=== PATIENT | male | born 1950 | race Caucasian/White ===

== ENCOUNTER 2021-05-10 09:40 | Inpatient (IN) | payer MEDICARE, OTHER ==
--- NOTE | 2021-05-10 09:54 | EDM.PDOC ---
ED HPI GENERAL MEDICAL PROBLEM - General Chief Complaint: Respiratory Problem Stated Complaint: BLUE AROUND LIPS Time Seen by Provider: 05/10/21 09:42 Source of Information: Reports: Patient History Limitations: Reports: No Limitations - History of Present Illness INITIAL COMMENTS - FREE TEXT/NARRATIVE: Hussain is a 71-year-old male presenting to the ED with his son by private vehicle for evaluation of increasing hypoxia, shortness of breath, and perioral cyanosis. The patient presented to the [facility] on 05/08/2021 and was seen by Linwood Kulkarni who diagnosed him with acute sinusitis and started him on Augmentin. At the time of that visit the patient had a COVID-19 test which resulted on 05/09/2021 as positive. Patient was notified of this and advised on what signs to watch for. This morning the patient started having perioral cyanosis, increasing shortness of breath and more air hunger. The patient has not had any appetite and has been sleeping most of the day so he has not been taking in much in the way of nutrition for the last several days. He called the [facility] nurse triage line who recommended that he be seen right away in the emergency room. Upon arrival, the patient's SPO2 is only 86% on room air and the patient is mildly tachypneic with a respiratory rate of 24. He is afebrile at this time. Patient did get vaccinated for Covid with the Pfizer vaccine in August and September of this year. It does not appear that he has received a booster at time. Or discussions with the patient about monoclonal therapy, however, no order has been placed for this at this time. Generalized Pain Score (Numeric/FACES): 8 - Related Data Allergies Allergy/AdvReac Type Severity Reaction Status Date / Time amitriptyline AdvReac Lethargy Verified 05/10/21 10:36 duloxetine AdvReac Other Verified 05/10/21 10:36 Home Meds: Home Meds Amoxicillin/Potassium Clav [Amox Tr-K Clv 875-125 mg Tab] 1 each PO BID 05/10/21 [History] Aspirin [Halfprin] 81 mg PO DAILY 05/10/21 [History] Gabapentin [Neurontin] 100 mg PO BID 05/10/21 [History] ED ROS GENERAL - Review of Systems Review Of Systems: See Below Constitutional: Reports: Fever, Chills, Malaise, Weakness, Fatigue, Decreased Appetite HEENT: Reports: Rhinitis, Sinus Problem Respiratory: Reports: Shortness of Breath, Cough. Denies: Sputum Cardiovascular: Reports: Chest Pain Endocrine: Reports: Fatigue GI/Abdominal: Reports: Decreased Appetite. Denies: Diarrhea, Nausea, Vomiting : Reports: No Symptoms Musculoskeletal: Reports: Muscle Pain Skin: Reports: Cyanosis Neurological: Reports: Headache Psychiatric: Reports: No Symptoms Hematologic/Lymphatic: Reports: No Symptoms Immunologic: Reports: No Symptoms ED EXAM, GENERAL - Physical Exam Exam: See Below Exam Limited By: No Limitations General Appearance: Alert, Anxious, Mild Distress Eye Exam: Bilateral Eye: EOMI, PERRL Nose: Nasal Swelling, Nasal Drainage, Clear Rhinorrhea Throat/Mouth: Normal Oropharynx, Normal Voice, No Airway Compromise, Perioral Cyanosis Head: Atraumatic, Normocephalic Neck: Normal Inspection, Supple, Non-Tender Respiratory/Chest: No Accessory Muscle Use, Decreased Breath Sounds (Diminished breath sounds in the bases), Rhonchi (Scattered rhonchi in the bottom half of the lungs), Other (Tachypnea) Cardiovascular: Normal Peripheral Pulses, Regular Rate, Rhythm, No Murmur Peripheral Pulses: 2+: Radial (L), Radial (R) GI/Abdominal: Soft, Non-Tender, Abnormal Bowel Sounds (Hyperactive bowel sounds) Extremities: Normal Inspection, No Pedal Edema Neurological: Alert, Oriented, Normal Cognition, No Motor/Sensory Deficits Psychiatric: Normal Affect, Anxious Skin Exam: Warm, Dry, Cyanosis (Perioral cyanosis) Course - Vital Signs Last Recorded V/S: Last Vital Signs Temp 36.9 C 05/10/21 09:48 Pulse 88 05/10/21 10:38 Resp 18 05/10/21 10:38 BP 134/76 05/10/21 10:38 Pulse Ox 97 05/10/21 10:38 - Orders/Labs/Meds Orders: Active Orders 24 hr Category Date Time Status Chest 1V Frontal [CR] Stat Exams 05/10/21 09:48 Taken Labs: Laboratory Tests 05/10/21 05/10/21 05/10/21 Range/Units 10:08 10:08 10:08 WBC 7.2 (4.5-11.0) K/uL RBC 4.42 (4.30-5.90) M/uL Hgb 13.6 (12.0-15.0) g/dL Hct 39.8 L (40.0-54.0) % MCV 90 (80-98) fL MCH 31 (27-31) pg MCHC 34 (32-36) % Plt Count 237 (150-400) K/uL Neut % (Auto) 81.9 H (36-66) % Lymph % (Auto) 11.9 L (24-44) % [place] % (Auto) 5.8 (2-6) % Eos % (Auto) 0.0 L (2-4) % Baso % (Auto) 0.4 (0-1) % D-Dimer, Quantitative 892.52 H (0.0-500.0) ng/mL Sodium 139 L (140-148) mmol/L Potassium 3.5 L (3.6-5.2) mmol/L Chloride 101 (100-108) mmol/L Carbon Dioxide 26 (21-32) mmol/L Anion Gap 15.5 H (5.0-14.0) mmol/L BUN 13 (7-18) mg/dL Creatinine 1.0 (0.8-1.3) mg/dL Est Cr Clr Drug Dosing 57.56 mL/min Estimated GFR (MDRD) > 60 (>60) Glucose 172 H (74-106) mg/dL Lactic Acid (0.4-2.0) mmol/L Calcium 8.5 (8.5-10.1) mg/dL Ferritin 5365 H (8-388) ng/ml Total Bilirubin 0.7 (0.2-1.0) mg/dL AST 54 H (15-37) U/L ALT 49 (12-78) U/L Alkaline Phosphatase 51 (46-116) U/L Lactate Dehydrogenase 427 H (85-227) U/L C-Reactive Protein 13.78 H (0.0-0.3) mg/dL Total Protein 7.2 (6.4-8.2) g/dL Albumin 3.2 L (3.4-5.0) g/dL Globulin 4.0 H (2.3-3.5) g/dL Albumin/Globulin Ratio 0.8 L (1.2-2.2) Procalcitonin ng/mL 05/10/21 05/10/21 Range/Units 10:08 10:08 WBC (4.5-11.0) K/uL RBC (4.30-5.90) M/uL Hgb (12.0-15.0) g/dL Hct (40.0-54.0) % MCV (80-98) fL MCH (27-31) pg MCHC (32-36) % Plt Count (150-400) K/uL Neut % (Auto) (36-66) % Lymph % (Auto) (24-44) % [place] % (Auto) (2-6) % Eos % (Auto) (2-4) % Baso % (Auto) (0-1) % D-Dimer, Quantitative (0.0-500.0) ng/mL Sodium (140-148) mmol/L Potassium (3.6-5.2) mmol/L Chloride (100-108) mmol/L Carbon Dioxide (21-32) mmol/L Anion Gap (5.0-14.0) mmol/L BUN (7-18) mg/dL Creatinine (0.8-1.3) mg/dL Est Cr Clr Drug Dosing mL/min Estimated GFR (MDRD) (>60) Glucose (74-106) mg/dL Lactic Acid 1.5 (0.4-2.0) mmol/L Calcium (8.5-10.1) mg/dL Ferritin (8-388) ng/ml Total Bilirubin (0.2-1.0) mg/dL AST (15-37) U/L ALT (12-78) U/L Alkaline Phosphatase (46-116) U/L Lactate Dehydrogenase (85-227) U/L C-Reactive Protein (0.0-0.3) mg/dL Total Protein (6.4-8.2) g/dL Albumin (3.4-5.0) g/dL Globulin (2.3-3.5) g/dL Albumin/Globulin Ratio (1.2-2.2) Procalcitonin 0.12 ng/mL - Radiology Interpretation Free Text/Narrative:: I reviewed the 1 view chest x-ray showing scattered groundglass opacities bilaterally consistent with acute Covid pneumonitis. - Re-Assessments/Exams Free Text/Narrative Re-Assessment/Exam: 05/10/21 11:29 patient's labs showing a normal CBC with a leukocyte count of 7.2, hemoglobin of 13.6, and platelet count of 237,000. The patient's comprehensive metabolic panel shows a sodium 139, potassium 3.5, chloride of 101, bicarbonate of 26, BUN of 13 with a creatinine of 1.0 and a glucose of 172. GFR is calculated at greater than 60. Calcium is 8.5, AST is 54, ALT is 49. C-reactive protein is markedly elevated at 13.78. D-dimer is 892. Lactic acid is 1.5, LDH is 427, ferritin is 5365 and procalcitonin 0.12. As the patient is Covid positive and shows inflammation via his markers as well as on his chest x- ray, and he is requiring oxygen to maintain saturations above 90%, we will arrange for admission of the patient for further care. I discussed the case with Dr. Valero to admit the patient. We will initiate therapy with dexamethaso ne 6 mg IV and remdesivir 200 mg IV for treatment of COVID-19. Departure - Departure Time of Disposition: 11:33 Disposition: Admitted As Inpatient 67 Clinical Impression: COVID-19, Pneumonia due to COVID-19 virus Respiratory failure with hypoxia Qualifiers: Chronicity: acute Qualified Code(s): J96.01 - Acute respiratory failure with hypoxia - Discharge Information Referrals: PCP,None [Primary Care Provider] - Forms: ED Department Discharge Sepsis Event Note (ED) - Focused Exam Vital Signs: Vital Signs Temp Pulse Resp BP Pulse Ox 05/10/21 10:38 88 18 134/76 97 05/10/21 09:48 36.9 C 90 24 H 145/87 H 84 L - Problem List & Annotations (1) COVID-19 SNOMED Code(s): 792061381 Code(s): U07.1 - COVID-19 Status: Acute Priority: High Current Visit: Yes (2) Respiratory failure with hypoxia SNOMED Code(s): 35264757129898157 Code(s): J96.91 - RESPIRATORY FAILURE, UNSPECIFIED WITH HYPOXIA Status: Acute Priority: High Current Visit: Yes Qualifiers: Chronicity: acute Qualified Code(s): J96.01 - Acute respiratory failure with hypoxia (3) Pneumonia due to COVID-19 virus SNOMED Code(s): 492197286395203365 Code(s): U07.1 - COVID-19; J12.82 - PNEUMONIA DUE TO CORONAVIRUS DISEASE 2019 Status: Acute Priority: High Current Visit: Yes - Problem List Review Problem List Initiated/Reviewed/Updated: Yes - My Orders Last 24 Hours: My Active Orders 05/10/21 09:48 Chest 1V Frontal [CR] Stat - Assessment/Plan Last 24 Hours: My Active Orders 05/10/21 09:48 Chest 1V Frontal [CR] Stat
[2021-05-10] MEDS ORDERED: REMDESIVIR 200 MG in Sodium Chloride 0.9% 250 ML IV ONE ×2 (11:33→12:00)
[2021-05-10] MEDS ORDERED: Acetaminophen 325 MG Tab PO PRN (11:33)
[2021-05-10] MEDS: Dexamethasone 4 MG/ML SDV IVPUSH SCH (12:24)
--- NOTE | 2021-05-10 13:03 | PCM.HP.2 ---
H&P History of Present Illness - General Date of Service: 05/10/21 Admit Problem/Dx: Admission Diagnosis/Problem Admission Diagnosis/Problem Pneumonia Source of Information: Patient, Provider History Limitations: Reports: No Limitations - History of Present Illness Initial Comments - Free Text/Narative: CC: covid HPI: Hussain presents to the emergency room today with progressive nasal congestion, cough, shortness of breath, weakness and anorexia. Symptoms started on Tuesday of last week, May 05. Initially he thought he had a sinus infection. He did see a provider in care transitions manager and was diagnosed with a sinus infection and started on Augmentin. The next day his Covid test came back positive. Since that time he has had progressive increase in weakness and shortness of breath as well as cough. He came in today because he was extremely weak and having a hard time breathing. He reports he has been sleeping about 20 hours a day because he is so tired. He has had very little to eat or drink. He is not aware of any fevers. No report of headache, sore throat or nausea. He has had some diarrhea. No obvious sick contacts. He was vaccinated last spr . Work-up in the emergency room revealed evidence for hypoxic respiratory failure in the setting of Covid pneumonia. Moderate elevation of D-dimer and more impressive elevation of CRP. He is currently requiring 4 L of oxygen. He received dexamethasone and remdesivir in the emergency room. He will be admitted for further management. Generalized Pain Score (Numeric/FACES): 8 - Related Data Allergies/Adverse Reactions: Allergies Allergy/AdvReac Type Severity Reaction Status Date / Time amitriptyline AdvReac Lethargy Verified 05/10/21 10:36 duloxetine AdvReac Other Verified 05/10/21 10:36 Home Medications: Home Meds Amoxicillin/Potassium Clav [Amox Tr-K Clv 875-125 mg Tab] 1 each PO BID 05/10/21 [History] Aspirin [Halfprin] 81 mg PO DAILY 05/10/21 [History] Gabapentin [Neurontin] 100 mg PO BID 05/10/21 [History] Past Medical History Cardiovascular History: Reports: None Respiratory History: Reports: None Gastrointestinal History: Reports: None Musculoskeletal History: Reports: None Neurological History: Reports: Neuropathy, Diabetic Psychiatric History: Reports: None Endocrine/Metabolic History: Reports: Diabetes, Type II Other Endocrine/Metabolic History: diet control Hematologic History: Reports: None Immunologic History: Reports: None Oncologic (Cancer) History: Reports: Pancreatic Dermatologic History: Reports: None - Infectious Disease History Infectious Disease History: Reports: Chicken Pox, Influenza, Measles, Mumps, Novel Coronavirus - Past Surgical History HEENT Surgical History: Reports: Adenoidectomy, Tonsillectomy GI Surgical History: Reports: None Male Surgical History: Reports: Prostatectomy Social & Family History - Family History Endocrine/Metabolic: Reports: Diabetes, type II (father) - Tobacco Use Tobacco Use Status *Q: Former Tobacco User Used Tobacco, but Quit: Yes Month/Year Tobacco Last Used: 45 years - Caffeine Use Caffeine Use: Reports: Coffee - Alcohol Use Alcohol Use History: Yes Days Per Week of Alcohol Use: 3 Alcohol Use in Last Twelve Months: Yes Alcohol Use Frequency: Socially - Recreational Drug Use Recreational Drug Use: No H&P Review of Systems - Review of Systems: Review Of Systems: See Below Free Text/Narrative: A complete 12 point review of systems was obtained. Pertinent positives and negatives are noted in the history of present illness. All other systems were reviewed and were negative except as noted. Exam - Exam Exam: See Below - Vital Signs Vital Signs: Last Vital Signs Temp 36.9 C 05/10/21 09:48 Pulse 88 05/10/21 10:38 Resp 18 05/10/21 10:38 BP 134/76 05/10/21 10:38 Pulse Ox 97 05/10/21 10:38 Weight: 93.44 kg - Exam Quality Assessment: Supplemental Oxygen General: Alert, Oriented, Cooperative. No: Mild Distress HEENT: Conjunctiva Clear. No: Mucosa Moist [place] (dry), Scleral Icterus Neck: Supple, Trachea Midline. No: Lymphadenopathy Lungs: Normal Respiratory Effort, Crackles (few both bases L>R). No: Wheezing Cardiovascular: Regular Rate, Regular Rhythm. No: Systolic Murmur GI/Abdominal Exam: Normal Bowel Sounds, Soft, Non-Tender, No Distention Extremities: No Pedal Edema. No: Increased Warmth Peripheral Pulses: 1+: Dorsalis Pedis (L), Dorsalis Pedis (R) Skin: Warm, Dry Neuro Extensive - Mental Status: Alert, Oriented x3, Nl Response to Commands Neuro Extensive - Motor, Sensory, Reflexes: No: Dysarthria, Abnormal Motor, Tremor Psychiatric: Alert, Normal Affect - Patient Data Lab Results Last 24 hrs: Laboratory Results - last 24 hr 05/10/21 05/10/21 05/10/21 Range/Units 10:08 10:08 10:08 WBC 7.2 (4.5-11.0) K/uL RBC 4.42 (4.30-5.90) M/uL Hgb 13.6 (12.0-15.0) g/dL Hct 39.8 L (40.0-54.0) % MCV 90 (80-98) fL MCH 31 (27-31) pg MCHC 34 (32-36) % Plt Count 237 (150-400) K/uL Neut % (Auto) 81.9 H (36-66) % Lymph % (Auto) 11.9 L (24-44) % [place] % (Auto) 5.8 (2-6) % Eos % (Auto) 0.0 L (2-4) % Baso % (Auto) 0.4 (0-1) % D-Dimer, Quantitative 892.52 H (0.0-500.0) ng/mL Puncture Site ABG pH (7.350-7.450) ABG pCO2 (35.0-42.0) mmHg ABG pO2 (75.0-100.0) mmHg ABG HCO3 (22.0-26.0) mmol/L ABG Total CO2 (23.0-27.0) mmol/L ABG O2 Saturation (95.0-98.0) % ABG O2 Content (15.0-23.0) %vol ABG Base Excess mm/L ABG Hemoglobin (13.5-18.0) g/dL ABG Oxyhemoglobin % ABG Carboxyhemoglobin (0.0-1.6) % ABG Methemoglobin % Rodrigo Test O2 Delivery Device Oxygen Flow Rate L Sodium 139 L (140-148) mmol/L Potassium 3.5 L (3.6-5.2) mmol/L Chloride 101 (100-108) mmol/L Carbon Dioxide 26 (21-32) mmol/L Anion Gap 15.5 H (5.0-14.0) mmol/L BUN 13 (7-18) mg/dL Creatinine 1.0 (0.8-1.3) mg/dL Est Cr Clr Drug Dosing 57.56 mL/min Estimated GFR (MDRD) > 60 (>60) Glucose 172 H (74-106) mg/dL Lactic Acid (0.4-2.0) mmol/L Calcium 8.5 (8.5-10.1) mg/dL Ferritin 5365 H (8-388) ng/ml Total Bilirubin 0.7 (0.2-1.0) mg/dL AST 54 H (15-37) U/L ALT 49 (12-78) U/L Alkaline Phosphatase 51 (46-116) U/L Lactate Dehydrogenase 427 H (85-227) U/L C-Reactive Protein 13.78 H (0.0-0.3) mg/dL Total Protein 7.2 (6.4-8.2) g/dL Albumin 3.2 L (3.4-5.0) g/dL Globulin 4.0 H (2.3-3.5) g/dL Albumin/Globulin Ratio 0.8 L (1.2-2.2) Procalcitonin ng/mL 05/10/21 05/10/21 05/10/21 Range/Units 10:08 10:08 11:34 WBC (4.5-11.0) K/uL RBC (4.30-5.90) M/uL Hgb (12.0-15.0) g/dL Hct (40.0-54.0) % MCV (80-98) fL MCH (27-31) pg MCHC (32-36) % Plt Count (150-400) K/uL Neut % (Auto) (36-66) % Lymph % (Auto) (24-44) % [place] % (Auto) (2-6) % Eos % (Auto) (2-4) % Baso % (Auto) (0-1) % D-Dimer, Quantitative (0.0-500.0) ng/mL Puncture Site Lt radial ABG pH 7.506 H (7.350-7.450) ABG pCO2 28.8 L (35.0-42.0) mmHg ABG pO2 74.0 L (75.0-100.0) mmHg ABG HCO3 22.6 (22.0-26.0) mmol/L ABG Total CO2 19.7 L (23.0-27.0) mmol/L ABG O2 Saturation 95.8 (95.0-98.0) % ABG O2 Content 17.4 (15.0-23.0) %vol ABG Base Excess 0.8 mm/L ABG Hemoglobin 13.2 L (13.5-18.0) g/dL ABG Oxyhemoglobin 93.3 % ABG Carboxyhemoglobin 1.8 H (0.0-1.6) % ABG Methemoglobin 0.8 % Rodrigo Test Passed O2 Delivery Device Nasal cannula Oxygen Flow Rate L Sodium (140-148) mmol/L Potassium (3.6-5.2) mmol/L Chloride (100-108) mmol/L Carbon Dioxide (21-32) mmol/L Anion Gap (5.0-14.0) mmol/L BUN (7-18) mg/dL Creatinine (0.8-1.3) mg/dL Est Cr Clr Drug Dosing mL/min Estimated GFR (MDRD) (>60) Glucose (74-106) mg/dL Lactic Acid 1.5 (0.4-2.0) mmol/L Calcium (8.5-10.1) mg/dL Ferritin (8-388) ng/ml Total Bilirubin (0.2-1.0) mg/dL AST (15-37) U/L ALT (12-78) U/L Alkaline Phosphatase (46-116) U/L Lactate Dehydrogenase (85-227) U/L C-Reactive Protein (0.0-0.3) mg/dL Total Protein (6.4-8.2) g/dL Albumin (3.4-5.0) g/dL Globulin (2.3-3.5) g/dL Albumin/Globulin Ratio (1.2-2.2) Procalcitonin 0.12 ng/mL Result Diagrams: 05/10/21 10:08 05/10/21 10:08 Imaging Impressions Last 24 hrs: CXR-images personally reviewed-there are mild patchy diffuse infiltrates c/w covid. No effusion or mass. Heart size is normal. Sepsis Event Note - Focused Exam Vital Signs: Vital Signs Temp Pulse Resp BP Pulse Ox 05/10/21 10:38 88 18 134/76 97 05/10/21 09:48 36.9 C 90 24 H 145/87 H 84 L *Q Meaningful Use (ADM) - VTE Risk Assess *Q Each Risk Factor Represents 1 Point: Obesity ( BMI > 25 kg/m2), Serious lung disease including pneumonia Total Score 1 Point Risk Factors: 2 Each Risk Factor Represents 2 Points: Age 60 - 74 Years, Malignancy (present or previous) Total Score 2 Point Risk Factors: 4 Each Risk Factor Represents 3 Points: None Total Score 3 Point Risk Factors: 0 Each Risk Factor Represents 5 Points: None Total Score 5 Point Risk Factors: 0 Venous Thromboembolism Risk Factor Score *Q: 6 - Problem List (1) Pneumonia due to COVID-19 virus SNOMED Code(s): 178506788964045625 ICD Code: U07.1 - COVID-19; J12.82 - PNEUMONIA DUE TO CORONAVIRUS DISEASE 2018 Status: Acute Priority: High Current Visit: Yes (2) Respiratory failure with hypoxia SNOMED Code(s): 05286522353179967 ICD Code: J96.91 - RESPIRATORY FAILURE, UNSPECIFIED WITH HYPOXIA Status: Acute Priority: High Current Visit: Yes Qualifiers: Chronicity: acute Qualified Code(s): J96.01 - Acute respiratory failure with hypoxia (3) DM II (diabetes mellitus, type II), controlled SNOMED Code(s): 47251911, 193515939 ICD Code: E11.9 - TYPE 2 DIABETES MELLITUS WITHOUT COMPLICATIONS Status: Chronic Current Visit: Yes Qualifiers: Diabetes mellitus intermediate insulin use: without intermediate use Diabetes mellitus complication status: without complication Qualified Code(s): E11.9 - Type 2 diabetes mellitus without complications (4) History of prostate cancer SNOMED Code(s): 022869161 ICD Code: Z85.46 - PERSONAL HISTORY OF MALIGNANT NEOPLASM OF PROSTATE Status: Chronic Current Visit: Yes Problem List Initiated/Reviewed/Updated: Yes Orders Last 24hrs: Active Orders 24 hr Category Date Time Status Patient Status Manage Transfer [TRANSFER] Routine ADT 05/10/21 12:55 Ordered Chest 1V Frontal [CR] Stat Exams 05/10/21 09:48 Taken HEPATIC FUNCTION PANEL,HFP [CHEM] DAILY Lab 05/11/21 11:45 Ordered HEPATIC FUNCTION PANEL,HFP [CHEM] DAILY Lab 05/12/21 11:45 Ordered HEPATIC FUNCTION PANEL,HFP [CHEM] DAILY Lab 05/13/21 11:45 Ordered HEPATIC FUNCTION PANEL,HFP [CHEM] DAILY Lab 05/14/21 11:45 Ordered HEPATIC FUNCTION PANEL,HFP [CHEM] Stat Lab 05/10/21 11:34 Ordered Acetaminophen [TylenoL] Med 05/10/21 11:33 Active 650 mg PO Q4H PRN dexAMETHasone [Decadron] Med 05/10/21 11:45 Active 6 mg IVPUSH DAILY Isolation [COMM] Stat Oth 05/10/21 11:34 Ordered Resuscitation Status Routine Resus Stat 05/10/21 12:56 Ordered Medication Orders Acetaminophen (Acetaminophen 325 Mg Tab) 650 mg PO Q4H PRN PRN Reason: Fever Greater Than 101 Dexamethasone (Dexamethasone 4 Mg/Ml Sdv) 6 mg IVPUSH DAILY LIS Stop: 05/19/21 09:01 Last Admin: 05/10/21 12:24 Dose: 6 mg Documented by: PREILOR Assessment/Plan Comment:: ASSESSMENT AND PLAN - COVID-19 pneumonia-complicated by acute respiratory failure with hypoxia. Symptom onset 05/05. Currently requiring 4 L of oxygen. Mild/moderate elevation of D-dimer and more significant elevation of CRP. No history of lung disease. He was previously vaccinated. -Remdesivir x5 days -Dexamethasone 6 mg daily (day 1) -Enoxaparin every 24 hours -Repeat labs every 2 days -Symptomatic management of cough -Isolation precautions Type 2 diabetes mellitus-diet controlled. I would not be surprised if he develops hyperglycemia with the steroids. -Sliding scale insulin History of prostate cancer-doing well since treatment a couple of years ago. Follow-up scans and PSA have been reassuring. Maintenance issues - -DVT prophylaxis-enoxaparin -GI prophylaxis-PPI -Nutrition-consistent carbohydrates -Lara catheter-not indicated CODE STATUS -full code Admission justification -this patient will be admitted for inpatient services and is medically appropriate meeting medical necessity for inpatient admission as outlined in my documentation. I reasonably expect the patient will require inpatient services that span a period time over 2 midnights. I reasonably expect this patient to be discharged or transferred within 96 hours [facility]. Disposition -I anticipate discharge home after the hospital stay Primary care physician -Dr Kiran Valero M.D. - Mortality Measure Prognosis:: Good
[2021-05-10] MEDS ORDERED: Ondansetron 4 MG Tab.DIS PO PRN (13:27)
[2021-05-10] MEDS ORDERED: Ondansetron 4 MG/2 ML SDV IV PRN (13:27)
[2021-05-10] MEDS ORDERED: Magnesium Hydroxide 400 MG/5 ML Susp 30 ML Cup PO PRN (13:27)
[2021-05-10] MEDS ORDERED: LORazepam 2 MG/ML SDV IVPUSH PRN (13:27)
[2021-05-10] MEDS: Benzonatate 100 MG Cap PO PRN (13:49)
[2021-05-10] MEDS: Enoxaparin 40 MG/0.4 ML Syringe SUBCUT SCH (14:30)
[2021-05-10] MEDS: Insulin Lispro 100 Unit/ML 3 ML KwikPen SUBCUT SCH ×2 (18:15→20:49)
[2021-05-10] MEDS: Gabapentin 100 MG Cap PO SCH (20:34)
[2021-05-10] MEDS: Melatonin 3 MG Tab PO PRN (20:47)
[2021-05-10] MEDS: guaiFENesin/Dextromethorphan 100-10 MG/5 ML Soln 10 ML Cup PO PRN (20:47)
[2021-05-11] MEDS: Insulin Lispro 100 Unit/ML 3 ML KwikPen SUBCUT SCH ×5 (07:55→21:39)
[2021-05-11] MEDS: Pantoprazole 40 MG Tab.CR PO SCH (07:56)
[2021-05-11] MEDS: Aspirin 81 MG Tab.EC PO SCH (07:59)
[2021-05-11] MEDS: Gabapentin 100 MG Cap PO SCH ×2 (07:59→21:38)
[2021-05-11] MEDS: Dexamethasone 4 MG/ML SDV IVPUSH SCH (08:02)
--- NOTE | 2021-05-11 09:28 | CR ---
CHEST: Portable 05/10/2021 at 10:07 AM CLINICAL HISTORY:Hypoxia, covid COMPARISON:None FINDINGS: There are patchy densities in both lung clark diffusely predominating in the lower lobes. Heart and pulmonary vascularity are normal. Impression: Patchy bilateral infiltrates may represent pneumonia or pneumonitis
[2021-05-11] MEDS: REMDESIVIR 100 MG in Sodium Chloride 0.9% 100 ML IV SCH (11:24)
[2021-05-11] MEDS: Enoxaparin 40 MG/0.4 ML Syringe SUBCUT SCH (13:15)
--- NOTE | 2021-05-11 17:00 | PCM.PN ---
- General Info Date of Service: 05/11/21 Subjective Update: Mr. Villalobos heard a progressive increase in supplemental oxygen since admission yesterday. This morning was switched over to high flow humidified oxygen and feels comfortable at current settings with good oxygenation. Appetite remains fairly good but he does feel weak and short of breath with fairly minimal exertion. Functional Status: Reports: Tolerating Diet, Urinating. Denies: Ambulating - Review of Systems General: Reports: Weakness, Fatigue. Denies: Fever, Chills Pulmonary: Reports: Shortness of Breath, Cough. Denies: Pleuritic Chest Pain, Sputum, Hemoptysis, Wheezing Cardiovascular: Reports: Dyspnea on Exertion. Denies: Chest Pain, Palpitations, Orthopnea, PND, Edema, Lightheadedness Gastrointestinal: Reports: No Symptoms Genitourinary: Reports: No Symptoms - Patient Data Vitals - Most Recent: Last Vital Signs Temp 97.9 F 05/11/21 15:00 Pulse 93 05/11/21 15:00 Resp 18 05/11/21 15:00 BP 119/58 L 05/11/21 15:00 Pulse Ox 93 L 05/11/21 15:00 Weight - Most Recent: 206 lb Lab Results Last 24 Hours: Laboratory Results - last 24 hr 05/10/21 05/11/21 05/11/21 Range/Units 20:15 04:40 04:40 WBC 8.3 (4.5-11.0) K/uL RBC 4.30 (4.30-5.90) M/uL Hgb 13.2 (12.0-15.0) g/dL Hct 38.7 L (40.0-54.0) % MCV 90 (80-98) fL MCH 31 (27-31) pg MCHC 34 (32-36) % Plt Count 272 (150-400) K/uL Sodium 144 (140-148) mmol/L Potassium 3.5 L (3.6-5.2) mmol/L Chloride 104 (100-108) mmol/L Carbon Dioxide 28 (21-32) mmol/L Anion Gap 15.5 H (5.0-14.0) mmol/L BUN 18 (7-18) mg/dL Creatinine 0.9 (0.8-1.3) mg/dL Est Cr Clr Drug Dosing 63.95 mL/min Estimated GFR (MDRD) > 60 (>60) Glucose 180 H (74-106) mg/dL POC Glucose 199 H (74-106) mg/dL Calcium 9.2 (8.5-10.1) mg/dL Total Bilirubin 0.6 (0.2-1.0) mg/dL AST 41 H (15-37) U/L ALT 46 (12-78) U/L Alkaline Phosphatase 44 L (46-116) U/L Total Protein 6.9 (6.4-8.2) g/dL Albumin 2.9 L (3.4-5.0) g/dL Globulin 4.0 H (2.3-3.5) g/dL Albumin/Globulin Ratio 0.7 L (1.2-2.2) 05/11/21 05/11/21 05/11/21 Range/Units 07:34 11:28 16:33 WBC (4.5-11.0) K/uL RBC (4.30-5.90) M/uL Hgb (12.0-15.0) g/dL Hct (40.0-54.0) % MCV (80-98) fL MCH (27-31) pg MCHC (32-36) % Plt Count (150-400) K/uL Sodium (140-148) mmol/L Potassium (3.6-5.2) mmol/L Chloride (100-108) mmol/L Carbon Dioxide (21-32) mmol/L Anion Gap (5.0-14.0) mmol/L BUN (7-18) mg/dL Creatinine (0.8-1.3) mg/dL Est Cr Clr Drug Dosing mL/min Estimated GFR (MDRD) (>60) Glucose (74-106) mg/dL POC Glucose 167 H 196 H 403 H* (74-106) mg/dL Calcium (8.5-10.1) mg/dL Total Bilirubin (0.2-1.0) mg/dL AST (15-37) U/L ALT (12-78) U/L Alkaline Phosphatase (46-116) U/L Total Protein (6.4-8.2) g/dL Albumin (3.4-5.0) g/dL Globulin (2.3-3.5) g/dL Albumin/Globulin Ratio (1.2-2.2) Med Orders - Current: Current Medications Acetaminophen (Acetaminophen 325 Mg Tab) 650 mg PO Q4H PRN PRN Reason: Pain (Mild 1-3)/fever Aspirin (Aspirin 81 Mg Tab.Ec) 81 mg PO DAILY [facility] [place] Last Admin: 05/11/21 07:59 Dose: 81 mg Documented by: Baricitinib (Baricitinib 2 Mg Tab) 4 mg PO Q24H [facility] [place] Stop: 05/24/21 16:01 Last Admin: 05/11/21 15:40 Dose: 4 mg Documented by: Benzonatate (Benzonatate 100 Mg Cap) 100 mg PO TID PRN PRN Reason: Cough Last Admin: 05/10/21 13:49 Dose: 100 mg Documented by: Dexamethasone (Dexamethasone 4 Mg/Ml Sdv) 6 mg IVPUSH DAILY [facility] [place] Stop: 05/19/21 09:01 Last Admin: 05/11/21 08:02 Dose: 6 mg Documented by: Enoxaparin Sodium (Enoxaparin 40 Mg/0.4 Ml Syringe) 40 mg SUBCUT Q24H [facility] [place] Last Admin: 05/11/21 13:15 Dose: 40 mg Documented by: Gabapentin (Gabapentin 100 Mg Cap) 100 mg PO BID [facility] [place] Last Admin: 05/11/21 07:59 Dose: 100 mg Documented by: Guaifenesin/Dextromethorphan (Guaifenesin/Dextromethorphan 100-10 Mg/5 Ml Soln 1 0 Ml Cup) 10 ml PO Q4H PRN PRN Reason: Cough Last Admin: 05/10/21 20:47 Dose: 10 ml Documented by: Remdesivir 100 mg/ Sodium (Chloride) 100 mls @ 100 mls/hr IV Q24H [facility] [place] Stop: 05/14/21 12:59 Last Admin: 05/11/21 11:24 Dose: 100 mls/hr Documented by: Insulin Human Lispro (Insulin Lispro 100 Unit/Ml 3 Ml Kwikpen) 0 unit SUBCUT QIDACANDBED [facility] [place]; Protocol Lorazepam (Lorazepam 2 Mg/Ml Sdv) 0.5 mg IVPUSH Q4H PRN PRN Reason: Nausea/Vomiting Magnesium Hydroxide (Magnesium Hydroxide 400 Mg/5 Ml Susp 30 Ml Cup) 30 ml PO Q12H PRN PRN Reason: Constipation Melatonin (Melatonin 3 Mg Tab) 9 mg PO BEDTIME PRN PRN Reason: Sleep Last Admin: 05/10/21 20:47 Dose: 9 mg Documented by: Ondansetron HCl (Ondansetron 4 Mg/2 Ml Sdv) 4 mg IV Q6H PRN PRN Reason: Nausea/Vomiting Ondansetron HCl (Ondansetron 4 Mg Tab.Dis) 4 mg PO Q6H PRN PRN Reason: Nausea able to take PO Pantoprazole Sodium (Pantoprazole 40 Mg Tab.Cr) 40 mg PO ACBREAKFAST [facility] [place] Last Admin: 05/11/21 07:56 Dose: 40 mg Documented by: Senna/Docusate Sodium (Docusate Sodium/Sennosides 50-8.6 Mg Tab) 1 tab PO BID PRN PRN Reason: Constipation Discontinued Medications Acetaminophen (Acetaminophen 325 Mg Tab) 650 mg PO Q4H PRN PRN Reason: Fever Greater Than 101 Remdesivir 200 mg/ Sodium (Chloride) 250 mls @ 250 mls/hr IV ONETIME ONE Stop: 05/10/21 12:59 Last Admin: 05/10/21 12:26 Dose: 250 mls/hr Documented by: Insulin Human Lispro (Insulin Lispro 100 Unit/Ml 3 Ml Kwikpen) 0 unit SUBCUT QIDACANDBED [facility] [place]; Protocol Last Admin: 05/11/21 11:42 Dose: 1 units Documented by: - Exam Quality Assessment: Supplemental Oxygen, DVT Prophylaxis General: Alert, Oriented, Cooperative, Moderate Distress Lungs: Crackles. No: Rales, Rhonchi, Wheezing Cardiovascular: Regular Rate, Regular Rhythm, No Murmurs GI/Abdominal Exam: Soft, Non-Tender, No Organomegaly, No Distention Extremities: Non-Tender, No Pedal Edema - Patient Data Lab Results Last 24 hrs: Laboratory Results - last 24 hr 05/10/21 05/11/21 05/11/21 Range/Units 20:15 04:40 04:40 WBC 8.3 (4.5-11.0) K/uL RBC 4.30 (4.30-5.90) M/uL Hgb 13.2 (12.0-15.0) g/dL Hct 38.7 L (40.0-54.0) % MCV 90 (80-98) fL MCH 31 (27-31) pg MCHC 34 (32-36) % Plt Count 272 (150-400) K/uL Sodium 144 (140-148) mmol/L Potassium 3.5 L (3.6-5.2) mmol/L Chloride 104 (100-108) mmol/L Carbon Dioxide 28 (21-32) mmol/L Anion Gap 15.5 H (5.0-14.0) mmol/L BUN 18 (7-18) mg/dL Creatinine 0.9 (0.8-1.3) mg/dL Est Cr Clr Drug Dosing 63.95 mL/min Estimated GFR (MDRD) > 60 (>60) Glucose 180 H (74-106) mg/dL POC Glucose 199 H (74-106) mg/dL Calcium 9.2 (8.5-10.1) mg/dL Total Bilirubin 0.6 (0.2-1.0) mg/dL AST 41 H (15-37) U/L ALT 46 (12-78) U/L Alkaline Phosphatase 44 L (46-116) U/L Total Protein 6.9 (6.4-8.2) g/dL Albumin 2.9 L (3.4-5.0) g/dL Globulin 4.0 H (2.3-3.5) g/dL Albumin/Globulin Ratio 0.7 L (1.2-2.2) 05/11/21 05/11/21 05/11/21 Range/Units 07:34 11:28 16:33 WBC (4.5-11.0) K/uL RBC (4.30-5.90) M/uL Hgb (12.0-15.0) g/dL Hct (40.0-54.0) % MCV (80-98) fL MCH (27-31) pg MCHC (32-36) % Plt Count (150-400) K/uL Sodium (140-148) mmol/L Potassium (3.6-5.2) mmol/L Chloride (100-108) mmol/L Carbon Dioxide (21-32) mmol/L Anion Gap (5.0-14.0) mmol/L BUN (7-18) mg/dL Creatinine (0.8-1.3) mg/dL Est Cr Clr Drug Dosing mL/min Estimated GFR (MDRD) (>60) Glucose (74-106) mg/dL POC Glucose 167 H 196 H 403 H* (74-106) mg/dL Calcium (8.5-10.1) mg/dL Total Bilirubin (0.2-1.0) mg/dL AST (15-37) U/L ALT (12-78) U/L Alkaline Phosphatase (46-116) U/L Total Protein (6.4-8.2) g/dL Albumin (3.4-5.0) g/dL Globulin (2.3-3.5) g/dL Albumin/Globulin Ratio (1.2-2.2) Result Diagrams: 05/11/21 04:40 05/11/21 04:40 Sepsis Event Note - Evaluation Sepsis Screening Result: No Definite Risk - Focused Exam Vital Signs: Vital Signs Temp Pulse Resp BP Pulse Ox 05/11/21 15:00 97.9 F 93 18 119/58 L 93 L 05/11/21 14:00 93 L 05/11/21 11:15 95.4 F L 72 18 153/93 H 98 05/11/21 07:39 95.6 F L 66 18 125/73 93 L 05/11/21 07:30 93 L - Problem List Review Problem List Initiated/Reviewed/Updated: Yes - My Orders Last 24 Hours: My Active Orders 05/11/21 16:00 Baricitinib [Olumiant] 4 mg PO Q24H 05/11/21 17:00 Insulin Lispro [HumaLOG] See Protocol SUBCUT QIDACANDBED 05/12/21 05:00 CBC WITH AUTO DIFF [HEME] Timed COMPREHENSIVE METABOLIC PN,CMP [CHEM] Timed 05/12/21 05:11 CRP [C-REACTIVE PROTEIN] [CHEM] AM D Dimer [D-DIMER QUANTITATIVE] [COAG] AM GLYCOSYLATED HEMOGLOBIN,HGBA1C [CHEM] AM - Plan Plan:: ASSESSMENT AND PLAN COVID-19 pneumonia-complicated by acute respiratory failure with hypoxia. Symptom onset 05/05. Now requiring high flow humidified oxygen, with good oxygenation -Remdesivir x5 days, day 2 of 5 -Dexamethasone 6 mg daily (day 2) -Start baricitinib 4 mg p.o. daily, today is day 1 of 14 -Enoxaparin every 24 hours -Repeat labs every 2 days -Symptomatic management of cough -Isolation precautions Type 2 diabetes mellitus-diet controlled. I would not be surprised if he develops hyperglycemia with the steroids. -Sliding scale insulin -Monitor 4 times daily glucometers History of prostate cancer-doing well since treatment a couple of years ago. Follow-up scans and PSA have been reassuring. Maintenance issues - -DVT prophylaxis-enoxaparin -GI prophylaxis-PPI -Nutrition-consistent carbohydrates -Lara catheter-not indicated CODE STATUS -full code Admission justification -this patient will be admitted for inpatient services and is medically appropriate meeting medical necessity for inpatient admission as outlined in my documentation. I reasonably expect the patient will require inpatient services that span a period time over 2 midnights. I reasonably expect this patient to be discharged or transferred within 96 hours after admission to the [facility]. Disposition -I anticipate discharge home after the hospital stay Primary care physician -Dr Kiran Barakat
[2021-05-11] MEDS: Melatonin 3 MG Tab PO PRN (22:53)
[2021-05-12] MEDS ORDERED: Furosemide 20 MG/2 ML VIAL IVPUSH ONE (04:20)
[2021-05-12] MEDS: Albuterol 8 GM Inhaler INH PRN (04:39)
[2021-05-12 06:04] LABS: HEMOGLOBIN A1C 7.2 % (4.5-6.2)
[2021-05-12] MEDS: Insulin Lispro 100 Unit/ML 3 ML KwikPen SUBCUT SCH ×4 (08:12→22:27)
[2021-05-12] MEDS: Pantoprazole 40 MG Tab.CR PO SCH (09:22)
[2021-05-12] MEDS: Aspirin 81 MG Tab.EC PO SCH (09:22)
[2021-05-12] MEDS: Gabapentin 100 MG Cap PO SCH ×2 (09:22→22:23)
[2021-05-12] MEDS: Dexamethasone 4 MG/ML SDV IVPUSH SCH (09:32)
[2021-05-12] MEDS: REMDESIVIR 100 MG in Sodium Chloride 0.9% 100 ML IV SCH (12:42)
[2021-05-12] MEDS: Enoxaparin 40 MG/0.4 ML Syringe SUBCUT SCH (13:48)
--- NOTE | 2021-05-12 14:07 | PCM.PN ---
- General Info Date of Service: 05/12/21 Subjective Update: Mr. Villalobos has required increase in supplemental oxygen over the last 24 hours. He was transitioned to high flow humidified oxygen yesterday and during the nigh t had significant episodes of hypoxia requiring use of maximal oxygen support. He has been transferred to the intensive care unit. Since transfer he has been more stable but still requiring very high levels of supplemental oxygen. He reports that he feels comfortable with current level of support, ongoing cough is very troublesome for him. Functional Status: Reports: Urinating - Review of Systems General: Reports: Weakness, Fatigue. Denies: Fever, Chills Pulmonary: Reports: Shortness of Breath, Cough. Denies: Pleuritic Chest Pain, Sputum, Hemoptysis, Wheezing Cardiovascular: Reports: Dyspnea on Exertion. Denies: Chest Pain, Palpitations, Orthopnea, PND, Edema, Lightheadedness Gastrointestinal: Reports: No Symptoms Genitourinary: Reports: No Symptoms - Patient Data Vitals - Most Recent: Last Vital Signs Temp 97.5 F 05/12/21 12:12 Pulse 69 05/12/21 14:00 Resp 25 H 05/12/21 14:00 BP 112/71 05/12/21 14:00 Pulse Ox 89 L 05/12/21 14:00 Weight - Most Recent: 206 lb I&O - Last 24 Hours: Intake & Output 05/11/21 05/12/21 05/12/21 22:59 06:59 14:59 Intake Total 120 100 Balance 120 100 Lab Results Last 24 Hours: Laboratory Results - last 24 hr 05/11/21 05/11/21 05/12/21 Range/Units 16:33 21:07 04:55 WBC 8.1 (4.5-11.0) K/uL RBC 4.21 L (4.30-5.90) M/uL Hgb 13.2 (12.0-15.0) g/dL Hct 38.0 L (40.0-54.0) % MCV 90 (80-98) fL MCH 31 (27-31) pg MCHC 35 (32-36) % Plt Count 332 (150-400) K/uL Neut % (Auto) 78.8 H (36-66) % Lymph % (Auto) 13.7 L (24-44) % [place] % (Auto) 7.1 H (2-6) % Eos % (Auto) 0.0 L (2-4) % Baso % (Auto) 0.4 (0-1) % D-Dimer, Quantitative (0.0-500.0) ng/mL Sodium (140-148) mmol/L Potassium (3.6-5.2) mmol/L Chloride (100-108) mmol/L Carbon Dioxide (21-32) mmol/L Anion Gap (5.0-14.0) mmol/L BUN (7-18) mg/dL Creatinine (0.8-1.3) mg/dL Est Cr Clr Drug Dosing mL/min Estimated GFR (MDRD) (>60) Glucose (74-106) mg/dL POC Glucose 403 H* 276 H (74-106) mg/dL Hemoglobin A1c (4.5-6.2) % Calcium (8.5-10.1) mg/dL Total Bilirubin (0.2-1.0) mg/dL AST (15-37) U/L ALT (12-78) U/L Alkaline Phosphatase (46-116) U/L C-Reactive Protein (0.0-0.3) mg/dL Total Protein (6.4-8.2) g/dL Albumin (3.4-5.0) g/dL Globulin (2.3-3.5) g/dL Albumin/Globulin Ratio (1.2-2.2) 05/12/21 05/12/21 05/12/21 Range/Units 04:55 04:55 04:55 WBC (4.5-11.0) K/uL RBC (4.30-5.90) M/uL Hgb (12.0-15.0) g/dL Hct (40.0-54.0) % MCV (80-98) fL MCH (27-31) pg MCHC (32-36) % Plt Count (150-400) K/uL Neut % (Auto) (36-66) % Lymph % (Auto) (24-44) % [place] % (Auto) (2-6) % Eos % (Auto) (2-4) % Baso % (Auto) (0-1) % D-Dimer, Quantitative 645.19 H (0.0-500.0) ng/mL Sodium 146 (140-148) mmol/L Potassium 3.6 (3.6-5.2) mmol/L Chloride 107 (100-108) mmol/L Carbon Dioxide 27 (21-32) mmol/L Anion Gap 12.5 (5.0-14.0) mmol/L BUN 25 H (7-18) mg/dL Creatinine 0.9 (0.8-1.3) mg/dL Est Cr Clr Drug Dosing 63.95 mL/min Estimated GFR (MDRD) > 60 (>60) Glucose 193 H (74-106) mg/dL POC Glucose (74-106) mg/dL Hemoglobin A1c (4.5-6.2) % Calcium 8.8 (8.5-10.1) mg/dL Total Bilirubin 0.5 (0.2-1.0) mg/dL AST 31 (15-37) U/L ALT 47 (12-78) U/L Alkaline Phosphatase 45 L (46-116) U/L C-Reactive Protein 9.66 H (0.0-0.3) mg/dL Total Protein 6.5 (6.4-8.2) g/dL Albumin 2.7 L (3.4-5.0) g/dL Globulin 3.8 H (2.3-3.5) g/dL Albumin/Globulin Ratio 0.7 L (1.2-2.2) 05/12/21 05/12/21 05/12/21 Range/Units 04:55 07:43 11:44 WBC (4.5-11.0) K/uL RBC (4.30-5.90) M/uL Hgb (12.0-15.0) g/dL Hct (40.0-54.0) % MCV (80-98) fL MCH (27-31) pg MCHC (32-36) % Plt Count (150-400) K/uL Neut % (Auto) (36-66) % Lymph % (Auto) (24-44) % [place] % (Auto) (2-6) % Eos % (Auto) (2-4) % Baso % (Auto) (0-1) % D-Dimer, Quantitative (0.0-500.0) ng/mL Sodium (140-148) mmol/L Potassium (3.6-5.2) mmol/L Chloride (100-108) mmol/L Carbon Dioxide (21-32) mmol/L Anion Gap (5.0-14.0) mmol/L BUN (7-18) mg/dL Creatinine (0.8-1.3) mg/dL Est Cr Clr Drug Dosing mL/min Estimated GFR (MDRD) (>60) Glucose (74-106) mg/dL POC Glucose 190 H 184 H (74-106) mg/dL Hemoglobin A1c 7.2 H (4.5-6.2) % Calcium (8.5-10.1) mg/dL Total Bilirubin (0.2-1.0) mg/dL AST (15-37) U/L ALT (12-78) U/L Alkaline Phosphatase (46-116) U/L C-Reactive Protein (0.0-0.3) mg/dL Total Protein (6.4-8.2) g/dL Albumin (3.4-5.0) g/dL Globulin (2.3-3.5) g/dL Albumin/Globulin Ratio (1.2-2.2) 05/12/21 Range/Units 12:10 WBC (4.5-11.0) K/uL RBC (4.30-5.90) M/uL Hgb (12.0-15.0) g/dL Hct (40.0-54.0) % MCV (80-98) fL MCH (27-31) pg MCHC (32-36) % Plt Count (150-400) K/uL Neut % (Auto) (36-66) % Lymph % (Auto) (24-44) % [place] % (Auto) (2-6) % Eos % (Auto) (2-4) % Baso % (Auto) (0-1) % D-Dimer, Quantitative (0.0-500.0) ng/mL Sodium (140-148) mmol/L Potassium (3.6-5.2) mmol/L Chloride (100-108) mmol/L Carbon Dioxide (21-32) mmol/L Anion Gap (5.0-14.0) mmol/L BUN (7-18) mg/dL Creatinine (0.8-1.3) mg/dL Est Cr Clr Drug Dosing mL/min Estimated GFR (MDRD) (>60) Glucose (74-106) mg/dL POC Glucose 191 H (74-106) mg/dL Hemoglobin A1c (4.5-6.2) % Calcium (8.5-10.1) mg/dL Total Bilirubin (0.2-1.0) mg/dL AST (15-37) U/L ALT (12-78) U/L Alkaline Phosphatase (46-116) U/L C-Reactive Protein (0.0-0.3) mg/dL Total Protein (6.4-8.2) g/dL Albumin (3.4-5.0) g/dL Globulin (2.3-3.5) g/dL Albumin/Globulin Ratio (1.2-2.2) Med Orders - Current: Current Medications Acetaminophen (Acetaminophen 325 Mg Tab) 650 mg PO Q4H PRN PRN Reason: Pain (Mild 1-3)/fever Albuterol (Albuterol 8 Gm Inhaler) 0 gm INH Q2H PRN PRN Reason: Shortness of Breath Last Admin: 05/12/21 04:39 Dose: 2 puff Documented by: Aspirin (Aspirin 81 Mg Tab.Ec) 81 mg PO DAILY [facility] Last Admin: 05/12/21 09:22 Dose: 81 mg Documented by: Baricitinib (Baricitinib 2 Mg Tab) 4 mg PO Q24H [facility] Stop: 05/24/21 16:01 Last Admin: 05/11/21 15:40 Dose: 4 mg Documented by: Benzonatate (Benzonatate 100 Mg Cap) 100 mg PO TID PRN PRN Reason: Cough Last Admin: 05/10/21 13:49 Dose: 100 mg Documented by: Dexamethasone (Dexamethasone 4 Mg/Ml Sdv) 6 mg IVPUSH DAILY [facility] Stop: 05/19/21 09:01 Last Admin: 05/12/21 09:32 Dose: 6 mg Documented by: Enoxaparin Sodium (Enoxaparin 40 Mg/0.4 Ml Syringe) 40 mg SUBCUT Q24H [facility] Last Admin: 05/12/21 13:48 Dose: 40 mg Documented by: Gabapentin (Gabapentin 100 Mg Cap) 100 mg PO BID [facility] Last Admin: 05/12/21 09:22 Dose: 100 mg Documented by: Guaifenesin/Dextromethorphan (Guaifenesin/Dextromethorphan 100-10 Mg/5 Ml Soln 10 Ml Cup) 10 ml PO Q4H PRN PRN Reason: Cough Last Admin: 05/10/21 20:47 Dose: 10 ml Documented by: Remdesivir 100 mg/ Sodium (Chloride) 100 mls @ 100 mls/hr IV Q24H [facility] Stop: 05/14/21 12:59 Last Admin: 05/12/21 12:42 Dose: 100 mls/hr Documented by: Insulin Human Lispro (Insulin Lispro 100 Unit/Ml 3 Ml Kwikpen) 0 unit SUBCUT Q IDACANDBED [facility]; Protocol Last Admin: 05/12/21 12:15 Dose: 2 units Documented by: Lorazepam (Lorazepam 2 Mg/Ml Sdv) 0.5 mg IVPUSH Q4H PRN PRN Reason: Nausea/Vomiting Magnesium Hydroxide (Magnesium Hydroxide 400 Mg/5 Ml Susp 30 Ml Cup) 30 ml PO Q12H PRN PRN Reason: Constipation Melatonin (Melatonin 3 Mg Tab) 9 mg PO BEDTIME PRN PRN Reason: Sleep Last Admin: 05/11/21 22:53 Dose: 9 mg Documented by: Ondansetron HCl (Ondansetron 4 Mg/2 Ml Sdv) 4 mg IV Q6H PRN PRN Reason: Nausea/Vomiting Ondansetron HCl (Ondansetron 4 Mg Tab.Dis) 4 mg PO Q6H PRN PRN Reason: Nausea able to take PO Pantoprazole Sodium (Pantoprazole 40 Mg Tab.Cr) 40 mg PO ACBREAKFAST [facility] Last Admin: 05/12/21 09:22 Dose: 40 mg Documented by: Senna/Docusate Sodium (Docusate Sodium/Sennosides 50-8.6 Mg Tab) 1 tab PO BID PRN PRN Reason: Constipation Discontinued Medications Acetaminophen (Acetaminophen 325 Mg Tab) 650 mg PO Q4H PRN PRN Reason: Fever Greater Than 101 Furosemide (Furosemide 20 Mg/2 Ml Vial) 20 mg IVPUSH ONETIME ONE Stop: 05/12/21 04:21 Last Admin: 05/12/21 04:39 Dose: 20 mg Documented by: Remdesivir 200 mg/ Sodium (Chloride) 250 mls @ 250 mls/hr IV ONETIME ONE Stop: 05/10/21 12:59 Last Admin: 05/10/21 12:26 Dose: 250 mls/hr Documented by: Insulin Human Lispro (Insulin Lispro 100 Unit/Ml 3 Ml Kwikpen) 0 unit SUBCUT QIDACANDBED [facility]; Protocol Last Admin: 05/11/21 16:56 Dose: 8 units Documented by: - Exam Quality Assessment: Supplemental Oxygen, DVT Prophylaxis General: Alert, Oriented, Cooperative, Moderate Distress Lungs: Decreased Breath Sounds, Crackles. No: Rales, Rhonchi, Wheezing Cardiovascular: Regular Rate, Regular Rhythm, No Murmurs GI/Abdominal Exam: Soft, Non-Tender, No Organomegaly, No Distention Extremities: Non-Tender, No Pedal Edema - Patient Data Lab Results Last 24 hrs: Laboratory Results - last 24 hr 05/11/21 05/11/21 05/12/21 Range/Units 16:33 21:07 04:55 WBC 8.1 (4.5-11.0) K/uL RBC 4.21 L (4.30-5.90) M/uL Hgb 13.2 (12.0-15.0) g/dL Hct 38.0 L (40.0-54.0) % MCV 90 (80-98) fL MCH 31 (27-31) pg MCHC 35 (32-36) % Plt Count 332 (150-400) K/uL Neut % (Auto) 78.8 H (36-66) % Lymph % (Auto) 13.7 L (24-44) % [place] % (Auto) 7.1 H (2-6) % Eos % (Auto) 0.0 L (2-4) % Baso % (Auto) 0.4 (0-1) % D-Dimer, Quantitative (0.0-500.0) ng/mL Sodium (140-148) mmol/L Potassium (3.6-5.2) mmol/L Chloride (100-108) mmol/L Carbon Dioxide (21-32) mmol/L Anion Gap (5.0-14.0) mmol/L BUN (7-18) mg/dL Creatinine (0.8-1.3) mg/dL Est Cr Clr Drug Dosing mL/min Estimated GFR (MDRD) (>60) Glucose (74-106) mg/dL POC Glucose 403 H* 276 H (74-106) mg/dL Hemoglobin A1c (4.5-6.2) % Calcium (8.5-10.1) mg/dL Total Bilirubin (0.2-1.0) mg/dL AST (15-37) U/L ALT (12-78) U/L Alkaline Phosphatase (46-116) U/L C-Reactive Protein (0.0-0.3) mg/dL Total Protein (6.4-8.2) g/dL Albumin (3.4-5.0) g/dL Globulin (2.3-3.5) g/dL Albumin/Globulin Ratio (1.2-2.2) 05/12/21 05/12/21 05/12/21 Range/Units 04:55 04:55 04:55 WBC (4.5-11.0) K/uL RBC (4.30-5.90) M/uL Hgb (12.0-15.0) g/dL Hct (40.0-54.0) % MCV (80-98) fL MCH (27-31) pg MCHC (32-36) % Plt Count (150-400) K/uL Neut % (Auto) (36-66) % Lymph % (Auto) (24-44) % [place] % (Auto) (2-6) % Eos % (Auto) (2-4) % Baso % (Auto) (0-1) % D-Dimer, Quantitative 645.19 H (0.0-500.0) ng/mL Sodium 146 (140-148) mmol/L Potassium 3.6 (3.6-5.2) mmol/L Chloride 107 (100-108) mmol/L Carbon Dioxide 27 (21-32) mmol/L Anion Gap 12.5 (5.0-14.0) mmol/L BUN 25 H (7-18) mg/dL Creatinine 0.9 (0.8-1.3) mg/dL Est Cr Clr Drug Dosing 63.95 mL/min Estimated GFR (MDRD) > 60 (>60) Glucose 193 H (74-106) mg/dL POC Glucose (74-106) mg/dL Hemoglobin A1c (4.5-6.2) % Calcium 8.8 (8.5-10.1) mg/dL Total Bilirubin 0.5 (0.2-1.0) mg/dL AST 31 (15-37) U/L ALT 47 (12-78) U/L Alkaline Phosphatase 45 L (46-116) U/L C-Reactive Protein 9.66 H (0.0-0.3) mg/dL Total Protein 6.5 (6.4-8.2) g/dL Albumin 2.7 L (3.4-5.0) g/dL Globulin 3.8 H (2.3-3.5) g/dL Albumin/Globulin Ratio 0.7 L (1.2-2.2) 05/12/21 05/12/21 05/12/21 Range/Units 04:55 07:43 11:44 WBC (4.5-11.0) K/uL RBC (4.30-5.90) M/uL Hgb (12.0-15.0) g/dL Hct (40.0-54.0) % MCV (80-98) fL MCH (27-31) pg MCHC (32-36) % Plt Count (150-400) K/uL Neut % (Auto) (36-66) % Lymph % (Auto) (24-44) % [place] % (Auto) (2-6) % Eos % (Auto) (2-4) % Baso % (Auto) (0-1) % D-Dimer, Quantitative (0.0-500.0) ng/mL Sodium (140-148) mmol/L Potassium (3.6-5.2) mmol/L Chloride (100-108) mmol/L Carbon Dioxide (21-32) mmol/L Anion Gap (5.0-14.0) mmol/L BUN (7-18) mg/dL Creatinine (0.8-1.3) mg/dL Est Cr Clr Drug Dosing mL/min Estimated GFR (MDRD) (>60) Glucose (74-106) mg/dL POC Glucose 190 H 184 H (74-106) mg/dL Hemoglobin A1c 7.2 H (4.5-6.2) % Calcium (8.5-10.1) mg/dL Total Bilirubin (0.2-1.0) mg/dL AST (15-37) U/L ALT (12-78) U/L Alkaline Phosphatase (46-116) U/L C-Reactive Protein (0.0-0.3) mg/dL Total Protein (6.4-8.2) g/dL Albumin (3.4-5.0) g/dL Globulin (2.3-3.5) g/dL Albumin/Globulin Ratio (1.2-2.2) 05/12/21 Range/Units 12:10 WBC (4.5-11.0) K/uL RBC (4.30-5.90) M/uL Hgb (12.0-15.0) g/dL Hct (40.0-54.0) % MCV (80-98) fL MCH (27-31) pg MCHC (32-36) % Plt Count (150-400) K/uL Neut % (Auto) (36-66) % Lymph % (Auto) (24-44) % [place] % (Auto) (2-6) % Eos % (Auto) (2-4) % Baso % (Auto) (0-1) % D-Dimer, Quantitative (0.0-500.0) ng/mL Sodium (140-148) mmol/L Potassium (3.6-5.2) mmol/L Chloride (100-108) mmol/L Carbon Dioxide (21-32) mmol/L Anion Gap (5.0-14.0) mmol/L BUN (7-18) mg/dL Creatinine (0.8-1.3) mg/dL Est Cr Clr Drug Dosing mL/min Estimated GFR (MDRD) (>60) Glucose (74-106) mg/dL POC Glucose 191 H (74-106) mg/dL Hemoglobin A1c (4.5-6.2) % Calcium (8.5-10.1) mg/dL Total Bilirubin (0.2-1.0) mg/dL AST (15-37) U/L ALT (12-78) U/L Alkaline Phosphatase (46-116) U/L C-Reactive Protein (0.0-0.3) mg/dL Total Protein (6.4-8.2) g/dL Albumin (3.4-5.0) g/dL Globulin (2.3-3.5) g/dL Albumin/Globulin Ratio (1.2-2.2) Result Diagrams: 05/12/21 04:55 05/12/21 04:55 Sepsis Event Note - Evaluation Sepsis Screening Result: No Definite Risk - Focused Exam Vital Signs: Vital Signs Temp Temp Pulse Resp BP Pulse Ox 05/12/21 14:00 69 25 H 112/71 89 L 05/12/21 12:12 97.5 F 76 21 H 107/64 90 L 05/12/21 10:00 74 23 H 109/68 92 L 05/12/21 09:05 97.5 F 73 26 H 126/78 88 L 05/12/21 07:43 97.5 F 75 18 116/67 89 L 05/12/21 04:55 87 L 05/12/21 03:35 91 L 05/12/21 03:30 85 L 05/12/21 03:05 91 L 05/12/21 03:00 70 L 05/12/21 02:47 63 20 105/35 L 91 L 05/12/21 02:06 88 L - Problem List Review Problem List Initiated/Reviewed/Updated: Yes - My Orders Last 24 Hours: My Active Orders 05/11/21 16:00 Baricitinib [Olumiant] 4 mg PO Q24H 05/11/21 17:00 Insulin Lispro [HumaLOG] See Protocol SUBCUT QIDACANDBED 05/12/21 04:20 Communication Order [RC] ASDIRECTED Albuterol [Ventolin HFA] See Dose Instructions INH Q2H PRN 05/12/21 04:21 RT Aerosol Therapy [RC] ASDIRECTED RT Post Treatment Assessment [RC] Click to Edit 05/12/21 12:09 Patient Status [ADT] Routine - Plan Plan:: ASSESSMENT AND PLAN COVID-19 pneumonia-complicated by acute respiratory failure with hypoxia. Symptom onset 05/05. Now requiring high flow humidified oxygen -Remdesivir x5 days, day 3 of 5 -Dexamethasone 6 mg daily (day 3) -Start baricitinib 4 mg p.o. daily, today is day 2 of 14 -Enoxaparin every 24 hours -Repeat labs every 2 days -Symptomatic management of cough -Isolation precautions Type 2 diabetes mellitus-diet controlled. I would not be surprised if he develops hyperglycemia with the steroids. -Sliding scale insulin -Monitor 4 times daily glucometers History of prostate cancer-doing well since treatment a couple of years ago. Follow-up scans and PSA have been reassuring. Maintenance issues - -DVT prophylaxis-enoxaparin -GI prophylaxis-PPI -Nutrition-consistent carbohydrates -Lara catheter-not indicated CODE STATUS -full code Admission justification -this patient will be admitted for inpatient services and is medically appropriate meeting medical necessity for inpatient admission as outlined in my documentation. I reasonably expect the patient will require inpatient services that span a period time over 2 midnights. I reasonably expect this patient to be discharged or transferred within 96 hours after admission to the [facility]. Disposition -I anticipate discharge home after the hospital stay Primary care physician -Dr Kiran Barakat
[2021-05-12] MEDS: Benzonatate 100 MG Cap PO PRN (22:24)
[2021-05-12] MEDS: Melatonin 3 MG Tab PO PRN (22:24)
[2021-05-13] MEDS: Albuterol 8 GM Inhaler INH PRN ×3 (01:40→23:44)
[2021-05-13] MEDS: Gabapentin 100 MG Cap PO SCH ×2 (08:32→20:48)
[2021-05-13] MEDS: Aspirin 81 MG Tab.EC PO SCH (08:32)
[2021-05-13] MEDS: Dexamethasone 4 MG/ML SDV IVPUSH SCH (08:32)
[2021-05-13] MEDS: Pantoprazole 40 MG Tab.CR PO SCH (08:32)
[2021-05-13] MEDS: Insulin Lispro 100 Unit/ML 3 ML KwikPen SUBCUT SCH ×4 (08:36→20:52)
[2021-05-13] MEDS: guaiFENesin/Dextromethorphan 100-10 MG/5 ML Soln 10 ML Cup PO PRN ×2 (08:56→20:48)
[2021-05-13] MEDS: Benzonatate 100 MG Cap PO PRN (08:56)
[2021-05-13] MEDS: REMDESIVIR 100 MG in Sodium Chloride 0.9% 100 ML IV SCH (12:21)
--- NOTE | 2021-05-13 13:17 | PCM.PN ---
- General Info Date of Service: 05/13/21 Subjective Update: Mr. Villalobos unchanged since yesterday. Continues to require very high level of supplemental oxygen and does desaturate with fairly minimal exertion. Oxygen requirements have not increased significantly over the last 24 hours. Appetite and overall energy level remains very poor. Functional Status: Reports: Urinating. Denies: Tolerating Diet, Ambulating - Review of Systems General: Reports: Weakness, Fatigue. Denies: Fever, Chills Pulmonary: Reports: Shortness of Breath, Cough. Denies: Pleuritic Chest Pain, Sputum, Hemoptysis, Wheezing Cardiovascular: Reports: Dyspnea on Exertion. Denies: Chest Pain, Palpitations, Orthopnea, PND, Edema, Lightheadedness Gastrointestinal: Reports: No Symptoms Genitourinary: Reports: No Symptoms - Patient Data Vitals - Most Recent: Last Vital Signs Temp 97.1 F 05/13/21 12:00 Pulse 69 05/13/21 12:00 Resp 31 H 05/13/21 12:00 BP 121/73 05/13/21 12:00 Pulse Ox 89 L 05/13/21 12:00 Weight - Most Recent: 206 lb I&O - Last 24 Hours: Intake & Output 05/12/21 05/13/21 05/13/21 22:59 06:59 14:59 Intake Total 120 Output Total 1000 225 Balance -880 -225 Lab Results Last 24 Hours: Laboratory Results - last 24 hr 05/12/21 05/12/21 05/13/21 Range/Units 16:20 22:27 08:26 POC Glucose 243 H 285 H 164 H (74-106) mg/dL 05/13/21 Range/Units 12:26 POC Glucose 207 H (74-106) mg/dL Med Orders - Current: Current Medications Acetaminophen (Acetaminophen 325 Mg Tab) 650 mg PO Q4H PRN PRN Reason: Pain (Mild 1-3)/fever Albuterol (Albuterol 8 Gm Inhaler) 0 gm INH Q2H PRN PRN Reason: Shortness of Breath Last Admin: 05/13/21 08:58 Dose: 2 puff Documented by: Aspirin (Aspirin 81 Mg Tab.Ec) 81 mg PO DAILY [facility] Last Admin: 05/13/21 08:32 Dose: 81 mg Documented by: Baricitinib (Baricitinib 2 Mg Tab) 4 mg PO Q24H [facility] Stop: 05/24/21 16:01 Last Admin: 05/12/21 16:47 Dose: 4 mg Documented by: Benzonatate (Benzonatate 100 Mg Cap) 100 mg PO TID PRN PRN Reason: Cough Last Admin: 05/13/21 08:56 Dose: 100 mg Documented by: Dexamethasone (Dexamethasone 4 Mg/Ml Sdv) 6 mg IVPUSH DAILY [facility] Stop: 05/19/21 09:01 Last Admin: 05/13/21 08:32 Dose: 6 mg Documented by: Enoxaparin Sodium (Enoxaparin 40 Mg/0.4 Ml Syringe) 40 mg SUBCUT Q24H [facility] Last Admin: 05/12/21 13:48 Dose: 40 mg Documented by: Gabapentin (Gabapentin 100 Mg Cap) 100 mg PO BID [facility] Last Admin: 05/13/21 08:32 Dose: 100 mg Documented by: Guaifenesin/Dextromethorphan (Guaifenesin/Dextromethorphan 100-10 Mg/5 Ml Soln 10 Ml Cup) 10 ml PO Q4H PRN PRN Reason: Cough Last Admin: 05/13/21 08:56 Dose: 10 ml Documented by: Remdesivir 100 mg/ Sodium (Chloride) 100 mls @ 100 mls/hr IV Q24H [facility] Stop: 05/14/21 12:59 Last Admin: 05/13/21 12:21 Dose: 100 mls/hr Documented by: Insulin Human Lispro (Insulin Lispro 100 Unit/Ml 3 Ml Kwikpen) 0 unit SUBCUT QIDACANDBED [facility]; Protocol Last Admin: 05/13/21 12:27 Dose: 4 units Documented by: Lorazepam (Lorazepam 2 Mg/Ml Sdv) 0.5 mg IVPUSH Q4H PRN PRN Reason: Nausea/Vomiting Magnesium Hydroxide (Magnesium Hydroxide 400 Mg/5 Ml Susp 30 Ml Cup) 30 ml PO Q12H PRN PRN Reason: Constipation Melatonin (Melatonin 3 Mg Tab) 9 mg PO BEDTIME PRN PRN Reason: Sleep Last Admin: 05/12/21 22:24 Dose: 9 mg Documented by: Ondansetron HCl (Ondansetron 4 Mg/2 Ml Sdv) 4 mg IV Q6H PRN PRN Reason: Nausea/Vomiting Ondansetron HCl (Ondansetron 4 Mg Tab.Dis) 4 mg PO Q6H PRN PRN Reason: Nausea able to take PO Pantoprazole Sodium (Pantoprazole 40 Mg Tab.Cr) 40 mg PO ACBREAKFAST [facility] Last Admin: 05/13/21 08:32 Dose: 40 mg Documented by: Senna/Docusate Sodium (Docusate Sodium/Sennosides 50-8.6 Mg Tab) 1 tab PO BID PRN PRN Reason: Constipation Discontinued Medications Acetaminophen (Acetaminophen 325 Mg Tab) 650 mg PO Q4H PRN PRN Reason: Fever Greater Than 101 Furosemide (Furosemide 20 Mg/2 Ml Vial) 20 mg IVPUSH ONETIME ONE Stop: 05/12/21 04:21 Last Admin: 05/12/21 04:39 Dose: 20 mg Documented by: Remdesivir 200 mg/ Sodium (Chloride) 250 mls @ 250 mls/hr IV ONETIME ONE Stop: 05/10/21 12:59 Last Admin: 05/10/21 12:26 Dose: 250 mls/hr Documented by: Insulin Human Lispro (Insulin Lispro 100 Unit/Ml 3 Ml Kwikpen) 0 unit SUBCUT QIDACANDBED [facility]; Protocol Last Admin: 05/11/21 16:56 Dose: 8 units Documented by: - Exam Quality Assessment: Supplemental Oxygen, DVT Prophylaxis General: Alert, Oriented, Cooperative, Moderate Distress Lungs: Decreased Breath Sounds, Crackles. No: Rales, Rhonchi, Wheezing Cardiovascular: Regular Rate, Regular Rhythm, No Murmurs GI/Abdominal Exam: Soft, Non-Tender, No Organomegaly, No Distention Extremities: Non-Tender, No Pedal Edema - Patient Data Lab Results Last 24 hrs: Laboratory Results - last 24 hr 05/12/21 05/12/21 05/13/21 Range/Units 16:20 22:27 08:26 POC Glucose 243 H 285 H 164 H (74-106) mg/dL 05/13/21 Range/Units 12:26 POC Glucose 207 H (74-106) mg/dL Result Diagrams: 05/12/21 04:55 05/12/21 04:55 Sepsis Event Note - Evaluation Sepsis Screening Result: No Definite Risk - Focused Exam Vital Signs: Vital Signs Temp Pulse Resp BP Pulse Ox 05/13/21 12:00 97.1 F 69 31 H 121/73 89 L 05/13/21 08:00 74 31 H 124/79 86 L 05/13/21 06:00 31 H 114/72 88 L 05/13/21 04:00 67 26 H 114/69 93 L 05/13/21 01:52 87 L 05/13/21 01:49 97.1 F 26 H 116/68 86 L - Problem List Review Problem List Initiated/Reviewed/Updated: Yes - My Orders Last 24 Hours: My Active Orders 05/14/21 05:00 CBC WITH AUTO DIFF [HEME] Timed COMPREHENSIVE METABOLIC PN,CMP [CHEM] Timed 05/14/21 05:11 CRP [C-REACTIVE PROTEIN] [CHEM] AM D Dimer [D-DIMER QUANTITATIVE] [COAG] AM - Plan Plan:: ASSESSMENT AND PLAN COVID-19 pneumonia-complicated by acute respiratory failure with hypoxia. Symptom onset 05/05. Continues to require high flow humidified oxygen and desaturates with even minimal exertion -Remdesivir x5 days, day 4 of 5 -Dexamethasone 6 mg daily (day 4) -Start baricitinib 4 mg p.o. daily, today is day 3 of 14 -Enoxaparin every 24 hours -Repeat labs every 2 days -Symptomatic management of cough -Isolation precautions Type 2 diabetes mellitus-diet controlled. I would not be surprised if he develops hyperglycemia with the steroids. -Sliding scale insulin -Monitor 4 times daily glucometers History of prostate cancer-doing well since treatment a couple of years ago. Follow-up scans and PSA have been reassuring. Maintenance issues - -DVT prophylaxis-enoxaparin -GI prophylaxis-PPI -Nutrition-consistent carbohydrates -Lara catheter-not indicated CODE STATUS -full code Admission justification -this patient will be admitted for inpatient services and is medically appropriate meeting medical necessity for inpatient admission as outlined in my documentation. I reasonably expect the patient will require inpatient services that span a period time over 2 midnights. I reasonably expect this patient to be discharged or transferred within 96 hours [facility]. Disposition -I anticipate discharge home after the hospital stay Primary care physician -Dr Kiran Barakat
[2021-05-13] MEDS: Enoxaparin 40 MG/0.4 ML Syringe SUBCUT SCH (13:40)
[2021-05-14] MEDS: Albuterol 8 GM Inhaler INH PRN ×2 (02:59→22:00)
[2021-05-14] MEDS: Acetaminophen 325 MG Tab PO PRN (05:21)
[2021-05-14] MEDS: Insulin Lispro 100 Unit/ML 3 ML KwikPen SUBCUT SCH ×4 (07:18→21:52)
[2021-05-14] MEDS: Pantoprazole 40 MG Tab.CR PO SCH (07:18)
[2021-05-14] MEDS: Dexamethasone 4 MG/ML SDV IVPUSH SCH (08:38)
[2021-05-14] MEDS: Aspirin 81 MG Tab.EC PO SCH (08:39)
[2021-05-14] MEDS: Gabapentin 100 MG Cap PO SCH ×2 (08:39→21:52)
[2021-05-14] MEDS: guaiFENesin/Dextromethorphan 100-10 MG/5 ML Soln 10 ML Cup PO PRN ×2 (08:39→21:53)
[2021-05-14] MEDS ORDERED: Furosemide 20 MG/2 ML VIAL IVPUSH ONE (09:00)
[2021-05-14] MEDS ORDERED: Potassium Chloride 20 MEQ Tab.ER PO ONE (09:00)
[2021-05-14] MEDS: REMDESIVIR 100 MG in Sodium Chloride 0.9% 100 ML IV SCH (11:10)
[2021-05-14] MEDS: cefTRIAXone 1 GM in Sodium Chloride 0.9% 50 ML IV SCH (12:05)
--- NOTE | 2021-05-14 12:15 | PCM.PN ---
- General Info Date of Service: 05/14/21 Subjective Update: Mr. Villalobos continued to require very high level of supplemental oxygen with borderline saturation and increasing respiratory rate. At rest he reports that he is comfortable, but does become short of breath with very minimal exertion. He has been stable hemodynamically and has remained afebrile. Functional Status: Reports: Urinating. Denies: Tolerating Diet, Ambulating - Review of Systems General: Reports: Weakness, Fatigue. Denies: Fever, Chills Pulmonary: Reports: Shortness of Breath, Cough. Denies: Pleuritic Chest Pain, Sputum, Hemoptysis, Wheezing Cardiovascular: Reports: Dyspnea on Exertion. Denies: Chest Pain, Palpitations, Orthopnea, PND, Edema, Lightheadedness Gastrointestinal: Reports: No Symptoms Genitourinary: Reports: No Symptoms - Patient Data Vitals - Most Recent: Last Vital Signs Temp 97.3 F 05/14/21 12:00 Pulse 99 05/14/21 12:00 Resp 36 H 05/14/21 12:00 BP 157/83 H 05/14/21 12:00 Pulse Ox 89 L 05/14/21 12:00 Weight - Most Recent: 206 lb I&O - Last 24 Hours: Intake & Output 05/13/21 05/14/21 05/14/21 22:59 06:59 14:59 Intake Total 150 Output Total 1350 1075 Balance -1350 -925 Lab Results Last 24 Hours: Laboratory Results - last 24 hr 05/13/21 05/13/21 05/13/21 Range/Units 12:26 17:02 20:51 WBC (4.5-11.0) K/uL RBC (4.30-5.90) M/uL Hgb (12.0-15.0) g/dL Hct (40.0-54.0) % MCV (80-98) fL MCH (27-31) pg MCHC (32-36) % Plt Count (150-400) K/uL Neut % (Auto) (36-66) % Lymph % (Auto) (24-44) % Bailey % (Auto) (2-6) % Eos % (Auto) (2-4) % Baso % (Auto) (0-1) % D-Dimer, Quantitative (0.0-500.0) ng/mL Sodium (140-148) mmol/L Potassium (3.6-5.2) mmol/L Chloride (100-108) mmol/L Carbon Dioxide (21-32) mmol/L Anion Gap (5.0-14.0) mmol/L BUN (7-18) mg/dL Creatinine (0.8-1.3) mg/dL Est Cr Clr Drug Dosing mL/min Estimated GFR (MDRD) (>60) Glucose (74-106) mg/dL POC Glucose 207 H 329 H 243 H (74-106) mg/dL Calcium (8.5-10.1) mg/dL Total Bilirubin (0.2-1.0) mg/dL AST (15-37) U/L ALT (12-78) U/L Alkaline Phosphatase (46-116) U/L C-Reactive Protein (0.0-0.3) mg/dL Total Protein (6.4-8.2) g/dL Albumin (3.4-5.0) g/dL Globulin (2.3-3.5) g/dL Albumin/Globulin Ratio (1.2-2.2) 05/14/21 05/14/21 05/14/21 Range/Units 06:01 06:01 06:01 WBC 9.1 (4.5-11.0) K/uL RBC 4.67 (4.30-5.90) M/uL Hgb 14.6 (12.0-15.0) g/dL Hct 42.4 (40.0-54.0) % MCV 91 (80-98) fL MCH 31 (27-31) pg MCHC 34 (32-36) % Plt Count 381 (150-400) K/uL Neut % (Auto) 84.8 H (36-66) % Lymph % (Auto) 10.8 L (24-44) % Bailey % (Auto) 4.3 (2-6) % Eos % (Auto) 0.0 L (2-4) % Baso % (Auto) 0.1 (0-1) % D-Dimer, Quantitative 552.50 H (0.0-500.0) ng/mL Sodium 143 (140-148) mmol/L Potassium 3.5 L (3.6-5.2) mmol/L Chloride 106 (100-108) mmol/L Carbon Dioxide 25 (21-32) mmol/L Anion Gap 15.5 H (5.0-14.0) mmol/L BUN 26 H (7-18) mg/dL Creatinine 0.9 (0.8-1.3) mg/dL Est Cr Clr Drug Dosing 63.95 mL/min Estimated GFR (MDRD) > 60 (>60) Glucose 154 H (74-106) mg/dL POC Glucose (74-106) mg/dL Calcium 8.7 (8.5-10.1) mg/dL Total Bilirubin 0.8 D (0.2-1.0) mg/dL AST 29 (15-37) U/L ALT 42 (12-78) U/L Alkaline Phosphatase 53 (46-116) U/L C-Reactive Protein (0.0-0.3) mg/dL Total Protein 7.0 (6.4-8.2) g/dL Albumin 2.9 L (3.4-5.0) g/dL Globulin 4.1 H (2.3-3.5) g/dL Albumin/Globulin Ratio 0.7 L (1.2-2.2) 05/14/21 05/14/21 05/14/21 Range/Units 06:01 07:13 11:04 WBC (4.5-11.0) K/uL RBC (4.30-5.90) M/uL Hgb (12.0-15.0) g/dL Hct (40.0-54.0) % MCV (80-98) fL MCH (27-31) pg MCHC (32-36) % Plt Count (150-400) K/uL Neut % (Auto) (36-66) % Lymph % (Auto) (24-44) % Bailey % (Auto) (2-6) % Eos % (Auto) (2-4) % Baso % (Auto) (0-1) % D-Dimer, Quantitative (0.0-500.0) ng/mL Sodium (140-148) mmol/L Potassium (3.6-5.2) mmol/L Chloride (100-108) mmol/L Carbon Dioxide (21-32) mmol/L Anion Gap (5.0-14.0) mmol/L BUN (7-18) mg/dL Creatinine (0.8-1.3) mg/dL Est Cr Clr Drug Dosing mL/min Estimated GFR (MDRD) (>60) Glucose (74-106) mg/dL POC Glucose 167 H 239 H (74-106) mg/dL Calcium (8.5-10.1) mg/dL Total Bilirubin (0.2-1.0) mg/dL AST (15-37) U/L ALT (12-78) U/L Alkaline Phosphatase (46-116) U/L C-Reactive Protein 5.48 H (0.0-0.3) mg/dL Total Protein (6.4-8.2) g/dL Albumin (3.4-5.0) g/dL Globulin (2.3-3.5) g/dL Albumin/Globulin Ratio (1.2-2.2) Med Orders - Current: Current Medications Acetaminophen (Acetaminophen 325 Mg Tab) 650 mg PO Q4H PRN PRN Reason: Pain (Mild 1-3)/fever Last Admin: 05/14/21 05:21 Dose: 650 mg Documented by: Albuterol (Albuterol 8 Gm Inhaler) 0 gm INH Q2H PRN PRN Reason: Shortness of Breath Last Admin: 05/14/21 02:59 Dose: 2 puff Documented by: Aspirin (Aspirin 81 Mg Tab.Ec) 81 mg PO DAILY [facility] Last Admin: 05/14/21 08:39 Dose: 81 mg Documented by: Baricitinib (Baricitinib 2 Mg Tab) 4 mg PO Q24H [facility] Stop: 05/24/21 16:01 Last Admin: 05/13/21 17:09 Dose: 4 mg Documented by: Benzonatate (Benzonatate 100 Mg Cap) 100 mg PO TID PRN PRN Reason: Cough Last Admin: 05/13/21 08:56 Dose: 100 mg Documented by: Dexamethasone (Dexamethasone 4 Mg/Ml Sdv) 6 mg IVPUSH DAILY [facility] Stop: 05/19/21 09:01 Last Admin: 05/14/21 08:38 Dose: 6 mg Documented by: Enoxaparin Sodium (Enoxaparin 40 Mg/0.4 Ml Syringe) 40 mg SUBCUT Q24H [facility] Last Admin: 05/13/21 13:40 Dose: 40 mg Documented by: Gabapentin (Gabapentin 100 Mg Cap) 100 mg PO BID [facility] Last Admin: 05/14/21 08:39 Dose: 100 mg Documented by: Guaifenesin/Dextromethorphan (Guaifenesin/Dextromethorphan 100-10 Mg/5 Ml Soln 10 Ml Cup) 10 ml PO Q4H PRN PRN Reason: Cough Last Admin: 05/14/21 08:39 Dose: 10 ml Documented by: Remdesivir 100 mg/ Sodium (Chloride) 100 mls @ 100 mls/hr IV Q24H [facility] Stop: 05/14/21 12:59 Last Admin: 05/14/21 11:10 Dose: 100 mls/hr Documented by: Ceftriaxone Sodium 1 gm/ (Sodium Chloride) 50 mls @ 100 mls/hr IV Q24H [facility] Last Admin: 05/14/21 12:05 Dose: 100 mls/hr Documented by: Doxycycline Hyclate 100 mg/ (Sodium Chloride) 100 mls @ 100 mls/hr IV Q12H [facility] Insulin Human Lispro (Insulin Lispro 100 Unit/Ml 3 Ml Kwikpen) 0 unit SUBCUT QIDACANDBED [facility]; Protocol Last Admin: 05/14/21 11:10 Dose: 4 units Documented by: Lorazepam (Lorazepam 2 Mg/Ml Sdv) 0.5 mg IVPUSH Q4H PRN PRN Reason: Nausea/Vomiting Magnesium Hydroxide (Magnesium Hydroxide 400 Mg/5 Ml Susp 30 Ml Cup) 30 ml PO Q12H PRN PRN Reason: Constipation Melatonin (Melatonin 3 Mg Tab) 9 mg PO BEDTIME PRN PRN Reason: Sleep Last Admin: 05/12/21 22:24 Dose: 9 mg Documented by: Ondansetron HCl (Ondansetron 4 Mg/2 Ml Sdv) 4 mg IV Q6H PRN PRN Reason: Nausea/Vomiting Ondansetron HCl (Ondansetron 4 Mg Tab.Dis) 4 mg PO Q6H PRN PRN Reason: Nausea able to take PO Pantoprazole Sodium (Pantoprazole 40 Mg Tab.Cr) 40 mg PO ACBREAKFAST [facility] Last Admin: 05/14/21 07:18 Dose: 40 mg Documented by: Senna/Docusate Sodium (Docusate Sodium/Sennosides 50-8.6 Mg Tab) 1 tab PO BID PRN PRN Reason: Constipation Discontinued Medications Acetaminophen (Acetaminophen 325 Mg Tab) 650 mg PO Q4H PRN PRN Reason: Fever Greater Than 101 Furosemide (Furosemide 20 Mg/2 Ml Vial) 20 mg IVPUSH ONETIME ONE Stop: 05/12/21 04:21 Last Admin: 05/12/21 04:39 Dose: 20 mg Documented by: Furosemide (Furosemide 20 Mg/2 Ml Vial) 20 mg IVPUSH NOW ONE Stop: 05/14/21 09:01 Last Admin: 05/14/21 10:20 Dose: 20 mg Documented by: Remdesivir 200 mg/ Sodium (Chloride) 250 mls @ 250 mls/hr IV ONETIME ONE Stop: 05/10/21 12:59 Last Admin: 05/10/21 12:26 Dose: 250 mls/hr Documented by: Insulin Human Lispro (Insulin Lispro 100 Unit/Ml 3 Ml Kwikpen) 0 unit SUBCUT QIDACANDBED [facility]; Protocol Last Admin: 05/11/21 16:56 Dose: 8 units Documented by: Potassium Chloride (Potassium Chloride 20 Meq Tab.Er) 40 meq PO ONETIME ONE Stop: 05/14/21 09:01 Last Admin: 05/14/21 10:20 Dose: 40 meq Documented by: - Exam Quality Assessment: Supplemental Oxygen, DVT Prophylaxis General: Alert, Oriented, Cooperative, Moderate Distress Lungs: Crackles. No: Rales, Rhonchi, Wheezing Cardiovascular: Regular Rate, Regular Rhythm, No Murmurs GI/Abdominal Exam: Soft, Non-Tender, No Organomegaly, No Distention Extremities: Non-Tender, No Pedal Edema - Patient Data Lab Results Last 24 hrs: Laboratory Results - last 24 hr 05/13/21 05/13/21 05/13/21 Range/Units 12:26 17:02 20:51 WBC (4.5-11.0) K/uL RBC (4.30-5.90) M/uL Hgb (12.0-15.0) g/dL Hct (40.0-54.0) % MCV (80-98) fL MCH (27-31) pg MCHC (32-36) % Plt Count (150-400) K/uL Neut % (Auto) (36-66) % Lymph % (Auto) (24-44) % Bailey % (Auto) (2-6) % Eos % (Auto) (2-4) % Baso % (Auto) (0-1) % D-Dimer, Quantitative (0.0-500.0) ng/mL Sodium (140-148) mmol/L Potassium (3.6-5.2) mmol/L Chloride (100-108) mmol/L Carbon Dioxide (21-32) mmol/L Anion Gap (5.0-14.0) mmol/L BUN (7-18) mg/dL Creatinine (0.8-1.3) mg/dL Est Cr Clr Drug Dosing mL/min Estimated GFR (MDRD) (>60) Glucose (74-106) mg/dL POC Glucose 207 H 329 H 243 H (74-106) mg/dL Calcium (8.5-10.1) mg/dL Total Bilirubin (0.2-1.0) mg/dL AST (15-37) U/L ALT (12-78) U/L Alkaline Phosphatase (46-116) U/L C-Reactive Protein (0.0-0.3) mg/dL Total Protein (6.4-8.2) g/dL Albumin (3.4-5.0) g/dL Globulin (2.3-3.5) g/dL Albumin/Globulin Ratio (1.2-2.2) 05/14/21 05/14/21 05/14/21 Range/Units 06:01 06:01 06:01 WBC 9.1 (4.5-11.0) K/uL RBC 4.67 (4.30-5.90) M/uL Hgb 14.6 (12.0-15.0) g/dL Hct 42.4 (40.0-54.0) % MCV 91 (80-98) fL MCH 31 (27-31) pg MCHC 34 (32-36) % Plt Count 381 (150-400) K/uL Neut % (Auto) 84.8 H (36-66) % Lymph % (Auto) 10.8 L (24-44) % Bailey % (Auto) 4.3 (2-6) % Eos % (Auto) 0.0 L (2-4) % Baso % (Auto) 0.1 (0-1) % D-Dimer, Quantitative 552.50 H (0.0-500.0) ng/mL Sodium 143 (140-148) mmol/L Potassium 3.5 L (3.6-5.2) mmol/L Chloride 106 (100-108) mmol/L Carbon Dioxide 25 (21-32) mmol/L Anion Gap 15.5 H (5.0-14.0) mmol/L BUN 26 H (7-18) mg/dL Creatinine 0.9 (0.8-1.3) mg/dL Est Cr Clr Drug Dosing 63.95 mL/min Estimated GFR (MDRD) > 60 (>60) Glucose 154 H (74-106) mg/dL POC Glucose (74-106) mg/dL Calcium 8.7 (8.5-10.1) mg/dL Total Bilirubin 0.8 D (0.2-1.0) mg/dL AST 29 (15-37) U/L ALT 42 (12-78) U/L Alkaline Phosphatase 53 (46-116) U/L C-Reactive Protein (0.0-0.3) mg/dL Total Protein 7.0 (6.4-8.2) g/dL Albumin 2.9 L (3.4-5.0) g/dL Globulin 4.1 H (2.3-3.5) g/dL Albumin/Globulin Ratio 0.7 L (1.2-2.2) 05/14/21 05/14/21 05/14/21 Range/Units 06:01 07:13 11:04 WBC (4.5-11.0) K/uL RBC (4.30-5.90) M/uL Hgb (12.0-15.0) g/dL Hct (40.0-54.0) % MCV (80-98) fL MCH (27-31) pg MCHC (32-36) % Plt Count (150-400) K/uL Neut % (Auto) (36-66) % Lymph % (Auto) (24-44) % Bailey % (Auto) (2-6) % Eos % (Auto) (2-4) % Baso % (Auto) (0-1) % D-Dimer, Quantitative (0.0-500.0) ng/mL Sodium (140-148) mmol/L Potassium (3.6-5.2) mmol/L Chloride (100-108) mmol/L Carbon Dioxide (21-32) mmol/L Anion Gap (5.0-14.0) mmol/L BUN (7-18) mg/dL Creatinine (0.8-1.3) mg/dL Est Cr Clr Drug Dosing mL/min Estimated GFR (MDRD) (>60) Glucose (74-106) mg/dL POC Glucose 167 H 239 H (74-106) mg/dL Calcium (8.5-10.1) mg/dL Total Bilirubin (0.2-1.0) mg/dL AST (15-37) U/L ALT (12-78) U/L Alkaline Phosphatase (46-116) U/L C-Reactive Protein 5.48 H (0.0-0.3) mg/dL Total Protein (6.4-8.2) g/dL Albumin (3.4-5.0) g/dL Globulin (2.3-3.5) g/dL Albumin/Globulin Ratio (1.2-2.2) Result Diagrams: 05/14/21 06:01 05/14/21 06:01 Sepsis Event Note - Evaluation Sepsis Screening Result: No Definite Risk - Focused Exam Vital Signs: Vital Signs Temp Pulse Resp BP Pulse Ox 05/14/21 12:00 97.3 F 99 36 H 157/83 H 89 L 05/14/21 10:00 96 30 H 139/98 H 92 L 05/14/21 08:46 89 34 H 109/64 90 L 05/14/21 07:55 98.2 F 90 26 H 117/68 94 L 05/14/21 07:00 97.3 F 90 26 H 117/68 91 L 05/14/21 05:15 97.3 F 29 H 129/78 93 L 05/14/21 05:00 49 H 65 L 05/14/21 02:56 31 H 136/91 H 89 L 05/14/21 01:00 97.1 F 27 H 127/82 90 L - Problem List Review Problem List Initiated/Reviewed/Updated: Yes - My Orders Last 24 Hours: My Active Orders 05/14/21 11:30 [id number] [Rocephin] 1 gm Sodium Chloride 0.9% [Normal Saline] 50 ml IV Q24H 05/14/21 12:30 Doxycycline [Vibramycin] 100 mg Sodium Chloride 0.9% [Normal Saline] 100 ml IV Q12H 05/15/21 05:00 COMPREHENSIVE METABOLIC PN,CMP [CHEM] Timed - Plan Plan:: ASSESSMENT AND PLAN COVID-19 pneumonia-complicated by acute respiratory failure with hypoxia. Symptom onset 05/05. Continues to require high flow humidified oxygen and desaturates with even minimal exertion -Remdesivir x5 days, day 5 of 5 -Dexamethasone 6 mg daily (day 5) -Baricitinib 4 mg p.o. daily, today is day 4 of 14 -Empiric antibiotic therapy; ceftriaxone and doxycycline, day 1 of 7 -Furosemide 20 mg IV today, reassess in a.m. -Enoxaparin every 24 hours -Repeat labs every 2 days -Symptomatic management of cough -Isolation precautions Type 2 diabetes mellitus-diet controlled. -Sliding scale insulin -Monitor 4 times daily glucometers History of prostate cancer-doing well since treatment a couple of years ago. Follow-up scans and PSA have been reassuring. Maintenance issues - -DVT prophylaxis-enoxaparin -GI prophylaxis-PPI -Nutrition-consistent carbohydrates -Lara catheter-not indicated CODE STATUS -full code Admission justification -this patient will be admitted for inpatient services and is medically appropriate meeting medical necessity for inpatient admission as outlined in my documentation. I reasonably expect the patient will require inpatient services that span a period time over 2 midnights. I reasonably expect this patient to be discharged or transferred within 96 hours [facility]. Disposition -I anticipate discharge home after the hospital stay Primary care physician -Dr Kiran Barakat
[2021-05-14] MEDS: Doxycycline 100 MG in Sodium Chloride 0.9% 100 ML IV SCH ×2 (13:20→23:58)
[2021-05-14] MEDS: Enoxaparin 40 MG/0.4 ML Syringe SUBCUT SCH (14:22)
[2021-05-14] MEDS: Melatonin 3 MG Tab PO PRN (21:53)
[2021-05-15] MEDS: guaiFENesin/Dextromethorphan 100-10 MG/5 ML Soln 10 ML Cup PO PRN ×3 (02:02→21:56)
[2021-05-15] MEDS: Albuterol 8 GM Inhaler INH PRN ×6 (02:03→21:53)
[2021-05-15] MEDS: Insulin Lispro 100 Unit/ML 3 ML KwikPen SUBCUT SCH ×4 (08:11→20:18)
[2021-05-15] MEDS ORDERED: Furosemide 20 MG/2 ML VIAL IVPUSH ONE (08:30)
[2021-05-15] MEDS: Gabapentin 100 MG Cap PO SCH ×2 (08:48→20:18)
[2021-05-15] MEDS: Aspirin 81 MG Tab.EC PO SCH (08:48)
[2021-05-15] MEDS: Pantoprazole 40 MG Tab.CR PO SCH (08:48)
[2021-05-15] MEDS: Dexamethasone 4 MG/ML SDV IVPUSH SCH (08:49)
[2021-05-15] MEDS: cefTRIAXone 1 GM in Sodium Chloride 0.9% 50 ML IV SCH (11:22)
[2021-05-15] MEDS: Doxycycline 100 MG in Sodium Chloride 0.9% 100 ML IV SCH (12:09)
[2021-05-15] MEDS: Enoxaparin 40 MG/0.4 ML Syringe SUBCUT SCH (14:10)
--- NOTE | 2021-05-15 16:25 | PCM.PN ---
- General Info Date of Service: 05/15/21 Subjective Update: Mr. Villalobos has improved since yesterday, he feels somewhat stronger and less short of breath. Oxygenation has shown modest improvement with adequate saturations on high flow humidified oxygen. He does continue to desaturate with fairly minimal activity. Functional Status: Reports: Urinating. Denies: Tolerating Diet, Ambulating - Review of Systems General: Reports: Weakness, Fatigue. Denies: Fever, Chills Pulmonary: Reports: Shortness of Breath, Cough. Denies: Pleuritic Chest Pain, Sputum, Hemoptysis, Wheezing Cardiovascular: Reports: Dyspnea on Exertion. Denies: Chest Pain, Palpitations, Orthopnea, PND, Edema, Lightheadedness Gastrointestinal: Reports: No Symptoms Genitourinary: Reports: No Symptoms - Patient Data Vitals - Most Recent: Last Vital Signs Temp 97.9 F 05/15/21 14:00 Pulse 95 05/15/21 14:00 Resp 47 H 05/15/21 14:00 BP 131/77 05/15/21 14:00 Pulse Ox 90 L 05/15/21 14:00 Weight - Most Recent: 206 lb I&O - Last 24 Hours: Intake & Output 05/15/21 05/15/21 05/15/21 06:59 14:59 22:59 Intake Total 240 Output Total 225 825 Balance -225 -585 Lab Results Last 24 Hours: Laboratory Results - last 24 hr 05/14/21 05/14/21 05/15/21 Range/Units 17:08 21:50 05:35 Sodium 143 (140-148) mmol/L Potassium 4.8 (3.6-5.2) mmol/L Chloride 104 (100-108) mmol/L Carbon Dioxide 28 (21-32) mmol/L Anion Gap 11.0 (5.0-14.0) mmol/L BUN 24 H (7-18) mg/dL Creatinine 1.0 (0.8-1.3) mg/dL Est Cr Clr Drug Dosing 57.56 mL/min Estimated GFR (MDRD) > 60 (>60) Glucose 155 H (74-106) mg/dL POC Glucose 297 H 165 H (74-106) mg/dL Calcium 8.8 (8.5-10.1) mg/dL Total Bilirubin 0.8 (0.2-1.0) mg/dL AST 28 (15-37) U/L ALT 38 (12-78) U/L Alkaline Phosphatase 53 (46-116) U/L Total Protein 6.5 (6.4-8.2) g/dL Albumin 3.0 L (3.4-5.0) g/dL Globulin 3.5 (2.3-3.5) g/dL Albumin/Globulin Ratio 0.9 L (1.2-2.2) 05/15/21 05/15/21 Range/Units 07:44 11:18 Sodium (140-148) mmol/L Potassium (3.6-5.2) mmol/L Chloride (100-108) mmol/L Carbon Dioxide (21-32) mmol/L Anion Gap (5.0-14.0) mmol/L BUN (7-18) mg/dL Creatinine (0.8-1.3) mg/dL Est Cr Clr Drug Dosing mL/min Estimated GFR (MDRD) (>60) Glucose (74-106) mg/dL POC Glucose 138 H 238 H (74-106) mg/dL Calcium (8.5-10.1) mg/dL Total Bilirubin (0.2-1.0) mg/dL AST (15-37) U/L ALT (12-78) U/L Alkaline Phosphatase (46-116) U/L Total Protein (6.4-8.2) g/dL Albumin (3.4-5.0) g/dL Globulin (2.3-3.5) g/dL Albumin/Globulin Ratio (1.2-2.2) Med Orders - Current: Current Medications Acetaminophen (Acetaminophen 325 Mg Tab) 650 mg PO Q4H PRN PRN Reason: Pain (Mild 1-3)/fever Last Admin: 05/14/21 05:21 Dose: 650 mg Documented by: Albuterol (Albuterol 8 Gm Inhaler) 0 gm INH Q2H PRN PRN Reason: Shortness of Breath Last Admin: 05/15/21 14:55 Dose: 2 puff Documented by: Aspirin (Aspirin 81 Mg Tab.Ec) 81 mg PO DAILY [facility] Last Admin: 05/15/21 08:48 Dose: 81 mg Documented by: Baricitinib (Baricitinib 2 Mg Tab) 4 mg PO Q24H [facility] Stop: 05/24/21 16:01 Last Admin: 05/14/21 15:56 Dose: 4 mg Documented by: Benzonatate (Benzonatate 100 Mg Cap) 100 mg PO TID PRN PRN Reason: Cough Last Admin: 05/13/21 08:56 Dose: 100 mg Documented by: Dexamethasone (Dexamethasone 4 Mg/Ml Sdv) 6 mg IVPUSH DAILY [facility] Stop: 05/19/21 09:01 Last Admin: 05/15/21 08:49 Dose: 6 mg Documented by: Enoxaparin Sodium (Enoxaparin 40 Mg/0.4 Ml Syringe) 40 mg SUBCUT Q24H [facility] Last Admin: 05/15/21 14:10 Dose: 40 mg Documented by: Gabapentin (Gabapentin 100 Mg Cap) 100 mg PO BID [facility] Last Admin: 05/15/21 08:48 Dose: 100 mg Documented by: Guaifenesin/Dextromethorphan (Guaifenesin/Dextromethorphan 100-10 Mg/5 Ml Soln 10 Ml Cup) 10 ml PO Q4H PRN PRN Reason: Cough Last Admin: 05/15/21 09:04 Dose: 10 ml Documented by: Ceftriaxone Sodium 1 gm/ (Sodium Chloride) 50 mls @ 100 mls/hr IV Q24H [facility] Last Admin: 05/15/21 11:22 Dose: 100 mls/hr Documented by: Doxycycline Hyclate 100 mg/ (Sodium Chloride) 100 mls @ 100 mls/hr IV Q12H [facility] Last Admin: 05/15/21 12:09 Dose: 100 mls/hr Documented by: Insulin Human Lispro (Insulin Lispro 100 Unit/Ml 3 Ml Kwikpen) 0 unit SUBCUT Q IDACANDBED [facility]; Protocol Last Admin: 05/15/21 11:21 Dose: 4 units Documented by: Lorazepam (Lorazepam 2 Mg/Ml Sdv) 0.5 mg IVPUSH Q4H PRN PRN Reason: Nausea/Vomiting Magnesium Hydroxide (Magnesium Hydroxide 400 Mg/5 Ml Susp 30 Ml Cup) 30 ml PO Q12H PRN PRN Reason: Constipation Melatonin (Melatonin 3 Mg Tab) 9 mg PO BEDTIME PRN PRN Reason: Sleep Last Admin: 05/14/21 21:53 Dose: 9 mg Documented by: Ondansetron HCl (Ondansetron 4 Mg/2 Ml Sdv) 4 mg IV Q6H PRN PRN Reason: Nausea/Vomiting Ondansetron HCl (Ondansetron 4 Mg Tab.Dis) 4 mg PO Q6H PRN PRN Reason: Nausea able to take PO Pantoprazole Sodium (Pantoprazole 40 Mg Tab.Cr) 40 mg PO ACBREAKFAST [facility] Last Admin: 05/15/21 08:48 Dose: 40 mg Documented by: Senna/Docusate Sodium (Docusate Sodium/Sennosides 50-8.6 Mg Tab) 1 tab PO BID PRN PRN Reason: Constipation Discontinued Medications Acetaminophen (Acetaminophen 325 Mg Tab) 650 mg PO Q4H PRN PRN Reason: Fever Greater Than 101 Furosemide (Furosemide 20 Mg/2 Ml Vial) 20 mg IVPUSH ONETIME ONE Stop: 05/12/21 04:21 Last Admin: 05/12/21 04:39 Dose: 20 mg Documented by: Furosemide (Furosemide 20 Mg/2 Ml Vial) 20 mg IVPUSH NOW ONE Stop: 05/14/21 09:01 Last Admin: 05/14/21 10:20 Dose: 20 mg Documented by: Furosemide (Furosemide 20 Mg/2 Ml Vial) 20 mg IVPUSH NOW ONE Stop: 05/15/21 08:31 Last Admin: 05/15/21 08:49 Dose: 20 mg Documented by: Remdesivir 200 mg/ Sodium (Chloride) 250 mls @ 250 mls/hr IV ONETIME ONE Stop: 05/10/21 12:59 Last Admin: 05/10/21 12:26 Dose: 250 mls/hr Documented by: Remdesivir 100 mg/ Sodium (Chloride) 100 mls @ 100 mls/hr IV Q24H [facility] Stop: 05/14/21 12:59 Last Admin: 05/14/21 11:10 Dose: 100 mls/hr Documented by: Insulin Human Lispro (Insulin Lispro 100 Unit/Ml 3 Ml Kwikpen) 0 unit SUBCUT QIDACANDBED [facility]; Protocol Last Admin: 05/11/21 16:56 Dose: 8 units Documented by: Potassium Chloride (Potassium Chloride 20 Meq Tab.Er) 40 meq PO ONETIME ONE Stop: 05/14/21 09:01 Last Admin: 05/14/21 10:20 Dose: 40 meq Documented by: - Exam Quality Assessment: Supplemental Oxygen, DVT Prophylaxis General: Alert, Oriented, Cooperative, Moderate Distress Lungs: Decreased Breath Sounds, Crackles. No: Rales, Rhonchi, Wheezing Cardiovascular: Regular Rate, Regular Rhythm, No Murmurs GI/Abdominal Exam: Soft, Non-Tender, No Organomegaly, No Distention Extremities: Non-Tender, No Pedal Edema - Patient Data Lab Results Last 24 hrs: Laboratory Results - last 24 hr 05/14/21 05/14/21 05/15/21 Range/Units 17:08 21:50 05:35 Sodium 143 (140-148) mmol/L Potassium 4.8 (3.6-5.2) mmol/L Chloride 104 (100-108) mmol/L Carbon Dioxide 28 (21-32) mmol/L Anion Gap 11.0 (5.0-14.0) mmol/L BUN 24 H (7-18) mg/dL Creatinine 1.0 (0.8-1.3) mg/dL Est Cr Clr Drug Dosing 57.56 mL/min Estimated GFR (MDRD) > 60 (>60) Glucose 155 H (74-106) mg/dL POC Glucose 297 H 165 H (74-106) mg/dL Calcium 8.8 (8.5-10.1) mg/dL Total Bilirubin 0.8 (0.2-1.0) mg/dL AST 28 (15-37) U/L ALT 38 (12-78) U/L Alkaline Phosphatase 53 (46-116) U/L Total Protein 6.5 (6.4-8.2) g/dL Albumin 3.0 L (3.4-5.0) g/dL Globulin 3.5 (2.3-3.5) g/dL Albumin/Globulin Ratio 0.9 L (1.2-2.2) 05/15/21 05/15/21 Range/Units 07:44 11:18 Sodium (140-148) mmol/L Potassium (3.6-5.2) mmol/L Chloride (100-108) mmol/L Carbon Dioxide (21-32) mmol/L Anion Gap (5.0-14.0) mmol/L BUN (7-18) mg/dL Creatinine (0.8-1.3) mg/dL Est Cr Clr Drug Dosing mL/min Estimated GFR (MDRD) (>60) Glucose (74-106) mg/dL POC Glucose 138 H 238 H (74-106) mg/dL Calcium (8.5-10.1) mg/dL Total Bilirubin (0.2-1.0) mg/dL AST (15-37) U/L ALT (12-78) U/L Alkaline Phosphatase (46-116) U/L Total Protein (6.4-8.2) g/dL Albumin (3.4-5.0) g/dL Globulin (2.3-3.5) g/dL Albumin/Globulin Ratio (1.2-2.2) Result Diagrams: 05/14/21 06:01 05/15/21 05:35 Sepsis Event Note - Evaluation Sepsis Screening Result: No Definite Risk - Focused Exam Vital Signs: Vital Signs Temp Pulse Resp BP Pulse Ox 05/15/21 14:00 97.9 F 95 47 H 131/77 90 L 05/15/21 12:00 98 39 H 107/70 92 L 05/15/21 10:00 97.9 F 90 34 H 119/83 92 L 05/15/21 08:00 97.9 F 76 34 H 113/89 92 L 05/15/21 06:00 23 H 136/88 95 - Problem List Review Problem List Initiated/Reviewed/Updated: Yes - My Orders Last 24 Hours: My Active Orders 05/16/21 05:00 CBC WITH AUTO DIFF [HEME] Timed COMPREHENSIVE METABOLIC PN,CMP [CHEM] Timed 05/16/21 05:11 CRP [C-REACTIVE PROTEIN] [CHEM] AM D Dimer [D-DIMER QUANTITATIVE] [COAG] AM - Plan Plan:: ASSESSMENT AND PLAN COVID-19 pneumonia-complicated by acute respiratory failure with hypoxia. Symptom onset 05/05. Improved over the last 24 hours, adequate saturations at rest. Continues to require high flow humidified oxygen and desaturates with even minimal exertion -Remdesivir x5 days, completed -Dexamethasone 6 mg daily (day 6) -Baricitinib 4 mg p.o. daily, today is day 5 of 14 -Empiric antibiotic therapy; ceftriaxone and doxycycline, day 2 of 7 -Furosemide 20 mg IV today, reassess in a.m. -Enoxaparin every 24 hours -Repeat labs every 2 days -Symptomatic management of cough -Isolation precautions Type 2 diabetes mellitus-diet controlled. -Sliding scale insulin -Monitor 4 times daily glucometers History of prostate cancer-doing well since treatment a couple of years ago. Follow-up scans and PSA have been reassuring. Maintenance issues - -DVT prophylaxis-enoxaparin -GI prophylaxis-PPI -Nutrition-consistent carbohydrates -Lara catheter-not indicated CODE STATUS -full code Admission justification -this patient will be admitted for inpatient services and is medically appropriate meeting medical necessity for inpatient admission as outlined in my documentation. I reasonably expect the patient will require inpatient services that span a period time over 2 midnights. I reasonably expect this patient to be discharged or transferred within 96 hours after admission to the [facility]. Disposition -I anticipate discharge home after the hospital stay Primary care physician -Dr Kiran Barakat
[2021-05-16] MEDS: Doxycycline 100 MG in Sodium Chloride 0.9% 100 ML IV SCH ×2 (00:27→12:40)
[2021-05-16] MEDS: Albuterol 8 GM Inhaler INH PRN (04:18)
[2021-05-16] MEDS: guaiFENesin/Dextromethorphan 100-10 MG/5 ML Soln 10 ML Cup PO PRN ×4 (04:20→21:39)
[2021-05-16] MEDS: Pantoprazole 40 MG Tab.CR PO SCH (07:48)
[2021-05-16] MEDS: Insulin Lispro 100 Unit/ML 3 ML KwikPen SUBCUT SCH ×4 (07:50→20:26)
[2021-05-16] MEDS ORDERED: Furosemide 20 MG/2 ML VIAL IVPUSH ONE (08:30)
[2021-05-16] MEDS: Dexamethasone 4 MG/ML SDV IVPUSH SCH (09:20)
[2021-05-16] MEDS: Gabapentin 100 MG Cap PO SCH ×2 (09:24→20:02)
[2021-05-16] MEDS: Aspirin 81 MG Tab.EC PO SCH (09:24)
--- NOTE | 2021-05-16 10:34 | PCM.PN ---
- General Info Date of Service: 05/16/21 Subjective Update: Mr. Villalobos continues to require high level of supplemental oxygen with borderline saturations and significant desaturation with activity. Respiratory status has not declined in the last 24 hours but certainly is shown no improvement. Continues to experience cough with deep breathing. Functional Status: Reports: Urinating. Denies: Tolerating Diet, Ambulating - Review of Systems General: Reports: Weakness, Fatigue. Denies: Fever, Chills Pulmonary: Reports: Shortness of Breath, Cough. Denies: Pleuritic Chest Pain, Sputum, Hemoptysis, Wheezing Cardiovascular: Reports: Dyspnea on Exertion. Denies: Chest Pain, Palpitations, Orthopnea, PND, Edema, Lightheadedness Gastrointestinal: Reports: No Symptoms Genitourinary: Reports: No Symptoms - Patient Data Vitals - Most Recent: Last Vital Signs Temp 97.2 F 05/16/21 07:42 Pulse 85 05/16/21 09:00 Resp 41 H 05/16/21 09:00 BP 104/65 05/16/21 09:00 Pulse Ox 83 L 05/16/21 09:00 Weight - Most Recent: 206 lb I&O - Last 24 Hours: Intake & Output 05/15/21 05/16/21 05/16/21 22:59 06:59 14:59 Intake Total 450 500 Output Total 500 300 Balance -50 200 Lab Results Last 24 Hours: Laboratory Results - last 24 hr 05/15/21 05/15/21 05/15/21 Range/Units 11:18 16:44 20:18 WBC (4.5-11.0) K/uL RBC (4.30-5.90) M/uL Hgb (12.0-15.0) g/dL Hct (40.0-54.0) % MCV (80-98) fL MCH (27-31) pg MCHC (32-36) % Plt Count (150-400) K/uL Neut % (Auto) (36-66) % Lymph % (Auto) (24-44) % Starr % (Auto) (2-6) % Eos % (Auto) (2-4) % Baso % (Auto) (0-1) % D-Dimer, Quantitative (0.0-500.0) ng/mL Sodium (140-148) mmol/L Potassium (3.6-5.2) mmol/L Chloride (100-108) mmol/L Carbon Dioxide (21-32) mmol/L Anion Gap (5.0-14.0) mmol/L BUN (7-18) mg/dL Creatinine (0.8-1.3) mg/dL Est Cr Clr Drug Dosing mL/min Estimated GFR (MDRD) (>60) Glucose (74-106) mg/dL POC Glucose 238 H 309 H 267 H (74-106) mg/dL Calcium (8.5-10.1) mg/dL Total Bilirubin (0.2-1.0) mg/dL AST (15-37) U/L ALT (12-78) U/L Alkaline Phosphatase (46-116) U/L C-Reactive Protein (0.0-0.3) mg/dL Total Protein (6.4-8.2) g/dL Albumin (3.4-5.0) g/dL Globulin (2.3-3.5) g/dL Albumin/Globulin Ratio (1.2-2.2) 05/16/21 05/16/21 05/16/21 Range/Units 04:30 04:30 04:30 WBC 9.6 (4.5-11.0) K/uL RBC 4.79 (4.30-5.90) M/uL Hgb 14.5 (12.0-15.0) g/dL Hct 43.3 (40.0-54.0) % MCV 90 (80-98) fL MCH 30 (27-31) pg MCHC 34 (32-36) % Plt Count 462 H (150-400) K/uL Neut % (Auto) 87.7 H (36-66) % Lymph % (Auto) 7.9 L (24-44) % Starr % (Auto) 3.7 (2-6) % Eos % (Auto) 0.5 L (2-4) % Baso % (Auto) 0.2 (0-1) % D-Dimer, Quantitative 1332.87 H (0.0-500.0) ng/mL Sodium 140 (140-148) mmol/L Potassium 3.7 (3.6-5.2) mmol/L Chloride 103 (100-108) mmol/L Carbon Dioxide 26 (21-32) mmol/L Anion Gap 11.4 (5.0-14.0) mmol/L BUN 30 H (7-18) mg/dL Creatinine 0.9 (0.8-1.3) mg/dL Est Cr Clr Drug Dosing 63.95 mL/min Estimated GFR (MDRD) > 60 (>60) Glucose 202 H (74-106) mg/dL POC Glucose (74-106) mg/dL Calcium 8.9 (8.5-10.1) mg/dL Total Bilirubin 0.8 (0.2-1.0) mg/dL AST 21 (15-37) U/L ALT 31 (12-78) U/L Alkaline Phosphatase 53 (46-116) U/L C-Reactive Protein (0.0-0.3) mg/dL Total Protein 6.9 (6.4-8.2) g/dL Albumin 2.7 L (3.4-5.0) g/dL Globulin 4.2 H (2.3-3.5) g/dL Albumin/Globulin Ratio 0.6 L (1.2-2.2) 05/16/21 05/16/21 Range/Units 04:30 07:50 WBC (4.5-11.0) K/uL RBC (4.30-5.90) M/uL Hgb (12.0-15.0) g/dL Hct (40.0-54.0) % MCV (80-98) fL MCH (27-31) pg MCHC (32-36) % Plt Count (150-400) K/uL Neut % (Auto) (36-66) % Lymph % (Auto) (24-44) % Starr % (Auto) (2-6) % Eos % (Auto) (2-4) % Baso % (Auto) (0-1) % D-Dimer, Quantitative (0.0-500.0) ng/mL Sodium (140-148) mmol/L Potassium (3.6-5.2) mmol/L Chloride (100-108) mmol/L Carbon Dioxide (21-32) mmol/L Anion Gap (5.0-14.0) mmol/L BUN (7-18) mg/dL Creatinine (0.8-1.3) mg/dL Est Cr Clr Drug Dosing mL/min Estimated GFR (MDRD) (>60) Glucose (74-106) mg/dL POC Glucose 175 H (74-106) mg/dL Calcium (8.5-10.1) mg/dL Total Bilirubin (0.2-1.0) mg/dL AST (15-37) U/L ALT (12-78) U/L Alkaline Phosphatase (46-116) U/L C-Reactive Protein 8.55 H (0.0-0.3) mg/dL Total Protein (6.4-8.2) g/dL Albumin (3.4-5.0) g/dL Globulin (2.3-3.5) g/dL Albumin/Globulin Ratio (1.2-2.2) Med Orders - Current: Current Medications Acetaminophen (Acetaminophen 325 Mg Tab) 650 mg PO Q4H PRN PRN Reason: Pain (Mild 1-3)/fever Last Admin: 05/14/21 05:21 Dose: 650 mg Documented by: Albuterol (Albuterol 8 Gm Inhaler) 0 gm INH Q2H PRN PRN Reason: Shortness of Breath Last Admin: 05/16/21 04:18 Dose: 2 puff Documented by: Aspirin (Aspirin 81 Mg Tab.Ec) 81 mg PO DAILY [facility] Last Admin: 05/16/21 09:24 Dose: 81 mg Documented by: Baricitinib (Baricitinib 2 Mg Tab) 4 mg PO Q24H [facility] Stop: 05/24/21 16:01 Last Admin: 05/15/21 16:46 Dose: 4 mg Documented by: Benzonatate (Benzonatate 100 Mg Cap) 100 mg PO TID PRN PRN Reason: Cough Last Admin: 05/13/21 08:56 Dose: 100 mg Documented by: Dexamethasone (Dexamethasone 4 Mg/Ml Sdv) 6 mg IVPUSH DAILY [facility] Stop: 05/19/21 09:01 Last Admin: 05/16/21 09:20 Dose: 6 mg Documented by: Enoxaparin Sodium (Enoxaparin 40 Mg/0.4 Ml Syringe) 40 mg SUBCUT Q24H [facility] Last Admin: 05/15/21 14:10 Dose: 40 mg Documented by: Gabapentin (Gabapentin 100 Mg Cap) 100 mg PO BID [facility] Last Admin: 05/16/21 09:24 Dose: 100 mg Documented by: Guaifenesin/Dextromethorphan (Guaifenesin/Dextromethorphan 100-10 Mg/5 Ml Soln 10 Ml Cup) 10 ml PO Q4H PRN PRN Reason: Cough Last Admin: 05/16/21 04:20 Dose: 10 ml Documented by: Ceftriaxone Sodium 1 gm/ (Sodium Chloride) 50 mls @ 100 mls/hr IV Q24H [facility] Last Admin: 05/15/21 11:22 Dose: 100 mls/hr Documented by: Doxycycline Hyclate 100 mg/ (Sodium Chloride) 100 mls @ 100 mls/hr IV Q12H [facility] Last Admin: 05/16/21 00:27 Dose: 100 mls/hr Documented by: Insulin Human Lispro (Insulin Lispro 100 Unit/Ml 3 Ml Kwikpen) 0 unit SUBCUT QIDACANDBED [facility]; Protocol Last Admin: 05/16/21 07:50 Dose: 2 units Documented by: Lorazepam (Lorazepam 2 Mg/Ml Sdv) 0.5 mg IVPUSH Q4H PRN PRN Reason: Nausea/Vomiting Last Admin: 05/16/21 04:58 Dose: 0.5 mg Documented by: Magnesium Hydroxide (Magnesium Hydroxide 400 Mg/5 Ml Susp 30 Ml Cup) 30 ml PO Q12H PRN PRN Reason: Constipation Melatonin (Melatonin 3 Mg Tab) 9 mg PO BEDTIME PRN PRN Reason: Sleep Last Admin: 05/14/21 21:53 Dose: 9 mg Documented by: Ondansetron HCl (Ondansetron 4 Mg/2 Ml Sdv) 4 mg IV Q6H PRN PRN Reason: Nausea/Vomiting Ondansetron HCl (Ondansetron 4 Mg Tab.Dis) 4 mg PO Q6H PRN PRN Reason: Nausea able to take PO Pantoprazole Sodium (Pantoprazole 40 Mg Tab.Cr) 40 mg PO ACBREAKFAST [facility] Last Admin: 05/16/21 07:48 Dose: 40 mg Documented by: Senna/Docusate Sodium (Docusate Sodium/Sennosides 50-8.6 Mg Tab) 1 tab PO BID PRN PRN Reason: Constipation Discontinued Medications Acetaminophen (Acetaminophen 325 Mg Tab) 650 mg PO Q4H PRN PRN Reason: Fever Greater Than 101 Furosemide (Furosemide 20 Mg/2 Ml Vial) 20 mg IVPUSH ONETIME ONE Stop: 05/12/21 04:21 Last Admin: 05/12/21 04:39 Dose: 20 mg Documented by: Furosemide (Furosemide 20 Mg/2 Ml Vial) 20 mg IVPUSH NOW ONE Stop: 05/14/21 09:01 Last Admin: 05/14/21 10:20 Dose: 20 mg Documented by: Furosemide (Furosemide 20 Mg/2 Ml Vial) 20 mg IVPUSH NOW ONE Stop: 05/15/21 08:31 Last Admin: 05/15/21 08:49 Dose: 20 mg Documented by: Furosemide (Furosemide 20 Mg/2 Ml Vial) 20 mg IVPUSH NOW ONE Stop: 05/16/21 08:31 Last Admin: 05/16/21 09:15 Dose: 20 mg Documented by: Remdesivir 200 mg/ Sodium (Chloride) 250 mls @ 250 mls/hr IV ONETIME ONE Stop: 05/10/21 12:59 Last Admin: 05/10/21 12:26 Dose: 250 mls/hr Documented by: Remdesivir 100 mg/ Sodium (Chloride) 100 mls @ 100 mls/hr IV Q24H [facility] Stop: 05/14/21 12:59 Last Admin: 05/14/21 11:10 Dose: 100 mls/hr Documented by: Insulin Human Lispro (Insulin Lispro 100 Unit/Ml 3 Ml Kwikpen) 0 unit SUBCUT QIDACANDBED [facility]; Protocol Last Admin: 05/11/21 16:56 Dose: 8 units Documented by: Potassium Chloride (Potassium Chloride 20 Meq Tab.Er) 40 meq PO ONETIME ONE Stop: 05/14/21 09:01 Last Admin: 05/14/21 10:20 Dose: 40 meq Documented by: - Exam Quality Assessment: Supplemental Oxygen, DVT Prophylaxis General: Alert, Oriented, Cooperative, Moderate Distress Lungs: Crackles, Rhonchi. No: Rales, Wheezing Cardiovascular: Regular Rate, Regular Rhythm, No Murmurs GI/Abdominal Exam: Soft, Non-Tender, No Organomegaly, No Distention Extremities: Non-Tender, No Pedal Edema - Patient Data Lab Results Last 24 hrs: Laboratory Results - last 24 hr 05/15/21 05/15/21 05/15/21 Range/Units 11:18 16:44 20:18 WBC (4.5-11.0) K/uL RBC (4.30-5.90) M/uL Hgb (12.0-15.0) g/dL Hct (40.0-54.0) % MCV (80-98) fL MCH (27-31) pg MCHC (32-36) % Plt Count (150-400) K/uL Neut % (Auto) (36-66) % Lymph % (Auto) (24-44) % Starr % (Auto) (2-6) % Eos % (Auto) (2-4) % Baso % (Auto) (0-1) % D-Dimer, Quantitative (0.0-500.0) ng/mL Sodium (140-148) mmol/L Potassium (3.6-5.2) mmol/L Chloride (100-108) mmol/L Carbon Dioxide (21-32) mmol/L Anion Gap (5.0-14.0) mmol/L BUN (7-18) mg/dL Creatinine (0.8-1.3) mg/dL Est Cr Clr Drug Dosing mL/min Estimated GFR (MDRD) (>60) Glucose (74-106) mg/dL POC Glucose 238 H 309 H 267 H (74-106) mg/dL Calcium (8.5-10.1) mg/dL Total Bilirubin (0.2-1.0) mg/dL AST (15-37) U/L ALT (12-78) U/L Alkaline Phosphatase (46-116) U/L C-Reactive Protein (0.0-0.3) mg/dL Total Protein (6.4-8.2) g/dL Albumin (3.4-5.0) g/dL Globulin (2.3-3.5) g/dL Albumin/Globulin Ratio (1.2-2.2) 05/16/21 05/16/21 05/16/21 Range/Units 04:30 04:30 04:30 WBC 9.6 (4.5-11.0) K/uL RBC 4.79 (4.30-5.90) M/uL Hgb 14.5 (12.0-15.0) g/dL Hct 43.3 (40.0-54.0) % MCV 90 (80-98) fL MCH 30 (27-31) pg MCHC 34 (32-36) % Plt Count 462 H (150-400) K/uL Neut % (Auto) 87.7 H (36-66) % Lymph % (Auto) 7.9 L (24-44) % Starr % (Auto) 3.7 (2-6) % Eos % (Auto) 0.5 L (2-4) % Baso % (Auto) 0.2 (0-1) % D-Dimer, Quantitative 1332.87 H (0.0-500.0) ng/mL Sodium 140 (140-148) mmol/L Potassium 3.7 (3.6-5.2) mmol/L Chloride 103 (100-108) mmol/L Carbon Dioxide 26 (21-32) mmol/L Anion Gap 11.4 (5.0-14.0) mmol/L BUN 30 H (7-18) mg/dL Creatinine 0.9 (0.8-1.3) mg/dL Est Cr Clr Drug Dosing 63.95 mL/min Estimated GFR (MDRD) > 60 (>60) Glucose 202 H (74-106) mg/dL POC Glucose (74-106) mg/dL Calcium 8.9 (8.5-10.1) mg/dL Total Bilirubin 0.8 (0.2-1.0) mg/dL AST 21 (15-37) U/L ALT 31 (12-78) U/L Alkaline Phosphatase 53 (46-116) U/L C-Reactive Protein (0.0-0.3) mg/dL Total Protein 6.9 (6.4-8.2) g/dL Albumin 2.7 L (3.4-5.0) g/dL Globulin 4.2 H (2.3-3.5) g/dL Albumin/Globulin Ratio 0.6 L (1.2-2.2) 05/16/21 05/16/21 Range/Units 04:30 07:50 WBC (4.5-11.0) K/uL RBC (4.30-5.90) M/uL Hgb (12.0-15.0) g/dL Hct (40.0-54.0) % MCV (80-98) fL MCH (27-31) pg MCHC (32-36) % Plt Count (150-400) K/uL Neut % (Auto) (36-66) % Lymph % (Auto) (24-44) % Starr % (Auto) (2-6) % Eos % (Auto) (2-4) % Baso % (Auto) (0-1) % D-Dimer, Quantitative (0.0-500.0) ng/mL Sodium (140-148) mmol/L Potassium (3.6-5.2) mmol/L Chloride (100-108) mmol/L Carbon Dioxide (21-32) mmol/L Anion Gap (5.0-14.0) mmol/L BUN (7-18) mg/dL Creatinine (0.8-1.3) mg/dL Est Cr Clr Drug Dosing mL/min Estimated GFR (MDRD) (>60) Glucose (74-106) mg/dL POC Glucose 175 H (74-106) mg/dL Calcium (8.5-10.1) mg/dL Total Bilirubin (0.2-1.0) mg/dL AST (15-37) U/L ALT (12-78) U/L Alkaline Phosphatase (46-116) U/L C-Reactive Protein 8.55 H (0.0-0.3) mg/dL Total Protein (6.4-8.2) g/dL Albumin (3.4-5.0) g/dL Globulin (2.3-3.5) g/dL Albumin/Globulin Ratio (1.2-2.2) Result Diagrams: 05/16/21 04:30 05/16/21 04:30 Sepsis Event Note - Evaluation Sepsis Screening Result: No Definite Risk - Focused Exam Vital Signs: Vital Signs Temp Pulse Resp BP Pulse Ox 05/16/21 09:00 85 41 H 104/65 83 L 05/16/21 07:42 97.2 F 78 33 H 99/63 87 L 05/16/21 06:00 74 35 H 111/72 84 L 05/16/21 04:00 97.2 F 76 26 H 107/73 88 L 05/16/21 02:00 65 29 H 107/73 88 L 05/16/21 00:00 97.6 F 76 25 H 124/76 88 L - Problem List Review Problem List Initiated/Reviewed/Updated: Yes - Plan Plan:: ASSESSMENT AND PLAN COVID-19 pneumonia-complicated by acute respiratory failure with hypoxia. Symptom onset 05/05. Continues to require very high level of supplemental oxygen with borderline oxygenation -Remdesivir x5 days, completed -Dexamethasone 6 mg daily (day 7) -Baricitinib 4 mg p.o. daily, today is day 6 of 14 -Empiric antibiotic therapy; ceftriaxone and doxycycline, day 3 of 7 -Furosemide 20 mg IV today, reassess in a.m. -Enoxaparin every 24 hours -Repeat labs every 2 days -Symptomatic management of cough -Isolation precautions Type 2 diabetes mellitus-diet controlled. -Sliding scale insulin -Monitor 4 times daily glucometers History of prostate cancer-doing well since treatment a couple of years ago. Follow-up scans and PSA have been reassuring. Maintenance issues - -DVT prophylaxis-enoxaparin -GI prophylaxis-PPI -Nutrition-consistent carbohydrates -Lara catheter-not indicated CODE STATUS -full code Admission justification -this patient will be admitted for inpatient services and is medically appropriate meeting medical necessity for inpatient admission as outlined in my documentation. I reasonably expect the patient will require inpatient services that span a period time over 2 midnights. I reasonably expect this patient to be discharged or transferred within 96 hours [facility]. Disposition -I anticipate discharge home after the hospital stay Primary care physician -Dr Kiran Barakat
[2021-05-16] MEDS: cefTRIAXone 1 GM in Sodium Chloride 0.9% 50 ML IV SCH (11:54)
[2021-05-16] MEDS: Enoxaparin 40 MG/0.4 ML Syringe SUBCUT SCH (14:40)
[2021-05-16] MEDS: Melatonin 3 MG Tab PO PRN (21:39)
[2021-05-17] MEDS: Doxycycline 100 MG in Sodium Chloride 0.9% 100 ML IV SCH ×2 (00:08→12:02)
[2021-05-17] MEDS: guaiFENesin/Dextromethorphan 100-10 MG/5 ML Soln 10 ML Cup PO PRN ×3 (02:52→22:07)
[2021-05-17] MEDS: Albuterol 8 GM Inhaler INH PRN (02:54)
[2021-05-17] MEDS: Insulin Lispro 100 Unit/ML 3 ML KwikPen SUBCUT SCH ×4 (08:13→20:36)
[2021-05-17] MEDS: Pantoprazole 40 MG Tab.CR PO SCH (08:17)
[2021-05-17] MEDS: Aspirin 81 MG Tab.EC PO SCH (09:31)
[2021-05-17] MEDS: Dexamethasone 4 MG/ML SDV IVPUSH SCH (09:31)
[2021-05-17] MEDS: Gabapentin 100 MG Cap PO SCH ×2 (09:34→20:02)
[2021-05-17] MEDS: Benzonatate 100 MG Cap PO PRN ×2 (11:34→20:30)
--- NOTE | 2021-05-17 12:06 | PCM.PN ---
- General Info Date of Service: 05/17/21 Subjective Update: Mr Villalobos has continued to require very high level of supplemental oxygen. He is shown perhaps modest improvement over the last 24 hours. Continues to desaturate with minimal activity. Functional Status: Reports: Urinating. Denies: Tolerating Diet, Ambulating - Review of Systems General: Reports: Weakness, Fatigue. Denies: Fever, Chills Pulmonary: Reports: Shortness of Breath, Cough. Denies: Pleuritic Chest Pain, Sputum, Hemoptysis, Wheezing Cardiovascular: Reports: Dyspnea on Exertion. Denies: Chest Pain, Palpitations, Orthopnea, PND, Edema, Lightheadedness Gastrointestinal: Reports: No Symptoms Genitourinary: Reports: No Symptoms - Patient Data Vitals - Most Recent: Last Vital Signs Temp 96.5 F L 05/17/21 11:43 Pulse 96 05/17/21 11:43 Resp 24 H 05/17/21 11:43 BP 119/83 05/17/21 11:43 Pulse Ox 90 L 05/17/21 11:43 Weight - Most Recent: 206 lb I&O - Last 24 Hours: Intake & Output 05/16/21 05/17/21 05/17/21 22:59 06:59 14:59 Intake Total 680 740 Output Total 500 300 Balance 680 240 -300 Lab Results Last 24 Hours: Laboratory Results - last 24 hr 05/16/21 05/16/21 05/17/21 Range/Units 16:46 20:24 08:12 POC Glucose 310 H 279 H 186 H (74-106) mg/dL 05/17/21 Range/Units 11:37 POC Glucose 209 H (74-106) mg/dL Med Orders - Current: Current Medications Acetaminophen (Acetaminophen 325 Mg Tab) 650 mg PO Q4H PRN PRN Reason: Pain (Mild 1-3)/fever Last Admin: 05/14/21 05:21 Dose: 650 mg Documented by: Albuterol (Albuterol 8 Gm Inhaler) 0 gm INH Q2H PRN PRN Reason: Shortness of Breath Last Admin: 05/17/21 02:54 Dose: 2 puff Documented by: Aspirin (Aspirin 81 Mg Tab.Ec) 81 mg PO DAILY [facility] Last Admin: 05/17/21 09:31 Dose: 81 mg Documented by: Baricitinib (Baricitinib 2 Mg Tab) 4 mg PO Q24H [facility] Stop: 05/24/21 16:01 Last Admin: 05/16/21 16:39 Dose: 4 mg Documented by: Benzonatate (Benzonatate 100 Mg Cap) 100 mg PO TID PRN PRN Reason: Cough Last Admin: 05/17/21 11:34 Dose: 100 mg Documented by: Dexamethasone (Dexamethasone 4 Mg/Ml Sdv) 6 mg IVPUSH DAILY [facility] Stop: 05/19/21 09:01 Last Admin: 05/17/21 09:31 Dose: 6 mg Documented by: Enoxaparin Sodium (Enoxaparin 40 Mg/0.4 Ml Syringe) 40 mg SUBCUT Q24H [facility] Last Admin: 05/16/21 14:40 Dose: 40 mg Documented by: Gabapentin (Gabapentin 100 Mg Cap) 100 mg PO BID [facility] Last Admin: 05/17/21 09:34 Dose: Not Given Documented by: Guaifenesin/Dextromethorphan (Guaifenesin/Dextromethorphan 100-10 Mg/5 Ml Soln 10 Ml Cup) 10 ml PO Q4H PRN PRN Reason: Cough Last Admin: 05/17/21 11:34 Dose: 10 ml Documented by: Ceftriaxone Sodium 1 gm/ (Sodium Chloride) 50 mls @ 100 mls/hr IV Q24H [facility] Last Admin: 05/16/21 11:54 Dose: 100 mls/hr Documented by: Doxycycline Hyclate 100 mg/ (Sodium Chloride) 100 mls @ 100 mls/hr IV Q12H [facility] Last Admin: 05/17/21 00:08 Dose: 100 mls/hr Documented by: Insulin Human Lispro (Insulin Lispro 100 Unit/Ml 3 Ml Kwikpen) 0 unit SUBCUT QIDACANDBED [facility]; Protocol Last Admin: 05/17/21 11:40 Dose: 4 units Documented by: Lorazepam (Lorazepam 2 Mg/Ml Sdv) 0.5 mg IVPUSH Q4H PRN PRN Reason: Nausea/Vomiting Last Admin: 05/16/21 04:58 Dose: 0.5 mg Documented by: Magnesium Hydroxide (Magnesium Hydroxide 400 Mg/5 Ml Susp 30 Ml Cup) 30 ml PO Q12H PRN PRN Reason: Constipation Melatonin (Melatonin 3 Mg Tab) 9 mg PO BEDTIME PRN PRN Reason: Sleep Last Admin: 05/16/21 21:39 Dose: 9 mg Documented by: Ondansetron HCl (Ondansetron 4 Mg/2 Ml Sdv) 4 mg IV Q6H PRN PRN Reason: Nausea/Vomiting Ondansetron HCl (Ondansetron 4 Mg Tab.Dis) 4 mg PO Q6H PRN PRN Reason: Nausea able to take PO Pantoprazole Sodium (Pantoprazole 40 Mg Tab.Cr) 40 mg PO ACBREAKFAST [facility] Last Admin: 05/17/21 08:17 Dose: 40 mg Documented by: Senna/Docusate Sodium (Docusate Sodium/Sennosides 50-8.6 Mg Tab) 1 tab PO BID PRN PRN Reason: Constipation Discontinued Medications Acetaminophen (Acetaminophen 325 Mg Tab) 650 mg PO Q4H PRN PRN Reason: Fever Greater Than 101 Furosemide (Furosemide 20 Mg/2 Ml Vial) 20 mg IVPUSH ONETIME ONE Stop: 05/12/21 04:21 Last Admin: 05/12/21 04:39 Dose: 20 mg Documented by: Furosemide (Furosemide 20 Mg/2 Ml Vial) 20 mg IVPUSH NOW ONE Stop: 05/14/21 09:01 Last Admin: 05/14/21 10:20 Dose: 20 mg Documented by: Furosemide (Furosemide 20 Mg/2 Ml Vial) 20 mg IVPUSH NOW ONE Stop: 05/15/21 08:31 Last Admin: 05/15/21 08:49 Dose: 20 mg Documented by: Furosemide (Furosemide 20 Mg/2 Ml Vial) 20 mg IVPUSH NOW ONE Stop: 05/16/21 08:31 Last Admin: 05/16/21 09:15 Dose: 20 mg Documented by: Remdesivir 200 mg/ Sodium (Chloride) 250 mls @ 250 mls/hr IV ONETIME ONE Stop: 05/10/21 12:59 Last Admin: 05/10/21 12:26 Dose: 250 mls/hr Documented by: Remdesivir 100 mg/ Sodium (Chloride) 100 mls @ 100 mls/hr IV Q24H [facility] Stop: 05/14/21 12:59 Last Admin: 05/14/21 11:10 Dose: 100 mls/hr Documented by: Insulin Human Lispro (Insulin Lispro 100 Unit/Ml 3 Ml Kwikpen) 0 unit SUBCUT QIDACANDBED [facility]; Protocol Last Admin: 05/11/21 16:56 Dose: 8 units Documented by: Potassium Chloride (Potassium Chloride 20 Meq Tab.Er) 40 meq PO ONETIME ONE Stop: 05/14/21 09:01 Last Admin: 05/14/21 10:20 Dose: 40 meq Documented by: - Exam Quality Assessment: Supplemental Oxygen, DVT Prophylaxis General: Alert, Oriented, Cooperative, Moderate Distress Lungs: Crackles. No: Rales, Rhonchi, Wheezing Cardiovascular: Regular Rate, Regular Rhythm, No Murmurs GI/Abdominal Exam: Soft, Non-Tender, No Organomegaly, No Distention Extremities: Non-Tender, No Pedal Edema - Patient Data Lab Results Last 24 hrs: Laboratory Results - last 24 hr 05/16/21 05/16/21 05/17/21 Range/Units 16:46 20:24 08:12 POC Glucose 310 H 279 H 186 H (74-106) mg/dL 05/17/21 Range/Units 11:37 POC Glucose 209 H (74-106) mg/dL Result Diagrams: 05/16/21 04:30 05/16/21 04:30 Sepsis Event Note - Evaluation Sepsis Screening Result: Sepsis Risk - Focused Exam Vital Signs: Vital Signs Temp Pulse Resp BP Pulse Ox 05/17/21 11:43 96.5 F L 96 24 H 119/83 90 L 05/17/21 10:00 87 28 H 87 L 05/17/21 08:00 96.5 F L 95 37 H 122/72 84 L 05/17/21 06:00 97.2 F 91 28 H 115/70 89 L 05/17/21 04:00 75 33 H 115/65 86 L 05/17/21 02:00 97.1 F 89 18 125/77 88 L - Problem List Review Problem List Initiated/Reviewed/Updated: Yes - My Orders Last 24 Hours: My Active Orders 05/18/21 05:00 CBC WITH AUTO DIFF [HEME] Timed COMPREHENSIVE METABOLIC PN,CMP [CHEM] Timed 05/18/21 05:11 CRP [C-REACTIVE PROTEIN] [CHEM] AM D Dimer [D-DIMER QUANTITATIVE] [COAG] AM - Plan Plan:: ASSESSMENT AND PLAN COVID-19 pneumonia-complicated by acute respiratory failure with hypoxia. Symptom onset 05/05. Continues to require very high level of supplemental oxygen with borderline oxygenation, modest improvement noted over the last 24 hours -Remdesivir x5 days, completed -Dexamethasone 6 mg daily (day 8) -Baricitinib 4 mg p.o. daily, today is day 7 of 14 -Empiric antibiotic therapy; ceftriaxone and doxycycline, day 4 of 7 -Hold furosemide today, reassess in a.m. -Enoxaparin every 24 hours -Repeat labs every 2 days -Symptomatic management of cough -Isolation precautions Type 2 diabetes mellitus-diet controlled. -Sliding scale insulin -Monitor 4 times daily glucometers History of prostate cancer-doing well since treatment a couple of years ago. Follow-up scans and PSA have been reassuring. Maintenance issues - -DVT prophylaxis-enoxaparin -GI prophylaxis-PPI -Nutrition-consistent carbohydrates -Lara catheter-not indicated CODE STATUS -full code Admission justification -this patient will be admitted for inpatient services and is medically appropriate meeting medical necessity for inpatient admission as outlined in my documentation. I reasonably expect the patient will require inpatient services that span a period time over 2 midnights. I reasonably expect this patient to be discharged or transferred within 96 hours [facility]. Disposition -I anticipate discharge home after the hospital stay Primary care physician -Dr Kiran Barakat
[2021-05-17] MEDS: cefTRIAXone 1 GM in Sodium Chloride 0.9% 50 ML IV SCH (14:50)
[2021-05-17] MEDS: Enoxaparin 40 MG/0.4 ML Syringe SUBCUT SCH (14:53)
[2021-05-17] MEDS: Melatonin 3 MG Tab PO PRN (20:30)
[2021-05-18] MEDS: Doxycycline 100 MG in Sodium Chloride 0.9% 100 ML IV SCH ×3 (00:26→23:46)
[2021-05-18] MEDS: Aspirin 81 MG Tab.EC PO SCH (08:03)
[2021-05-18] MEDS: Pantoprazole 40 MG Tab.CR PO SCH (08:03)
[2021-05-18] MEDS: Gabapentin 100 MG Cap PO SCH ×2 (08:03→20:41)
[2021-05-18] MEDS: Dexamethasone 4 MG/ML SDV IVPUSH SCH (08:04)
[2021-05-18] MEDS: Insulin Lispro 100 Unit/ML 3 ML KwikPen SUBCUT SCH ×4 (08:10→20:43)
--- NOTE | 2021-05-18 10:08 | PCM.PN ---
- General Info Date of Service: 05/18/21 Subjective Update: No acute events overnight. Symptomatically he is feeling better today. He feels less short of breath. Strength is a little better today. No fevers overnight. Intermittent cough with some sputum. Appetite has been good. Blood sugars are fairly well controlled. D-dimer is stable and CRP has improved. We have been able to decrease his FiO2 slightly. Functional Status: Reports: Pain Controlled, Tolerating Diet - Review of Systems General: Reports: Weakness, Fatigue - Patient Data Vitals - Most Recent: Last Vital Signs Temp 36.2 C 05/18/21 08:00 Pulse 76 05/18/21 06:00 Resp 24 H 05/18/21 08:00 BP 131/77 05/18/21 08:00 Pulse Ox 90 L 05/18/21 08:00 Weight - Most Recent: 93.44 kg I&O - Last 24 Hours: Intake & Output 05/17/21 05/18/21 05/18/21 22:59 06:59 14:59 Intake Total 240 Output Total 700 100 Balance -700 140 Lab Results Last 24 Hours: Laboratory Results - last 24 hr 05/17/21 05/17/21 05/17/21 Range/Units 11:37 16:40 20:36 WBC (4.5-11.0) K/uL RBC (4.30-5.90) M/uL Hgb (12.0-15.0) g/dL Hct (40.0-54.0) % MCV (80-98) fL MCH (27-31) pg MCHC (32-36) % Plt Count (150-400) K/uL Neut % (Auto) (36-66) % Lymph % (Auto) (24-44) % [place] % (Auto) (2-6) % Eos % (Auto) (2-4) % Baso % (Auto) (0-1) % D-Dimer, Quantitative (0.0-500.0) ng/mL Sodium (140-148) mmol/L Potassium (3.6-5.2) mmol/L Chloride (100-108) mmol/L Carbon Dioxide (21-32) mmol/L Anion Gap (5.0-14.0) mmol/L BUN (7-18) mg/dL Creatinine (0.8-1.3) mg/dL Est Cr Clr Drug Dosing mL/min Estimated GFR (MDRD) (>60) Glucose (74-106) mg/dL POC Glucose 209 H 267 H 327 H (74-106) mg/dL Calcium (8.5-10.1) mg/dL Total Bilirubin (0.2-1.0) mg/dL AST (15-37) U/L ALT (12-78) U/L Alkaline Phosphatase (46-116) U/L C-Reactive Protein (0.0-0.3) mg/dL Total Protein (6.4-8.2) g/dL Albumin (3.4-5.0) g/dL Globulin (2.3-3.5) g/dL Albumin/Globulin Ratio (1.2-2.2) 05/18/21 05/18/21 05/18/21 Range/Units 04:40 04:40 04:40 WBC 11.6 H (4.5-11.0) K/uL RBC 4.64 (4.30-5.90) M/uL Hgb 14.6 (12.0-15.0) g/dL Hct 42.3 (40.0-54.0) % MCV 91 (80-98) fL MCH 32 H (27-31) pg MCHC 35 (32-36) % Plt Count 526 H (150-400) K/uL Neut % (Auto) 88.6 H (36-66) % Lymph % (Auto) 5.0 L (24-44) % [place] % (Auto) 5.2 (2-6) % Eos % (Auto) 1.1 L (2-4) % Baso % (Auto) 0.1 (0-1) % D-Dimer, Quantitative 1619.07 H (0.0-500.0) ng/mL Sodium 140 (140-148) mmol/L Potassium 4.0 (3.6-5.2) mmol/L Chloride 104 (100-108) mmol/L Carbon Dioxide 25 (21-32) mmol/L Anion Gap 11.5 (5.0-14.0) mmol/L BUN 33 H (7-18) mg/dL Creatinine 0.9 (0.8-1.3) mg/dL Est Cr Clr Drug Dosing 63.95 mL/min Estimated GFR (MDRD) > 60 (>60) Glucose 187 H (74-106) mg/dL POC Glucose (74-106) mg/dL Calcium 8.9 (8.5-10.1) mg/dL Total Bilirubin 0.6 (0.2-1.0) mg/dL AST 23 (15-37) U/L ALT 30 (12-78) U/L Alkaline Phosphatase 61 (46-116) U/L C-Reactive Protein (0.0-0.3) mg/dL Total Protein 6.9 (6.4-8.2) g/dL Albumin 2.7 L (3.4-5.0) g/dL Globulin 4.2 H (2.3-3.5) g/dL Albumin/Globulin Ratio 0.6 L (1.2-2.2) 05/18/21 05/18/21 Range/Units 04:40 08:01 WBC (4.5-11.0) K/uL RBC (4.30-5.90) M/uL Hgb (12.0-15.0) g/dL Hct (40.0-54.0) % MCV (80-98) fL MCH (27-31) pg MCHC (32-36) % Plt Count (150-400) K/uL Neut % (Auto) (36-66) % Lymph % (Auto) (24-44) % [place] % (Auto) (2-6) % Eos % (Auto) (2-4) % Baso % (Auto) (0-1) % D-Dimer, Quantitative (0.0-500.0) ng/mL Sodium (140-148) mmol/L Potassium (3.6-5.2) mmol/L Chloride (100-108) mmol/L Carbon Dioxide (21-32) mmol/L Anion Gap (5.0-14.0) mmol/L BUN (7-18) mg/dL Creatinine (0.8-1.3) mg/dL Est Cr Clr Drug Dosing mL/min Estimated GFR (MDRD) (>60) Glucose (74-106) mg/dL POC Glucose 157 H (74-106) mg/dL Calcium (8.5-10.1) mg/dL Total Bilirubin (0.2-1.0) mg/dL AST (15-37) U/L ALT (12-78) U/L Alkaline Phosphatase (46-116) U/L C-Reactive Protein 5.69 H (0.0-0.3) mg/dL Total Protein (6.4-8.2) g/dL Albumin (3.4-5.0) g/dL Globulin (2.3-3.5) g/dL Albumin/Globulin Ratio (1.2-2.2) Med Orders - Current: Current Medications Acetaminophen (Acetaminophen 325 Mg Tab) 650 mg PO Q4H PRN PRN Reason: Pain (Mild 1-3)/fever Last Admin: 05/14/21 05:21 Dose: 650 mg Documented by: Albuterol (Albuterol 8 Gm Inhaler) 0 gm INH Q2H PRN PRN Reason: Shortness of Breath Last Admin: 05/17/21 02:54 Dose: 2 puff Documented by: Aspirin (Aspirin 81 Mg Tab.Ec) 81 mg PO DAILY [facility] Last Admin: 05/18/21 08:03 Dose: 81 mg Documented by: Baricitinib (Baricitinib 2 Mg Tab) 4 mg PO Q24H [facility] Stop: 05/24/21 16:01 Last Admin: 05/17/21 16:38 Dose: 4 mg Documented by: Benzonatate (Benzonatate 100 Mg Cap) 100 mg PO TID PRN PRN Reason: Cough Last Admin: 05/17/21 20:30 Dose: 100 mg Documented by: Dexamethasone (Dexamethasone 4 Mg/Ml Sdv) 6 mg IVPUSH DAILY [facility] Stop: 05/19/21 09:01 Last Admin: 05/18/21 08:04 Dose: 6 mg Documented by: Enoxaparin Sodium (Enoxaparin 40 Mg/0.4 Ml Syringe) 40 mg SUBCUT Q24H [facility] Last Admin: 05/17/21 14:53 Dose: 40 mg Documented by: Gabapentin (Gabapentin 100 Mg Cap) 100 mg PO BID [facility] Last Admin: 05/18/21 08:03 Dose: 100 mg Documented by: Guaifenesin/Dextromethorphan (Guaifenesin/Dextromethorphan 100-10 Mg/5 Ml Soln 10 Ml Cup) 10 ml PO Q4H PRN PRN Reason: Cough Last Admin: 05/17/21 22:07 Dose: 10 ml Documented by: Ceftriaxone Sodium 1 gm/ (Sodium Chloride) 50 mls @ 100 mls/hr IV Q24H [facility] Last Admin: 05/17/21 14:50 Dose: 100 mls/hr Documented by: Doxycycline Hyclate 100 mg/ (Sodium Chloride) 100 mls @ 100 mls/hr IV Q12H [facility] Last Admin: 05/18/21 00:26 Dose: 100 mls/hr Documented by: Insulin Human Lispro (Insulin Lispro 100 Unit/Ml 3 Ml Kwikpen) 0 unit SUBCUT QIDACANDBED [facility]; Protocol Last Admin: 05/18/21 08:10 Dose: 2 units Documented by: Lorazepam (Lorazepam 2 Mg/Ml Sdv) 0.5 mg IVPUSH Q4H PRN PRN Reason: Nausea/Vomiting Last Admin: 05/16/21 04:58 Dose: 0.5 mg Documented by: Magnesium Hydroxide (Magnesium Hydroxide 400 Mg/5 Ml Susp 30 Ml Cup) 30 ml PO Q12H PRN PRN Reason: Constipation Melatonin (Melatonin 3 Mg Tab) 9 mg PO BEDTIME PRN PRN Reason: Sleep Last Admin: 05/17/21 20:30 Dose: 9 mg Documented by: Ondansetron HCl (Ondansetron 4 Mg/2 Ml Sdv) 4 mg IV Q6H PRN PRN Reason: Nausea/Vomiting Ondansetron HCl (Ondansetron 4 Mg Tab.Dis) 4 mg PO Q6H PRN PRN Reason: Nausea able to take PO Pantoprazole Sodium (Pantoprazole 40 Mg Tab.Cr) 40 mg PO ACBREAKFAST [facility] Last Admin: 05/18/21 08:03 Dose: 40 mg Documented by: Senna/Docusate Sodium (Docusate Sodium/Sennosides 50-8.6 Mg Tab) 1 tab PO BID PRN PRN Reason: Constipation Discontinued Medications Acetaminophen (Acetaminophen 325 Mg Tab) 650 mg PO Q4H PRN PRN Reason: Fever Greater Than 101 Furosemide (Furosemide 20 Mg/2 Ml Vial) 20 mg IVPUSH ONETIME ONE Stop: 05/12/21 04:21 Last Admin: 05/12/21 04:39 Dose: 20 mg Documented by: Furosemide (Furosemide 20 Mg/2 Ml Vial) 20 mg IVPUSH NOW ONE Stop: 05/14/21 09:01 Last Admin: 05/14/21 10:20 Dose: 20 mg Documented by: Furosemide (Furosemide 20 Mg/2 Ml Vial) 20 mg IVPUSH NOW ONE Stop: 05/15/21 08:31 Last Admin: 05/15/21 08:49 Dose: 20 mg Documented by: Furosemide (Furosemide 20 Mg/2 Ml Vial) 20 mg IVPUSH NOW ONE Stop: 05/16/21 08:31 Last Admin: 05/16/21 09:15 Dose: 20 mg Documented by: Remdesivir 200 mg/ Sodium (Chloride) 250 mls @ 250 mls/hr IV ONETIME ONE Stop: 05/10/21 12:59 Last Admin: 05/10/21 12:26 Dose: 250 mls/hr Documented by: Remdesivir 100 mg/ Sodium (Chloride) 100 mls @ 100 mls/hr IV Q24H [facility] Stop: 05/14/21 12:59 Last Admin: 05/14/21 11:10 Dose: 100 mls/hr Documented by: Insulin Human Lispro (Insulin Lispro 100 Unit/Ml 3 Ml Kwikpen) 0 unit SUBCUT QIDACANDBED [facility]; Protocol Last Admin: 05/11/21 16:56 Dose: 8 units Documented by: Potassium Chloride (Potassium Chloride 20 Meq Tab.Er) 40 meq PO ONETIME ONE Stop: 05/14/21 09:01 Last Admin: 05/14/21 10:20 Dose: 40 meq Documented by: - Exam Quality Assessment: Supplemental Oxygen General: Alert, Oriented, Cooperative, No Acute Distress Neck: Supple, No JVD Lungs: Normal Respiratory Effort. No: Crackles, Wheezing Cardiovascular: Regular Rate, Regular Rhythm GI/Abdominal Exam: Soft, No Distention Extremities: No Pedal Edema. No: Increased Warmth Skin: Warm, Dry Psy/Mental Status: Alert, Normal Affect - Patient Data Lab Results Last 24 hrs: Laboratory Results - last 24 hr 05/17/21 05/17/21 05/17/21 Range/Units 11:37 16:40 20:36 WBC (4.5-11.0) K/uL RBC (4.30-5.90) M/uL Hgb (12.0-15.0) g/dL Hct (40.0-54.0) % MCV (80-98) fL MCH (27-31) pg MCHC (32-36) % Plt Count (150-400) K/uL Neut % (Auto) (36-66) % Lymph % (Auto) (24-44) % [place] % (Auto) (2-6) % Eos % (Auto) (2-4) % Baso % (Auto) (0-1) % D-Dimer, Quantitative (0.0-500.0) ng/mL Sodium (140-148) mmol/L Potassium (3.6-5.2) mmol/L Chloride (100-108) mmol/L Carbon Dioxide (21-32) mmol/L Anion Gap (5.0-14.0) mmol/L BUN (7-18) mg/dL Creatinine (0.8-1.3) mg/dL Est Cr Clr Drug Dosing mL/min Estimated GFR (MDRD) (>60) Glucose (74-106) mg/dL POC Glucose 209 H 267 H 327 H (74-106) mg/dL Calcium (8.5-10.1) mg/dL Total Bilirubin (0.2-1.0) mg/dL AST (15-37) U/L ALT (12-78) U/L Alkaline Phosphatase (46-116) U/L C-Reactive Protein (0.0-0.3) mg/dL Total Protein (6.4-8.2) g/dL Albumin (3.4-5.0) g/dL Globulin (2.3-3.5) g/dL Albumin/Globulin Ratio (1.2-2.2) 05/18/21 05/18/21 05/18/21 Range/Units 04:40 04:40 04:40 WBC 11.6 H (4.5-11.0) K/uL RBC 4.64 (4.30-5.90) M/uL Hgb 14.6 (12.0-15.0) g/dL Hct 42.3 (40.0-54.0) % MCV 91 (80-98) fL MCH 32 H (27-31) pg MCHC 35 (32-36) % Plt Count 526 H (150-400) K/uL Neut % (Auto) 88.6 H (36-66) % Lymph % (Auto) 5.0 L (24-44) % [place] % (Auto) 5.2 (2-6) % Eos % (Auto) 1.1 L (2-4) % Baso % (Auto) 0.1 (0-1) % D-Dimer, Quantitative 1619.07 H (0.0-500.0) ng/mL Sodium 140 (140-148) mmol/L Potassium 4.0 (3.6-5.2) mmol/L Chloride 104 (100-108) mmol/L Carbon Dioxide 25 (21-32) mmol/L Anion Gap 11.5 (5.0-14.0) mmol/L BUN 33 H (7-18) mg/dL Creatinine 0.9 (0.8-1.3) mg/dL Est Cr Clr Drug Dosing 63.95 mL/min Estimated GFR (MDRD) > 60 (>60) Glucose 187 H (74-106) mg/dL POC Glucose (74-106) mg/dL Calcium 8.9 (8.5-10.1) mg/dL Total Bilirubin 0.6 (0.2-1.0) mg/dL AST 23 (15-37) U/L ALT 30 (12-78) U/L Alkaline Phosphatase 61 (46-116) U/L C-Reactive Protein (0.0-0.3) mg/dL Total Protein 6.9 (6.4-8.2) g/dL Albumin 2.7 L (3.4-5.0) g/dL Globulin 4.2 H (2.3-3.5) g/dL Albumin/Globulin Ratio 0.6 L (1.2-2.2) 05/18/21 05/18/21 Range/Units 04:40 08:01 WBC (4.5-11.0) K/uL RBC (4.30-5.90) M/uL Hgb (12.0-15.0) g/dL Hct (40.0-54.0) % MCV (80-98) fL MCH (27-31) pg MCHC (32-36) % Plt Count (150-400) K/uL Neut % (Auto) (36-66) % Lymph % (Auto) (24-44) % [place] % (Auto) (2-6) % Eos % (Auto) (2-4) % Baso % (Auto) (0-1) % D-Dimer, Quantitative (0.0-500.0) ng/mL Sodium (140-148) mmol/L Potassium (3.6-5.2) mmol/L Chloride (100-108) mmol/L Carbon Dioxide (21-32) mmol/L Anion Gap (5.0-14.0) mmol/L BUN (7-18) mg/dL Creatinine (0.8-1.3) mg/dL Est Cr Clr Drug Dosing mL/min Estimated GFR (MDRD) (>60) Glucose (74-106) mg/dL POC Glucose 157 H (74-106) mg/dL Calcium (8.5-10.1) mg/dL Total Bilirubin (0.2-1.0) mg/dL AST (15-37) U/L ALT (12-78) U/L Alkaline Phosphatase (46-116) U/L C-Reactive Protein 5.69 H (0.0-0.3) mg/dL Total Protein (6.4-8.2) g/dL Albumin (3.4-5.0) g/dL Globulin (2.3-3.5) g/dL Albumin/Globulin Ratio (1.2-2.2) Result Diagrams: 05/18/21 04:40 05/18/21 04:40 Sepsis Event Note - Evaluation Sepsis Screening Result: No Definite Risk - Focused Exam Vital Signs: Vital Signs Temp Pulse Resp BP Pulse Ox 05/18/21 08:00 36.2 C 24 H 131/77 90 L 05/18/21 06:00 76 20 114/74 89 L 05/18/21 04:00 80 22 H 135/85 92 L 05/18/21 02:00 80 22 H 112/73 86 L 05/18/21 00:00 80 21 H 117/76 88 L - Problem List & Annotations (1) Pneumonia due to COVID-19 virus SNOMED Code(s): 257780828932311920 Code(s): U07.1 - COVID-19; J12.82 - PNEUMONIA DUE TO CORONAVIRUS DISEASE 2019 Status: Acute Priority: High Current Visit: Yes (2) Respiratory failure with hypoxia SNOMED Code(s): 58853544221479854 Code(s): J96.91 - RESPIRATORY FAILURE, UNSPECIFIED WITH HYPOXIA Status: Acute Priority: High Current Visit: Yes Qualifiers: Chronicity: acute Qualified Code(s): J96.01 - Acute respiratory failure with hypoxia (3) DM II (diabetes mellitus, type II), controlled SNOMED Code(s): 32270835, 572238047 Code(s): E11.9 - TYPE 2 DIABETES MELLITUS WITHOUT COMPLICATIONS Status: Chr onic Current Visit: Yes Qualifiers: Diabetes mellitus lead inspector insulin use: without lead inspector use Diabetes mellitus complication status: without complication Qualified Code(s): E11.9 - Type 2 diabetes mellitus without complications (4) History of prostate cancer SNOMED Code(s): 275353299 Code(s): Z85.46 - PERSONAL HISTORY OF MALIGNANT NEOPLASM OF PROSTATE Status: Chronic Current Visit: Yes - Problem List Review Problem List Initiated/Reviewed/Updated: Yes - My Orders Last 24 Hours: My Active Orders 05/18/21 10:06 Transfer Patient (Change bed) [ADT] Routine - Plan Plan:: ASSESSMENT AND PLAN - COVID-19 pneumonia-complicated by acute respiratory failure with hypoxia. Symptom onset 05/05. Still requiring high support from the heated/high flow oxygen but seems to be slowly improving. D-dimer is stable with mild elevation in CRP is improving. -Remdesivir x5 days, completed -Dexamethasone 6 mg daily (day 8) -Baricitinib 4 mg p.o. daily, today is day 8 of 14 -Empiric antibiotic therapy; ceftriaxone and doxycycline, day 5 of 7 -Hold furosemide today, reassess in a.m. -Enoxaparin every 24 hours -Repeat labs every 2 days -Symptomatic management of cough -Isolation precautions Type 2 diabetes mellitus-diet controlled. Sugars well controlled so far. -Sliding scale insulin -Monitor 4 times daily glucometers History of prostate cancer-stable. Maintenance issues - -DVT prophylaxis-enoxaparin -GI prophylaxis-PPI -Nutrition-consistent carbohydrates -Lara catheter-not indicated Disposition -I anticipate discharge home after the hospital stay Joe Valero MD
[2021-05-18] MEDS: cefTRIAXone 1 GM in Sodium Chloride 0.9% 50 ML IV SCH (11:14)
[2021-05-18] MEDS: Enoxaparin 40 MG/0.4 ML Syringe SUBCUT SCH (15:07)
[2021-05-18] MEDS: Melatonin 3 MG Tab PO PRN (21:49)
[2021-05-18] MEDS: guaiFENesin/Dextromethorphan 100-10 MG/5 ML Soln 10 ML Cup PO PRN (21:49)
[2021-05-19] MEDS: Insulin Lispro 100 Unit/ML 3 ML KwikPen SUBCUT SCH ×4 (08:06→20:46)
[2021-05-19] MEDS: Pantoprazole 40 MG Tab.CR PO SCH (08:15)
[2021-05-19] MEDS: Dexamethasone 4 MG/ML SDV IVPUSH SCH (08:23)
[2021-05-19] MEDS: Aspirin 81 MG Tab.EC PO SCH (08:25)
[2021-05-19] MEDS: Gabapentin 100 MG Cap PO SCH ×2 (08:26→20:47)
--- NOTE | 2021-05-19 10:22 | PCM.PN ---
- General Info Date of Service: 05/19/21 Subjective Update: No acute events overnight. Feeling a little better each day. Strength improving a little bit each day. Appetite acceptable. No fevers. Intermittent cough. We have been able to reduce his supplemental oxygen requirement some over the past 24 hours but he does remain on the heated/high flow. - Review of Systems General: Reports: Weakness Pulmonary: Reports: Shortness of Breath - Patient Data Vitals - Most Recent: Last Vital Signs Temp 36.2 C 05/19/21 08:00 Pulse 93 05/19/21 08:00 Resp 22 H 05/19/21 08:00 BP 102/75 05/19/21 08:00 Pulse Ox 92 L 05/19/21 08:00 Weight - Most Recent: 93.44 kg I&O - Last 24 Hours: Intake & Output 05/18/21 05/19/21 05/19/21 22:59 06:59 14:59 Intake Total 200 Output Total 400 400 Balance -400 -200 Lab Results Last 24 Hours: Laboratory Results - last 24 hr 05/18/21 05/18/21 05/18/21 Range/Units 11:17 16:52 20:42 POC Glucose 199 H 285 H 322 H (74-106) mg/dL 05/19/21 Range/Units 08:03 POC Glucose 167 H (74-106) mg/dL Med Orders - Current: Current Medications Acetaminophen (Acetaminophen 325 Mg Tab) 650 mg PO Q4H PRN PRN Reason: Pain (Mild 1-3)/fever Last Admin: 05/14/21 05:21 Dose: 650 mg Documented by: Albuterol (Albuterol 8 Gm Inhaler) 0 gm INH Q2H PRN PRN Reason: Shortness of Breath Last Admin: 05/17/21 02:54 Dose: 2 puff Documented by: Aspirin (Aspirin 81 Mg Tab.Ec) 81 mg PO DAILY [facility] Last Admin: 05/19/21 08:25 Dose: 81 mg Documented by: Baricitinib (Baricitinib 2 Mg Tab) 4 mg PO Q24H [facility] Stop: 05/24/21 16:01 Last Admin: 05/18/21 15:07 Dose: 4 mg Documented by: Benzonatate (Benzonatate 100 Mg Cap) 100 mg PO TID PRN PRN Reason: Cough Last Admin: 05/17/21 20:30 Dose: 100 mg Documented by: Enoxaparin Sodium (Enoxaparin 40 Mg/0.4 Ml Syringe) 40 mg SUBCUT Q24H [facility] Last Admin: 05/18/21 15:07 Dose: 40 mg Documented by: Gabapentin (Gabapentin 100 Mg Cap) 100 mg PO BID [facility] Last Admin: 05/19/21 08:26 Dose: 100 mg Documented by: Guaifenesin/Dextromethorphan (Guaifenesin/Dextromethorphan 100-10 Mg/5 Ml Soln 10 Ml Cup) 10 ml PO Q4H PRN PRN Reason: Cough Last Admin: 05/18/21 21:49 Dose: 10 ml Documented by: Ceftriaxone Sodium 1 gm/ (Sodium Chloride) 50 mls @ 100 mls/hr IV Q24H [facility] Last Admin: 05/18/21 11:14 Dose: 100 mls/hr Documented by: Doxycycline Hyclate 100 mg/ (Sodium Chloride) 100 mls @ 100 mls/hr IV Q12H [facility] Last Admin: 05/18/21 23:46 Dose: 100 mls/hr Documented by: Insulin Human Lispro (Insulin Lispro 100 Unit/Ml 3 Ml Kwikpen) 0 unit SUBCUT QIDACANDBED [facility]; Protocol Last Admin: 05/19/21 08:06 Dose: 2 units Documented by: Lorazepam (Lorazepam 2 Mg/Ml Sdv) 0.5 mg IVPUSH Q4H PRN PRN Reason: Nausea/Vomiting Last Admin: 05/16/21 04:58 Dose: 0.5 mg Documented by: Magnesium Hydroxide (Magnesium Hydroxide 400 Mg/5 Ml Susp 30 Ml Cup) 30 ml PO Q12H PRN PRN Reason: Constipation Melatonin (Melatonin 3 Mg Tab) 9 mg PO BEDTIME PRN PRN Reason: Sleep Last Admin: 05/18/21 21:49 Dose: 9 mg Documented by: Ondansetron HCl (Ondansetron 4 Mg/2 Ml Sdv) 4 mg IV Q6H PRN PRN Reason: Nausea/Vomiting Ondansetron HCl (Ondansetron 4 Mg Tab.Dis) 4 mg PO Q6H PRN PRN Reason: Nausea able to take PO Pantoprazole Sodium (Pantoprazole 40 Mg Tab.Cr) 40 mg PO ACBREAKFAST [facility] Last Admin: 05/19/21 08:15 Dose: 40 mg Documented by: Senna/Docusate Sodium (Docusate Sodium/Sennosides 50-8.6 Mg Tab) 1 tab PO BID PRN PRN Reason: Constipation Discontinued Medications Acetaminophen (Acetaminophen 325 Mg Tab) 650 mg PO Q4H PRN PRN Reason: Fever Greater Than 101 Dexamethasone (Dexamethasone 4 Mg/Ml Sdv) 6 mg IVPUSH DAILY [facility] Stop: 05/19/21 09:01 Last Admin: 05/19/21 08:23 Dose: 6 mg Documented by: Furosemide (Furosemide 20 Mg/2 Ml Vial) 20 mg IVPUSH ONETIME ONE Stop: 05/12/21 04:21 Last Admin: 05/12/21 04:39 Dose: 20 mg Documented by: Furosemide (Furosemide 20 Mg/2 Ml Vial) 20 mg IVPUSH NOW ONE Stop: 05/14/21 09:01 Last Admin: 05/14/21 10:20 Dose: 20 mg Documented by: Furosemide (Furosemide 20 Mg/2 Ml Vial) 20 mg IVPUSH NOW ONE Stop: 05/15/21 08:31 Last Admin: 05/15/21 08:49 Dose: 20 mg Documented by: Furosemide (Furosemide 20 Mg/2 Ml Vial) 20 mg IVPUSH NOW ONE Stop: 05/16/21 08:31 Last Admin: 05/16/21 09:15 Dose: 20 mg Documented by: Remdesivir 200 mg/ Sodium (Chloride) 250 mls @ 250 mls/hr IV ONETIME ONE Stop: 05/10/21 12:59 Last Admin: 05/10/21 12:26 Dose: 250 mls/hr Documented by: Remdesivir 100 mg/ Sodium (Chloride) 100 mls @ 100 mls/hr IV Q24H [facility] Stop: 05/14/21 12:59 Last Admin: 05/14/21 11:10 Dose: 100 mls/hr Documented by: Insulin Human Lispro (Insulin Lispro 100 Unit/Ml 3 Ml Kwikpen) 0 unit SUBCUT QIDACANDBED [facility]; Protocol Last Admin: 05/11/21 16:56 Dose: 8 units Documented by: Potassium Chloride (Potassium Chloride 20 Meq Tab.Er) 40 meq PO ONETIME ONE Stop: 05/14/21 09:01 Last Admin: 05/14/21 10:20 Dose: 40 meq Documented by: - Exam Quality Assessment: Supplemental Oxygen General: Alert, Oriented, Cooperative, No Acute Distress Lungs: Normal Respiratory Effort. No: Wheezing GI/Abdominal Exam: Soft, No Distention Extremities: No Pedal Edema. No: Increased Warmth Psy/Mental Status: Alert, Normal Affect - Patient Data Lab Results Last 24 hrs: Laboratory Results - last 24 hr 05/18/21 05/18/21 05/18/21 Range/Units 11:17 16:52 20:42 POC Glucose 199 H 285 H 322 H (74-106) mg/dL 05/19/21 Range/Units 08:03 POC Glucose 167 H (74-106) mg/dL Result Diagrams: 05/18/21 04:40 05/18/21 04:40 Sepsis Event Note - Evaluation Sepsis Screening Result: Sepsis Risk - Focused Exam Vital Signs: Vital Signs Temp Pulse Resp BP Pulse Ox 05/19/21 08:00 36.2 C 93 22 H 102/75 92 L 05/19/21 04:00 36.3 C 92 24 H 115/67 93 L 05/19/21 01:16 94 L 05/18/21 23:51 36.2 C 88 26 H 115/74 95 - Problem List & Annotations (1) Pneumonia due to COVID-19 virus SNOMED Code(s): 926868882443428933 Code(s): U07.1 - COVID-19; J12.82 - PNEUMONIA DUE TO CORONAVIRUS DISEASE 2019 Status: Acute Priority: High Current Visit: Yes (2) Respiratory failure with hypoxia SNOMED Code(s): 63120075098805293 Code(s): J96.91 - RESPIRATORY FAILURE, UNSPECIFIED WITH HYPOXIA Status: Acute Priority: High Current Visit: Yes Qualifiers: Chronicity: acute Qualified Code(s): J96.01 - Acute respiratory failure with hypoxia (3) DM II (diabetes mellitus, type II), controlled SNOMED Code(s): 32207302, 817634879 Code(s): E11.9 - TYPE 2 DIABETES MELLITUS WITHOUT COMPLICATIONS Status: Chronic Current Visit: Yes Qualifiers: Diabetes mellitus long-term insulin use: without turn out worker use Diabetes mellitus complication status: without complication Qualified Code(s): E11.9 - Type 2 diabetes mellitus without complications (4) History of prostate cancer SNOMED Code(s): 131087446 Code(s): Z85.46 - PERSONAL HISTORY OF MALIGNANT NEOPLASM OF PROSTATE Status: Chronic Current Visit: Yes - Problem List Review Problem List Initiated/Reviewed/Updated: Yes - My Orders Last 24 Hours: My Active Orders 05/18/21 10:06 Transfer Patient (Change bed) [ADT] Routine 05/20/21 05:00 CBC W/O DIFF,HEMOGRAM [HEME] Timed (1) CRP [C-REACTIVE PROTEIN] [CHEM] Timed D-DIMER QUANTITATIVE [COAG] Timed - Plan Plan:: ASSESSMENT AND PLAN - COVID-19 pneumonia-complicated by acute respiratory failure with hypoxia. Symptom onset 05/05. Still on heated/high flow but we have been able to turn down his supplemental oxygen some. I anticipate transition to high flow nasal cannula in the next day or so. Symptomatically doing well. -Remdesivir x5 days, completed -Dexamethasone 6 mg daily (day 9) -Baricitinib 4 mg p.o. daily, today is day 9 of 14 -Empiric antibiotic therapy; ceftriaxone and doxycycline, day 6 of 7 -Hold furosemide today, reassess in a.m. -Enoxaparin every 24 hours -Repeat labs every 2 days -Symptomatic management of cough -Isolation precautions Type 2 diabetes mellitus-diet controlled. Sugars well controlled so far. -Sliding scale insulin -Monitor 4 times daily glucometers History of prostate cancer-stable. Maintenance issues - -DVT prophylaxis-enoxaparin -GI prophylaxis-PPI -Nutrition-consistent carbohydrates -Lara catheter-not indicated Disposition -I anticipate discharge home after the hospital stay Joe Valero MD
[2021-05-19] MEDS: cefTRIAXone 1 GM in Sodium Chloride 0.9% 50 ML IV SCH (11:32)
[2021-05-19] MEDS: Doxycycline 100 MG in Sodium Chloride 0.9% 100 ML IV SCH ×2 (12:37→23:39)
[2021-05-19] MEDS: Enoxaparin 40 MG/0.4 ML Syringe SUBCUT SCH (13:23)
[2021-05-19] MEDS: Melatonin 3 MG Tab PO PRN (23:38)
[2021-05-19] MEDS: guaiFENesin/Dextromethorphan 100-10 MG/5 ML Soln 10 ML Cup PO PRN (23:38)
[2021-05-20] MEDS: Pantoprazole 40 MG Tab.CR PO SCH (08:25)
[2021-05-20] MEDS: Insulin Lispro 100 Unit/ML 3 ML KwikPen SUBCUT SCH ×4 (08:26→20:17)
[2021-05-20] MEDS: Aspirin 81 MG Tab.EC PO SCH (08:32)
[2021-05-20] MEDS: Gabapentin 100 MG Cap PO SCH ×2 (08:34→20:19)
--- NOTE | 2021-05-20 10:29 | PCM.PN ---
- General Info Date of Service: 05/20/21 Subjective Update: No acute events overnight. Patient continues to feel a little better each day. We were able to transition him to a high flow nasal cannula today. Still short of breath and fatigues easily with activity but otherwise doing well. No nausea or abdominal pain. Appetite good. Not sleeping well but he reports this is normal for him. Functional Status: Reports: Pain Controlled, Tolerating Diet - Review of Systems General: Reports: Weakness Cardiovascular: Reports: Dyspnea on Exertion - Patient Data Vitals - Most Recent: Last Vital Signs Temp 36.5 C 05/20/21 08:00 Pulse 87 05/20/21 08:00 Resp 24 H 05/20/21 08:00 BP 118/73 05/20/21 08:00 Pulse Ox 90 L 05/20/21 08:00 Weight - Most Recent: 93.44 kg I&O - Last 24 Hours: Intake & Output 05/19/21 05/20/21 05/20/21 22:59 06:59 14:59 Intake Total 450 100 Balance 450 100 Lab Results Last 24 Hours: Laboratory Results - last 24 hr 05/19/21 05/19/21 05/19/21 Range/Units 11:28 17:35 20:45 WBC (4.5-11.0) K/uL RBC (4.30-5.90) M/uL Hgb (12.0-15.0) g/dL Hct (40.0-54.0) % MCV (80-98) fL MCH (27-31) pg MCHC (32-36) % Plt Count (150-400) K/uL D-Dimer, Quantitative (0.0-500.0) ng/mL POC Glucose 247 H 314 H 248 H (74-106) mg/dL C-Reactive Protein (0.0-0.3) mg/dL 05/20/21 05/20/21 05/20/21 Range/Units 05:55 05:55 05:55 WBC 14.0 H (4.5-11.0) K/uL RBC 4.73 (4.30-5.90) M/uL Hgb 14.3 (12.0-15.0) g/dL Hct 42.7 (40.0-54.0) % MCV 90 (80-98) fL MCH 30 (27-31) pg MCHC 34 (32-36) % Plt Count 539 H (150-400) K/uL D-Dimer, Quantitative 1807.64 H (0.0-500.0) ng/mL POC Glucose (74-106) mg/dL C-Reactive Protein 3.18 H (0.0-0.3) mg/dL 05/20/21 Range/Units 08:21 WBC (4.5-11.0) K/uL RBC (4.30-5.90) M/uL Hgb (12.0-15.0) g/dL Hct (40.0-54.0) % MCV (80-98) fL MCH (27-31) pg MCHC (32-36) % Plt Count (150-400) K/uL D-Dimer, Quantitative (0.0-500.0) ng/mL POC Glucose 145 H (74-106) mg/dL C-Reactive Protein (0.0-0.3) mg/dL Med Orders - Current: Current Medications Acetaminophen (Acetaminophen 325 Mg Tab) 650 mg PO Q4H PRN PRN Reason: Pain (Mild 1-3)/fever Last Admin: 05/14/21 05:21 Dose: 650 mg Documented by: Albuterol (Albuterol 8 Gm Inhaler) 0 gm INH Q2H PRN PRN Reason: Shortness of Breath Last Admin: 05/17/21 02:54 Dose: 2 puff Documented by: Aspirin (Aspirin 81 Mg Tab.Ec) 81 mg PO DAILY [facility] Last Admin: 05/20/21 08:32 Dose: 81 mg Documented by: Baricitinib (Baricitinib 2 Mg Tab) 4 mg PO Q24H [facility] Stop: 05/24/21 16:01 Last Admin: 05/19/21 17:30 Dose: 4 mg Documented by: Benzonatate (Benzonatate 100 Mg Cap) 100 mg PO TID PRN PRN Reason: Cough Last Admin: 05/17/21 20:30 Dose: 100 mg Documented by: Enoxaparin Sodium (Enoxaparin 40 Mg/0.4 Ml Syringe) 40 mg SUBCUT Q24H [facility] Last Admin: 05/19/21 13:23 Dose: 40 mg Documented by: Gabapentin (Gabapentin 100 Mg Cap) 100 mg PO BID [facility] Last Admin: 05/20/21 08:34 Dose: 100 mg Documented by: Guaifenesin/Dextromethorphan (Guaifenesin/Dextromethorphan 100-10 Mg/5 Ml Soln 10 Ml Cup) 10 ml PO Q4H PRN PRN Reason: Cough Last Admin: 05/19/21 23:38 Dose: 10 ml Documented by: Ceftriaxone Sodium 1 gm/ (Sodium Chloride) 50 mls @ 100 mls/hr IV Q24H [facility] Stop: 05/20/21 14:00 Last Admin: 05/19/21 11:32 Dose: 100 mls/hr Documented by: Doxycycline Hyclate 100 mg/ (Sodium Chloride) 100 mls @ 100 mls/hr IV Q12H [facility] Stop: 05/21/21 04:00 Last Admin: 05/19/21 23:39 Dose: 100 mls/hr Documented by: Insulin Human Lispro (Insulin Lispro 100 Unit/Ml 3 Ml Kwikpen) 0 unit SUBCUT QIDACANDBED [facility]; Protocol Last Admin: 05/20/21 08:26 Dose: Not Given Documented by: Lorazepam (Lorazepam 2 Mg/Ml Sdv) 0.5 mg IVPUSH Q4H PRN PRN Reason: Nausea/Vomiting Last Admin: 05/16/21 04:58 Dose: 0.5 mg Documented by: Magnesium Hydroxide (Magnesium Hydroxide 400 Mg/5 Ml Susp 30 Ml Cup) 30 ml PO Q12H PRN PRN Reason: Constipation Melatonin (Melatonin 3 Mg Tab) 9 mg PO BEDTIME PRN PRN Reason: Sleep Last Admin: 05/19/21 23:38 Dose: 9 mg Documented by: Ondansetron HCl (Ondansetron 4 Mg/2 Ml Sdv) 4 mg IV Q6H PRN PRN Reason: Nausea/Vomiting Ondansetron HCl (Ondansetron 4 Mg Tab.Dis) 4 mg PO Q6H PRN PRN Reason: Nausea able to take PO Pantoprazole Sodium (Pantoprazole 40 Mg Tab.Cr) 40 mg PO ACBREAKFAST [facility] Last Admin: 05/20/21 08:25 Dose: 40 mg Documented by: Senna/Docusate Sodium (Docusate Sodium/Sennosides 50-8.6 Mg Tab) 1 tab PO BID PRN PRN Reason: Constipation Discontinued Medications Acetaminophen (Acetaminophen 325 Mg Tab) 650 mg PO Q4H PRN PRN Reason: Fever Greater Than 101 Dexamethasone (Dexamethasone 4 Mg/Ml Sdv) 6 mg IVPUSH DAILY [facility] Stop: 05/19/21 09:01 Last Admin: 05/19/21 08:23 Dose: 6 mg Documented by: Furosemide (Furosemide 20 Mg/2 Ml Vial) 20 mg IVPUSH ONETIME ONE Stop: 05/12/21 04:21 Last Admin: 05/12/21 04:39 Dose: 20 mg Documented by: Furosemide (Furosemide 20 Mg/2 Ml Vial) 20 mg IVPUSH NOW ONE Stop: 05/14/21 09:01 Last Admin: 05/14/21 10:20 Dose: 20 mg Documented by: Furosemide (Furosemide 20 Mg/2 Ml Vial) 20 mg IVPUSH NOW ONE Stop: 05/15/21 08:31 Last Admin: 05/15/21 08:49 Dose: 20 mg Documented by: Furosemide (Furosemide 20 Mg/2 Ml Vial) 20 mg IVPUSH NOW ONE Stop: 05/16/21 08:31 Last Admin: 05/16/21 09:15 Dose: 20 mg Documented by: Remdesivir 200 mg/ Sodium (Chloride) 250 mls @ 250 mls/hr IV ONETIME ONE Stop: 05/10/21 12:59 Last Admin: 05/10/21 12:26 Dose: 250 mls/hr Documented by: Remdesivir 100 mg/ Sodium (Chloride) 100 mls @ 100 mls/hr IV Q24H [facility] Stop: 05/14/21 12:59 Last Admin: 05/14/21 11:10 Dose: 100 mls/hr Documented by: Insulin Human Lispro (Insulin Lispro 100 Unit/Ml 3 Ml Kwikpen) 0 unit SUBCUT QIDACANDBED [facility]; Protocol Last Admin: 05/11/21 16:56 Dose: 8 units Documented by: Potassium Chloride (Potassium Chloride 20 Meq Tab.Er) 40 meq PO ONETIME ONE Stop: 05/14/21 09:01 Last Admin: 05/14/21 10:20 Dose: 40 meq Documented by: - Exam Quality Assessment: Supplemental Oxygen General: Alert, Oriented, Cooperative, No Acute Distress Lungs: Clear to Auscultation, Normal Respiratory Effort Cardiovascular: Regular Rate, Regular Rhythm GI/Abdominal Exam: Soft, No Distention Extremities: No Pedal Edema. No: Increased Warmth Skin: Warm, Dry Psy/Mental Status: Alert, Normal Affect - Patient Data Lab Results Last 24 hrs: Laboratory Results - last 24 hr 05/19/21 05/19/21 05/19/21 Range/Units 11:28 17:35 20:45 WBC (4.5-11.0) K/uL RBC (4.30-5.90) M/uL Hgb (12.0-15.0) g/dL Hct (40.0-54.0) % MCV (80-98) fL MCH (27-31) pg MCHC (32-36) % Plt Count (150-400) K/uL D-Dimer, Quantitative (0.0-500.0) ng/mL POC Glucose 247 H 314 H 248 H (74-106) mg/dL C-Reactive Protein (0.0-0.3) mg/dL 05/20/21 05/20/21 05/20/21 Range/Units 05:55 05:55 05:55 WBC 14.0 H (4.5-11.0) K/uL RBC 4.73 (4.30-5.90) M/uL Hgb 14.3 (12.0-15.0) g/dL Hct 42.7 (40.0-54.0) % MCV 90 (80-98) fL MCH 30 (27-31) pg MCHC 34 (32-36) % Plt Count 539 H (150-400) K/uL D-Dimer, Quantitative 1807.64 H (0.0-500.0) ng/mL POC Glucose (74-106) mg/dL C-Reactive Protein 3.18 H (0.0-0.3) mg/dL 05/20/21 Range/Units 08:21 WBC (4.5-11.0) K/uL RBC (4.30-5.90) M/uL Hgb (12.0-15.0) g/dL Hct (40.0-54.0) % MCV (80-98) fL MCH (27-31) pg MCHC (32-36) % Plt Count (150-400) K/uL D-Dimer, Quantitative (0.0-500.0) ng/mL POC Glucose 145 H (74-106) mg/dL C-Reactive Protein (0.0-0.3) mg/dL Result Diagrams: 05/20/21 05:55 05/18/21 04:40 Sepsis Event Note - Evaluation Sepsis Screening Result: Sepsis Risk - Focused Exam Vital Signs: Vital Signs Temp Pulse Resp BP Pulse Ox 05/20/21 08:00 36.5 C 87 24 H 118/73 90 L 05/20/21 03:15 36.5 C 79 23 H 99/72 92 L 05/20/21 01:00 92 L 05/19/21 23:39 36.5 C 89 22 H 109/71 91 L - Problem List & Annotations (1) Pneumonia due to COVID-19 virus SNOMED Code(s): 968490593015894937 Code(s): U07.1 - COVID-19; J12.82 - PNEUMONIA DUE TO CORONAVIRUS DISEASE 2019 Status: Acute Priority: High Current Visit: Yes (2) Respiratory failure with hypoxia SNOMED Code(s): 32253931429766352 Code(s): J96.91 - RESPIRATORY FAILURE, UNSPECIFIED WITH HYPOXIA Status: Acute Priority: High Current Visit: Yes Qualifiers: Chronicity: acute Qualified Code(s): J96.01 - Acute respiratory failure with hypoxia (3) DM II (diabetes mellitus, type II), controlled SNOMED Code(s): 50027283, 054817974 Code(s): E11.9 - TYPE 2 DIABETES MELLITUS WITHOUT COMPLICATIONS Status: Chronic Current Visit: Yes Qualifiers: Diabetes mellitus half-way insulin use: without terminal operations supervisor use Diabetes mellitus complication status: without complication Qualified Code(s): E11.9 - Type 2 diabetes mellitus without complications (4) History of prostate cancer SNOMED Code(s): 732210087 Code(s): Z85.46 - PERSONAL HISTORY OF MALIGNANT NEOPLASM OF PROSTATE Status: Chronic Current Visit: Yes - Problem List Review Problem List Initiated/Reviewed/Updated: Yes - Plan Plan:: ASSESSMENT AND PLAN - COVID-19 pneumonia-complicated by acute respiratory failure with hypoxia. Symptom onset 05/05. Symptomatically feeling well. Did make the transition to regular high flow nasal cannula today. -Remdesivir x5 days, completed -Dexamethasone 6 mg daily (day 10), start taper tomorrow -Baricitinib 4 mg p.o. daily, today is day 10 of 14 -Empiric antibiotic therapy; ceftriaxone and doxycycline, day 7 of 7 -Hold furosemide today, reassess in a.m. -Enoxaparin every 24 hours -Repeat labs every 2 days -Symptomatic management of cough -Isolation precautions Type 2 diabetes mellitus-diet controlled. Sugars well controlled so far. -Sliding scale insulin -Monitor 4 times daily glucometers History of prostate cancer-stable. Maintenance issues - -DVT prophylaxis-enoxaparin -GI prophylaxis-PPI -Nutrition-consistent carbohydrates -Lara catheter-not indicated Disposition -I anticipate discharge home after the hospital stay Joe Valero MD
[2021-05-20] MEDS: cefTRIAXone 1 GM in Sodium Chloride 0.9% 50 ML IV SCH (11:50)
[2021-05-20] MEDS: Doxycycline 100 MG in Sodium Chloride 0.9% 100 ML IV SCH (12:41)
[2021-05-20] MEDS ORDERED: Sodium Chloride 0.65% Nasal Spray 45 ML Bottle NAS PRN (14:21)
[2021-05-20] MEDS: Enoxaparin 40 MG/0.4 ML Syringe SUBCUT SCH (16:20)
[2021-05-20] MEDS: guaiFENesin/Dextromethorphan 100-10 MG/5 ML Soln 10 ML Cup PO PRN (20:37)
[2021-05-20] MEDS: Melatonin 3 MG Tab PO PRN (20:37)
[2021-05-21] MEDS: Doxycycline 100 MG in Sodium Chloride 0.9% 100 ML IV SCH (00:02)
[2021-05-21] MEDS: Insulin Lispro 100 Unit/ML 3 ML KwikPen SUBCUT SCH ×4 (08:03→22:01)
[2021-05-21] MEDS: Pantoprazole 40 MG Tab.CR PO SCH (08:03)
[2021-05-21] MEDS: Dexamethasone 2 MG Tab PO SCH (09:57)
[2021-05-21] MEDS: Gabapentin 100 MG Cap PO SCH ×2 (09:57→22:01)
[2021-05-21] MEDS: Aspirin 81 MG Tab.EC PO SCH (09:57)
--- NOTE | 2021-05-21 15:50 | PCM.PN ---
- General Info Date of Service: 05/21/21 Subjective Update: No acute events overnight. Stable on the high flow nasal cannula at 15 L. Patient feels well. No shortness of breath at rest but does have dyspnea with exertion. Appetite good. Strength improving. Not having fevers. Functional Status: Reports: Pain Controlled, Tolerating Diet - Patient Data Vitals - Most Recent: Last Vital Signs Temp 36.3 C 05/21/21 07:00 Pulse 103 H 05/21/21 11:51 Resp 18 05/21/21 11:51 BP 109/63 05/21/21 11:51 Pulse Ox 91 L 05/21/21 11:51 Weight - Most Recent: 93.44 kg I&O - Last 24 Hours: Intake & Output 05/21/21 05/21/21 05/21/21 06:59 14:59 22:59 Intake Total 500 Output Total 200 250 Balance 300 -250 Lab Results Last 24 Hours: Laboratory Results - last 24 hr 05/20/21 05/20/21 05/21/21 Range/Units 17:21 20:17 07:55 POC Glucose 173 H 242 H 163 H (74-106) mg/dL 05/21/21 Range/Units 12:57 POC Glucose 234 H (74-106) mg/dL Med Orders - Current: Current Medications Acetaminophen (Acetaminophen 325 Mg Tab) 650 mg PO Q4H PRN PRN Reason: Pain (Mild 1-3)/fever Last Admin: 05/14/21 05:21 Dose: 650 mg Documented by: Albuterol (Albuterol 8 Gm Inhaler) 0 gm INH Q2H PRN PRN Reason: Shortness of Breath Last Admin: 05/17/21 02:54 Dose: 2 puff Documented by: Aspirin (Aspirin 81 Mg Tab.Ec) 81 mg PO DAILY [facility] Last Admin: 05/21/21 09:57 Dose: 81 mg Documented by: Baricitinib (Baricitinib 2 Mg Tab) 4 mg PO Q24H [facility] Stop: 05/24/21 16:01 Last Admin: 05/20/21 16:50 Dose: 4 mg Documented by: Benzonatate (Benzonatate 100 Mg Cap) 100 mg PO TID PRN PRN Reason: Cough Last Admin: 05/17/21 20:30 Dose: 100 mg Documented by: Dexamethasone (Dexamethasone 2 Mg Tab) 4 mg PO DAILY [facility] Last Admin: 05/21/21 09:57 Dose: 4 mg Documented by: Enoxaparin Sodium (Enoxaparin 40 Mg/0.4 Ml Syringe) 40 mg SUBCUT Q24H [facility] Last Admin: 05/20/21 16:20 Dose: 40 mg Documented by: Gabapentin (Gabapentin 100 Mg Cap) 100 mg PO BID [facility] Last Admin: 05/21/21 09:57 Dose: 100 mg Documented by: Guaifenesin/Dextromethorphan (Guaifenesin/Dextromethorphan 100-10 Mg/5 Ml Soln 10 Ml Cup) 10 ml PO Q4H PRN PRN Reason: Cough Last Admin: 05/20/21 20:37 Dose: 10 ml Documented by: Insulin Human Lispro (Insulin Lispro 100 Unit/Ml 3 Ml Kwikpen) 0 unit SUBCUT QIDACANDBED [facility]; Protocol Last Admin: 05/21/21 13:18 Dose: 4 units Documented by: Lorazepam (Lorazepam 2 Mg/Ml Sdv) 0.5 mg IVPUSH Q4H PRN PRN Reason: Nausea/Vomiting Last Admin: 05/16/21 04:58 Dose: 0.5 mg Documented by: Magnesium Hydroxide (Magnesium Hydroxide 400 Mg/5 Ml Susp 30 Ml Cup) 30 ml PO Q 12H PRN PRN Reason: Constipation Melatonin (Melatonin 3 Mg Tab) 9 mg PO BEDTIME PRN PRN Reason: Sleep Last Admin: 05/20/21 20:37 Dose: 9 mg Documented by: Ondansetron HCl (Ondansetron 4 Mg/2 Ml Sdv) 4 mg IV Q6H PRN PRN Reason: Nausea/Vomiting Ondansetron HCl (Ondansetron 4 Mg Tab.Dis) 4 mg PO Q6H PRN PRN Reason: Nausea able to take PO Pantoprazole Sodium (Pantoprazole 40 Mg Tab.Cr) 40 mg PO ACBREAKFAST [facility] Last Admin: 05/21/21 08:03 Dose: 40 mg Documented by: Senna/Docusate Sodium (Docusate Sodium/Sennosides 50-8.6 Mg Tab) 1 tab PO BID PRN PRN Reason: Constipation Sodium Chloride (Sodium Chloride 0.65% Nasal [place] 45 Ml Bottle) 0 ml SEBLE Q2H PRN PRN Reason: nasal congestion Discontinued Medications Acetaminophen (Acetaminophen 325 Mg Tab) 650 mg PO Q4H PRN PRN Reason: Fever Greater Than 101 Dexamethasone (Dexamethasone 4 Mg/Ml Sdv) 6 mg IVPUSH DAILY [facility] Stop: 05/19/21 09:01 Last Admin: 05/19/21 08:23 Dose: 6 mg Documented by: Furosemide (Furosemide 20 Mg/2 Ml Vial) 20 mg IVPUSH ONETIME ONE Stop: 05/12/21 04:21 Last Admin: 05/12/21 04:39 Dose: 20 mg Documented by: Furosemide (Furosemide 20 Mg/2 Ml Vial) 20 mg IVPUSH NOW ONE Stop: 05/14/21 09:01 Last Admin: 05/14/21 10:20 Dose: 20 mg Documented by: Furosemide (Furosemide 20 Mg/2 Ml Vial) 20 mg IVPUSH NOW ONE Stop: 05/15/21 08:31 Last Admin: 05/15/21 08:49 Dose: 20 mg Documented by: Furosemide (Furosemide 20 Mg/2 Ml Vial) 20 mg IVPUSH NOW ONE Stop: 05/16/21 08:31 Last Admin: 05/16/21 09:15 Dose: 20 mg Documented by: Remdesivir 200 mg/ Sodium (Chloride) 250 mls @ 250 mls/hr IV ONETIME ONE Stop: 05/10/21 12:59 Last Admin: 05/10/21 12:26 Dose: 250 mls/hr Documented by: Remdesivir 100 mg/ Sodium (Chloride) 100 mls @ 100 mls/hr IV Q24H [facility] Stop: 05/14/21 12:59 Last Admin: 05/14/21 11:10 Dose: 100 mls/hr Documented by: Ceftriaxone Sodium 1 gm/ (Sodium Chloride) 50 mls @ 100 mls/hr IV Q24H [facility] Stop: 05/20/21 14:00 Last Admin: 05/20/21 11:50 Dose: 100 mls/hr Documented by: Doxycycline Hyclate 100 mg/ (Sodium Chloride) 100 mls @ 100 mls/hr IV Q12H [facility] Stop: 05/21/21 04:00 Last Admin: 05/21/21 00:02 Dose: 100 mls/hr Documented by: Insulin Human Lispro (Insulin Lispro 100 Unit/Ml 3 Ml Kwikpen) 0 unit SUBCUT QIDACANDBED [facility]; Protocol Last Admin: 05/11/21 16:56 Dose: 8 units Documented by: Potassium Chloride (Potassium Chloride 20 Meq Tab.Er) 40 meq PO ONETIME ONE Stop: 05/14/21 09:01 Last Admin: 05/14/21 10:20 Dose: 40 meq Documented by: - Exam Quality Assessment: Supplemental Oxygen General: Alert, Oriented, Cooperative, No Acute Distress Lungs: Normal Respiratory Effort GI/Abdominal Exam: Soft, No Distention Extremities: No Pedal Edema Skin: Warm, Dry Psy/Mental Status: Alert, Normal Affect - Patient Data Lab Results Last 24 hrs: Laboratory Results - last 24 hr 05/20/21 05/20/21 05/21/21 Range/Units 17:21 20:17 07:55 POC Glucose 173 H 242 H 163 H (74-106) mg/dL 05/21/21 Range/Units 12:57 POC Glucose 234 H (74-106) mg/dL Result Diagrams: 05/20/21 05:55 05/18/21 04:40 Sepsis Event Note - Evaluation Sepsis Screening Result: Sepsis Risk - Focused Exam Vital Signs: Vital Signs Temp Pulse Resp BP Pulse Ox 05/21/21 11:51 103 H 18 109/63 91 L 05/21/21 08:17 91 L 05/21/21 07:00 36.3 C 98 16 119/71 93 L 05/21/21 04:03 36.4 C 97 18 114/69 91 L - Problem List & Annotations (1) Pneumonia due to COVID-19 virus SNOMED Code(s): 000847501676005513 Code(s): U07.1 - COVID-19; J12.82 - PNEUMONIA DUE TO CORONAVIRUS DISEASE 2019 Status: Acute Priority: High Current Visit: Yes (2) Respiratory failure with hypoxia SNOMED Code(s): 01302710510950267 Code(s): J96.91 - RESPIRATORY FAILURE, UNSPECIFIED WITH HYPOXIA Status: A cute Priority: High Current Visit: Yes Qualifiers: Chronicity: acute Qualified Code(s): J96.01 - Acute respiratory failure with hypoxia (3) DM II (diabetes mellitus, type II), controlled SNOMED Code(s): 78908197, 459006131 Code(s): E11.9 - TYPE 2 DIABETES MELLITUS WITHOUT COMPLICATIONS Status: Chronic Current Visit: Yes Qualifiers: Diabetes mellitus long-term insulin use: without meterman use Diabetes mellitus complication status: without complication Qualified Code(s): E11.9 - Type 2 diabetes mellitus without complications (4) History of prostate cancer SNOMED Code(s): 036314588 Code(s): Z85.46 - PERSONAL HISTORY OF MALIGNANT NEOPLASM OF PROSTATE Status: Chronic Current Visit: Yes - Problem List Review Problem List Initiated/Reviewed/Updated: Yes - My Orders Last 24 Hours: My Active Orders 05/21/21 09:00 dexAMETHasone 4 mg PO DAILY 05/21/21 11:55 POC Glucose [Blood Glucose Check, Bedside] [RC] QIDACANDBED 05/21/21 16:30 GLUCOSE POC LAB TO COLLECT JPM [POC] QIDACANDBED 05/21/21 21:00 GLUCOSE POC LAB TO COLLECT JPM [POC] QIDACANDBED 05/22/21 05:00 CBC W/O DIFF,HEMOGRAM [HEME] Timed (1) CRP [C-REACTIVE PROTEIN] [CHEM] Timed D-DIMER QUANTITATIVE [COAG] Timed VITAMIN B12 [CHEM] Timed - Plan Plan:: ASSESSMENT AND PLAN - COVID-19 pneumonia-complicated by acute respiratory failure with hypoxia. Symptom onset 05/05. Symptomatically feeling well. Doing well with high flow nasal cannula. CRP improving and I anticipate improvement in oxygenation over the next 2 or 3 days. -Remdesivir x5 days, completed -Dexamethasone 4 mg daily (starting taper) -Baricitinib 4 mg p.o. daily, today is day 11 of 14 -Empiric antibiotic therapy x7 days complete -Hold furosemide today, reassess in a.m. -Enoxaparin every 24 hours -Repeat labs every 2 days -Symptomatic management of cough -Isolation precautions through 05/25 Type 2 diabetes mellitus-diet controlled. Sugars well controlled so far. -Sliding scale insulin -Monitor 4 times daily glucometers History of prostate cancer-stable. Maintenance issues - -DVT prophylaxis-enoxaparin -GI prophylaxis-PPI -Nutrition-consistent carbohydrates -Lara catheter-not indicated Disposition -I anticipate discharge home after the hospital stay Joe Valero MD
[2021-05-21] MEDS: Enoxaparin 40 MG/0.4 ML Syringe SUBCUT SCH (16:03)
[2021-05-21] MEDS: Melatonin 3 MG Tab PO PRN (22:11)
[2021-05-21] MEDS: guaiFENesin/Dextromethorphan 100-10 MG/5 ML Soln 10 ML Cup PO PRN (22:11)
[2021-05-22] MEDS: Aspirin 81 MG Tab.EC PO SCH (08:19)
[2021-05-22] MEDS: Pantoprazole 40 MG Tab.CR PO SCH (08:19)
[2021-05-22] MEDS: Dexamethasone 2 MG Tab PO SCH (08:19)
[2021-05-22] MEDS: Gabapentin 100 MG Cap PO SCH ×2 (08:19→21:38)
[2021-05-22] MEDS: Insulin Lispro 100 Unit/ML 3 ML KwikPen SUBCUT SCH ×4 (09:19→21:38)
[2021-05-22] MEDS: Enoxaparin 40 MG/0.4 ML Syringe SUBCUT SCH (13:12)
--- NOTE | 2021-05-22 13:37 | PCM.PN ---
- General Info Date of Service: 05/22/21 Subjective Update: No acute events overnight. Respiratory status stable. Still on 15 L of oxygen. Short of breath with any activity but otherwise feeling okay. No fevers. Appetite good. No bowel movement in several days. Functional Status: Reports: Pain Controlled, Tolerating Diet - Review of Systems General: Reports: Weakness Pulmonary: Reports: Shortness of Breath - Patient Data Vitals - Most Recent: Last Vital Signs Temp 36.3 C 05/22/21 13:17 Pulse 92 05/22/21 13:17 Resp 18 05/22/21 13:17 BP 98/73 05/22/21 13:17 Pulse Ox 94 L 05/22/21 13:17 Weight - Most Recent: 93.44 kg I&O - Last 24 Hours: Intake & Output 05/21/21 05/22/21 05/22/21 22:59 06:59 14:59 Intake Total 300 740 Output Total 400 300 200 Balance -100 -300 540 Lab Results Last 24 Hours: Laboratory Results - last 24 hr 05/21/21 05/21/21 05/22/21 Range/Units 16:30 21:00 05:35 WBC 14.5 H (4.5-11.0) K/uL RBC 4.87 (4.30-5.90) M/uL Hgb 14.8 (12.0-15.0) g/dL Hct 44.1 (40.0-54.0) % MCV 91 (80-98) fL MCH 30 (27-31) pg MCHC 34 (32-36) % Plt Count 502 H (150-400) K/uL D-Dimer, Quantitative (0.0-500.0) ng/mL POC Glucose 231 H 246 H (74-106) mg/dL C-Reactive Protein (0.0-0.3) mg/dL Vitamin B12 (193-986) pg/ml 05/22/21 05/22/21 05/22/21 Range/Units 05:35 05:35 08:34 WBC (4.5-11.0) K/uL RBC (4.30-5.90) M/uL Hgb (12.0-15.0) g/dL Hct (40.0-54.0) % MCV (80-98) fL MCH (27-31) pg MCHC (32-36) % Plt Count (150-400) K/uL D-Dimer, Quantitative 2962.19 H (0.0-500.0) ng/mL POC Glucose 236 H (74-106) mg/dL C-Reactive Protein 5.39 H (0.0-0.3) mg/dL Vitamin B12 1149 H (193-986) pg/ml 05/22/21 Range/Units 13:04 WBC (4.5-11.0) K/uL RBC (4.30-5.90) M/uL Hgb (12.0-15.0) g/dL Hct (40.0-54.0) % MCV (80-98) fL MCH (27-31) pg MCHC (32-36) % Plt Count (150-400) K/uL D-Dimer, Quantitative (0.0-500.0) ng/mL POC Glucose 209 H (74-106) mg/dL C-Reactive Protein (0.0-0.3) mg/dL Vitamin B12 (193-986) pg/ml Med Orders - Current: Current Medications Acetaminophen (Acetaminophen 325 Mg Tab) 650 mg PO Q4H PRN PRN Reason: Pain (Mild 1-3)/fever Last Admin: 05/14/21 05:21 Dose: 650 mg Documented by: Albuterol (Albuterol 8 Gm Inhaler) 0 gm INH Q2H PRN PRN Reason: Shortness of Breath Last Admin: 05/17/21 02:54 Dose: 2 puff Documented by: Aspirin (Aspirin 81 Mg Tab.Ec) 81 mg PO DAILY [facility] Last Admin: 05/22/21 08:19 Dose: 81 mg Documented by: Baricitinib (Baricitinib 2 Mg Tab) 4 mg PO Q24H [facility] Stop: 05/24/21 16:01 Last Admin: 05/21/21 16:03 Dose: 4 mg Documented by: Benzonatate (Benzonatate 100 Mg Cap) 100 mg PO TID PRN PRN Reason: Cough Last Admin: 05/17/21 20:30 Dose: 100 mg Documented by: Dexamethasone (Dexamethasone 2 Mg Tab) 4 mg PO DAILY [facility] Last Admin: 05/22/21 08:19 Dose: 4 mg Documented by: Enoxaparin Sodium (Enoxaparin 40 Mg/0.4 Ml Syringe) 40 mg SUBCUT Q24H [facility] Last Admin: 05/22/21 13:12 Dose: 40 mg Documented by: Gabapentin (Gabapentin 100 Mg Cap) 100 mg PO BID [facility] Last Admin: 05/22/21 08:19 Dose: 100 mg Documented by: Guaifenesin/Dextromethorphan (Guaifenesin/Dextromethorphan 100-10 Mg/5 Ml Soln 10 Ml Cup) 10 ml PO Q4H PRN PRN Reason: Cough Last Admin: 05/21/21 22:11 Dose: 10 ml Documented by: Insulin Human Lispro (Insulin Lispro 100 Unit/Ml 3 Ml Kwikpen) 0 unit SUBCUT QIDACANDBED [facility]; Protocol Last Admin: 05/22/21 13:12 Dose: 4 units Documented by: Lorazepam (Lorazepam 2 Mg/Ml Sdv) 0.5 mg IVPUSH Q4H PRN PRN Reason: Nausea/Vomiting Last Admin: 05/16/21 04:58 Dose: 0.5 mg Documented by: Magnesium Hydroxide (Magnesium Hydroxide 400 Mg/5 Ml Susp 30 Ml Cup) 30 ml PO Q12H PRN PRN Reason: Constipation Melatonin (Melatonin 3 Mg Tab) 9 mg PO BEDTIME PRN PRN Reason: Sleep Last Admin: 05/21/21 22:11 Dose: 9 mg Documented by: Ondansetron HCl (Ondansetron 4 Mg/2 Ml Sdv) 4 mg IV Q6H PRN PRN Reason: Nausea/Vomiting Ondansetron HCl (Ondansetron 4 Mg Tab.Dis) 4 mg PO Q6H PRN PRN Reason: Nausea able to take PO Pantoprazole Sodium (Pantoprazole 40 Mg Tab.Cr) 40 mg PO ACBREAKFAST [facility] Last Admin: 05/22/21 08:19 Dose: 40 mg Documented by: Senna/Docusate Sodium (Docusate Sodium/Sennosides 50-8.6 Mg Tab) 1 tab PO BID PRN PRN Reason: Constipation Sodium Chloride (Sodium Chloride 0.65% Nasal [place] 45 Ml Bottle) 0 ml SEBLE Q2H PRN PRN Reason: nasal congestion Discontinued Medications Acetaminophen (Acetaminophen 325 Mg Tab) 650 mg PO Q4H PRN PRN Reason: Fever Greater Than 101 Dexamethasone (Dexamethasone 4 Mg/Ml Sdv) 6 mg IVPUSH DAILY [facility] Stop: 05/19/21 09:01 Last Admin: 05/19/21 08:23 Dose: 6 mg Documented by: Furosemide (Furosemide 20 Mg/2 Ml Vial) 20 mg IVPUSH ONETIME ONE Stop: 05/12/21 04:21 Last Admin: 05/12/21 04:39 Dose: 20 mg Documented by: Furosemide (Furosemide 20 Mg/2 Ml Vial) 20 mg IVPUSH NOW ONE Stop: 05/14/21 09:01 Last Admin: 05/14/21 10:20 Dose: 20 mg Documented by: Furosemide (Furosemide 20 Mg/2 Ml Vial) 20 mg IVPUSH NOW ONE Stop: 05/15/21 08:31 Last Admin: 05/15/21 08:49 Dose: 20 mg Documented by: Furosemide (Furosemide 20 Mg/2 Ml Vial) 20 mg IVPUSH NOW ONE Stop: 05/16/21 08:31 Last Admin: 05/16/21 09:15 Dose: 20 mg Documented by: Remdesivir 200 mg/ Sodium (Chloride) 250 mls @ 250 mls/hr IV ONETIME ONE Stop: 05/10/21 12:59 Last Admin: 05/10/21 12:26 Dose: 250 mls/hr Documented by: Remdesivir 100 mg/ Sodium (Chloride) 100 mls @ 100 mls/hr IV Q24H [facility] Stop: 05/14/21 12:59 Last Admin: 05/14/21 11:10 Dose: 100 mls/hr Documented by: Ceftriaxone Sodium 1 gm/ (Sodium Chloride) 50 mls @ 100 mls/hr IV Q24H [facility] Stop: 05/20/21 14:00 Last Admin: 05/20/21 11:50 Dose: 100 mls/hr Documented by: Doxycycline Hyclate 100 mg/ (Sodium Chloride) 100 mls @ 100 mls/hr IV Q12H [facility] Stop: 05/21/21 04:00 Last Admin: 05/21/21 00:02 Dose: 100 mls/hr Documented by: Insulin Human Lispro (Insulin Lispro 100 Unit/Ml 3 Ml Kwikpen) 0 unit SUBCUT QIDACANDBED [facility]; Protocol Last Admin: 05/11/21 16:56 Dose: 8 units Documented by: Potassium Chloride (Potassium Chloride 20 Meq Tab.Er) 40 meq PO ONETIME ONE Stop: 05/14/21 09:01 Last Admin: 05/14/21 10:20 Dose: 40 meq Documented by: - Exam Quality Assessment: Supplemental Oxygen General: Alert, Oriented, Cooperative, No Acute Distress Lungs: Normal Respiratory Effort GI/Abdominal Exam: Soft, No Distention Extremities: No Pedal Edema Psy/Mental Status: Alert, Normal Affect - Patient Data Lab Results Last 24 hrs: Laboratory Results - last 24 hr 05/21/21 05/21/21 05/22/21 Range/Units 16:30 21:00 05:35 WBC 14.5 H (4.5-11.0) K/uL RBC 4.87 (4.30-5.90) M/uL Hgb 14.8 (12.0-15.0) g/dL Hct 44.1 (40.0-54.0) % MCV 91 (80-98) fL MCH 30 (27-31) pg MCHC 34 (32-36) % Plt Count 502 H (150-400) K/uL D-Dimer, Quantitative (0.0-500.0) ng/mL POC Glucose 231 H 246 H (74-106) mg/dL C-Reactive Protein (0.0-0.3) mg/dL Vitamin B12 (193-986) pg/ml 05/22/21 05/22/21 05/22/21 Range/Units 05:35 05:35 08:34 WBC (4.5-11.0) K/uL RBC (4.30-5.90) M/uL Hgb (12.0-15.0) g/dL Hct (40.0-54.0) % MCV (80-98) fL MCH (27-31) pg MCHC (32-36) % Plt Count (150-400) K/uL D-Dimer, Quantitative 2962.19 H (0.0-500.0) ng/mL POC Glucose 236 H (74-106) mg/dL C-Reactive Protein 5.39 H (0.0-0.3) mg/dL Vitamin B12 1149 H (193-986) pg/ml 05/22/21 Range/Units 13:04 WBC (4.5-11.0) K/uL RBC (4.30-5.90) M/uL Hgb (12.0-15.0) g/dL Hct (40.0-54.0) % MCV (80-98) fL MCH (27-31) pg MCHC (32-36) % Plt Count (150-400) K/uL D-Dimer, Quantitative (0.0-500.0) ng/mL POC Glucose 209 H (74-106) mg/dL C-Reactive Protein (0.0-0.3) mg/dL Vitamin B12 (193-986) pg/ml Result Diagrams: 05/22/21 05:35 05/18/21 04:40 Sepsis Event Note - Evaluation Sepsis Screening Result: No Definite Risk - Focused Exam Vital Signs: Vital Signs Temp Pulse Resp BP Pulse Ox 05/22/21 13:17 36.3 C 92 18 98/73 94 L 05/22/21 08:07 35.2 C L 83 18 116/61 94 L 05/22/21 08:00 93 L 05/22/21 03:00 35.8 C L 61 16 96/57 L 93 L - Problem List & Annotations (1) Pneumonia due to COVID-19 virus SNOMED Code(s): 263141517278781501 Code(s): U07.1 - COVID-19; J12.82 - PNEUMONIA DUE TO CORONAVIRUS DISEASE 2019 Status: Acute Priority: High Current Visit: Yes (2) Respiratory failure with hypoxia SNOMED Code(s): 85342191604129021 Code(s): J96.91 - RESPIRATORY FAILURE, UNSPECIFIED WITH HYPOXIA Status: Acute Priority: High Current Visit: Yes Qualifiers: Chronicity: acute Qualified Code(s): J96.01 - Acute respiratory failure with hypoxia (3) DM II (diabetes mellitus, type II), controlled SNOMED Code(s): 14221277, 013440127 Code(s): E11.9 - TYPE 2 DIABETES MELLITUS WITHOUT COMPLICATIONS Status: Chronic Current Visit: Yes Qualifiers: Diabetes mellitus manager terminal insulin use: without manager terminal use Diabetes mellitus complication status: without complication Qualified Code(s): E11.9 - Type 2 diabetes mellitus without complications (4) History of prostate cancer SNOMED Code(s): 663497118 Code(s): Z85.46 - PERSONAL HISTORY OF MALIGNANT NEOPLASM OF PROSTATE Status: Chronic Current Visit: Yes - Problem List Review Problem List Initiated/Reviewed/Updated: Yes - My Orders Last 24 Hours: My Active Orders 12/03/21 16:30 GLUCOSE POC LAB TO COLLECT JPM [POC] QIDACANDBED 05/22/21 21:00 GLUCOSE POC LAB TO COLLECT JPM [POC] QIDACANDBED 05/23/21 07:30 GLUCOSE POC LAB TO COLLECT JPM [POC] QIDACANDBED 05/23/21 11:30 GLUCOSE POC LAB TO COLLECT JPM [POC] QIDACANDBED 05/23/21 16:30 GLUCOSE POC LAB TO COLLECT JPM [POC] QIDACANDBED 05/23/21 21:00 GLUCOSE POC LAB TO COLLECT JPM [POC] QIDACANDBED 05/24/21 07:30 GLUCOSE POC LAB TO COLLECT JPM [POC] QIDACANDBED 05/24/21 11:30 GLUCOSE POC LAB TO COLLECT JPM [POC] QIDACANDBED 05/24/21 16:30 GLUCOSE POC LAB TO COLLECT JPM [POC] QIDACANDBED 05/24/21 21:00 GLUCOSE POC LAB TO COLLECT JPM [POC] QIDACANDBED 05/25/21 07:30 GLUCOSE POC LAB TO COLLECT JPM [POC] QIDACANDBED 05/25/21 11:30 GLUCOSE POC LAB TO COLLECT JPM [POC] QIDACANDBED 05/25/21 16:30 GLUCOSE POC LAB TO COLLECT JPM [POC] QIDACANDBED 05/25/21 21:00 GLUCOSE POC LAB TO COLLECT JPM [POC] QIDACANDBED 05/26/21 07:30 GLUCOSE POC LAB TO COLLECT JPM [POC] QIDACANDBED 05/26/21 11:30 GLUCOSE POC LAB TO COLLECT JPM [POC] QIDACANDBED - Plan Plan:: ASSESSMENT AND PLAN - COVID-19 pneumonia-complicated by acute respiratory failure with hypoxia. Symptom onset 05/05. Symptomatically feeling well. Doing well with high flow nasal cannula but still requiring 15 L -Remdesivir x5 days, completed -Dexamethasone 4 mg daily (taper day 2) -Baricitinib 4 mg p.o. daily, today is day 12 of 14 -Empiric antibiotic therapy x7 days complete -Hold furosemide today, reassess in a.m. -Enoxaparin every 24 hours -Repeat labs every 2 days -Symptomatic management of cough -Isolation precautions through 05/25 Type 2 diabetes mellitus-diet controlled. Sugars well controlled so far. -Sliding scale insulin -Monitor 4 times daily glucometers History of prostate cancer-stable. Maintenance issues - -DVT prophylaxis-enoxaparin -GI prophylaxis-PPI -Nutrition-consistent carbohydrates -Lara catheter-not indicated Disposition -I anticipate discharge home after the hospital stay Joe Valero MD
[2021-05-22] MEDS: guaiFENesin/Dextromethorphan 100-10 MG/5 ML Soln 10 ML Cup PO PRN (23:07)
[2021-05-22] MEDS: Melatonin 3 MG Tab PO PRN (23:07)
[2021-05-23] MEDS: Insulin Lispro 100 Unit/ML 3 ML KwikPen SUBCUT SCH ×4 (07:38→21:18)
[2021-05-23] MEDS: Pantoprazole 40 MG Tab.CR PO SCH (07:38)
[2021-05-23] MEDS: Dexamethasone 2 MG Tab PO SCH (09:43)
[2021-05-23] MEDS: Benzonatate 100 MG Cap PO PRN (09:43)
[2021-05-23] MEDS: Gabapentin 100 MG Cap PO SCH ×2 (09:43→21:19)
[2021-05-23] MEDS: Aspirin 81 MG Tab.EC PO SCH (09:44)
--- NOTE | 2021-05-23 12:19 | PCM.PN ---
- General Info Date of Service: 05/23/21 Subjective Update: No acute events overnight. Patient has been weaned down to 10 L of high flow nasal cannula oxygen. He feels about the same as yesterday but overall feels good. Still short of breath with any activity. Desaturates with any activity. Thinks he is able to tolerate slightly more today than yesterday. Appetite good. Spirits are good. Not sleeping well but sleeping about like his usual. Bowels have been working. Functional Status: Reports: Pain Controlled, Tolerating Diet - Review of Systems Cardiovascular: Reports: Dyspnea on Exertion - Patient Data Vitals - Most Recent: Last Vital Signs Temp 36.3 C 05/23/21 11:00 Pulse 98 05/23/21 11:00 Resp 18 05/23/21 11:00 BP 100/51 L 05/23/21 11:00 Pulse Ox 90 L 05/23/21 11:00 Weight - Most Recent: 93.44 kg I&O - Last 24 Hours: Intake & Output 05/22/21 05/23/21 05/23/21 22:59 06:59 14:59 Intake Total 700 Output Total 700 600 Balance -700 100 Lab Results Last 24 Hours: Laboratory Results - last 24 hr 05/22/21 05/22/21 05/22/21 Range/Units 13:04 16:43 21:06 POC Glucose 209 H 391 H 260 H (74-106) mg/dL 05/23/21 05/23/21 Range/Units 07:32 11:30 POC Glucose 139 H 323 H (74-106) mg/dL Med Orders - Current: Current Medications Acetaminophen (Acetaminophen 325 Mg Tab) 650 mg PO Q4H PRN PRN Reason: Pain (Mild 1-3)/fever Last Admin: 05/14/21 05:21 Dose: 650 mg Documented by: Albuterol (Albuterol 8 Gm Inhaler) 0 gm INH Q2H PRN PRN Reason: Shortness of Breath Last Admin: 05/17/21 02:54 Dose: 2 puff Documented by: Aspirin (Aspirin 81 Mg Tab.Ec) 81 mg PO DAILY [facility] Last Admin: 05/23/21 09:44 Dose: 81 mg Documented by: Baricitinib (Baricitinib 2 Mg Tab) 4 mg PO Q24H [facility] Stop: 05/24/21 16:01 Last Admin: 05/22/21 17:28 Dose: 4 mg Documented by: Benzonatate (Benzonatate 100 Mg Cap) 100 mg PO TID PRN PRN Reason: Cough Last Admin: 05/23/21 09:43 Dose: 100 mg Documented by: Dexamethasone (Dexamethasone 2 Mg Tab) 4 mg PO DAILY [facility] Last Admin: 05/23/21 09:43 Dose: 4 mg Documented by: Enoxaparin Sodium (Enoxaparin 40 Mg/0.4 Ml Syringe) 40 mg SUBCUT Q24H [facility] Last Admin: 05/22/21 13:12 Dose: 40 mg Documented by: Gabapentin (Gabapentin 100 Mg Cap) 100 mg PO BID [facility] Last Admin: 05/23/21 09:43 Dose: 100 mg Documented by: Guaifenesin/Dextromethorphan (Guaifenesin/Dextromethorphan 100-10 Mg/5 Ml Soln 10 Ml Cup) 10 ml PO Q4H PRN PRN Reason: Cough Last Admin: 05/22/21 23:07 Dose: 10 ml Documented by: Insulin Human Lispro (Insulin Lispro 100 Unit/Ml 3 Ml Kwikpen) 0 unit SUBCUT QIDACANDBED [facility]; Protocol Last Admin: 05/23/21 07:38 Dose: Not Given Documented by: Lorazepam (Lorazepam 2 Mg/Ml Sdv) 0.5 mg IVPUSH Q4H PRN PRN Reason: Nausea/Vomiting Last Admin: 05/16/21 04:58 Dose: 0.5 mg Documented by: Magnesium Hydroxide (Magnesium Hydroxide 400 Mg/5 Ml Susp 30 Ml Cup) 30 ml PO Q12H PRN PRN Reason: Constipation Melatonin (Melatonin 3 Mg Tab) 9 mg PO BEDTIME PRN PRN Reason: Sleep Last Admin: 05/22/21 23:07 Dose: 9 mg Documented by: Ondansetron HCl (Ondansetron 4 Mg/2 Ml Sdv) 4 mg IV Q6H PRN PRN Reason: Nausea/Vomiting Ondansetron HCl (Ondansetron 4 Mg Tab.Dis) 4 mg PO Q6H PRN PRN Reason: Nausea able to take PO Pantoprazole Sodium (Pantoprazole 40 Mg Tab.Cr) 40 mg PO ACBREAKFAST [facility] Last Admin: 05/23/21 07:38 Dose: 40 mg Documented by: Senna/Docusate Sodium (Docusate Sodium/Sennosides 50-8.6 Mg Tab) 1 tab PO BID PRN PRN Reason: Constipation Last Admin: 05/22/21 21:39 Dose: 1 tab Documented by: Sodium Chloride (Sodium Chloride 0.65% Nasal [place] 45 Ml Bottle) 0 ml SEBLE Q2H PRN PRN Reason: nasal congestion Discontinued Medications Acetaminophen (Acetaminophen 325 Mg Tab) 650 mg PO Q4H PRN PRN Reason: Fever Greater Than 101 Dexamethasone (Dexamethasone 4 Mg/Ml Sdv) 6 mg IVPUSH DAILY [facility] Stop: 05/19/21 09:01 Last Admin: 05/19/21 08:23 Dose: 6 mg Documented by: Furosemide (Furosemide 20 Mg/2 Ml Vial) 20 mg IVPUSH ONETIME ONE Stop: 05/12/21 04:21 Last Admin: 05/12/21 04:39 Dose: 20 mg Documented by: Furosemide (Furosemide 20 Mg/2 Ml Vial) 20 mg IVPUSH NOW ONE Stop: 05/14/21 09:01 Last Admin: 05/14/21 10:20 Dose: 20 mg Documented by: Furosemide (Furosemide 20 Mg/2 Ml Vial) 20 mg IVPUSH NOW ONE Stop: 05/15/21 08:31 Last Admin: 05/15/21 08:49 Dose: 20 mg Documented by: Furosemide (Furosemide 20 Mg/2 Ml Vial) 20 mg IVPUSH NOW ONE Stop: 05/16/21 08:31 Last Admin: 05/16/21 09:15 Dose: 20 mg Documented by: Remdesivir 200 mg/ Sodium (Chloride) 250 mls @ 250 mls/hr IV ONETIME ONE Stop: 05/10/21 12:59 Last Admin: 05/10/21 12:26 Dose: 250 mls/hr Documented by: Remdesivir 100 mg/ Sodium (Chloride) 100 mls @ 100 mls/hr IV Q24H [facility] Stop: 05/14/21 12:59 Last Admin: 05/14/21 11:10 Dose: 100 mls/hr Documented by: Ceftriaxone Sodium 1 gm/ (Sodium Chloride) 50 mls @ 100 mls/hr IV Q24H [facility] Stop: 05/20/21 14:00 Last Admin: 05/20/21 11:50 Dose: 100 mls/hr Documented by: Doxycycline Hyclate 100 mg/ (Sodium Chloride) 100 mls @ 100 mls/hr IV Q12H [facility] Stop: 05/21/21 04:00 Last Admin: 05/21/21 00:02 Dose: 100 mls/hr Documented by: Insulin Human Lispro (Insulin Lispro 100 Unit/Ml 3 Ml Kwikpen) 0 unit SUBCUT QIDACANDBED [facility]; Protocol Last Admin: 05/11/21 16:56 Dose: 8 units Documented by: Potassium Chloride (Potassium Chloride 20 Meq Tab.Er) 40 meq PO ONETIME ONE Stop: 05/14/21 09:01 Last Admin: 05/14/21 10:20 Dose: 40 meq Documented by: - Exam Quality Assessment: Supplemental Oxygen General: Alert, Oriented, Cooperative, No Acute Distress Lungs: Normal Respiratory Effort. No: Wheezing GI/Abdominal Exam: Soft, No Distention Extremities: No Pedal Edema. No: Increased Warmth Psy/Mental Status: Alert, Normal Affect - Patient Data Lab Results Last 24 hrs: Laboratory Results - last 24 hr 05/22/21 05/22/21 05/22/21 Range/Units 13:04 16:43 21:06 POC Glucose 209 H 391 H 260 H (74-106) mg/dL 05/23/21 05/23/21 Range/Units 07:32 11:30 POC Glucose 139 H 323 H (74-106) mg/dL Result Diagrams: 05/22/21 05:35 05/18/21 04:40 Sepsis Event Note - Evaluation Sepsis Screening Result: No Definite Risk - Focused Exam Vital Signs: Vital Signs Temp Pulse Resp BP Pulse Ox 05/23/21 11:00 36.3 C 98 18 100/51 L 90 L 05/23/21 08:00 97 05/23/21 07:32 36.4 C 84 16 105/74 95 05/23/21 05:47 36.1 C 86 17 95/68 94 L - Problem List & Annotations (1) Pneumonia due to COVID-19 virus SNOMED Code(s): 238417578656396137 Code(s): U07.1 - COVID-19; J12.82 - PNEUMONIA DUE TO CORONAVIRUS DISEASE 2019 Status: Acute Priority: High Current Visit: Yes (2) Respiratory failure with hypoxia SNOMED Code(s): 12181807145408732 Code(s): J96.91 - RESPIRATORY FAILURE, UNSPECIFIED WITH HYPOXIA Status: Acute Priority: High Current Visit: Yes Qualifiers: Chronicity: acute Qualified Code(s): J96.01 - Acute respiratory failure with hypoxia (3) DM II (diabetes mellitus, type II), controlled SNOMED Code(s): 56296011, 029835302 Code(s): E11.9 - TYPE 2 DIABETES MELLITUS WITHOUT COMPLICATIONS Status: Chronic Current Visit: Yes Qualifiers: Diabetes mellitus terminal superintendent insulin use: without terminal superintendent use Diabetes rosa litus complication status: without complication Qualified Code(s): E11.9 - Type 2 diabetes mellitus without complications (4) History of prostate cancer SNOMED Code(s): 718819725 Code(s): Z85.46 - PERSONAL HISTORY OF MALIGNANT NEOPLASM OF PROSTATE Status: Chronic Current Visit: Yes - Problem List Review Problem List Initiated/Reviewed/Updated: Yes - My Orders Last 24 Hours: My Active Orders 05/23/21 12:18 PT Evaluation and Treatment [CONS] Routine 05/23/21 16:30 GLUCOSE POC LAB TO COLLECT JPM [POC] QIDACANDBED 05/23/21 21:00 GLUCOSE POC LAB TO COLLECT JPM [POC] QIDACANDBED 05/24/21 05:00 CBC W/O DIFF,HEMOGRAM [HEME] Timed (1) CRP [C-REACTIVE PROTEIN] [CHEM] Timed D-DIMER QUANTITATIVE [COAG] Timed 05/24/21 07:30 GLUCOSE POC LAB TO COLLECT JPM [POC] QIDACANDBED 05/24/21 11:30 GLUCOSE POC LAB TO COLLECT JPM [POC] QIDACANDBED 05/24/21 16:30 GLUCOSE POC LAB TO COLLECT JPM [POC] QIDACANDBED 05/24/21 21:00 GLUCOSE POC LAB TO COLLECT JPM [POC] QIDACANDBED 05/25/21 07:30 GLUCOSE POC LAB TO COLLECT JPM [POC] QIDACANDBED 05/25/21 11:30 GLUCOSE POC LAB TO COLLECT JPM [POC] QIDACANDBED 05/25/21 16:30 GLUCOSE POC LAB TO COLLECT JPM [POC] QIDACANDBED 05/25/21 21:00 GLUCOSE POC LAB TO COLLECT JPM [POC] QIDACANDBED 05/26/21 07:30 GLUCOSE POC LAB TO COLLECT JPM [POC] QIDACANDBED 05/26/21 11:30 GLUCOSE POC LAB TO COLLECT JPM [POC] QIDACANDBED - Plan Plan:: ASSESSMENT AND PLAN - COVID-19 pneumonia-complicated by acute respiratory failure with hypoxia. Symptom onset 05/05. Symptomatically feeling well but short of breath and hypoxic with activity. Doing well with high flow nasal cannula and now has been weaned down to 10 L. -Remdesivir x5 days, completed -Dexamethasone 4 mg daily (taper day 3) -Baricitinib 4 mg p.o. daily, today is day 13 of 14 -Empiric antibiotic therapy x7 days complete -Hold furosemide today, reassess in a.m. -Enoxaparin every 24 hours -Repeat labs every 2 days -Symptomatic management of cough -Isolation precautions through 05/25 Type 2 diabetes mellitus-diet controlled. Sugars well controlled so far. -Sliding scale insulin -Monitor 4 times daily glucometers History of prostate cancer-stable. Maintenance issues - -DVT prophylaxis-enoxaparin -GI prophylaxis-PPI -Nutrition-consistent carbohydrates -Lara catheter-not indicated Disposition -I anticipate discharge home after the hospital stay Joe Valero MD
[2021-05-23] MEDS: Enoxaparin 40 MG/0.4 ML Syringe SUBCUT SCH (15:30)
[2021-05-23] MEDS: Acetaminophen 325 MG Tab PO PRN (21:19)
[2021-05-24] MEDS: Pantoprazole 40 MG Tab.CR PO SCH (07:33)
[2021-05-24] MEDS: Insulin Lispro 100 Unit/ML 3 ML KwikPen SUBCUT SCH ×4 (07:33→21:55)
[2021-05-24] MEDS: Gabapentin 100 MG Cap PO SCH ×2 (09:45→21:56)
[2021-05-24] MEDS: Aspirin 81 MG Tab.EC PO SCH (09:45)
[2021-05-24] MEDS: Dexamethasone 2 MG Tab PO SCH (09:45)
[2021-05-24] MEDS ORDERED: Benzocaine/Cetylpyridinium/Menthol Lozenge MUCMEM PRN (12:52)
--- NOTE | 2021-05-24 12:55 | PCM.PN ---
- General Info Date of Service: 05/24/21 Subjective Update: No acute events overnight. Supplemental oxygen down to 7.5 L today. He continues to feel well. He is a little bit stronger today. Appetite is good. He has been sleeping in the chair. No nausea or diarrhea. Excited with his improvements and ready to go home as soon as he can. - Patient Data Vitals - Most Recent: Last Vital Signs Temp 36.3 C 05/24/21 12:04 Pulse 71 05/24/21 12:04 Resp 18 05/24/21 12:04 BP 104/62 05/24/21 12:04 Pulse Ox 91 L 05/24/21 12:04 Weight - Most Recent: 93.44 kg I&O - Last 24 Hours: Intake & Output 05/23/21 05/24/21 05/24/21 22:59 06:59 14:59 Intake Total 350 Output Total 900 225 Balance -900 350 -225 Lab Results Last 24 Hours: Laboratory Results - last 24 hr 05/23/21 05/23/21 05/24/21 Range/Units 16:53 21:08 05:00 WBC 11.5 H (4.5-11.0) K/uL RBC 4.37 (4.30-5.90) M/uL Hgb 13.3 (12.0-15.0) g/dL Hct 39.0 L (40.0-54.0) % MCV 89 (80-98) fL MCH 30 (27-31) pg MCHC 34 (32-36) % Plt Count 416 H (150-400) K/uL D-Dimer, Quantitative (0.0-500.0) ng/mL POC Glucose 267 H 329 H (74-106) mg/dL C-Reactive Protein (0.0-0.3) mg/dL 05/24/21 05/24/21 05/24/21 Range/Units 05:00 05:00 07:21 WBC (4.5-11.0) K/uL RBC (4.30-5.90) M/uL Hgb (12.0-15.0) g/dL Hct (40.0-54.0) % MCV (80-98) fL MCH (27-31) pg MCHC (32-36) % Plt Count (150-400) K/uL D-Dimer, Quantitative 1700.87 H (0.0-500.0) ng/mL POC Glucose 133 H (74-106) mg/dL C-Reactive Protein 1.18 H (0.0-0.3) mg/dL 05/24/21 Range/Units 11:24 WBC (4.5-11.0) K/uL RBC (4.30-5.90) M/uL Hgb (12.0-15.0) g/dL Hct (40.0-54.0) % MCV (80-98) fL MCH (27-31) pg MCHC (32-36) % Plt Count (150-400) K/uL D-Dimer, Quantitative (0.0-500.0) ng/mL POC Glucose 259 H (74-106) mg/dL C-Reactive Protein (0.0-0.3) mg/dL Med Orders - Current: Current Medications Acetaminophen (Acetaminophen 325 Mg Tab) 650 mg PO Q4H PRN PRN Reason: Pain (Mild 1-3)/fever Last Admin: 05/23/21 21:19 Dose: 650 mg Documented by: Albuterol (Albuterol 8 Gm Inhaler) 0 gm INH Q2H PRN PRN Reason: Shortness of Breath Last Admin: 05/17/21 02:54 Dose: 2 puff Documented by: Aspirin (Aspirin 81 Mg Tab.Ec) 81 mg PO DAILY COUNTS INCLUDE 234 BEDS AT THE [facility] Last Admin: 05/24/21 09:45 Dose: 81 mg Documented by: Baricitinib (Baricitinib 2 Mg Tab) 4 mg PO Q24H COUNTS INCLUDE 234 BEDS AT THE [facility] Stop: 05/24/21 16:01 Last Admin: 05/23/21 15:30 Dose: 4 mg Documented by: Benzonatate (Benzonatate 100 Mg Cap) 100 mg PO TID PRN PRN Reason: Cough Last Admin: 05/23/21 09:43 Dose: 100 mg Documented by: Dexamethasone (Dexamethasone 2 Mg Tab) 4 mg PO DAILY COUNTS INCLUDE 234 BEDS AT THE [facility] Last Admin: 05/24/21 09:45 Dose: 4 mg Documented by: Enoxaparin Sodium (Enoxaparin 40 Mg/0.4 Ml Syringe) 40 mg SUBCUT Q24H COUNTS INCLUDE 234 BEDS AT THE [facility] Last Admin: 05/23/21 15:30 Dose: 40 mg Documented by: Gabapentin (Gabapentin 100 Mg Cap) 100 mg PO BID COUNTS INCLUDE 234 BEDS AT THE [facility] Last Admin: 05/24/21 09:45 Dose: 100 mg Documented by: Guaifenesin/Dextromethorphan (Guaifenesin/Dextromethorphan 100-10 Mg/5 Ml Soln 10 Ml Cup) 10 ml PO Q4H PRN PRN Reason: Cough Last Admin: 05/22/21 23:07 Dose: 10 ml Documented by: Insulin Human Lispro (Insulin Lispro 100 Unit/Ml 3 Ml Kwikpen) 0 unit SUBCUT QIDACANDBED COUNTS INCLUDE 234 BEDS AT THE [facility]; Protocol Last Admin: 05/24/21 12:16 Dose: 6 units Documented by: Lorazepam (Lorazepam 2 Mg/Ml Sdv) 0.5 mg IVPUSH Q4H PRN PRN Reason: Nausea/Vomiting Last Admin: 05/16/21 04:58 Dose: 0.5 mg Documented by: Magnesium Hydroxide (Magnesium Hydroxide 400 Mg/5 Ml Susp 30 Ml Cup) 30 ml PO Q12H PRN PRN Reason: Constipation Melatonin (Melatonin 3 Mg Tab) 9 mg PO BEDTIME PRN PRN Reason: Sleep Last Admin: 05/22/21 23:07 Dose: 9 mg Documented by: Ondansetron HCl (Ondansetron 4 Mg/2 Ml Sdv) 4 mg IV Q6H PRN PRN Reason: Nausea/Vomiting Ondansetron HCl (Ondansetron 4 Mg Tab.Dis) 4 mg PO Q6H PRN PRN Reason: Nausea able to take PO Pantoprazole Sodium (Pantoprazole 40 Mg Tab.Cr) 40 mg PO ACBREAKFAST COUNTS INCLUDE 234 BEDS AT THE [facility] Last Admin: 05/24/21 07:33 Dose: 40 mg Documented by: Senna/Docusate Sodium (Docusate Sodium/Sennosides 50-8.6 Mg Tab) 1 tab PO BID PRN PRN Reason: Constipation Last Admin: 05/22/21 21:39 Dose: 1 tab Documented by: Sodium Chloride (Sodium Chloride 0.65% Nasal [place] 45 Ml Bottle) 0 ml SEBLE Q2H PRN PRN Reason: nasal congestion Discontinued Medications Acetaminophen (Acetaminophen 325 Mg Tab) 650 mg PO Q4H PRN PRN Reason: Fever Greater Than 101 Dexamethasone (Dexamethasone 4 Mg/Ml Sdv) 6 mg IVPUSH DAILY COUNTS INCLUDE 234 BEDS AT THE [facility] Stop: 05/19/21 09:01 Last Admin: 05/19/21 08:23 Dose: 6 mg Documented by: Furosemide (Furosemide 20 Mg/2 Ml Vial) 20 mg IVPUSH ONETIME ONE Stop: 05/12/21 04:21 Last Admin: 05/12/21 04:39 Dose: 20 mg Documented by: Furosemide (Furosemide 20 Mg/2 Ml Vial) 20 mg IVPUSH NOW ONE Stop: 05/14/21 09:01 Last Admin: 05/14/21 10:20 Dose: 20 mg Documented by: Furosemide (Furosemide 20 Mg/2 Ml Vial) 20 mg IVPUSH NOW ONE Stop: 05/15/21 08:31 Last Admin: 05/15/21 08:49 Dose: 20 mg Documented by: Furosemide (Furosemide 20 Mg/2 Ml Vial) 20 mg IVPUSH NOW ONE Stop: 05/16/21 08:31 Last Admin: 05/16/21 09:15 Dose: 20 mg Documented by: Remdesivir 200 mg/ Sodium (Chloride) 250 mls @ 250 mls/hr IV ONETIME ONE Stop: 05/10/21 12:59 Last Admin: 05/10/21 12:26 Dose: 250 mls/hr Documented by: Remdesivir 100 mg/ Sodium (Chloride) 100 mls @ 100 mls/hr IV Q24H COUNTS INCLUDE 234 BEDS AT THE [facility] Stop: 05/14/21 12:59 Last Admin: 05/14/21 11:10 Dose: 100 mls/hr Documented by: Ceftriaxone Sodium 1 gm/ (Sodium Chloride) 50 mls @ 100 mls/hr IV Q24H COUNTS INCLUDE 234 BEDS AT THE [facility] Stop: 05/20/21 14:00 Last Admin: 05/20/21 11:50 Dose: 100 mls/hr Documented by: Doxycycline Hyclate 100 mg/ (Sodium Chloride) 100 mls @ 100 mls/hr IV Q12H COUNTS INCLUDE 234 BEDS AT THE [facility] Stop: 05/21/21 04:00 Last Admin: 05/21/21 00:02 Dose: 100 mls/hr Documented by: Insulin Human Lispro (Insulin Lispro 100 Unit/Ml 3 Ml Kwikpen) 0 unit SUBCUT QIDACANDBED COUNTS INCLUDE 234 BEDS AT THE [facility]; Protocol Last Admin: 05/11/21 16:56 Dose: 8 units Documented by: Potassium Chloride (Potassium Chloride 20 Meq Tab.Er) 40 meq PO ONETIME ONE Stop: 05/14/21 09:01 Last Admin: 05/14/21 10:20 Dose: 40 meq Documented by: - Exam Quality Assessment: Supplemental Oxygen General: Alert, Oriented, Cooperative, No Acute Distress Lungs: Normal Respiratory Effort. No: Wheezing GI/Abdominal Exam: Soft, No Distention Extremities: No Pedal Edema. No: Increased Warmth Skin: Warm, Dry Psy/Mental Status: Alert, Normal Affect - Patient Data Lab Results Last 24 hrs: Laboratory Results - last 24 hr 05/23/21 05/23/21 05/24/21 Range/Units 16:53 21:08 05:00 WBC 11.5 H (4.5-11.0) K/uL RBC 4.37 (4.30-5.90) M/uL Hgb 13.3 (12.0-15.0) g/dL Hct 39.0 L (40.0-54.0) % MCV 89 (80-98) fL MCH 30 (27-31) pg MCHC 34 (32-36) % Plt Count 416 H (150-400) K/uL D-Dimer, Quantitative (0.0-500.0) ng/mL POC Glucose 267 H 329 H (74-106) mg/dL C-Reactive Protein (0.0-0.3) mg/dL 05/24/21 05/24/21 05/24/21 Range/Units 05:00 05:00 07:21 WBC (4.5-11.0) K/uL RBC (4.30-5.90) M/uL Hgb (12.0-15.0) g/dL Hct (40.0-54.0) % MCV (80-98) fL MCH (27-31) pg MCHC (32-36) % Plt Count (150-400) K/uL D-Dimer, Quantitative 1700.87 H (0.0-500.0) ng/mL POC Glucose 133 H (74-106) mg/dL C-Reactive Protein 1.18 H (0.0-0.3) mg/dL 05/24/21 Range/Units 11:24 WBC (4.5-11.0) K/uL RBC (4.30-5.90) M/uL Hgb (12.0-15.0) g/dL Hct (40.0-54.0) % MCV (80-98) fL MCH (27-31) pg MCHC (32-36) % Plt Count (150-400) K/uL D-Dimer, Quantitative (0.0-500.0) ng/mL POC Glucose 259 H (74-106) mg/dL C-Reactive Protein (0.0-0.3) mg/dL Result Diagrams: 05/24/21 05:00 05/18/21 04:40 Sepsis Event Note - Evaluation Sepsis Screening Result: No Definite Risk - Focused Exam Vital Signs: Vital Signs Temp Pulse Resp BP Pulse Ox 05/24/21 12:04 36.3 C 71 18 104/62 91 L 05/24/21 08:00 88 L 05/24/21 07:00 36.2 C 78 16 105/67 95 05/24/21 03:15 35.8 C L 85 22 H 105/77 96 05/24/21 01:26 97 - Problem List & Annotations (1) Pneumonia due to COVID-19 virus SNOMED Code(s): 713679183475835227 Code(s): U07.1 - COVID-19; J12.82 - PNEUMONIA DUE TO CORONAVIRUS DISEASE 2019 Status: Acute Priority: High Current Visit: Yes (2) Respiratory failure with hypoxia SNOMED Code(s): 65739472753451434 Code(s): J96.91 - RESPIRATORY FAILURE, UNSPECIFIED WITH HYPOXIA Status: Acute Priority: High Current Visit: Yes Qualifiers: Chronicity: acute Qualified Code(s): J96.01 - Acute respiratory failure with hypoxia (3) DM II (diabetes mellitus, type II), controlled SNOMED Code(s): 15182312, 201592321 Code(s): E11.9 - TYPE 2 DIABETES MELLITUS WITHOUT COMPLICATIONS Status: Chronic Current Visit: Yes Qualifiers: Diabetes mellitus superintendent terminal insulin use: without detention use Diabetes mellitus complication status: without complication Qualified Code(s): E11.9 - Type 2 diabetes mellitus without complications (4) History of prostate cancer SNOMED Code(s): 387594654 Code(s): Z85.46 - PERSONAL HISTORY OF MALIGNANT NEOPLASM OF PROSTATE Status: Chronic Current Visit: Yes - Problem List Review Problem List Initiated/Reviewed/Updated: Yes - My Orders Last 24 Hours: My Active Orders 05/23/21 12:18 PT Evaluation and Treatment [CONS] Routine 05/24/21 12:52 Benzocaine/Cetylpyrd/Menthol [Cepacol Sore Throat] 1 lozenge MUCMEM Q2H PRN 05/24/21 16:30 GLUCOSE POC LAB TO COLLECT JPM [POC] QIDACANDBED 05/24/21 17:00 Rivaroxaban [Xarelto] 20 mg PO WITHDINNER 05/24/21 21:00 GLUCOSE POC LAB TO COLLECT JPM [POC] QIDACANDBED 05/25/21 07:30 GLUCOSE POC LAB TO COLLECT JPM [POC] QIDACANDBED 05/25/21 11:30 GLUCOSE POC LAB TO COLLECT JPM [POC] QIDACANDBED 05/25/21 16:30 GLUCOSE POC LAB TO COLLECT JPM [POC] QIDACANDBED 05/25/21 21:00 GLUCOSE POC LAB TO COLLECT JPM [POC] QIDACANDBED 05/26/21 07:30 GLUCOSE POC LAB TO COLLECT JPM [POC] QIDACANDBED 05/26/21 11:30 GLUCOSE POC LAB TO COLLECT JPM [POC] QIDACANDBED - Plan Plan:: ASSESSMENT AND PLAN - COVID-19 pneumonia-complicated by acute respiratory failure with hypoxia. Symptom onset 05/05. Symptomatically feeling well. supplemental oxygen has been titrated down to 7.5 L. Inflammatory labs improving. -Remdesivir x5 days, completed -Dexamethasone 4 mg daily (taper day 4) -Baricitinib 4 mg p.o. daily, today is day 14 of 14 -Empiric antibiotic therapy x7 days complete -Hold furosemide today, reassess in a.m. -Enoxaparin every 24 hours -Repeat labs every 2 days -Symptomatic management of cough -Isolation precautions through 05/25 Type 2 diabetes mellitus-diet controlled. Sugars well controlled so far. -Sliding scale insulin -Monitor 4 times daily glucometers History of prostate cancer-stable. Maintenance issues - -DVT prophylaxis-enoxaparin -GI prophylaxis-PPI -Nutrition-consistent carbohydrates -Lara catheter-not indicated Disposition -I anticipate discharge home after the hospital stay. He will likely need home oxygen. Joe Valero MD
[2021-05-24] MEDS: Rivaroxaban 10 MG Tab PO SCH (17:04)
[2021-05-24] MEDS: Melatonin 3 MG Tab PO PRN (22:55)
[2021-05-25] MEDS: Pantoprazole 40 MG Tab.CR PO SCH (07:15)
[2021-05-25] MEDS: Dexamethasone 2 MG Tab PO SCH (10:13)
[2021-05-25] MEDS: Insulin Lispro 100 Unit/ML 3 ML KwikPen SUBCUT SCH ×4 (10:13→21:10)
[2021-05-25] MEDS: Aspirin 81 MG Tab.EC PO SCH (10:14)
[2021-05-25] MEDS: Gabapentin 100 MG Cap PO SCH ×2 (10:14→21:08)
--- NOTE | 2021-05-25 13:30 | PCM.PN ---
- General Info Date of Service: 05/25/21 Subjective Update: Mr. Villalobos's been stable since yesterday. Slowly requiring less supplemental oxygen. Strength is improving slowly and his appetite over the past few days has been very good. Functional Status: Reports: Tolerating Diet, Urinating - Review of Systems General: Reports: Weakness, Fatigue. Denies: Fever, Chills Pulmonary: Reports: Shortness of Breath, Cough. Denies: Pleuritic Chest Pain, Sputum, Hemoptysis, Wheezing Cardiovascular: Reports: Dyspnea on Exertion, Edema. Denies: Chest Pain, Palpitations, Orthopnea, PND, Lightheadedness Gastrointestinal: Reports: No Symptoms Genitourinary: Reports: No Symptoms - Patient Data Vitals - Most Recent: Last Vital Signs Temp 97.8 F 05/25/21 11:00 Pulse 90 05/25/21 11:00 Resp 16 05/25/21 11:00 BP 97/64 05/25/21 11:00 Pulse Ox 93 L 05/25/21 11:00 Weight - Most Recent: 206 lb I&O - Last 24 Hours: Intake & Output 05/24/21 05/25/21 05/25/21 22:59 06:59 14:59 Intake Total 600 740 Output Total 200 300 Balance 400 440 Lab Results Last 24 Hours: Laboratory Results - last 24 hr 05/24/21 05/24/21 05/25/21 Range/Units 16:26 21:22 07:27 POC Glucose 240 H 321 H 140 H (74-106) mg/dL 05/25/21 Range/Units 11:28 POC Glucose 245 H (74-106) mg/dL Med Orders - Current: Current Medications Acetaminophen (Acetaminophen 325 Mg Tab) 650 mg PO Q4H PRN PRN Reason: Pain (Mild 1-3)/fever Last Admin: 05/23/21 21:19 Dose: 650 mg Documented by: Albuterol (Albuterol 8 Gm Inhaler) 0 gm INH Q2H PRN PRN Reason: Shortness of Breath Last Admin: 05/17/21 02:54 Dose: 2 puff Documented by: Aspirin (Aspirin 81 Mg Tab.Ec) 81 mg PO DAILY [facility] Last Admin: 05/25/21 10:14 Dose: 81 mg Documented by: Benzocaine/Menthol (Benzocaine/Cetylpyridinium/Menthol Lozenge) 1 lozenge MUCMEM Q2H PRN PRN Reason: Sore Throat Last Admin: 05/24/21 13:22 Dose: 1 blister Documented by: Benzonatate (Benzonatate 100 Mg Cap) 100 mg PO TID PRN PRN Reason: Cough Last Admin: 05/23/21 09:43 Dose: 100 mg Documented by: Dexamethasone (Dexamethasone 2 Mg Tab) 4 mg PO DAILY [facility] Last Admin: 05/25/21 10:13 Dose: 4 mg Documented by: Furosemide (Furosemide 40 Mg/4 Ml Vial) 20 mg IVPUSH NOW ONE Stop: 05/25/21 13:23 Gabapentin (Gabapentin 100 Mg Cap) 100 mg PO BID [facility] Last Admin: 05/25/21 10:14 Dose: 100 mg Documented by: Guaifenesin/Dextromethorphan (Guaifenesin/Dextromethorphan 100-10 Mg/5 Ml Soln 10 Ml Cup) 10 ml PO Q4H PRN PRN Reason: Cough Last Admin: 05/22/21 23:07 Dose: 10 ml Documented by: Insulin Human Lispro (Insulin Lispro 100 Unit/Ml 3 Ml Kwikpen) 0 unit SUBCUT QIDACANDBED [facility]; Protocol Last Admin: 05/25/21 10:13 Dose: Not Given Documented by: Lorazepam (Lorazepam 2 Mg/Ml Sdv) 0.5 mg IVPUSH Q4H PRN PRN Reason: Nausea/Vomiting Last Admin: 05/16/21 04:58 Dose: 0.5 mg Documented by: Magnesium Hydroxide (Magnesium Hydroxide 400 Mg/5 Ml Susp 30 Ml Cup) 30 ml PO Q12H PRN PRN Reason: Constipation Melatonin (Melatonin 3 Mg Tab) 9 mg PO BEDTIME PRN PRN Reason: Sleep Last Admin: 05/24/21 22:55 Dose: 9 mg Documented by: Ondansetron HCl (Ondansetron 4 Mg/2 Ml Sdv) 4 mg IV Q6H PRN PRN Reason: Nausea/Vomiting Ondansetron HCl (Ondansetron 4 Mg Tab.Dis) 4 mg PO Q6H PRN PRN Reason: Nausea able to take PO Pantoprazole Sodium (Pantoprazole 40 Mg Tab.Cr) 40 mg PO ACBREAKFAST [facility] Last Admin: 05/25/21 07:15 Dose: 40 mg Documented by: Rivaroxaban (Rivaroxaban 10 Mg Tab) 20 mg PO WITHDINNER [facility] Last Admin: 05/24/21 17:04 Dose: 20 mg Documented by: Senna/Docusate Sodium (Docusate Sodium/Sennosides 50-8.6 Mg Tab) 1 tab PO BID PRN PRN Reason: Constipation Last Admin: 05/22/21 21:39 Dose: 1 tab Documented by: Sodium Chloride (Sodium Chloride 0.65% Nasal [place] 45 Ml Bottle) 0 ml SEBLE Q2H PRN PRN Reason: nasal congestion Discontinued Medications Acetaminophen (Acetaminophen 325 Mg Tab) 650 mg PO Q4H PRN PRN Reason: Fever Greater Than 101 Baricitinib (Baricitinib 2 Mg Tab) 4 mg PO Q24H [facility] Stop: 05/24/21 16:01 Last Admin: 05/24/21 17:04 Dose: 4 mg Documented by: Dexamethasone (Dexamethasone 4 Mg/Ml Sdv) 6 mg IVPUSH DAILY [facility] Stop: 05/19/21 09:01 Last Admin: 05/19/21 08:23 Dose: 6 mg Documented by: Enoxaparin Sodium (Enoxaparin 40 Mg/0.4 Ml Syringe) 40 mg SUBCUT Q24H [facility] Last Admin: 05/23/21 15:30 Dose: 40 mg Documented by: Furosemide (Furosemide 20 Mg/2 Ml Vial) 20 mg IVPUSH ONETIME ONE Stop: 05/12/21 04:21 Last Admin: 05/12/21 04:39 Dose: 20 mg Documented by: Furosemide (Furosemide 20 Mg/2 Ml Vial) 20 mg IVPUSH NOW ONE Stop: 05/14/21 09:01 Last Admin: 05/14/21 10:20 Dose: 20 mg Documented by: Furosemide (Furosemide 20 Mg/2 Ml Vial) 20 mg IVPUSH NOW ONE Stop: 05/15/21 08:31 Last Admin: 05/15/21 08:49 Dose: 20 mg Documented by: Furosemide (Furosemide 20 Mg/2 Ml Vial) 20 mg IVPUSH NOW ONE Stop: 05/16/21 08:31 Last Admin: 05/16/21 09:15 Dose: 20 mg Documented by: Remdesivir 200 mg/ Sodium (Chloride) 250 mls @ 250 mls/hr IV ONETIME ONE Stop: 05/10/21 12:59 Last Admin: 05/10/21 12:26 Dose: 250 mls/hr Documented by: Remdesivir 100 mg/ Sodium (Chloride) 100 mls @ 100 mls/hr IV Q24H [facility] Stop: 05/14/21 12:59 Last Admin: 05/14/21 11:10 Dose: 100 mls/hr Documented by: Ceftriaxone Sodium 1 gm/ (Sodium Chloride) 50 mls @ 100 mls/hr IV Q24H [facility] Stop: 05/20/21 14:00 Last Admin: 05/20/21 11:50 Dose: 100 mls/hr Documented by: Doxycycline Hyclate 100 mg/ (Sodium Chloride) 100 mls @ 100 mls/hr IV Q12H [facility] Stop: 05/21/21 04:00 Last Admin: 05/21/21 00:02 Dose: 100 mls/hr Documented by: Insulin Human Lispro (Insulin Lispro 100 Unit/Ml 3 Ml Kwikpen) 0 unit SUBCUT QIDACANDBED [facility]; Protocol Last Admin: 05/11/21 16:56 Dose: 8 units Documented by: Potassium Chloride (Potassium Chloride 20 Meq Tab.Er) 40 meq PO ONETIME ONE Stop: 05/14/21 09:01 Last Admin: 05/14/21 10:20 Dose: 40 meq Documented by: - Exam Quality Assessment: Supplemental Oxygen, DVT Prophylaxis General: Alert, Oriented, Cooperative, Mild Distress Lungs: Normal Respiratory Effort, Crackles. No: Rales, Rhonchi, Wheezing Cardiovascular: Regular Rate, Regular Rhythm, No Murmurs GI/Abdominal Exam: Soft, Non-Tender, No Organomegaly, No Distention Extremities: Non-Tender, Pedal Edema - Patient Data Lab Results Last 24 hrs: Laboratory Results - last 24 hr 05/24/21 05/24/21 05/25/21 Range/Units 16:26 21:22 07:27 POC Glucose 240 H 321 H 140 H (74-106) mg/dL 05/25/21 Range/Units 11:28 POC Glucose 245 H (74-106) mg/dL Result Diagrams: 05/24/21 05:00 05/18/21 04:40 Sepsis Event Note - Evaluation Sepsis Screening Result: No Definite Risk - Focused Exam Vital Signs: Vital Signs Temp Pulse Resp BP Pulse Ox 05/25/21 11:00 97.8 F 90 16 97/64 93 L 05/25/21 07:21 95 05/25/21 07:00 97.0 F 81 16 105/63 95 05/25/21 03:49 87 16 98/71 99 - Problem List Review Problem List Initiated/Reviewed/Updated: Yes - My Orders Last 24 Hours: My Active Orders 05/25/21 13:22 Furosemide [Lasix] 20 mg IVPUSH NOW ONE 05/26/21 05:00 CBC WITH AUTO DIFF [HEME] Timed COMPREHENSIVE METABOLIC PN,CMP [CHEM] Timed 05/26/21 05:11 CRP [C-REACTIVE PROTEIN] [CHEM] AM D Dimer [D-DIMER QUANTITATIVE] [COAG] AM - Plan Plan:: ASSESSMENT AND PLAN - COVID-19 pneumonia-complicated by acute respiratory failure with hypoxia. Symptom onset 05/05. Further improvement in oxygenation over the last 24 hours, he is now down to 6 L of oxygen per minute via nasal cannula. He has been sleeping and spending most of his time in the chair and as a result has developed peripheral edema -Remdesivir x5 days, completed -Dexamethasone 2 mg daily (taper day 1) -Baricitinib 4 mg p.o. daily, completed yesterday -Empiric antibiotic therapy x7 days complete -Furosemide 20 mg IV today, reassess in a.m. -Xarelto daily -Repeat labs every 2 days -Symptomatic management of cough -Isolation precautions through 05/25 Type 2 diabetes mellitus-diet controlled. Sugars well controlled so far. -Sliding scale insulin -Monitor 4 times daily glucometers History of prostate cancer-stable. Maintenance issues - -DVT prophylaxis-enoxaparin -GI prophylaxis-PPI -Nutrition-consistent carbohydrates -Lara catheter-not indicated Disposition -I anticipate discharge home after the hospital stay. He will likely need home oxygen.
[2021-05-25] MEDS: Furosemide 20 MG/2 ML VIAL IVPUSH ONE ×2 (14:59→15:16)
[2021-05-25] MEDS ORDERED: Furosemide 40 MG Tab PO ONE (15:30)
[2021-05-25] MEDS: Rivaroxaban 10 MG Tab PO SCH (17:42)
[2021-05-25] MEDS: Melatonin 3 MG Tab PO PRN (22:52)
[2021-05-26] MEDS: Insulin Lispro 100 Unit/ML 3 ML KwikPen SUBCUT SCH ×4 (07:59→21:36)
[2021-05-26] MEDS: Dexamethasone 2 MG Tab PO SCH (08:00)
[2021-05-26] MEDS: Pantoprazole 40 MG Tab.CR PO SCH (08:00)
[2021-05-26] MEDS: Aspirin 81 MG Tab.EC PO SCH (08:00)
[2021-05-26] MEDS: Gabapentin 100 MG Cap PO SCH ×2 (08:01→20:57)
[2021-05-26] MEDS ORDERED: Furosemide 40 MG Tab PO ONE (13:00)
--- NOTE | 2021-05-26 16:34 | PCM.PN ---
- General Info Date of Service: 05/26/21 Subjective Update: Mr. Villalobos has been stable since yesterday and continues to feel improvement on a daily basis. Peripheral edema has improved with diuretic therapy yesterday. Overall strength has improved over the past few days and appetite remains good. Functional Status: Reports: Tolerating Diet, Ambulating, Urinating - Review of Systems General: Reports: Weakness, Fatigue. Denies: Fever, Chills Pulmonary: Reports: Shortness of Breath. Denies: Pleuritic Chest Pain, Cough, Sputum, Hemoptysis, Wheezing Cardiovascular: Reports: Dyspnea on Exertion, Edema. Denies: Chest Pain, Palpitations, Orthopnea, PND, Lightheadedness Gastrointestinal: Reports: No Symptoms Genitourinary: Reports: No Symptoms - Patient Data Vitals - Most Recent: Last Vital Signs Temp 96.4 F L 05/26/21 11:29 Pulse 92 05/26/21 11:29 Resp 16 05/26/21 11:29 BP 109/75 05/26/21 11:29 Pulse Ox 94 L 05/26/21 11:29 Weight - Most Recent: 206 lb I&O - Last 24 Hours: Intake & Output 05/26/21 05/26/21 05/26/21 06:59 14:59 22:59 Intake Total 200 240 Output Total 300 Balance -100 240 Lab Results Last 24 Hours: Laboratory Results - last 24 hr 05/25/21 05/25/21 05/26/21 Range/Units 16:42 21:06 04:15 WBC 12.2 H (4.5-11.0) K/uL RBC 4.26 L (4.30-5.90) M/uL Hgb 13.2 (12.0-15.0) g/dL Hct 38.5 L (40.0-54.0) % MCV 90 (80-98) fL MCH 31 (27-31) pg MCHC 34 (32-36) % Plt Count 399 (150-400) K/uL Add Manual Diff Yes Neutrophils % (Manual) 80 H (36-66) % Band Neutrophils % 3 L (5-11) % Lymphocytes % (Manual) 13 L (24-44) % Monocytes % (Manual) 4 (2-6) % D-Dimer, Quantitative (0.0-500.0) ng/mL Sodium (140-148) mmol/L Potassium (3.6-5.2) mmol/L Chloride (100-108) mmol/L Carbon Dioxide (21-32) mmol/L Anion Gap (5.0-14.0) mmol/L BUN (7-18) mg/dL Creatinine (0.8-1.3) mg/dL Est Cr Clr Drug Dosing mL/min Estimated GFR (MDRD) (>60) Glucose (74-106) mg/dL POC Glucose 239 H 329 H (74-106) mg/dL Calcium (8.5-10.1) mg/dL Total Bilirubin (0.2-1.0) mg/dL AST (15-37) U/L ALT (12-78) U/L Alkaline Phosphatase (46-116) U/L C-Reactive Protein (0.0-0.3) mg/dL Total Protein (6.4-8.2) g/dL Albumin (3.4-5.0) g/dL Globulin (2.3-3.5) g/dL Albumin/Globulin Ratio (1.2-2.2) 05/26/21 05/26/21 05/26/21 Range/Units 04:15 04:15 04:15 WBC (4.5-11.0) K/uL RBC (4.30-5.90) M/uL Hgb (12.0-15.0) g/dL Hct (40.0-54.0) % MCV (80-98) fL MCH (27-31) pg MCHC (32-36) % Plt Count (150-400) K/uL Add Manual Diff Neutrophils % (Manual) (36-66) % Band Neutrophils % (5-11) % Lymphocytes % (Manual) (24-44) % Monocytes % (Manual) (2-6) % D-Dimer, Quantitative 1322.66 H (0.0-500.0) ng/mL Sodium 138 L (140-148) mmol/L Potassium 3.9 (3.6-5.2) mmol/L Chloride 101 (100-108) mmol/L Carbon Dioxide 31 (21-32) mmol/L Anion Gap 9.9 (5.0-14.0) mmol/L BUN 22 H (7-18) mg/dL Creatinine 0.7 L (0.8-1.3) mg/dL Est Cr Clr Drug Dosing 82.22 mL/min Estimated GFR (MDRD) > 60 (>60) Glucose 168 H (74-106) mg/dL POC Glucose (74-106) mg/dL Calcium 8.6 (8.5-10.1) mg/dL Total Bilirubin 0.3 (0.2-1.0) mg/dL AST 27 (15-37) U/L ALT 69 D (12-78) U/L Alkaline Phosphatase 50 (46-116) U/L C-Reactive Protein 0.44 H (0.0-0.3) mg/dL Total Protein 6.1 L (6.4-8.2) g/dL Albumin 2.8 L (3.4-5.0) g/dL Globulin 3.3 (2.3-3.5) g/dL Albumin/Globulin Ratio 0.9 L (1.2-2.2) 05/26/21 05/26/21 Range/Units 07:26 11:29 WBC (4.5-11.0) K/uL RBC (4.30-5.90) M/uL Hgb (12.0-15.0) g/dL Hct (40.0-54.0) % MCV (80-98) fL MCH (27-31) pg MCHC (32-36) % Plt Count (150-400) K/uL Add Manual Diff Neutrophils % (Manual) (36-66) % Band Neutrophils % (5-11) % Lymphocytes % (Manual) (24-44) % Monocytes % (Manual) (2-6) % D-Dimer, Quantitative (0.0-500.0) ng/mL Sodium (140-148) mmol/L Potassium (3.6-5.2) mmol/L Chloride (100-108) mmol/L Carbon Dioxide (21-32) mmol/L Anion Gap (5.0-14.0) mmol/L BUN (7-18) mg/dL Creatinine (0.8-1.3) mg/dL Est Cr Clr Drug Dosing mL/min Estimated GFR (MDRD) (>60) Glucose (74-106) mg/dL POC Glucose 152 H 260 H (74-106) mg/dL Calcium (8.5-10.1) mg/dL Total Bilirubin (0.2-1.0) mg/dL AST (15-37) U/L ALT (12-78) U/L Alkaline Phosphatase (46-116) U/L C-Reactive Protein (0.0-0.3) mg/dL Total Protein (6.4-8.2) g/dL Albumin (3.4-5.0) g/dL Globulin (2.3-3.5) g/dL Albumin/Globulin Ratio (1.2-2.2) Med Orders - Current: Current Medications Acetaminophen (Acetaminophen 325 Mg Tab) 650 mg PO Q4H PRN PRN Reason: Pain (Mild 1-3)/fever Last Admin: 05/23/21 21:19 Dose: 650 mg Documented by: Albuterol (Albuterol 8 Gm Inhaler) 0 gm INH Q2H PRN PRN Reason: Shortness of Breath Last Admin: 05/17/21 02:54 Dose: 2 puff Documented by: Aspirin (Aspirin 81 Mg Tab.Ec) 81 mg PO DAILY [facility] Last Admin: 05/26/21 08:00 Dose: 81 mg Documented by: Benzocaine/Menthol (Benzocaine/Cetylpyridinium/Menthol Lozenge) 1 lozenge MUCMEM Q2H PRN PRN Reason: Sore Throat Last Admin: 05/24/21 13:22 Dose: 1 blister Documented by: Benzonatate (Benzonatate 100 Mg Cap) 100 mg PO TID PRN PRN Reason: Cough Last Admin: 05/23/21 09:43 Dose: 100 mg Documented by: Dexamethasone (Dexamethasone 2 Mg Tab) 2 mg PO DAILY [facility] Last Admin: 05/26/21 08:00 Dose: 2 mg Documented by: Gabapentin (Gabapentin 100 Mg Cap) 100 mg PO BID [facility] Last Admin: 05/26/21 08:01 Dose: 100 mg Documented by: Guaifenesin/Dextromethorphan (Guaifenesin/Dextromethorphan 100-10 Mg/5 Ml Soln 10 Ml Cup) 10 ml PO Q4H PRN PRN Reason: Cough Last Admin: 05/22/21 23:07 Dose: 10 ml Documented by: Insulin Human Lispro (Insulin Lispro 100 Unit/Ml 3 Ml Kwikpen) 0 unit SUBCUT QIDACANDBED [facility]; Protocol Last Admin: 05/26/21 12:50 Dose: 6 units Documented by: Lorazepam (Lorazepam 2 Mg/Ml Sdv) 0.5 mg IVPUSH Q4H PRN PRN Reason: Nausea/Vomiting Last Admin: 05/16/21 04:58 Dose: 0.5 mg Documented by: Magnesium Hydroxide (Magnesium Hydroxide 400 Mg/5 Ml Susp 30 Ml Cup) 30 ml PO Q12H PRN PRN Reason: Constipation Melatonin (Melatonin 3 Mg Tab) 9 mg PO BEDTIME PRN PRN Reason: Sleep Last Admin: 05/25/21 22:52 Dose: 9 mg Documented by: Ondansetron HCl (Ondansetron 4 Mg/2 Ml Sdv) 4 mg IV Q6H PRN PRN Reason: Nausea/Vomiting Ondansetron HCl (Ondansetron 4 Mg Tab.Dis) 4 mg PO Q6H PRN PRN Reason: Nausea able to take PO Pantoprazole Sodium (Pantoprazole 40 Mg Tab.Cr) 40 mg PO ACBREAKFAST [facility] Last Admin: 05/26/21 08:00 Dose: 40 mg Documented by: Rivaroxaban (Rivaroxaban 10 Mg Tab) 20 mg PO WITHDINNER [facility] Last Admin: 05/25/21 17:42 Dose: 20 mg Documented by: Senna/Docusate Sodium (Docusate Sodium/Sennosides 50-8.6 Mg Tab) 1 tab PO BID PRN PRN Reason: Constipation Last Admin: 05/22/21 21:39 Dose: 1 tab Documented by: Sodium Chloride (Sodium Chloride 0.65% Nasal [place] 45 Ml Bottle) 0 ml SEBLE Q2H PRN PRN Reason: nasal congestion Discontinued Medications Acetaminophen (Acetaminophen 325 Mg Tab) 650 mg PO Q4H PRN PRN Reason: Fever Greater Than 101 Baricitinib (Baricitinib 2 Mg Tab) 4 mg PO Q24H [facility] Stop: 05/24/21 16:01 Last Admin: 05/24/21 17:04 Dose: 4 mg Documented by: Dexamethasone (Dexamethasone 4 Mg/Ml Sdv) 6 mg IVPUSH DAILY [facility] Stop: 05/19/21 09:01 Last Admin: 05/19/21 08:23 Dose: 6 mg Documented by: Dexamethasone (Dexamethasone 2 Mg Tab) 4 mg PO DAILY [facility] Last Admin: 05/25/21 10:13 Dose: 4 mg Documented by: Enoxaparin Sodium (Enoxaparin 40 Mg/0.4 Ml Syringe) 40 mg SUBCUT Q24H [facility] Last Admin: 05/23/21 15:30 Dose: 40 mg Documented by: Furosemide (Furosemide 20 Mg/2 Ml Vial) 20 mg IVPUSH ONETIME ONE Stop: 05/12/21 04:21 Last Admin: 05/12/21 04:39 Dose: 20 mg Documented by: Furosemide (Furosemide 20 Mg/2 Ml Vial) 20 mg IVPUSH NOW ONE Stop: 05/14/21 09:01 Last Admin: 05/14/21 10:20 Dose: 20 mg Documented by: Furosemide (Furosemide 20 Mg/2 Ml Vial) 20 mg IVPUSH NOW ONE Stop: 05/15/21 08:31 Last Admin: 05/15/21 08:49 Dose: 20 mg Documented by: Furosemide (Furosemide 20 Mg/2 Ml Vial) 20 mg IVPUSH NOW ONE Stop: 05/16/21 08:31 Last Admin: 05/16/21 09:15 Dose: 20 mg Documented by: Furosemide (Furosemide 20 Mg/2 Ml Vial) 20 mg IVPUSH NOW ONE Stop: 05/25/21 14:01 Last Admin: 05/25/21 15:16 Dose: Not Given Documented by: Furosemide (Furosemide 40 Mg Tab) 40 mg PO ONETIME ONE Stop: 05/25/21 15:31 Last Admin: 05/25/21 15:40 Dose: 40 mg Documented by: Furosemide (Furosemide 40 Mg Tab) 40 mg PO ONETIME ONE Stop: 05/26/21 13:01 Last Admin: 05/26/21 13:48 Dose: 40 mg Documented by: Remdesivir 200 mg/ Sodium (Chloride) 250 mls @ 250 mls/hr IV ONETIME ONE Stop: 05/10/21 12:59 Last Admin: 05/10/21 12:26 Dose: 250 mls/hr Documented by: Remdesivir 100 mg/ Sodium (Chloride) 100 mls @ 100 mls/hr IV Q24H [facility] Stop: 05/14/21 12:59 Last Admin: 05/14/21 11:10 Dose: 100 mls/hr Documented by: Ceftriaxone Sodium 1 gm/ (Sodium Chloride) 50 mls @ 100 mls/hr IV Q24H [facility] Stop: 05/20/21 14:00 Last Admin: 05/20/21 11:50 Dose: 100 mls/hr Documented by: Doxycycline Hyclate 100 mg/ (Sodium Chloride) 100 mls @ 100 mls/hr IV Q12H [facility] Stop: 05/21/21 04:00 Last Admin: 05/21/21 00:02 Dose: 100 mls/hr Documented by: Insulin Human Lispro (Insulin Lispro 100 Unit/Ml 3 Ml Kwikpen) 0 unit SUBCUT QIDACANDBED [facility]; Protocol Last Admin: 05/11/21 16:56 Dose: 8 units Documented by: Potassium Chloride (Potassium Chloride 20 Meq Tab.Er) 40 meq PO ONETIME ONE Stop: 05/14/21 09:01 Last Admin: 05/14/21 10:20 Dose: 40 meq Documented by: - Exam General: Alert, Oriented, Cooperative, Mild Distress Lungs: Clear to Auscultation, Normal Respiratory Effort, Decreased Breath Sounds Cardiovascular: Regular Rate, Regular Rhythm, No Murmurs GI/Abdominal Exam: Soft, Non-Tender, No Organomegaly, No Distention Extremities: Non-Tender, Pedal Edema - Patient Data Lab Results Last 24 hrs: Laboratory Results - last 24 hr 05/25/21 05/25/21 05/26/21 Range/Units 16:42 21:06 04:15 WBC 12.2 H (4.5-11.0) K/uL RBC 4.26 L (4.30-5.90) M/uL Hgb 13.2 (12.0-15.0) g/dL Hct 38.5 L (40.0-54.0) % MCV 90 (80-98) fL MCH 31 (27-31) pg MCHC 34 (32-36) % Plt Count 399 (150-400) K/uL Add Manual Diff Yes Neutrophils % (Manual) 80 H (36-66) % Band Neutrophils % 3 L (5-11) % Lymphocytes % (Manual) 13 L (24-44) % Monocytes % (Manual) 4 (2-6) % D-Dimer, Quantitative (0.0-500.0) ng/mL Sodium (140-148) mmol/L Potassium (3.6-5.2) mmol/L Chloride (100-108) mmol/L Carbon Dioxide (21-32) mmol/L Anion Gap (5.0-14.0) mmol/L BUN (7-18) mg/dL Creatinine (0.8-1.3) mg/dL Est Cr Clr Drug Dosing mL/min Estimated GFR (MDRD) (>60) Glucose (74-106) mg/dL POC Glucose 239 H 329 H (74-106) mg/dL Calcium (8.5-10.1) mg/dL Total Bilirubin (0.2-1.0) mg/dL AST (15-37) U/L ALT (12-78) U/L Alkaline Phosphatase (46-116) U/L C-Reactive Protein (0.0-0.3) mg/dL Total Protein (6.4-8.2) g/dL Albumin (3.4-5.0) g/dL Globulin (2.3-3.5) g/dL Albumin/Globulin Ratio (1.2-2.2) 05/26/21 05/26/21 05/26/21 Range/Units 04:15 04:15 04:15 WBC (4.5-11.0) K/uL RBC (4.30-5.90) M/uL Hgb (12.0-15.0) g/dL Hct (40.0-54.0) % MCV (80-98) fL MCH (27-31) pg MCHC (32-36) % Plt Count (150-400) K/uL Add Manual Diff Neutrophils % (Manual) (36-66) % Band Neutrophils % (5-11) % Lymphocytes % (Manual) (24-44) % Monocytes % (Manual) (2-6) % D-Dimer, Quantitative 1322.66 H (0.0-500.0) ng/mL Sodium 138 L (140-148) mmol/L Potassium 3.9 (3.6-5.2) mmol/L Chloride 101 (100-108) mmol/L Carbon Dioxide 31 (21-32) mmol/L Anion Gap 9.9 (5.0-14.0) mmol/L BUN 22 H (7-18) mg/dL Creatinine 0.7 L (0.8-1.3) mg/dL Est Cr Clr Drug Dosing 82.22 mL/min Estimated GFR (MDRD) > 60 (>60) Glucose 168 H (74-106) mg/dL POC Glucose (74-106) mg/dL Calcium 8.6 (8.5-10.1) mg/dL Total Bilirubin 0.3 (0.2-1.0) mg/dL AST 27 (15-37) U/L ALT 69 D (12-78) U/L Alkaline Phosphatase 50 (46-116) U/L C-Reactive Protein 0.44 H (0.0-0.3) mg/dL Total Protein 6.1 L (6.4-8.2) g/dL Albumin 2.8 L (3.4-5.0) g/dL Globulin 3.3 (2.3-3.5) g/dL Albumin/Globulin Ratio 0.9 L (1.2-2.2) 05/26/21 05/26/21 Range/Units 07:26 11:29 WBC (4.5-11.0) K/uL RBC (4.30-5.90) M/uL Hgb (12.0-15.0) g/dL Hct (40.0-54.0) % MCV (80-98) fL MCH (27-31) pg MCHC (32-36) % Plt Count (150-400) K/uL Add Manual Diff Neutrophils % (Manual) (36-66) % Band Neutrophils % (5-11) % Lymphocytes % (Manual) (24-44) % Monocytes % (Manual) (2-6) % D-Dimer, Quantitative (0.0-500.0) ng/mL Sodium (140-148) mmol/L Potassium (3.6-5.2) mmol/L Chloride (100-108) mmol/L Carbon Dioxide (21-32) mmol/L Anion Gap (5.0-14.0) mmol/L BUN (7-18) mg/dL Creatinine (0.8-1.3) mg/dL Est Cr Clr Drug Dosing mL/min Estimated GFR (MDRD) (>60) Glucose (74-106) mg/dL POC Glucose 152 H 260 H (74-106) mg/dL Calcium (8.5-10.1) mg/dL Total Bilirubin (0.2-1.0) mg/dL AST (15-37) U/L ALT (12-78) U/L Alkaline Phosphatase (46-116) U/L C-Reactive Protein (0.0-0.3) mg/dL Total Protein (6.4-8.2) g/dL Albumin (3.4-5.0) g/dL Globulin (2.3-3.5) g/dL Albumin/Globulin Ratio (1.2-2.2) Result Diagrams: 05/26/21 04:15 05/26/21 04:15 Sepsis Event Note - Evaluation Sepsis Screening Result: No Definite Risk - Focused Exam Vital Signs: Vital Signs Temp Pulse Resp BP Pulse Ox 05/26/21 11:29 96.4 F L 92 16 109/75 94 L 05/26/21 08:00 96.4 F L 95 16 114/62 94 L - Problem List Review Problem List Initiated/Reviewed/Updated: Yes - My Orders Last 24 Hours: My Active Orders 05/26/21 09:00 dexAMETHasone 2 mg PO DAILY 05/27/21 05:00 BASIC METABOLIC PANEL,BMP [CHEM] Timed - Plan Plan:: ASSESSMENT AND PLAN - COVID-19 pneumonia-complicated by acute respiratory failure with hypoxia. Symptom onset 05/05. Further improvement in oxygenation over the last 24 hours, he is now down to 4 L of oxygen per minute via nasal cannula. Edema has improved with diuretic therapy -Remdesivir x5 days, completed -Dexamethasone 2 mg daily (taper day 2) -Baricitinib 4 mg p.o. daily, completed -Empiric antibiotic therapy x7 days complete -Furosemide 40 mg po today, reassess in a.m. -Xarelto daily -Repeat labs every 2 days -Symptomatic management of cough -Isolation precautions completed Type 2 diabetes mellitus-diet controlled. Sugars well controlled so far. -Sliding scale insulin -Monitor 4 times daily glucometers History of prostate cancer-stable. Maintenance issues - -DVT prophylaxis-enoxaparin -GI prophylaxis-PPI -Nutrition-consistent carbohydrates -Lara catheter-not indicated Disposition -I anticipate discharge home after the hospital stay. He will likely need home oxygen.
[2021-05-26] MEDS: Rivaroxaban 10 MG Tab PO SCH (17:37)
[2021-05-26] MEDS ORDERED: Sodium Chloride 0.65% Nasal Spray 45 ML Bottle NAS PRN (20:50)
[2021-05-26] MEDS: Melatonin 3 MG Tab PO PRN (21:35)
--- NOTE | 2021-05-27 05:50 | PCM.SN.2 ---
- Free Text/Narrative Note: Telephone call time [id number]/26/2021 S/O request nasal drops O: nasal congestion P: [place] spray nasal saline every 2 hours as needed
[2021-05-27] MEDS: Insulin Lispro 100 Unit/ML 3 ML KwikPen SUBCUT SCH ×4 (07:47→21:27)
[2021-05-27] MEDS: Pantoprazole 40 MG Tab.CR PO SCH (07:48)
[2021-05-27] MEDS: Dexamethasone 2 MG Tab PO SCH (08:21)
[2021-05-27] MEDS: Gabapentin 100 MG Cap PO SCH ×2 (08:21→21:27)
[2021-05-27] MEDS: Aspirin 81 MG Tab.EC PO SCH (08:24)
[2021-05-27] MEDS ORDERED: Furosemide 40 MG Tab PO ONE (15:00)
--- NOTE | 2021-05-27 16:17 | PCM.PN ---
- General Info Date of Service: 05/27/21 Subjective Update: Mr. Villalobos has been stable since yesterday, no further improvement in oxygenation. Each day he feels as though he is regaining strength and his appetite has been fairly good. He recovers more quickly following activity. Functional Status: Reports: Tolerating Diet, Ambulating, Urinating - Review of Systems General: Reports: Weakness, Fatigue. Denies: Fever, Chills Pulmonary: Reports: Shortness of Breath. Denies: Pleuritic Chest Pain, Cough, Sputum, Hemoptysis, Wheezing Cardiovascular: Reports: Dyspnea on Exertion. Denies: Chest Pain, Palpitations, Orthopnea, PND, Edema, Lightheadedness Gastrointestinal: Reports: No Symptoms Genitourinary: Reports: No Symptoms - Patient Data Vitals - Most Recent: Last Vital Signs Temp 98.2 F 05/27/21 15:21 Pulse 98 05/27/21 15:21 Resp 20 05/27/21 15:21 BP 99/66 05/27/21 15:21 Pulse Ox 90 L 05/27/21 15:21 Weight - Most Recent: 206 lb I&O - Last 24 Hours: Intake & Output 05/27/21 05/27/21 05/27/21 06:59 14:59 22:59 Intake Total 400 Output Total 580 Balance 400 -580 Lab Results Last 24 Hours: Laboratory Results - last 24 hr 05/26/21 05/26/21 05/27/21 Range/Units 18:26 21:15 05:30 Sodium 139 L (140-148) mmol/L Potassium 4.3 (3.6-5.2) mmol/L Chloride 101 (100-108) mmol/L Carbon Dioxide 33 H (21-32) mmol/L Anion Gap 9.3 (5.0-14.0) mmol/L BUN 25 H (7-18) mg/dL Creatinine 0.8 (0.8-1.3) mg/dL Est Cr Clr Drug Dosing 71.94 mL/min Estimated GFR (MDRD) > 60 (>60) Glucose 146 H (74-106) mg/dL POC Glucose 302 H 252 H (74-106) mg/dL Calcium 8.6 (8.5-10.1) mg/dL 05/27/21 05/27/21 Range/Units 07:18 11:29 Sodium (140-148) mmol/L Potassium (3.6-5.2) mmol/L Chloride (100-108) mmol/L Carbon Dioxide (21-32) mmol/L Anion Gap (5.0-14.0) mmol/L BUN (7-18) mg/dL Creatinine (0.8-1.3) mg/dL Est Cr Clr Drug Dosing mL/min Estimated GFR (MDRD) (>60) Glucose (74-106) mg/dL POC Glucose 138 H 298 H (74-106) mg/dL Calcium (8.5-10.1) mg/dL Med Orders - Current: Current Medications Acetaminophen (Acetaminophen 325 Mg Tab) 650 mg PO Q4H PRN PRN Reason: Pain (Mild 1-3)/fever Last Admin: 05/23/21 21:19 Dose: 650 mg Documented by: Albuterol (Albuterol 8 Gm Inhaler) 0 gm INH Q2H PRN PRN Reason: Shortness of Breath Last Admin: 05/17/21 02:54 Dose: 2 puff Documented by: Aspirin (Aspirin 81 Mg Tab.Ec) 81 mg PO DAILY [facility] Last Admin: 05/27/21 08:24 Dose: 81 mg Documented by: Benzocaine/Menthol (Benzocaine/Cetylpyridinium/Menthol Lozenge) 1 lozenge MUCMEM Q2H PRN PRN Reason: Sore Throat Last Admin: 05/24/21 13:22 Dose: 1 blister Documented by: Benzonatate (Benzonatate 100 Mg Cap) 100 mg PO TID PRN PRN Reason: Cough Last Admin: 05/23/21 09:43 Dose: 100 mg Documented by: Dexamethasone (Dexamethasone 2 Mg Tab) 2 mg PO DAILY [facility] Last Admin: 05/27/21 08:21 Dose: 2 mg Documented by: Gabapentin (Gabapentin 100 Mg Cap) 100 mg PO BID [facility] Last Admin: 05/27/21 08:21 Dose: 100 mg Documented by: Guaifenesin/Dextromethorphan (Guaifenesin/Dextromethorphan 100-10 Mg/5 Ml Soln 10 Ml Cup) 10 ml PO Q4H PRN PRN Reason: Cough Last Admin: 05/22/21 23:07 Dose: 10 ml Documented by: Insulin Human Lispro (Insulin Lispro 100 Unit/Ml 3 Ml Kwikpen) 0 unit SUBCUT QIDACANDBED [facility]; Protocol Last Admin: 05/27/21 11:48 Dose: 6 units Documented by: Lorazepam (Lorazepam 2 Mg/Ml Sdv) 0.5 mg IVPUSH Q4H PRN PRN Reason: Nausea/Vomiting Last Admin: 05/16/21 04:58 Dose: 0.5 mg Documented by: Magnesium Hydroxide (Magnesium Hydroxide 400 Mg/5 Ml Susp 30 Ml Cup) 30 ml PO Q12H PRN PRN Reason: Constipation Melatonin (Melatonin 3 Mg Tab) 9 mg PO BEDTIME PRN PRN Reason: Sleep Last Admin: 05/26/21 21:35 Dose: 9 mg Documented by: Ondansetron HCl (Ondansetron 4 Mg/2 Ml Sdv) 4 mg IV Q6H PRN PRN Reason: Nausea/Vomiting Ondansetron HCl (Ondansetron 4 Mg Tab.Dis) 4 mg PO Q6H PRN PRN Reason: Nausea able to take PO Pantoprazole Sodium (Pantoprazole 40 Mg Tab.Cr) 40 mg PO ACBREAKFAST [facility] Last Admin: 05/27/21 07:48 Dose: 40 mg Documented by: Rivaroxaban (Rivaroxaban 10 Mg Tab) 20 mg PO WITHDINNER [facility] Last Admin: 05/26/21 17:37 Dose: 20 mg Documented by: Senna/Docusate Sodium (Docusate Sodium/Sennosides 50-8.6 Mg Tab) 1 tab PO BID PRN PRN Reason: Constipation Last Admin: 05/22/21 21:39 Dose: 1 tab Documented by: Sodium Chloride (Sodium Chloride 0.65% Nasal [place] 45 Ml Bottle) 0 ml SEBLE Q2H PRN PRN Reason: nasal congestion Last Admin: 05/26/21 21:35 Dose: 1 spray Documented by: Discontinued Medications Acetaminophen (Acetaminophen 325 Mg Tab) 650 mg PO Q4H PRN PRN Reason: Fever Greater Than 101 Baricitinib (Baricitinib 2 Mg Tab) 4 mg PO Q24H [facility] Stop: 05/24/21 16:01 Last Admin: 05/24/21 17:04 Dose: 4 mg Documented by: Dexamethasone (Dexamethasone 4 Mg/Ml Sdv) 6 mg IVPUSH DAILY [facility] Stop: 05/19/21 09:01 Last Admin: 05/19/21 08:23 Dose: 6 mg Documented by: Dexamethasone (Dexamethasone 2 Mg Tab) 4 mg PO DAILY [facility] Last Admin: 05/25/21 10:13 Dose: 4 mg Documented by: Enoxaparin Sodium (Enoxaparin 40 Mg/0.4 Ml Syringe) 40 mg SUBCUT Q24H [facility] Last Admin: 05/23/21 15:30 Dose: 40 mg Documented by: Furosemide (Furosemide 20 Mg/2 Ml Vial) 20 mg IVPUSH ONETIME ONE Stop: 05/12/21 04:21 Last Admin: 05/12/21 04:39 Dose: 20 mg Documented by: Furosemide (Furosemide 20 Mg/2 Ml Vial) 20 mg IVPUSH NOW ONE Stop: 05/14/21 09:01 Last Admin: 05/14/21 10:20 Dose: 20 mg Documented by: Furosemide (Furosemide 20 Mg/2 Ml Vial) 20 mg IVPUSH NOW ONE Stop: 05/15/21 08:31 Last Admin: 05/15/21 08:49 Dose: 20 mg Documented by: Furosemide (Furosemide 20 Mg/2 Ml Vial) 20 mg IVPUSH NOW ONE Stop: 05/16/21 08:31 Last Admin: 05/16/21 09:15 Dose: 20 mg Documented by: Furosemide (Furosemide 20 Mg/2 Ml Vial) 20 mg IVPUSH NOW ONE Stop: 05/25/21 14:01 Last Admin: 05/25/21 15:16 Dose: Not Given Documented by: Furosemide (Furosemide 40 Mg Tab) 40 mg PO ONETIME ONE Stop: 05/25/21 15:31 Last Admin: 05/25/21 15:40 Dose: 40 mg Documented by: Furosemide (Furosemide 40 Mg Tab) 40 mg PO ONETIME ONE Stop: 05/26/21 13:01 Last Admin: 05/26/21 13:48 Dose: 40 mg Documented by: Furosemide (Furosemide 40 Mg Tab) 40 mg PO ONETIME ONE Stop: 05/27/21 15:01 Last Admin: 05/27/21 15:20 Dose: 40 mg Documented by: Remdesivir 200 mg/ Sodium (Chloride) 250 mls @ 250 mls/hr IV ONETIME ONE Stop: 05/10/21 12:59 Last Admin: 05/10/21 12:26 Dose: 250 mls/hr Documented by: Remdesivir 100 mg/ Sodium (Chloride) 100 mls @ 100 mls/hr IV Q24H [facility] Stop: 05/14/21 12:59 Last Admin: 05/14/21 11:10 Dose: 100 mls/hr Documented by: Ceftriaxone Sodium 1 gm/ (Sodium Chloride) 50 mls @ 100 mls/hr IV Q24H [facility] Stop: 05/20/21 14:00 Last Admin: 05/20/21 11:50 Dose: 100 mls/hr Documented by: Doxycycline Hyclate 100 mg/ (Sodium Chloride) 100 mls @ 100 mls/hr IV Q12H [facility] Stop: 05/21/21 04:00 Last Admin: 05/21/21 00:02 Dose: 100 mls/hr Documented by: Insulin Human Lispro (Insulin Lispro 100 Unit/Ml 3 Ml Kwikpen) 0 unit SUBCUT QIDACANDBED [facility]; Protocol Last Admin: 05/11/21 16:56 Dose: 8 units Documented by: Potassium Chloride (Potassium Chloride 20 Meq Tab.Er) 40 meq PO ONETIME ONE Stop: 05/14/21 09:01 Last Admin: 05/14/21 10:20 Dose: 40 meq Documented by: - Exam Quality Assessment: Supplemental Oxygen, DVT Prophylaxis General: Alert, Oriented, Cooperative, Mild Distress Lungs: Decreased Breath Sounds, Crackles. No: Rales, Rhonchi, Wheezing Cardiovascular: Regular Rate, Regular Rhythm, No Murmurs GI/Abdominal Exam: Soft, Non-Tender, No Organomegaly, No Distention Extremities: Non-Tender, No Pedal Edema - Patient Data Lab Results Last 24 hrs: Laboratory Results - last 24 hr 05/26/21 05/26/21 05/27/21 Range/Units 18:26 21:15 05:30 Sodium 139 L (140-148) mmol/L Potassium 4.3 (3.6-5.2) mmol/L Chloride 101 (100-108) mmol/L Carbon Dioxide 33 H (21-32) mmol/L Anion Gap 9.3 (5.0-14.0) mmol/L BUN 25 H (7-18) mg/dL Creatinine 0.8 (0.8-1.3) mg/dL Est Cr Clr Drug Dosing 71.94 mL/min Estimated GFR (MDRD) > 60 (>60) Glucose 146 H (74-106) mg/dL POC Glucose 302 H 252 H (74-106) mg/dL Calcium 8.6 (8.5-10.1) mg/dL 05/27/21 05/27/21 Range/Units 07:18 11:29 Sodium (140-148) mmol/L Potassium (3.6-5.2) mmol/L Chloride (100-108) mmol/L Carbon Dioxide (21-32) mmol/L Anion Gap (5.0-14.0) mmol/L BUN (7-18) mg/dL Creatinine (0.8-1.3) mg/dL Est Cr Clr Drug Dosing mL/min Estimated GFR (MDRD) (>60) Glucose (74-106) mg/dL POC Glucose 138 H 298 H (74-106) mg/dL Calcium (8.5-10.1) mg/dL Result Diagrams: 05/26/21 04:15 05/27/21 05:30 Sepsis Event Note - Evaluation Sepsis Screening Result: No Definite Risk - Focused Exam Vital Signs: Vital Signs Temp Pulse Resp BP BP Pulse Ox 05/27/21 15:21 98.2 F 98 20 99/66 90 L 05/27/21 11:08 97.2 F 96 20 101/58 L 91 L 05/27/21 08:20 96.9 F 81 20 110/72 91 L 05/27/21 08:00 89 L - Problem List Review Problem List Initiated/Reviewed/Updated: Yes - My Orders Last 24 Hours: My Active Orders 05/26/21 17:54 POC Glucose [Blood Glucose Check, Bedside] [RC] QIDACANDBED 05/27/21 16:30 GLUCOSE POC LAB TO COLLECT JPM [POC] QIDACANDBED 05/27/21 21:00 GLUCOSE POC LAB TO COLLECT JPM [POC] QIDACANDBED 05/28/21 05:00 CBC WITH AUTO DIFF [HEME] Timed COMPREHENSIVE METABOLIC PN,CMP [CHEM] Timed 05/28/21 05:11 CRP [C-REACTIVE PROTEIN] [CHEM] AM D Dimer [D-DIMER QUANTITATIVE] [COAG] AM 05/28/21 07:30 GLUCOSE POC LAB TO COLLECT JPM [POC] QIDACANDBED 05/28/21 11:30 GLUCOSE POC LAB TO COLLECT JPM [POC] QIDACANDBED 05/28/21 16:30 GLUCOSE POC LAB TO COLLECT JPM [POC] QIDACANDBED 05/28/21 21:00 GLUCOSE POC LAB TO COLLECT JPM [POC] QIDACANDBED 05/29/21 07:30 GLUCOSE POC LAB TO COLLECT JPM [POC] QIDACANDBED 05/29/21 11:30 GLUCOSE POC LAB TO COLLECT JPM [POC] QIDACANDBED 05/29/21 16:30 GLUCOSE POC LAB TO COLLECT JPM [POC] QIDACANDBED 05/29/21 21:00 GLUCOSE POC LAB TO COLLECT JPM [POC] QIDACANDBED 05/30/21 07:30 GLUCOSE POC LAB TO COLLECT JPM [POC] QIDACANDBED 05/30/21 11:30 GLUCOSE POC LAB TO COLLECT JPM [POC] QIDACANDBED 05/30/21 16:30 GLUCOSE POC LAB TO COLLECT JPM [POC] QIDACANDBED 05/30/21 21:00 GLUCOSE POC LAB TO COLLECT JPM [POC] QIDACANDBED 05/31/21 07:30 GLUCOSE POC LAB TO COLLECT JPM [POC] QIDACANDBED 05/31/21 11:30 GLUCOSE POC LAB TO COLLECT JPM [POC] QIDACANDBED 05/31/21 16:30 GLUCOSE POC LAB TO COLLECT JPM [POC] QIDACANDBED 05/31/21 21:00 GLUCOSE POC LAB TO COLLECT JPM [POC] QIDACANDBED 06/01/21 07:30 GLUCOSE POC LAB TO COLLECT JPM [POC] QIDACANDBED - Plan Plan:: ASSESSMENT AND PLAN - COVID-19 pneumonia-complicated by acute respiratory failure with hypoxia. Symptom onset 05/05. Further improvement in oxygenation over the last 24 hours, he is now down to 4 L of oxygen per minute via nasal cannula. Edema has improved with diuretic therapy -Remdesivir x5 days, completed -Dexamethasone 2 mg daily (taper day 3) -Baricitinib 4 mg p.o. daily, completed -Empiric antibiotic therapy x7 days complete -Furosemide 40 mg po today, reassess in a.m. -Xarelto daily -Repeat labs every 2 days -Symptomatic management of cough -Isolation precautions completed Type 2 diabetes mellitus-diet controlled. Sugars well controlled so far. -Sliding scale insulin -Monitor 4 times daily glucometers History of prostate cancer-stable. Maintenance issues - -DVT prophylaxis-enoxaparin -GI prophylaxis-PPI -Nutrition-consistent carbohydrates -Lara catheter-not indicated Disposition -I anticipate discharge home after the hospital stay. He will likely need home oxygen.
[2021-05-27] MEDS: Rivaroxaban 10 MG Tab PO SCH (17:16)
[2021-05-27] MEDS: Melatonin 3 MG Tab PO PRN (22:37)
[2021-05-28] MEDS: Pantoprazole 40 MG Tab.CR PO SCH (07:59)
[2021-05-28] MEDS: Aspirin 81 MG Tab.EC PO SCH (07:59)
[2021-05-28] MEDS: Gabapentin 100 MG Cap PO SCH ×2 (07:59→21:42)
[2021-05-28] MEDS: Insulin Lispro 100 Unit/ML 3 ML KwikPen SUBCUT SCH ×4 (08:00→21:41)
[2021-05-28] MEDS: Dexamethasone 2 MG Tab PO SCH (08:00)
[2021-05-28] MEDS: Aloe Vera/Sodium Chloride Gel 14.1 GM Tube NASBOTH PRN ×2 (11:39→17:15)
[2021-05-28] MEDS: Rivaroxaban 10 MG Tab PO SCH (17:14)
--- NOTE | 2021-05-28 17:55 | PCM.PN ---
- General Info Date of Service: 05/28/21 Subjective Update: Mr. Villalobos has had difficulty with nasal congestion since yesterday, he feels that this has caused him some difficulty with breathing. Continues to require 3 L/min of oxygen via nasal cannula. Otherwise continues to experience slow improvement in symptoms of shortness of breath and overall strength. Functional Status: Reports: Tolerating Diet, Ambulating, Urinating - Review of Systems General: Reports: Weakness, Fatigue. Denies: Fever, Chills Pulmonary: Reports: Shortness of Breath, Cough. Denies: Pleuritic Chest Pain, Sputum, Hemoptysis, Wheezing Cardiovascular: Reports: Dyspnea on Exertion. Denies: Chest Pain, Palpitations, Orthopnea, PND, Edema, Lightheadedness Gastrointestinal: Reports: No Symptoms Genitourinary: Reports: No Symptoms - Patient Data Vitals - Most Recent: Last Vital Signs Temp 97.9 F 05/28/21 16:00 Pulse 92 05/28/21 16:00 Resp 20 05/28/21 16:00 BP 92/54 L 05/28/21 12:00 Pulse Ox 96 05/28/21 16:00 Weight - Most Recent: 206 lb I&O - Last 24 Hours: Intake & Output 05/28/21 05/28/21 05/28/21 06:59 14:59 22:59 Intake Total 300 800 Output Total 400 300 Balance 300 -400 500 Lab Results Last 24 Hours: Laboratory Results - last 24 hr 05/27/21 05/28/21 05/28/21 Range/Units 21:00 05:30 05:30 WBC 9.5 (4.5-11.0) K/uL RBC 3.90 L (4.30-5.90) M/uL Hgb 12.0 (12.0-15.0) g/dL Hct 36.4 L (40.0-54.0) % MCV 93 (80-98) fL MCH 31 (27-31) pg MCHC 33 (32-36) % Plt Count 293 (150-400) K/uL Neut % (Auto) 76.8 H (36-66) % Lymph % (Auto) 15.1 L (24-44) % Gray % (Auto) 6.4 H (2-6) % Eos % (Auto) 1.6 L (2-4) % Baso % (Auto) 0.1 (0-1) % D-Dimer, Quantitative (0.0-500.0) ng/mL Sodium 141 (140-148) mmol/L Potassium 3.9 (3.6-5.2) mmol/L Chloride 101 (100-108) mmol/L Carbon Dioxide 34 H (21-32) mmol/L Anion Gap 9.9 (5.0-14.0) mmol/L BUN 22 H (7-18) mg/dL Creatinine 0.9 (0.8-1.3) mg/dL Est Cr Clr Drug Dosing 63.95 mL/min Estimated GFR (MDRD) > 60 (>60) Glucose 120 H (74-106) mg/dL POC Glucose 283 H (74-106) mg/dL Calcium 8.5 (8.5-10.1) mg/dL Total Bilirubin 0.5 D (0.2-1.0) mg/dL AST 22 (15-37) U/L ALT 59 (12-78) U/L Alkaline Phosphatase 45 L (46-116) U/L C-Reactive Protein (0.0-0.3) mg/dL Total Protein 5.5 L (6.4-8.2) g/dL Albumin 2.5 L (3.4-5.0) g/dL Globulin 3.0 (2.3-3.5) g/dL Albumin/Globulin Ratio 0.8 L (1.2-2.2) 05/28/21 05/28/21 05/28/21 Range/Units 05:30 05:30 07:49 WBC (4.5-11.0) K/uL RBC (4.30-5.90) M/uL Hgb (12.0-15.0) g/dL Hct (40.0-54.0) % MCV (80-98) fL MCH (27-31) pg MCHC (32-36) % Plt Count (150-400) K/uL Neut % (Auto) (36-66) % Lymph % (Auto) (24-44) % Gray % (Auto) (2-6) % Eos % (Auto) (2-4) % Baso % (Auto) (0-1) % D-Dimer, Quantitative 1428.23 H (0.0-500.0) ng/mL Sodium (140-148) mmol/L Potassium (3.6-5.2) mmol/L Chloride (100-108) mmol/L Carbon Dioxide (21-32) mmol/L Anion Gap (5.0-14.0) mmol/L BUN (7-18) mg/dL Creatinine (0.8-1.3) mg/dL Est Cr Clr Drug Dosing mL/min Estimated GFR (MDRD) (>60) Glucose (74-106) mg/dL POC Glucose 117 H (74-106) mg/dL Calcium (8.5-10.1) mg/dL Total Bilirubin (0.2-1.0) mg/dL AST (15-37) U/L ALT (12-78) U/L Alkaline Phosphatase (46-116) U/L C-Reactive Protein 1.66 H (0.0-0.3) mg/dL Total Protein (6.4-8.2) g/dL Albumin (3.4-5.0) g/dL Globulin (2.3-3.5) g/dL Albumin/Globulin Ratio (1.2-2.2) 05/28/21 05/28/21 Range/Units 11:21 16:44 WBC (4.5-11.0) K/uL RBC (4.30-5.90) M/uL Hgb (12.0-15.0) g/dL Hct (40.0-54.0) % MCV (80-98) fL MCH (27-31) pg MCHC (32-36) % Plt Count (150-400) K/uL Neut % (Auto) (36-66) % Lymph % (Auto) (24-44) % Gray % (Auto) (2-6) % Eos % (Auto) (2-4) % Baso % (Auto) (0-1) % D-Dimer, Quantitative (0.0-500.0) ng/mL Sodium (140-148) mmol/L Potassium (3.6-5.2) mmol/L Chloride (100-108) mmol/L Carbon Dioxide (21-32) mmol/L Anion Gap (5.0-14.0) mmol/L BUN (7-18) mg/dL Creatinine (0.8-1.3) mg/dL Est Cr Clr Drug Dosing mL/min Estimated GFR (MDRD) (>60) Glucose (74-106) mg/dL POC Glucose 248 H 280 H (74-106) mg/dL Calcium (8.5-10.1) mg/dL Total Bilirubin (0.2-1.0) mg/dL AST (15-37) U/L ALT (12-78) U/L Alkaline Phosphatase (46-116) U/L C-Reactive Protein (0.0-0.3) mg/dL Total Protein (6.4-8.2) g/dL Albumin (3.4-5.0) g/dL Globulin (2.3-3.5) g/dL Albumin/Globulin Ratio (1.2-2.2) Med Orders - Current: Current Medications Acetaminophen (Acetaminophen 325 Mg Tab) 650 mg PO Q4H PRN PRN Reason: Pain (Mild 1-3)/fever Last Admin: 05/23/21 21:19 Dose: 650 mg Documented by: Albuterol (Albuterol 8 Gm Inhaler) 0 gm INH Q2H PRN PRN Reason: Shortness of Breath Last Admin: 05/17/21 02:54 Dose: 2 puff Documented by: Aspirin (Aspirin 81 Mg Tab.Ec) 81 mg PO DAILY [facility] Last Admin: 05/28/21 07:59 Dose: 81 mg Documented by: Benzocaine/Menthol (Benzocaine/Cetylpyridinium/Menthol Lozenge) 1 lozenge MUCMEM Q2H PRN PRN Reason: Sore Throat Last Admin: 05/24/21 13:22 Dose: 1 blister Documented by: Benzonatate (Benzonatate 100 Mg Cap) 100 mg PO TID PRN PRN Reason: Cough Last Admin: 05/23/21 09:43 Dose: 100 mg Documented by: Dexamethasone (Dexamethasone 2 Mg Tab) 2 mg PO DAILY [facility] Last Admin: 05/28/21 08:00 Dose: 2 mg Documented by: Gabapentin (Gabapentin 100 Mg Cap) 100 mg PO BID [facility] Last Admin: 05/28/21 07:59 Dose: 100 mg Documented by: Guaifenesin/Dextromethorphan (Guaifenesin/Dextromethorphan 100-10 Mg/5 Ml Soln 10 Ml Cup) 10 ml PO Q4H PRN PRN Reason: Cough Last Admin: 05/22/21 23:07 Dose: 10 ml Documented by: Insulin Human Lispro (Insulin Lispro 100 Unit/Ml 3 Ml Kwikpen) 0 unit SUBCUT QIDACANDBED [facility]; Protocol Last Admin: 05/28/21 17:13 Dose: 6 units Documented by: Lorazepam (Lorazepam 2 Mg/Ml Sdv) 0.5 mg IVPUSH Q4H PRN PRN Reason: Nausea/Vomiting Last Admin: 05/16/21 04:58 Dose: 0.5 mg Documented by: Magnesium Hydroxide (Magnesium Hydroxide 400 Mg/5 Ml Susp 30 Ml Cup) 30 ml PO Q12H PRN PRN Reason: Constipation Melatonin (Melatonin 3 Mg Tab) 9 mg PO BEDTIME PRN PRN Reason: Sleep Last Admin: 05/27/21 22:37 Dose: 9 mg Documented by: Ondansetron HCl (Ondansetron 4 Mg/2 Ml Sdv) 4 mg IV Q6H PRN PRN Reason: Nausea/Vomiting Ondansetron HCl (Ondansetron 4 Mg Tab.Dis) 4 mg PO Q6H PRN PRN Reason: Nausea able to take PO Pantoprazole Sodium (Pantoprazole 40 Mg Tab.Cr) 40 mg PO ACBREAKFAST [facility] Last Admin: 05/28/21 07:59 Dose: 40 mg Documented by: Rivaroxaban (Rivaroxaban 10 Mg Tab) 20 mg PO WITHDINNER [facility] Last Admin: 05/28/21 17:14 Dose: 20 mg Documented by: Senna/Docusate Sodium (Docusate Sodium/Sennosides 50-8.6 Mg Tab) 1 tab PO BID PRN PRN Reason: Constipation Last Admin: 05/22/21 21:39 Dose: 1 tab Documented by: Sodium Chloride (Sodium Chloride 0.65% Nasal [place] 45 Ml Bottle) 0 ml SEBLE Q2H PRN PRN Reason: nasal congestion Last Admin: 05/26/21 21:35 Dose: 1 spray Documented by: Sodium Chloride (Aloe Vera/Sodium Chloride Gel 14.1 Gm Tube) 0 gm NASBOTH ASDIRECTED PRN PRN Reason: NASAL DRYNESS Last Admin: 05/28/21 17:15 Dose: 1 applic Documented by: Discontinued Medications Acetaminophen (Acetaminophen 325 Mg Tab) 650 mg PO Q4H PRN PRN Reason: Fever Greater Than 101 Baricitinib (Baricitinib 2 Mg Tab) 4 mg PO Q24H [facility] Stop: 05/24/21 16:01 Last Admin: 05/24/21 17:04 Dose: 4 mg Documented by: Dexamethasone (Dexamethasone 4 Mg/Ml Sdv) 6 mg IVPUSH DAILY [facility] Stop: 05/19/21 09:01 Last Admin: 05/19/21 08:23 Dose: 6 mg Documented by: Dexamethasone (Dexamethasone 2 Mg Tab) 4 mg PO DAILY [facility] Last Admin: 05/25/21 10:13 Dose: 4 mg Documented by: Enoxaparin Sodium (Enoxaparin 40 Mg/0.4 Ml Syringe) 40 mg SUBCUT Q24H [facility] Last Admin: 05/23/21 15:30 Dose: 40 mg Documented by: Furosemide (Furosemide 20 Mg/2 Ml Vial) 20 mg IVPUSH ONETIME ONE Stop: 05/12/21 04:21 Last Admin: 05/12/21 04:39 Dose: 20 mg Documented by: Furosemide (Furosemide 20 Mg/2 Ml Vial) 20 mg IVPUSH NOW ONE Stop: 05/14/21 09:01 Last Admin: 05/14/21 10:20 Dose: 20 mg Documented by: Furosemide (Furosemide 20 Mg/2 Ml Vial) 20 mg IVPUSH NOW ONE Stop: 05/15/21 08:31 Last Admin: 05/15/21 08:49 Dose: 20 mg Documented by: Furosemide (Furosemide 20 Mg/2 Ml Vial) 20 mg IVPUSH NOW ONE Stop: 05/16/21 08:31 Last Admin: 05/16/21 09:15 Dose: 20 mg Documented by: Furosemide (Furosemide 20 Mg/2 Ml Vial) 20 mg IVPUSH NOW ONE Stop: 05/25/21 14:01 Last Admin: 05/25/21 15:16 Dose: Not Given Documented by: Furosemide (Furosemide 40 Mg Tab) 40 mg PO ONETIME ONE Stop: 05/25/21 15:31 Last Admin: 05/25/21 15:40 Dose: 40 mg Documented by: Furosemide (Furosemide 40 Mg Tab) 40 mg PO ONETIME ONE Stop: 05/26/21 13:01 Last Admin: 05/26/21 13:48 Dose: 40 mg Documented by: Furosemide (Furosemide 40 Mg Tab) 40 mg PO ONETIME ONE Stop: 05/27/21 15:01 Last Admin: 05/27/21 15:20 Dose: 40 mg Documented by: Remdesivir 200 mg/ Sodium (Chloride) 250 mls @ 250 mls/hr IV ONETIME ONE Stop: 05/10/21 12:59 Last Admin: 05/10/21 12:26 Dose: 250 mls/hr Documented by: Remdesivir 100 mg/ Sodium (Chloride) 100 mls @ 100 mls/hr IV Q24H [facility] Stop: 05/14/21 12:59 Last Admin: 05/14/21 11:10 Dose: 100 mls/hr Documented by: Ceftriaxone Sodium 1 gm/ (Sodium Chloride) 50 mls @ 100 mls/hr IV Q24H [facility] Stop: 05/20/21 14:00 Last Admin: 05/20/21 11:50 Dose: 100 mls/hr Documented by: Doxycycline Hyclate 100 mg/ (Sodium Chloride) 100 mls @ 100 mls/hr IV Q12H [facility] Stop: 05/21/21 04:00 Last Admin: 05/21/21 00:02 Dose: 100 mls/hr Documented by: Insulin Human Lispro (Insulin Lispro 100 Unit/Ml 3 Ml Kwikpen) 0 unit SUBCUT QIDACANDBED [facility]; Protocol Last Admin: 05/11/21 16:56 Dose: 8 units Documented by: Potassium Chloride (Potassium Chloride 20 Meq Tab.Er) 40 meq PO ONETIME ONE Stop: 05/14/21 09:01 Last Admin: 05/14/21 10:20 Dose: 40 meq Documented by: - Exam Quality Assessment: Supplemental Oxygen, DVT Prophylaxis General: Alert, Oriented, Cooperative, Mild Distress Lungs: Clear to Auscultation, Normal Respiratory Effort, Decreased Breath Sounds. No: Crackles, Rales, Rhonchi, Wheezing Cardiovascular: Regular Rate, Regular Rhythm, No Murmurs GI/Abdominal Exam: Soft, Non-Tender, No Organomegaly, No Distention Extremities: Non-Tender, Pedal Edema - Patient Data Lab Results Last 24 hrs: Laboratory Results - last 24 hr 05/27/21 05/28/21 05/28/21 Range/Units 21:00 05:30 05:30 WBC 9.5 (4.5-11.0) K/uL RBC 3.90 L (4.30-5.90) M/uL Hgb 12.0 (12.0-15.0) g/dL Hct 36.4 L (40.0-54.0) % MCV 93 (80-98) fL MCH 31 (27-31) pg MCHC 33 (32-36) % Plt Count 293 (150-400) K/uL Neut % (Auto) 76.8 H (36-66) % Lymph % (Auto) 15.1 L (24-44) % Gray % (Auto) 6.4 H (2-6) % Eos % (Auto) 1.6 L (2-4) % Baso % (Auto) 0.1 (0-1) % D-Dimer, Quantitative (0.0-500.0) ng/mL Sodium 141 (140-148) mmol/L Potassium 3.9 (3.6-5.2) mmol/L Chloride 101 (100-108) mmol/L Carbon Dioxide 34 H (21-32) mmol/L Anion Gap 9.9 (5.0-14.0) mmol/L BUN 22 H (7-18) mg/dL Creatinine 0.9 (0.8-1.3) mg/dL Est Cr Clr Drug Dosing 63.95 mL/min Estimated GFR (MDRD) > 60 (>60) Glucose 120 H (74-106) mg/dL POC Glucose 283 H (74-106) mg/dL Calcium 8.5 (8.5-10.1) mg/dL Total Bilirubin 0.5 D (0.2-1.0) mg/dL AST 22 (15-37) U/L ALT 59 (12-78) U/L Alkaline Phosphatase 45 L (46-116) U/L C-Reactive Protein (0.0-0.3) mg/dL Total Protein 5.5 L (6.4-8.2) g/dL Albumin 2.5 L (3.4-5.0) g/dL Globulin 3.0 (2.3-3.5) g/dL Albumin/Globulin Ratio 0.8 L (1.2-2.2) 05/28/21 05/28/21 05/28/21 Range/Units 05:30 05:30 07:49 WBC (4.5-11.0) K/uL RBC (4.30-5.90) M/uL Hgb (12.0-15.0) g/dL Hct (40.0-54.0) % MCV (80-98) fL MCH (27-31) pg MCHC (32-36) % Plt Count (150-400) K/uL Neut % (Auto) (36-66) % Lymph % (Auto) (24-44) % Gray % (Auto) (2-6) % Eos % (Auto) (2-4) % Baso % (Auto) (0-1) % D-Dimer, Quantitative 1428.23 H (0.0-500.0) ng/mL Sodium (140-148) mmol/L Potassium (3.6-5.2) mmol/L Chloride (100-108) mmol/L Carbon Dioxide (21-32) mmol/L Anion Gap (5.0-14.0) mmol/L BUN (7-18) mg/dL Creatinine (0.8-1.3) mg/dL Est Cr Clr Drug Dosing mL/min Estimated GFR (MDRD) (>60) Glucose (74-106) mg/dL POC Glucose 117 H (74-106) mg/dL Calcium (8.5-10.1) mg/dL Total Bilirubin (0.2-1.0) mg/dL AST (15-37) U/L ALT (12-78) U/L Alkaline Phosphatase (46-116) U/L C-Reactive Protein 1.66 H (0.0-0.3) mg/dL Total Protein (6.4-8.2) g/dL Albumin (3.4-5.0) g/dL Globulin (2.3-3.5) g/dL Albumin/Globulin Ratio (1.2-2.2) 05/28/21 05/28/21 Range/Units 11:21 16:44 WBC (4.5-11.0) K/uL RBC (4.30-5.90) M/uL Hgb (12.0-15.0) g/dL Hct (40.0-54.0) % MCV (80-98) fL MCH (27-31) pg MCHC (32-36) % Plt Count (150-400) K/uL Neut % (Auto) (36-66) % Lymph % (Auto) (24-44) % Gray % (Auto) (2-6) % Eos % (Auto) (2-4) % Baso % (Auto) (0-1) % D-Dimer, Quantitative (0.0-500.0) ng/mL Sodium (140-148) mmol/L Potassium (3.6-5.2) mmol/L Chloride (100-108) mmol/L Carbon Dioxide (21-32) mmol/L Anion Gap (5.0-14.0) mmol/L BUN (7-18) mg/dL Creatinine (0.8-1.3) mg/dL Est Cr Clr Drug Dosing mL/min Estimated GFR (MDRD) (>60) Glucose (74-106) mg/dL POC Glucose 248 H 280 H (74-106) mg/dL Calcium (8.5-10.1) mg/dL Total Bilirubin (0.2-1.0) mg/dL AST (15-37) U/L ALT (12-78) U/L Alkaline Phosphatase (46-116) U/L C-Reactive Protein (0.0-0.3) mg/dL Total Protein (6.4-8.2) g/dL Albumin (3.4-5.0) g/dL Globulin (2.3-3.5) g/dL Albumin/Globulin Ratio (1.2-2.2) Result Diagrams: 05/28/21 05:30 05/28/21 05:30 Sepsis Event Note - Evaluation Sepsis Screening Result: No Definite Risk - Focused Exam Vital Signs: Vital Signs Temp Pulse Resp BP Pulse Ox 05/28/21 16:00 97.9 F 92 20 96 05/28/21 12:00 97.1 F 80 20 92/54 L 93 L 05/28/21 08:00 97.1 F 84 20 106/64 92 L - Problem List Review Problem List Initiated/Reviewed/Updated: Yes - My Orders Last 24 Hours: My Active Orders 05/28/21 08:19 Evaluate for Home Oxygen [RT Evaluate for Home Oxygen] [RC] Click to Edit 05/28/21 10:34 Aloe Vera/Sodium Chloride [[place] Saline Nasal Gel] 0 gm NASBOTH ASDIRECTED PRN 05/28/21 21:00 GLUCOSE POC LAB TO COLLECT JPM [POC] QIDACANDBED 05/29/21 07:30 GLUCOSE POC LAB TO COLLECT JPM [POC] QIDACANDBED 05/29/21 11:30 GLUCOSE POC LAB TO COLLECT JPM [POC] QIDACANDBED 05/29/21 16:30 GLUCOSE POC LAB TO COLLECT JPM [POC] QIDACANDBED 05/29/21 21:00 GLUCOSE POC LAB TO COLLECT JPM [POC] QIDACANDBED 05/30/21 07:30 GLUCOSE POC LAB TO COLLECT JPM [POC] QIDACANDBED 05/30/21 11:30 GLUCOSE POC LAB TO COLLECT JPM [POC] QIDACANDBED 05/30/21 16:30 GLUCOSE POC LAB TO COLLECT JPM [POC] QIDACANDBED 05/30/21 21:00 GLUCOSE POC LAB TO COLLECT JPM [POC] QIDACANDBED 05/31/21 07:30 GLUCOSE POC LAB TO COLLECT JPM [POC] QIDACANDBED 05/31/21 11:30 GLUCOSE POC LAB TO COLLECT JPM [POC] QIDACANDBED 05/31/21 16:30 GLUCOSE POC LAB TO COLLECT JPM [POC] QIDACANDBED 05/31/21 21:00 GLUCOSE POC LAB TO COLLECT JPM [POC] QIDACANDBED 06/01/21 07:30 GLUCOSE POC LAB TO COLLECT JPM [POC] QIDACANDBED - Plan Plan:: ASSESSMENT AND PLAN - COVID-19 pneumonia-complicated by acute respiratory failure with hypoxia. Symptom onset 05/05. Stable since yesterday, but troubled by some nasal congestion. -Remdesivir x5 days, completed -Dexamethasone 2 mg daily (taper day 4) -Baricitinib 4 mg p.o. daily, completed -Empiric antibiotic therapy x7 days complete -Xarelto daily -Repeat labs every 2 days -Symptomatic management of cough -Isolation precautions completed Type 2 diabetes mellitus-diet controlled. Sugars well controlled so far. -Sliding scale insulin -Monitor 4 times daily glucometers History of prostate cancer-stable. Maintenance issues - -DVT prophylaxis-enoxaparin -GI prophylaxis-PPI -Nutrition-consistent carbohydrates -Lara catheter-not indicated Disposition -I anticipate discharge home after the hospital stay. He will likely need home oxygen.
[2021-05-28] MEDS: guaiFENesin/Dextromethorphan 100-10 MG/5 ML Soln 10 ML Cup PO PRN (21:40)
[2021-05-28] MEDS: Melatonin 3 MG Tab PO PRN (21:40)
[2021-05-29] MEDS: Insulin Lispro 100 Unit/ML 3 ML KwikPen SUBCUT SCH ×4 (07:44→21:10)
[2021-05-29] MEDS: Pantoprazole 40 MG Tab.CR PO SCH (07:46)
[2021-05-29] MEDS: Dexamethasone 2 MG Tab PO SCH (08:34)
[2021-05-29] MEDS: Aspirin 81 MG Tab.EC PO SCH (08:35)
[2021-05-29] MEDS: Gabapentin 100 MG Cap PO SCH ×2 (08:35→21:11)
[2021-05-29] MEDS ORDERED: Furosemide 40 MG Tab PO ONE (13:00)
--- NOTE | 2021-05-29 14:22 | PCM.PN ---
- General Info Date of Service: 05/29/21 Subjective Update: Mr. Villalobos continues to require 4 to 5 L of supplemental oxygen per minute. He desaturates quite a bit with fairly minimal activity. Otherwise he is feeling well, slowly regaining strength, appetite remains good. Functional Status: Reports: Tolerating Diet, Urinating - Review of Systems General: Reports: Weakness, Fatigue. Denies: Fever, Chills Pulmonary: Reports: Shortness of Breath. Denies: Pleuritic Chest Pain, Cough, Sputum, Hemoptysis, Wheezing Cardiovascular: Reports: Dyspnea on Exertion. Denies: Chest Pain, Palpitations, Orthopnea, PND, Edema, Lightheadedness Gastrointestinal: Reports: No Symptoms Genitourinary: Reports: No Symptoms - Patient Data Vitals - Most Recent: Last Vital Signs Temp 98.7 F 05/29/21 14:04 Pulse 96 05/29/21 14:04 Resp 18 05/29/21 14:04 BP 107/71 05/29/21 14:04 Pulse Ox 95 05/29/21 14:04 Weight - Most Recent: 206 lb I&O - Last 24 Hours: Intake & Output 05/28/21 05/29/21 05/29/21 22:59 06:59 14:59 Intake Total 800 480 Output Total 850 600 Balance -50 -120 Lab Results Last 24 Hours: Laboratory Results - last 24 hr 05/28/21 05/28/21 05/29/21 Range/Units 16:44 21:07 07:36 POC Glucose 280 H 354 H 121 H (74-106) mg/dL 05/29/21 Range/Units 11:34 POC Glucose 171 H (74-106) mg/dL Med Orders - Current: Current Medications Acetaminophen (Acetaminophen 325 Mg Tab) 650 mg PO Q4H PRN PRN Reason: Pain (Mild 1-3)/fever Last Admin: 05/23/21 21:19 Dose: 650 mg Documented by: Albuterol (Albuterol 8 Gm Inhaler) 0 gm INH Q2H PRN PRN Reason: Shortness of Breath Last Admin: 05/17/21 02:54 Dose: 2 puff Documented by: Aspirin (Aspirin 81 Mg Tab.Ec) 81 mg PO DAILY [facility] Last Admin: 05/29/21 08:35 Dose: 81 mg Documented by: Benzocaine/Menthol (Benzocaine/Cetylpyridinium/Menthol Lozenge) 1 lozenge MUCMEM Q2H PRN PRN Reason: Sore Throat Last Admin: 05/24/21 13:22 Dose: 1 blister Documented by: Benzonatate (Benzonatate 100 Mg Cap) 100 mg PO TID PRN PRN Reason: Cough Last Admin: 05/23/21 09:43 Dose: 100 mg Documented by: Dexamethasone (Dexamethasone 2 Mg Tab) [address] [facility] Last Admin: 05/29/21 08:34 Dose: 1 mg Documented by: Gabapentin (Gabapentin 100 Mg Cap) [address] [facility] Last Admin: 05/29/21 08:35 Dose: 100 mg Documented by: Guaifenesin/Dextromethorphan (Guaifenesin/Dextromethorphan 100-10 Mg/5 Ml Soln 10 Ml Cup) 10 ml PO Q4H PRN PRN Reason: Cough Last Admin: 05/28/21 21:40 Dose: 10 ml Documented by: Insulin Human Lispro (Insulin Lispro 100 Unit/Ml 3 Ml Kwikpen) [address] [facility]; Protocol Last Admin: 05/29/21 13:02 Dose: 2 units Documented by: Lorazepam (Lorazepam 2 Mg/Ml Sdv) 0.5 mg IVPUSH Q4H PRN PRN Reason: Nausea/Vomiting Last Admin: 05/16/21 04:58 Dose: 0.5 mg Documented by: Magnesium Hydroxide (Magnesium Hydroxide 400 Mg/5 Ml Susp 30 Ml Cup) 30 ml PO Q12H PRN PRN Reason: Constipation Melatonin (Melatonin 3 Mg Tab) 9 mg PO BEDTIME PRN PRN Reason: Sleep Last Admin: 05/28/21 21:40 Dose: 9 mg Documented by: Ondansetron HCl (Ondansetron 4 Mg/2 Ml Sdv) 4 mg IV Q6H PRN PRN Reason: Nausea/Vomiting Ondansetron HCl (Ondansetron 4 Mg Tab.Dis) 4 mg PO Q6H PRN PRN Reason: Nausea able to take PO Pantoprazole Sodium (Pantoprazole 40 Mg Tab.Cr) [address] [facility] Last Admin: 05/29/21 07:46 Dose: 40 mg Documented by: Rivaroxaban (Rivaroxaban 10 Mg Tab) [address] [facility] Last Admin: 05/28/21 17:14 Dose: 20 mg Documented by: Senna/Docusate Sodium (Docusate Sodium/Sennosides 50-8.6 Mg Tab) 1 tab PO BID PRN PRN Reason: Constipation Last Admin: 05/22/21 21:39 Dose: 1 tab Documented by: Sodium Chloride (Sodium Chloride 0.65% Nasal [place] 45 Ml Bottle) 0 ml SEBLE Q2H PRN PRN Reason: nasal congestion Last Admin: 05/26/21 21:35 Dose: 1 spray Documented by: Sodium Chloride (Aloe Vera/Sodium Chloride Gel 14.1 Gm Tube) 0 gm NASBOTH ASDIRECTED PRN PRN Reason: NASAL DRYNESS Last Admin: 05/28/21 17:15 Dose: 1 applic Documented by: Discontinued Medications Acetaminophen (Acetaminophen 325 Mg Tab) 650 mg PO Q4H PRN PRN Reason: Fever Greater Than 101 Baricitinib (Baricitinib 2 Mg Tab) [address] [facility] Stop: 05/24/21 16:01 Last Admin: 05/24/21 17:04 Dose: 4 mg Documented by: Dexamethasone (Dexamethasone 4 Mg/Ml Sdv) [address] [facility] Stop: 05/19/21 09:01 Last Admin: 05/19/21 08:23 Dose: 6 mg Documented by: Dexamethasone (Dexamethasone 2 Mg Tab) [address] [facility] Last Admin: 05/25/21 10:13 Dose: 4 mg Documented by: Dexamethasone (Dexamethasone 2 Mg Tab) [address] [facility] Last Admin: 05/28/21 08:00 Dose: 2 mg Documented by: Enoxaparin Sodium (Enoxaparin 40 Mg/0.4 Ml Syringe) [address] [facility] Last Admin: 05/23/21 15:30 Dose: 40 mg Documented by: Furosemide (Furosemide 20 Mg/2 Ml Vial) 20 mg IVPUSH ONETIME ONE Stop: 05/12/21 04:21 Last Admin: 05/12/21 04:39 Dose: 20 mg Documented by: Furosemide (Furosemide 20 Mg/2 Ml Vial) 20 mg IVPUSH NOW ONE Stop: 05/14/21 09:01 Last Admin: 05/14/21 10:20 Dose: 20 mg Documented by: Furosemide (Furosemide 20 Mg/2 Ml Vial) 20 mg IVPUSH NOW ONE Stop: 05/15/21 08:31 Last Admin: 05/15/21 08:49 Dose: 20 mg Documented by: Furosemide (Furosemide 20 Mg/2 Ml Vial) 20 mg IVPUSH NOW ONE Stop: 05/16/21 08:31 Last Admin: 05/16/21 09:15 Dose: 20 mg Documented by: Furosemide (Furosemide 20 Mg/2 Ml Vial) 20 mg IVPUSH NOW ONE Stop: 05/25/21 14:01 Last Admin: 05/25/21 15:16 Dose: Not Given Documented by: Furosemide (Furosemide 40 Mg Tab) 40 mg PO ONETIME ONE Stop: 05/25/21 15:31 Last Admin: 05/25/21 15:40 Dose: 40 mg Documented by: Furosemide (Furosemide 40 Mg Tab) 40 mg PO ONETIME ONE Stop: 05/26/21 13:01 Last Admin: 05/26/21 13:48 Dose: 40 mg Documented by: Furosemide (Furosemide 40 Mg Tab) 40 mg PO ONETIME ONE Stop: 05/27/21 15:01 Last Admin: 05/27/21 15:20 Dose: 40 mg Documented by: Furosemide (Furosemide 40 Mg Tab) 40 mg PO ONETIME ONE Stop: 05/29/21 13:01 Last Admin: 05/29/21 13:09 Dose: 40 mg Documented by: Remdesivir 200 mg/ Sodium (Chloride) 250 mls @ 250 mls/hr IV ONETIME ONE Stop: 05/10/21 12:59 Last Admin: 05/10/21 12:26 Dose: 250 mls/hr Documented by: Remdesivir 100 mg/ Sodium (Chloride) 100 mls @ 100 mls/hr IV Q24H [facility] Stop: 05/14/21 12:59 Last Admin: 05/14/21 11:10 Dose: 100 mls/hr Documented by: Ceftriaxone Sodium 1 gm/ (Sodium Chloride) 50 mls @ 100 mls/hr IV Q24H [facility] Stop: 05/20/21 14:00 Last Admin: 05/20/21 11:50 Dose: 100 mls/hr Documented by: Doxycycline Hyclate 100 mg/ (Sodium Chloride) 100 mls @ 100 mls/hr IV Q12H [facility] Stop: 05/21/21 04:00 Last Admin: 05/21/21 00:02 Dose: 100 mls/hr Documented by: Insulin Human Lispro (Insulin Lispro 100 Unit/Ml 3 Ml Kwikpen) 0 unit SUBCUT QIDACANDBED [facility]; Protocol Last Admin: 05/11/21 16:56 Dose: 8 units Documented by: Potassium Chloride (Potassium Chloride 20 Meq Tab.Er) 40 meq PO ONETIME ONE Stop: 05/14/21 09:01 Last Admin: 05/14/21 10:20 Dose: 40 meq Documented by: - Exam Quality Assessment: Supplemental Oxygen, DVT Prophylaxis General: Alert, Oriented, Cooperative, Mild Distress Lungs: Clear to Auscultation, Normal Respiratory Effort, Decreased Breath Sounds. No: Crackles, Rales, Rhonchi, Wheezing Cardiovascular: Regular Rate, Regular Rhythm, No Murmurs GI/Abdominal Exam: Soft, Non-Tender, No Organomegaly, No Distention Extremities: Non-Tender, No Pedal Edema - Patient Data Lab Results Last 24 hrs: Laboratory Results - last 24 hr 05/28/21 05/28/21 05/29/21 Range/Units 16:44 21:07 07:36 POC Glucose 280 H 354 H 121 H (74-106) mg/dL 05/29/21 Range/Units 11:34 POC Glucose 171 H (74-106) mg/dL Result Diagrams: 05/28/21 05:30 05/28/21 05:30 Sepsis Event Note - Evaluation Sepsis Screening Result: No Definite Risk - Focused Exam Vital Signs: Vital Signs Temp Pulse Resp BP BP Pulse Ox 05/29/21 14:04 98.7 F 96 18 107/71 95 05/29/21 11:00 98.5 F 99 18 106/66 93 L 05/29/21 07:38 99 05/29/21 07:34 97.4 F 77 16 105/61 99 05/29/21 02:49 97.5 F 81 17 101/65 95 - Problem List Review Problem List Initiated/Reviewed/Updated: Yes - My Orders Last 24 Hours: My Active Orders 05/29/21 09:00 dexAMETHasone 1 mg PO DAILY 05/29/21 16:30 GLUCOSE POC LAB TO COLLECT JPM [POC] QIDACANDBED 05/29/21 21:00 GLUCOSE POC LAB TO COLLECT JPM [POC] QIDACANDBED 05/30/21 07:30 GLUCOSE POC LAB TO COLLECT JPM [POC] QIDACANDBED 05/30/21 11:30 GLUCOSE POC LAB TO COLLECT JPM [POC] QIDACANDBED 05/30/21 16:30 GLUCOSE POC LAB TO COLLECT JPM [POC] QIDACANDBED 05/30/21 21:00 GLUCOSE POC LAB TO COLLECT JPM [POC] QIDACANDBED 05/31/21 07:30 GLUCOSE POC LAB TO COLLECT JPM [POC] QIDACANDBED 05/31/21 11:30 GLUCOSE POC LAB TO COLLECT JPM [POC] QIDACANDBED 05/31/21 16:30 GLUCOSE POC LAB TO COLLECT JPM [POC] QIDACANDBED 05/31/21 21:00 GLUCOSE POC LAB TO COLLECT JPM [POC] QIDACANDBED 06/01/21 07:30 GLUCOSE POC LAB TO COLLECT JPM [POC] QIDACANDBED - Plan Plan:: ASSESSMENT AND PLAN - COVID-19 pneumonia-complicated by acute respiratory failure with hypoxia. Symptom onset 05/05. Stable since yesterday, slowly improving, continues to require 4 to 5 L of supplemental oxygen per minute. He continues to desaturate with fairly minimal activity. -Remdesivir x5 days, completed -Dexamethasone 1 mg daily (taper day 1) -Baricitinib 4 mg p.o. daily, completed -Empiric antibiotic therapy x7 days complete -Xarelto daily -Repeat labs every 2 days -Symptomatic management of cough -Isolation precautions completed Type 2 diabetes mellitus-diet controlled. Sugars well controlled so far. -Sliding scale insulin -Monitor 4 times daily glucometers History of prostate cancer-stable. Maintenance issues - -DVT prophylaxis-enoxaparin -GI prophylaxis-PPI -Nutrition-consistent carbohydrates -Lara catheter-not indicated Disposition -I anticipate discharge home after the hospital stay. He will likely need home oxygen.
[2021-05-29] MEDS: Rivaroxaban 10 MG Tab PO SCH (17:25)
[2021-05-29] MEDS: Melatonin 3 MG Tab PO PRN (21:12)
[2021-05-29] MEDS: guaiFENesin/Dextromethorphan 100-10 MG/5 ML Soln 10 ML Cup PO PRN (22:23)
[2021-05-30] MEDS: Insulin Lispro 100 Unit/ML 3 ML KwikPen SUBCUT SCH ×4 (09:00→21:30)
[2021-05-30] MEDS: Dexamethasone 2 MG Tab PO SCH (09:00)
[2021-05-30] MEDS: Pantoprazole 40 MG Tab.CR PO SCH (09:00)
[2021-05-30] MEDS: Gabapentin 100 MG Cap PO SCH ×2 (09:01→20:54)
[2021-05-30] MEDS: Aspirin 81 MG Tab.EC PO SCH (09:01)
--- NOTE | 2021-05-30 14:11 | PCM.PN ---
- General Info Date of Service: 05/30/21 Subjective Update: Mr. Villalobos today, he is now down to 3 L of oxygen per minute via nasal cannula. He is doing some more walking around his room and seems to recover faster follow ing activity. Appetite has remained good and overall strength has slowly improved. Functional Status: Reports: Tolerating Diet, Ambulating, Urinating - Review of Systems General: Reports: Weakness, Fatigue. Denies: Fever, Chills Pulmonary: Reports: Shortness of Breath. Denies: Pleuritic Chest Pain, Cough, S putum, Hemoptysis, Wheezing Cardiovascular: Reports: Dyspnea on Exertion. Denies: Chest Pain, Palpitations, Orthopnea, PND, Edema, Lightheadedness Gastrointestinal: Reports: No Symptoms Genitourinary: Reports: No Symptoms - Patient Data Vitals - Most Recent: Last Vital Signs Temp 97.5 F 05/30/21 11:00 Pulse 78 05/30/21 11:00 Resp 16 05/30/21 11:00 BP 93/54 L 05/30/21 11:00 Pulse Ox 93 L 05/30/21 11:00 Weight - Most Recent: 206 lb I&O - Last 24 Hours: Intake & Output 05/29/21 05/30/21 05/30/21 22:59 06:59 14:59 Intake Total 960 800 800 Output Total 1300 300 500 Balance -340 500 300 Lab Results Last 24 Hours: Laboratory Results - last 24 hr 05/29/21 05/29/21 05/30/21 Range/Units 16:34 21:01 07:29 POC Glucose 224 H 318 H 117 H (74-106) mg/dL 05/30/21 Range/Units 11:32 POC Glucose 217 H (74-106) mg/dL Med Orders - Current: Current Medications Acetaminophen (Acetaminophen 325 Mg Tab) 650 mg PO Q4H PRN PRN Reason: Pain (Mild 1-3)/fever Last Admin: 05/23/21 21:19 Dose: 650 mg Documented by: Albuterol (Albuterol 8 Gm Inhaler) 0 gm INH Q2H PRN PRN Reason: Shortness of Breath Last Admin: 05/17/21 02:54 Dose: 2 puff Documented by: Aspirin (Aspirin 81 Mg Tab.Ec) 81 mg PO DAILY [facility] Last Admin: 05/30/21 09:01 Dose: 81 mg Documented by: Benzocaine/Menthol (Benzocaine/Cetylpyridinium/Menthol Lozenge) 1 lozenge MUCMEM Q2H PRN PRN Reason: Sore Throat Last Admin: 05/24/21 13:22 Dose: 1 blister Documented by: Benzonatate (Benzonatate 100 Mg Cap) 100 mg PO TID PRN PRN Reason: Cough Last Admin: 05/23/21 09:43 Dose: 100 mg Documented by: Dexamethasone (Dexamethasone 2 Mg Tab) 1 mg PO DAILY [facility] Last Admin: 05/30/21 09:00 Dose: 1 mg Documented by: Gabapentin (Gabapentin 100 Mg Cap) 100 mg PO BID [facility] Last Admin: 05/30/21 09:01 Dose: 100 mg Documented by: Guaifenesin/Dextromethorphan (Guaifenesin/Dextromethorphan 100-10 Mg/5 Ml Soln 10 Ml Cup) 10 ml PO Q4H PRN PRN Reason: Cough Last Admin: 05/29/21 22:23 Dose: 10 ml Documented by: Insulin Human Lispro (Insulin Lispro 100 Unit/Ml 3 Ml Kwikpen) 0 unit SUBCUT QIDACANDBED [facility]; Protocol Last Admin: 05/30/21 11:58 Dose: 4 units Documented by: Lorazepam (Lorazepam 2 Mg/Ml Sdv) 0.5 mg IVPUSH Q4H PRN PRN Reason: Nausea/Vomiting Last Admin: 05/16/21 04:58 Dose: 0.5 mg Documented by: Magnesium Hydroxide (Magnesium Hydroxide 400 Mg/5 Ml Susp 30 Ml Cup) 30 ml PO Q12H PRN PRN Reason: Constipation Melatonin (Melatonin 3 Mg Tab) 9 mg PO BEDTIME PRN PRN Reason: Sleep Last Admin: 05/29/21 21:12 Dose: 9 mg Documented by: Metformin HCl (Metformin 500 Mg Tab) 500 mg PO BIDMEALS [facility] Ondansetron HCl (Ondansetron 4 Mg/2 Ml Sdv) 4 mg IV Q6H PRN PRN Reason: Nausea/Vomiting Ondansetron HCl (Ondansetron 4 Mg Tab.Dis) 4 mg PO Q6H PRN PRN Reason: Nausea able to take PO Pantoprazole Sodium (Pantoprazole 40 Mg Tab.Cr) 40 mg PO ACBREAKFAST [facility] Last Admin: 05/30/21 09:00 Dose: 40 mg Documented by: Rivaroxaban (Rivaroxaban 10 Mg Tab) 20 mg PO WITHDINNER [facility] Last Admin: 05/29/21 17:25 Dose: 20 mg Documented by: Senna/Docusate Sodium (Docusate Sodium/Sennosides 50-8.6 Mg Tab) 1 tab PO BID PRN PRN Reason: Constipation Last Admin: 05/22/21 21:39 Dose: 1 tab Documented by: Sodium Chloride (Sodium Chloride 0.65% Nasal [place] 45 Ml Bottle) 0 ml SEBLE Q2H PRN PRN Reason: nasal congestion Last Admin: 05/26/21 21:35 Dose: 1 spray Documented by: Sodium Chloride (Aloe Vera/Sodium Chloride Gel 14.1 Gm Tube) 0 gm NASBOTH ASDIRECTED PRN PRN Reason: NASAL DRYNESS Last Admin: 05/28/21 17:15 Dose: 1 applic Documented by: Discontinued Medications Acetaminophen (Acetaminophen 325 Mg Tab) 650 mg PO Q4H PRN PRN Reason: Fever Greater Than 101 Baricitinib (Baricitinib 2 Mg Tab) 4 mg PO Q24H [facility] Stop: 05/24/21 16:01 Last Admin: 05/24/21 17:04 Dose: 4 mg Documented by: Dexamethasone (Dexamethasone 4 Mg/Ml Sdv) 6 mg IVPUSH DAILY [facility] Stop: 05/19/21 09:01 Last Admin: 05/19/21 08:23 Dose: 6 mg Documented by: Dexamethasone (Dexamethasone 2 Mg Tab) 4 mg PO DAILY [facility] Last Admin: 05/25/21 10:13 Dose: 4 mg Documented by: Dexamethasone (Dexamethasone 2 Mg Tab) 2 mg PO DAILY [facility] Last Admin: 05/28/21 08:00 Dose: 2 mg Documented by: Enoxaparin Sodium (Enoxaparin 40 Mg/0.4 Ml Syringe) 40 mg SUBCUT Q24H [facility] Last Admin: 05/23/21 15:30 Dose: 40 mg Documented by: Furosemide (Furosemide 20 Mg/2 Ml Vial) 20 mg IVPUSH ONETIME ONE Stop: 05/12/21 04:21 Last Admin: 05/12/21 04:39 Dose: 20 mg Documented by: Furosemide (Furosemide 20 Mg/2 Ml Vial) 20 mg IVPUSH NOW ONE Stop: 05/14/21 09:01 Last Admin: 05/14/21 10:20 Dose: 20 mg Documented by: Furosemide (Furosemide 20 Mg/2 Ml Vial) 20 mg IVPUSH NOW ONE Stop: 05/15/21 08:31 Last Admin: 05/15/21 08:49 Dose: 20 mg Documented by: Furosemide (Furosemide 20 Mg/2 Ml Vial) 20 mg IVPUSH NOW ONE Stop: 05/16/21 08:31 Last Admin: 05/16/21 09:15 Dose: 20 mg Documented by: Furosemide (Furosemide 20 Mg/2 Ml Vial) 20 mg IVPUSH NOW ONE Stop: 05/25/21 14:01 Last Admin: 05/25/21 15:16 Dose: Not Given Documented by: Furosemide (Furosemide 40 Mg Tab) 40 mg PO ONETIME ONE Stop: 05/25/21 15:31 Last Admin: 05/25/21 15:40 Dose: 40 mg Documented by: Furosemide (Furosemide 40 Mg Tab) 40 mg PO ONETIME ONE Stop: 05/26/21 13:01 Last Admin: 05/26/21 13:48 Dose: 40 mg Documented by: Furosemide (Furosemide 40 Mg Tab) 40 mg PO ONETIME ONE Stop: 05/27/21 15:01 Last Admin: 05/27/21 15:20 Dose: 40 mg Documented by: Furosemide (Furosemide 40 Mg Tab) 40 mg PO ONETIME ONE Stop: 05/29/21 13:01 Last Admin: 05/29/21 13:09 Dose: 40 mg Documented by: Remdesivir 200 mg/ Sodium (Chloride) 250 mls @ 250 mls/hr IV ONETIME ONE Stop: 05/10/21 12:59 Last Admin: 05/10/21 12:26 Dose: 250 mls/hr Documented by: Remdesivir 100 mg/ Sodium (Chloride) 100 mls @ 100 mls/hr IV Q24H [facility] Stop: 05/14/21 12:59 Last Admin: 05/14/21 11:10 Dose: 100 mls/hr Documented by: Ceftriaxone Sodium 1 gm/ (Sodium Chloride) 50 mls @ 100 mls/hr IV Q24H [facility] Stop: 05/20/21 14:00 Last Admin: 05/20/21 11:50 Dose: 100 mls/hr Documented by: Doxycycline Hyclate 100 mg/ (Sodium Chloride) 100 mls @ 100 mls/hr IV Q12H [facility] Stop: 05/21/21 04:00 Last Admin: 05/21/21 00:02 Dose: 100 mls/hr Documented by: Insulin Human Lispro (Insulin Lispro 100 Unit/Ml 3 Ml Kwikpen) 0 unit SUBCUT QIDACANDBED [facility]; Protocol Last Admin: 05/11/21 16:56 Dose: 8 units Documented by: Potassium Chloride (Potassium Chloride 20 Meq Tab.Er) 40 meq PO ONETIME ONE Stop: 05/14/21 09:01 Last Admin: 05/14/21 10:20 Dose: 40 meq Documented by: - Exam Quality Assessment: Supplemental Oxygen, DVT Prophylaxis General: Alert, Oriented, Cooperative, Mild Distress Lungs: Clear to Auscultation, Normal Respiratory Effort, Decreased Breath Sounds Cardiovascular: Regular Rate, Regular Rhythm, No Murmurs GI/Abdominal Exam: Soft, Non-Tender, No Organomegaly, No Distention Extremities: Non-Tender, No Pedal Edema - Patient Data Lab Results Last 24 hrs: Laboratory Results - last 24 hr 05/29/21 05/29/21 05/30/21 Range/Units 16:34 21:01 07:29 POC Glucose 224 H 318 H 117 H (74-106) mg/dL 05/30/21 Range/Units 11:32 POC Glucose 217 H (74-106) mg/dL Result Diagrams: 05/28/21 05:30 05/28/21 05:30 Sepsis Event Note - Evaluation Sepsis Screening Result: No Definite Risk - Focused Exam Vital Signs: Vital Signs Temp Pulse Resp BP Pulse Ox 05/30/21 11:00 97.5 F 78 16 93/54 L 93 L 05/30/21 07:34 90 L 05/30/21 07:00 97.1 F 77 18 113/79 90 L 05/30/21 02:44 97.4 F 74 18 100/66 98 - Problem List Review Problem List Initiated/Reviewed/Updated: Yes - My Orders Last 24 Hours: My Active Orders 05/30/21 16:30 GLUCOSE POC LAB TO COLLECT JPM [POC] QIDACANDBED 05/30/21 17:00 metFORMIN [Glucophage] 500 mg PO BIDMEALS 05/30/21 21:00 GLUCOSE POC LAB TO COLLECT JPM [POC] QIDACANDBED 05/31/21 05:00 BASIC METABOLIC PANEL,BMP [CHEM] Timed CBC WITH AUTO DIFF [HEME] Timed 05/31/21 05:11 CRP [C-REACTIVE PROTEIN] [CHEM] AM D Dimer [D-DIMER QUANTITATIVE] [COAG] AM 05/31/21 07:30 GLUCOSE POC LAB TO COLLECT JPM [POC] QIDACANDBED 05/31/21 11:30 GLUCOSE POC LAB TO COLLECT JPM [POC] QIDACANDBED 05/31/21 16:30 GLUCOSE POC LAB TO COLLECT JPM [POC] QIDACANDBED 05/31/21 21:00 GLUCOSE POC LAB TO COLLECT JPM [POC] QIDACANDBED 06/01/21 07:30 GLUCOSE POC LAB TO COLLECT JPM [POC] QIDACANDBED - Plan Plan:: ASSESSMENT AND PLAN - COVID-19 pneumonia-complicated by acute respiratory failure with hypoxia. Symptom onset 05/05. Stable since yesterday, slowly improving, now on 3 L of oxygen per minute via nasal cannula. He has been able to be more active and r ecovers more quickly following activity. -Remdesivir x5 days, completed -Dexamethasone 1 mg daily (taper day 2) -Baricitinib 4 mg p.o. daily, completed -Empiric antibiotic therapy x7 days complete -Xarelto daily -Repeat labs every 2 days -Symptomatic management of cough -Isolation precautions completed Type 2 diabetes mellitus-diet controlled. Sugars well controlled so far. -Sliding scale insulin -Monitor 4 times daily glucometers History of prostate cancer-stable. Maintenance issues - -DVT prophylaxis-enoxaparin -GI prophylaxis-PPI -Nutrition-consistent carbohydrates -Lara catheter-not indicated Disposition -I anticipate discharge home after the hospital stay. He will likely need home oxygen.
[2021-05-30] MEDS: Rivaroxaban 10 MG Tab PO SCH (17:01)
[2021-05-30] MEDS: metFORMIN 500 MG Tab PO SCH (17:01)
[2021-05-30] MEDS: guaiFENesin/Dextromethorphan 100-10 MG/5 ML Soln 10 ML Cup PO PRN (20:59)
[2021-05-30] MEDS: Melatonin 3 MG Tab PO PRN (21:40)
[2021-05-31] MEDS: Insulin Lispro 100 Unit/ML 3 ML KwikPen SUBCUT SCH ×4 (08:06→21:28)
[2021-05-31] MEDS: Pantoprazole 40 MG Tab.CR PO SCH (08:06)
[2021-05-31] MEDS: metFORMIN 500 MG Tab PO SCH ×2 (08:06→16:49)
[2021-05-31] MEDS: Dexamethasone 2 MG Tab PO SCH (08:07)
[2021-05-31] MEDS: Gabapentin 100 MG Cap PO SCH ×2 (08:08→21:29)
[2021-05-31] MEDS: Aspirin 81 MG Tab.EC PO SCH (08:08)
--- NOTE | 2021-05-31 12:36 | PCM.PN ---
- General Info Date of Service: 05/31/21 Subjective Update: Mr. Villalobos has been stable since yesterday, continues to tolerate supplemental oxygen at 3 L/min via nasal cannula. He continues to desaturate with oxygen saturations into the 70s with fairly minimal activity. Overall strength and appetite have remained good. Functional Status: Reports: Tolerating Diet, Ambulating, Urinating - Review of Systems General: Reports: Weakness, Fatigue. Denies: Fever, Chills Pulmonary: Reports: Shortness of Breath. Denies: Pleuritic Chest Pain, Cough, Sputum, Hemoptysis, Wheezing Cardiovascular: Reports: Dyspnea on Exertion. Denies: Chest Pain, Palpitations, Orthopnea, PND, Edema, Lightheadedness Gastrointestinal: Reports: No Symptoms Genitourinary: Reports: No Symptoms - Patient Data Vitals - Most Recent: Last Vital Signs Temp 97.8 F 05/31/21 11:00 Pulse 99 05/31/21 11:00 Resp 16 05/31/21 11:00 BP 100/64 05/31/21 11:00 Pulse Ox 91 L 05/31/21 11:00 Weight - Most Recent: 206 lb I&O - Last 24 Hours: Intake & Output 05/30/21 05/31/21 05/31/21 22:59 06:59 14:59 Intake Total 840 360 800 Output Total 1200 350 203 Balance -360 10 597 Lab Results Last 24 Hours: Laboratory Results - last 24 hr 05/30/21 05/30/21 05/31/21 Range/Units 16:37 21:09 04:30 WBC 7.5 (4.5-11.0) K/uL RBC 3.82 L (4.30-5.90) M/uL Hgb 11.9 L (12.0-15.0) g/dL Hct 36.9 L (40.0-54.0) % MCV 97 (80-98) fL MCH 31 (27-31) pg MCHC 32 (32-36) % Plt Count 192 (150-400) K/uL Neut % (Auto) 69.3 H (36-66) % Lymph % (Auto) 18.1 L (24-44) % [place] % (Auto) 7.6 H (2-6) % Eos % (Auto) 4.3 H (2-4) % Baso % (Auto) 0.7 (0-1) % D-Dimer, Quantitative (0.0-500.0) ng/mL Sodium (140-148) mmol/L Potassium (3.6-5.2) mmol/L Chloride (100-108) mmol/L Carbon Dioxide (21-32) mmol/L Anion Gap (5.0-14.0) mmol/L BUN (7-18) mg/dL Creatinine (0.8-1.3) mg/dL Est Cr Clr Drug Dosing mL/min Estimated GFR (MDRD) (>60) Glucose (74-106) mg/dL POC Glucose 248 H 224 H (74-106) mg/dL Calcium (8.5-10.1) mg/dL C-Reactive Protein (0.0-0.3) mg/dL 05/31/21 05/31/21 05/31/21 Range/Units 04:30 04:30 04:30 WBC (4.5-11.0) K/uL RBC (4.30-5.90) M/uL Hgb (12.0-15.0) g/dL Hct (40.0-54.0) % MCV (80-98) fL MCH (27-31) pg MCHC (32-36) % Plt Count (150-400) K/uL Neut % (Auto) (36-66) % Lymph % (Auto) (24-44) % [place] % (Auto) (2-6) % Eos % (Auto) (2-4) % Baso % (Auto) (0-1) % D-Dimer, Quantitative 2498.81 H (0.0-500.0) ng/mL Sodium 136 L (140-148) mmol/L Potassium 4.2 (3.6-5.2) mmol/L Chloride 101 (100-108) mmol/L Carbon Dioxide 31 (21-32) mmol/L Anion Gap 8.2 (5.0-14.0) mmol/L BUN 19 H (7-18) mg/dL Creatinine 0.7 L (0.8-1.3) mg/dL Est Cr Clr Drug Dosing 82.22 mL/min Estimated GFR (MDRD) > 60 (>60) Glucose 130 H (74-106) mg/dL POC Glucose (74-106) mg/dL Calcium 8.5 (8.5-10.1) mg/dL C-Reactive Protein 2.05 H (0.0-0.3) mg/dL 05/31/21 05/31/21 Range/Units 07:29 11:27 WBC (4.5-11.0) K/uL RBC (4.30-5.90) M/uL Hgb (12.0-15.0) g/dL Hct (40.0-54.0) % MCV (80-98) fL MCH (27-31) pg MCHC (32-36) % Plt Count (150-400) K/uL Neut % (Auto) (36-66) % Lymph % (Auto) (24-44) % [place] % (Auto) (2-6) % Eos % (Auto) (2-4) % Baso % (Auto) (0-1) % D-Dimer, Quantitative (0.0-500.0) ng/mL Sodium (140-148) mmol/L Potassium (3.6-5.2) mmol/L Chloride (100-108) mmol/L Carbon Dioxide (21-32) mmol/L Anion Gap (5.0-14.0) mmol/L BUN (7-18) mg/dL Creatinine (0.8-1.3) mg/dL Est Cr Clr Drug Dosing mL/min Estimated GFR (MDRD) (>60) Glucose (74-106) mg/dL POC Glucose 113 H 230 H (74-106) mg/dL Calcium (8.5-10.1) mg/dL C-Reactive Protein (0.0-0.3) mg/dL Med Orders - Current: Current Medications Acetaminophen (Acetaminophen 325 Mg Tab) 650 mg PO Q4H PRN PRN Reason: Pain (Mild 1-3)/fever Last Admin: 05/23/21 21:19 Dose: 650 mg Documented by: Albuterol (Albuterol 8 Gm Inhaler) 0 gm INH Q2H PRN PRN Reason: Shortness of Breath Last Admin: 05/17/21 02:54 Dose: 2 puff Documented by: Aspirin (Aspirin 81 Mg Tab.Ec) 81 mg PO DAILY LIS Last Admin: 05/31/21 08:08 Dose: 81 mg Documented by: Benzocaine/Menthol (Benzocaine/Cetylpyridinium/Menthol Lozenge) 1 lozenge MUCMEM Q2H PRN PRN Reason: Sore Throat Last Admin: 05/24/21 13:22 Dose: 1 blister Documented by: Benzonatate (Benzonatate 100 Mg Cap) 100 mg PO TID PRN PRN Reason: Cough Last Admin: 05/23/21 09:43 Dose: 100 mg Documented by: Dexamethasone (Dexamethasone 2 Mg Tab) 1 mg PO DAILY [facility] Last Admin: 05/31/21 08:07 Dose: 1 mg Documented by: Gabapentin (Gabapentin 100 Mg Cap) 100 mg PO BID [facility] Last Admin: 05/31/21 08:08 Dose: 100 mg Documented by: Guaifenesin/Dextromethorphan (Guaifenesin/Dextromethorphan 100-10 Mg/5 Ml Soln 10 Ml Cup) 10 ml PO Q4H PRN PRN Reason: Cough Last Admin: 05/30/21 20:59 Dose: 10 ml Documented by: Insulin Human Lispro (Insulin Lispro 100 Unit/Ml 3 Ml Kwikpen) 0 unit SUBCUT QIDACANDBED [facility]; Protocol Last Admin: 05/31/21 12:23 Dose: 4 units Documented by: Lorazepam (Lorazepam 2 Mg/Ml Sdv) 0.5 mg IVPUSH Q4H PRN PRN Reason: Nausea/Vomiting Last Admin: 05/16/21 04:58 Dose: 0.5 mg Documented by: Magnesium Hydroxide (Magnesium Hydroxide 400 Mg/5 Ml Susp 30 Ml Cup) 30 ml PO Q12H PRN PRN Reason: Constipation Melatonin (Melatonin 3 Mg Tab) 9 mg PO BEDTIME PRN PRN Reason: Sleep Last Admin: 05/30/21 21:40 Dose: 9 mg Documented by: Metformin HCl (Metformin 500 Mg Tab) 500 mg PO BIDMEALS [facility] Last Admin: 05/31/21 08:06 Dose: 500 mg Documented by: Ondansetron HCl (Ondansetron 4 Mg/2 Ml Sdv) 4 mg IV Q6H PRN PRN Reason: Nausea/Vomiting Ondansetron HCl (Ondansetron 4 Mg Tab.Dis) 4 mg PO Q6H PRN PRN Reason: Nausea able to take PO Pantoprazole Sodium (Pantoprazole 40 Mg Tab.Cr) 40 mg PO ACBREAKFAST [facility] Last Admin: 05/31/21 08:06 Dose: 40 mg Documented by: Rivaroxaban (Rivaroxaban 10 Mg Tab) 20 mg PO WITHDINNER [facility] Last Admin: 05/30/21 17:01 Dose: 20 mg Documented by: Senna/Docusate Sodium (Docusate Sodium/Sennosides 50-8.6 Mg Tab) 1 tab PO BID PRN PRN Reason: Constipation Last Admin: 05/22/21 21:39 Dose: 1 tab Documented by: Sodium Chloride (Sodium Chloride 0.65% Nasal Platter 45 Ml Bottle) 0 ml SEBLE Q2H PRN PRN Reason: nasal congestion Last Admin: 05/26/21 21:35 Dose: 1 spray Documented by: Sodium Chloride (Aloe Vera/Sodium Chloride Gel 14.1 Gm Tube) 0 gm NASBOTH ASDIRECTED PRN PRN Reason: NASAL DRYNESS Last Admin: 05/28/21 17:15 Dose: 1 applic Documented by: Discontinued Medications Acetaminophen (Acetaminophen 325 Mg Tab) 650 mg PO Q4H PRN PRN Reason: Fever Greater Than 101 Baricitinib (Baricitinib 2 Mg Tab) 4 mg PO Q24H [facility] Stop: 05/24/21 16:01 Last Admin: 05/24/21 17:04 Dose: 4 mg Documented by: Dexamethasone (Dexamethasone 4 Mg/Ml Sdv) 6 mg IVPUSH DAILY [facility] Stop: 05/19/21 09:01 Last Admin: 05/19/21 08:23 Dose: 6 mg Documented by: Dexamethasone (Dexamethasone 2 Mg Tab) 4 mg PO DAILY [facility] Last Admin: 05/25/21 10:13 Dose: 4 mg Documented by: Dexamethasone (Dexamethasone 2 Mg Tab) 2 mg PO DAILY [facility] Last Admin: 05/28/21 08:00 Dose: 2 mg Documented by: Enoxaparin Sodium (Enoxaparin 40 Mg/0.4 Ml Syringe) 40 mg SUBCUT Q24H [facility] Last Admin: 05/23/21 15:30 Dose: 40 mg Documented by: Furosemide (Furosemide 20 Mg/2 Ml Vial) 20 mg IVPUSH ONETIME ONE Stop: 05/12/21 04:21 Last Admin: 05/12/21 04:39 Dose: 20 mg Documented by: Furosemide (Furosemide 20 Mg/2 Ml Vial) 20 mg IVPUSH NOW ONE Stop: 05/14/21 09:01 Last Admin: 05/14/21 10:20 Dose: 20 mg Documented by: Furosemide (Furosemide 20 Mg/2 Ml Vial) 20 mg IVPUSH NOW ONE Stop: 05/15/21 08:31 Last Admin: 05/15/21 08:49 Dose: 20 mg Documented by: Furosemide (Furosemide 20 Mg/2 Ml Vial) 20 mg IVPUSH NOW ONE Stop: 05/16/21 08:31 Last Admin: 05/16/21 09:15 Dose: 20 mg Documented by: Furosemide (Furosemide 20 Mg/2 Ml Vial) 20 mg IVPUSH NOW ONE Stop: 05/25/21 14:01 Last Admin: 05/25/21 15:16 Dose: Not Given Documented by: Furosemide (Furosemide 40 Mg Tab) 40 mg PO ONETIME ONE Stop: 05/25/21 15:31 Last Admin: 05/25/21 15:40 Dose: 40 mg Documented by: Furosemide (Furosemide 40 Mg Tab) 40 mg PO ONETIME ONE Stop: 05/26/21 13:01 Last Admin: 05/26/21 13:48 Dose: 40 mg Documented by: Furosemide (Furosemide 40 Mg Tab) 40 mg PO ONETIME ONE Stop: 05/27/21 15:01 Last Admin: 05/27/21 15:20 Dose: 40 mg Documented by: Furosemide (Furosemide 40 Mg Tab) 40 mg PO ONETIME ONE Stop: 05/29/21 13:01 Last Admin: 05/29/21 13:09 Dose: 40 mg Documented by: Remdesivir 200 mg/ Sodium (Chloride) 250 mls @ 250 mls/hr IV ONETIME ONE Stop: 05/10/21 12:59 Last Admin: 05/10/21 12:26 Dose: 250 mls/hr Documented by: Remdesivir 100 mg/ Sodium (Chloride) 100 mls @ 100 mls/hr IV Q24H [facility] Stop: 05/14/21 12:59 Last Admin: 05/14/21 11:10 Dose: 100 mls/hr Documented by: Ceftriaxone Sodium 1 gm/ (Sodium Chloride) 50 mls @ 100 mls/hr IV Q24H [facility] Stop: 05/20/21 14:00 Last Admin: 05/20/21 11:50 Dose: 100 mls/hr Documented by: Doxycycline Hyclate 100 mg/ (Sodium Chloride) 100 mls @ 100 mls/hr IV Q12H [facility] Stop: 05/21/21 04:00 Last Admin: 05/21/21 00:02 Dose: 100 mls/hr Documented by: Insulin Human Lispro (Insulin Lispro 100 Unit/Ml 3 Ml Kwikpen) 0 unit SUBCUT QIDACANDBED [facility]; Protocol Last Admin: 05/11/21 16:56 Dose: 8 units Documented by: Potassium Chloride (Potassium Chloride 20 Meq Tab.Er) 40 meq PO ONETIME ONE Stop: 05/14/21 09:01 Last Admin: 05/14/21 10:20 Dose: 40 meq Documented by: - Exam Quality Assessment: Supplemental Oxygen, DVT Prophylaxis General: Alert, Oriented, Cooperative, Mild Distress Lungs: Clear to Auscultation, Normal Respiratory Effort, Decreased Breath Sounds. No: Crackles, Rales, Rhonchi, Wheezing Cardiovascular: Regular Rate, Regular Rhythm, No Murmurs GI/Abdominal Exam: Soft, Non-Tender, No Organomegaly, No Distention Extremities: Non-Tender, No Pedal Edema - Patient Data Lab Results Last 24 hrs: Laboratory Results - last 24 hr 05/30/21 05/30/21 05/31/21 Range/Units 16:37 21:09 04:30 WBC 7.5 (4.5-11.0) K/uL RBC 3.82 L (4.30-5.90) M/uL Hgb 11.9 L (12.0-15.0) g/dL Hct 36.9 L (40.0-54.0) % MCV 97 (80-98) fL MCH 31 (27-31) pg MCHC 32 (32-36) % Plt Count 192 (150-400) K/uL Neut % (Auto) 69.3 H (36-66) % Lymph % (Auto) 18.1 L (24-44) % [place] % (Auto) 7.6 H (2-6) % Eos % (Auto) 4.3 H (2-4) % Baso % (Auto) 0.7 (0-1) % D-Dimer, Quantitative (0.0-500.0) ng/mL Sodium (140-148) mmol/L Potassium (3.6-5.2) mmol/L Chloride (100-108) mmol/L Carbon Dioxide (21-32) mmol/L Anion Gap (5.0-14.0) mmol/L BUN (7-18) mg/dL Creatinine (0.8-1.3) mg/dL Est Cr Clr Drug Dosing mL/min Estimated GFR (MDRD) (>60) Glucose (74-106) mg/dL POC Glucose 248 H 224 H (74-106) mg/dL Calcium (8.5-10.1) mg/dL C-Reactive Protein (0.0-0.3) mg/dL 05/31/21 05/31/21 05/31/21 Range/Units 04:30 04:30 04:30 WBC (4.5-11.0) K/uL RBC (4.30-5.90) M/uL Hgb (12.0-15.0) g/dL Hct (40.0-54.0) % MCV (80-98) fL MCH (27-31) pg MCHC (32-36) % Plt Count (150-400) K/uL Neut % (Auto) (36-66) % Lymph % (Auto) (24-44) % [place] % (Auto) (2-6) % Eos % (Auto) (2-4) % Baso % (Auto) (0-1) % D-Dimer, Quantitative 2498.81 H (0.0-500.0) ng/mL Sodium 136 L (140-148) mmol/L Potassium 4.2 (3.6-5.2) mmol/L Chloride 101 (100-108) mmol/L Carbon Dioxide 31 (21-32) mmol/L Anion Gap 8.2 (5.0-14.0) mmol/L BUN 19 H (7-18) mg/dL Creatinine 0.7 L (0.8-1.3) mg/dL Est Cr Clr Drug Dosing 82.22 mL/min Estimated GFR (MDRD) > 60 (>60) Glucose 130 H (74-106) mg/dL POC Glucose (74-106) mg/dL Calcium 8.5 (8.5-10.1) mg/dL C-Reactive Protein 2.05 H (0.0-0.3) mg/dL 05/31/21 05/31/21 Range/Units 07:29 11:27 WBC (4.5-11.0) K/uL RBC (4.30-5.90) M/uL Hgb (12.0-15.0) g/dL Hct (40.0-54.0) % MCV (80-98) fL MCH (27-31) pg MCHC (32-36) % Plt Count (150-400) K/uL Neut % (Auto) (36-66) % Lymph % (Auto) (24-44) % [place] % (Auto) (2-6) % Eos % (Auto) (2-4) % Baso % (Auto) (0-1) % D-Dimer, Quantitative (0.0-500.0) ng/mL Sodium (140-148) mmol/L Potassium (3.6-5.2) mmol/L Chloride (100-108) mmol/L Carbon Dioxide (21-32) mmol/L Anion Gap (5.0-14.0) mmol/L BUN (7-18) mg/dL Creatinine (0.8-1.3) mg/dL Est Cr Clr Drug Dosing mL/min Estimated GFR (MDRD) (>60) Glucose (74-106) mg/dL POC Glucose 113 H 230 H (74-106) mg/dL Calcium (8.5-10.1) mg/dL C-Reactive Protein (0.0-0.3) mg/dL Result Diagrams: 05/31/21 04:30 05/31/21 04:30 Sepsis Event Note - Evaluation Sepsis Screening Result: No Definite Risk - Focused Exam Vital Signs: Vital Signs Temp Pulse Resp BP Pulse Ox 05/31/21 11:00 97.8 F 99 16 100/64 91 L 05/31/21 08:00 93 L 05/31/21 07:00 97.5 F 75 16 110/71 93 L 05/31/21 03:00 97.3 F 82 16 121/75 94 L - Problem List Review Problem List Initiated/Reviewed/Updated: Yes - My Orders Last 24 Hours: My Active Orders 05/30/21 17:00 metFORMIN [Glucophage] 500 mg PO BIDMEALS 05/31/21 12:45 Mometasone Furoate [Nasonex Platter] See Dose Instructions SEBLE BID 05/31/21 16:30 GLUCOSE POC LAB TO COLLECT JPM [POC] QIDACANDBED 05/31/21 21:00 GLUCOSE POC LAB TO COLLECT JPM [POC] QIDACANDBED 06/01/21 07:30 GLUCOSE POC LAB TO COLLECT JPM [POC] QIDACANDBED - Plan Plan:: ASSESSMENT AND PLAN - COVID-19 pneumonia-complicated by acute respiratory failure with hypoxia. Symptom onset 05/05. Stable since yesterday, slowly improving, now on 3 L of oxygen per minute via nasal cannula. He has been able to be more active, but continues to desaturate with fairly minimal activity. -Remdesivir x5 days, completed -Dexamethasone 1 mg daily (taper day 3) -Baricitinib 4 mg p.o. daily, completed -Empiric antibiotic therapy x7 days complete -Xarelto daily -Repeat labs every 2 days -Symptomatic management of cough -Isolation precautions completed Type 2 diabetes mellitus-diet controlled. Sugars well controlled so far. -Sliding scale insulin -Monitor 4 times daily glucometers -Metformin 500 mg p.o. twice daily History of prostate cancer-stable. Maintenance issues - -DVT prophylaxis-enoxaparin -GI prophylaxis-PPI -Nutrition-consistent carbohydrates -Lara catheter-not indicated Disposition -I anticipate discharge home after the hospital stay. He will likely need home oxygen.
[2021-05-31] MEDS: Mometasone Furoate Nasal Spray 17 GM Canister NAS SCH ×2 (14:01→21:27)
[2021-05-31] MEDS: Rivaroxaban 10 MG Tab PO SCH (16:49)
[2021-05-31] MEDS: Melatonin 3 MG Tab PO PRN (21:28)
[2021-06-01] MEDS: Insulin Lispro 100 Unit/ML 3 ML KwikPen SUBCUT SCH ×4 (07:40→20:59)
[2021-06-01] MEDS: metFORMIN 500 MG Tab PO SCH ×2 (07:41→16:39)
[2021-06-01] MEDS: Pantoprazole 40 MG Tab.CR PO SCH (07:41)
[2021-06-01] MEDS: Aspirin 81 MG Tab.EC PO SCH (09:39)
[2021-06-01] MEDS: Mometasone Furoate Nasal Spray 17 GM Canister NAS SCH ×2 (09:39→20:15)
[2021-06-01] MEDS: Gabapentin 100 MG Cap PO SCH ×2 (09:39→20:15)
[2021-06-01] MEDS: Dexamethasone 2 MG Tab PO SCH (09:39)
--- NOTE | 2021-06-01 15:00 | PCM.PN ---
- General Info Date of Service: 06/01/21 Subjective Update: There were no acute events overnight. Oxygenation has been stable and he does continue to require 3 L at rest. He does continue to desaturate significantly with any sort of activity. He has not had any chest pain or chest tightness. He does have mild diarrhea. Strength is slowly improving. He is able to ambulate short distances but does become quite hypoxic. He has a sore under his nose that is uncomfortable with the oxygen cannula. Functional Status: Reports: Pain Controlled, Tolerating Diet - Patient Data Vitals - Most Recent: Last Vital Signs Temp 36.6 C 06/01/21 14:40 Pulse 90 06/01/21 14:40 Resp 18 06/01/21 14:40 BP 112/65 06/01/21 14:40 Pulse Ox 94 L 06/01/21 14:40 Weight - Most Recent: 93.44 kg I&O - Last 24 Hours: Intake & Output 05/31/21 06/01/21 06/01/21 22:59 06:59 14:59 Intake Total 480 400 400 Output Total 650 400 700 Balance -170 0 -300 Lab Results Last 24 Hours: Laboratory Results - last 24 hr 05/31/21 05/31/21 06/01/21 Range/Units 16:33 21:05 07:23 POC Glucose 234 H 178 H 121 H (74-106) mg/dL 06/01/21 Range/Units 11:20 POC Glucose 144 H (74-106) mg/dL Med Orders - Current: Current Medications Acetaminophen (Acetaminophen 325 Mg Tab) 650 mg PO Q4H PRN PRN Reason: Pain (Mild 1-3)/fever Last Admin: 05/23/21 21:19 Dose: 650 mg Documented by: Albuterol (Albuterol 8 Gm Inhaler) 0 gm INH Q2H PRN PRN Reason: Shortness of Breath Last Admin: 05/17/21 02:54 Dose: 2 puff Documented by: Aspirin (Aspirin 81 Mg Tab.Ec) 81 mg PO DAILY [facility] Last Admin: 06/01/21 09:39 Dose: 81 mg Documented by: Benzocaine/Menthol (Benzocaine/Cetylpyridinium/Menthol Lozenge) 1 lozenge MUCMEM Q2H PRN PRN Reason: Sore Throat Last Admin: 05/24/21 13:22 Dose: 1 blister Documented by: Benzonatate (Benzonatate 100 Mg Cap) 100 mg PO TID PRN PRN Reason: Cough Last Admin: 05/23/21 09:43 Dose: 100 mg Documented by: Dexamethasone (Dexamethasone 2 Mg Tab) 1 mg PO DAILY [facility] Last Admin: 06/01/21 09:39 Dose: 1 mg Documented by: Gabapentin (Gabapentin 100 Mg Cap) 100 mg PO BID [facility] Last Admin: 06/01/21 09:39 Dose: 100 mg Documented by: Guaifenesin/Dextromethorphan (Guaifenesin/Dextromethorphan 100-10 Mg/5 Ml Soln 10 Ml Cup) 10 ml PO Q4H PRN PRN Reason: Cough Last Admin: 05/30/21 20:59 Dose: 10 ml Documented by: Insulin Human Lispro (Insulin Lispro 100 Unit/Ml 3 Ml Kwikpen) 0 unit SUBCUT QIDACANDBED [facility]; Protocol Last Admin: 06/01/21 11:44 Dose: Not Given Documented by: Lorazepam (Lorazepam 2 Mg/Ml Sdv) 0.5 mg IVPUSH Q4H PRN PRN Reason: Nausea/Vomiting Last Admin: 05/16/21 04:58 Dose: 0.5 mg Documented by: Magnesium Hydroxide (Magnesium Hydroxide 400 Mg/5 Ml Susp 30 Ml Cup) 30 ml PO Q12H PRN PRN Reason: Constipation Melatonin (Melatonin 3 Mg Tab) 9 mg PO BEDTIME PRN PRN Reason: Sleep Last Admin: 05/31/21 21:28 Dose: 9 mg Documented by: Metformin HCl (Metformin 500 Mg Tab) 500 mg PO BIDMEALS [facility] Last Admin: 06/01/21 07:41 Dose: 500 mg Documented by: Mometasone Furoate (Mometasone Furoate Nasal [place] 17 Gm Canister) 0 gm SEBLE BID [facility] Last Admin: 06/01/21 09:39 Dose: Not Given Documented by: Ondansetron HCl (Ondansetron 4 Mg/2 Ml Sdv) 4 mg IV Q6H PRN PRN Reason: Nausea/Vomiting Ondansetron HCl (Ondansetron 4 Mg Tab.Dis) 4 mg PO Q6H PRN PRN Reason: Nausea able to take PO Pantoprazole Sodium (Pantoprazole 40 Mg Tab.Cr) 40 mg PO ACBREAKFAST [facility] Last Admin: 06/01/21 07:41 Dose: 40 mg Documented by: Rivaroxaban (Rivaroxaban 10 Mg Tab) 20 mg PO WITHDINNER [facility] Last Admin: 05/31/21 16:49 Dose: 20 mg Documented by: Senna/Docusate Sodium (Docusate Sodium/Sennosides 50-8.6 Mg Tab) 1 tab PO BID PRN PRN Reason: Constipation Last Admin: 05/22/21 21:39 Dose: 1 tab Documented by: Sodium Chloride (Sodium Chloride 0.65% Nasal [place] 45 Ml Bottle) 0 ml SEBLE Q2H PRN PRN Reason: nasal congestion Last Admin: 05/26/21 21:35 Dose: 1 spray Documented by: Sodium Chloride (Aloe Vera/Sodium Chloride Gel 14.1 Gm Tube) 0 gm NASBOTH ASDIRECTED PRN PRN Reason: NASAL DRYNESS Last Admin: 05/28/21 17:15 Dose: 1 applic Documented by: Discontinued Medications Acetaminophen (Acetaminophen 325 Mg Tab) 650 mg PO Q4H PRN PRN Reason: Fever Greater Than 101 Baricitinib (Baricitinib 2 Mg Tab) 4 mg PO Q24H [facility] Stop: 05/24/21 16:01 Last Admin: 05/24/21 17:04 Dose: 4 mg Documented by: Dexamethasone (Dexamethasone 4 Mg/Ml Sdv) 6 mg IVPUSH DAILY [facility] Stop: 05/19/21 09:01 Last Admin: 05/19/21 08:23 Dose: 6 mg Documented by: Dexamethasone (Dexamethasone 2 Mg Tab) 4 mg PO DAILY [facility] Last Admin: 05/25/21 10:13 Dose: 4 mg Documented by: Dexamethasone (Dexamethasone 2 Mg Tab) 2 mg PO DAILY [facility] Last Admin: 05/28/21 08:00 Dose: 2 mg Documented by: Enoxaparin Sodium (Enoxaparin 40 Mg/0.4 Ml Syringe) 40 mg SUBCUT Q24H [facility] Last Admin: 05/23/21 15:30 Dose: 40 mg Documented by: Furosemide (Furosemide 20 Mg/2 Ml Vial) 20 mg IVPUSH ONETIME ONE Stop: 05/12/21 04:21 Last Admin: 05/12/21 04:39 Dose: 20 mg Documented by: Furosemide (Furosemide 20 Mg/2 Ml Vial) 20 mg IVPUSH NOW ONE Stop: 05/14/21 09:01 Last Admin: 05/14/21 10:20 Dose: 20 mg Documented by: Furosemide (Furosemide 20 Mg/2 Ml Vial) 20 mg IVPUSH NOW ONE Stop: 05/15/21 08:31 Last Admin: 05/15/21 08:49 Dose: 20 mg Documented by: Furosemide (Furosemide 20 Mg/2 Ml Vial) 20 mg IVPUSH NOW ONE Stop: 05/16/21 08:31 Last Admin: 05/16/21 09:15 Dose: 20 mg Documented by: Furosemide (Furosemide 20 Mg/2 Ml Vial) 20 mg IVPUSH NOW ONE Stop: 05/25/21 14:01 Last Admin: 05/25/21 15:16 Dose: Not Given Documented by: Furosemide (Furosemide 40 Mg Tab) 40 mg PO ONETIME ONE Stop: 05/25/21 15:31 Last Admin: 05/25/21 15:40 Dose: 40 mg Documented by: Furosemide (Furosemide 40 Mg Tab) 40 mg PO ONETIME ONE Stop: 05/26/21 13:01 Last Admin: 05/26/21 13:48 Dose: 40 mg Documented by: Furosemide (Furosemide 40 Mg Tab) 40 mg PO ONETIME ONE Stop: 05/27/21 15:01 Last Admin: 05/27/21 15:20 Dose: 40 mg Documented by: Furosemide (Furosemide 40 Mg Tab) 40 mg PO ONETIME ONE Stop: 05/29/21 13:01 Last Admin: 05/29/21 13:09 Dose: 40 mg Documented by: Remdesivir 200 mg/ Sodium (Chloride) 250 mls @ 250 mls/hr IV ONETIME ONE Stop: 05/10/21 12:59 Last Admin: 05/10/21 12:26 Dose: 250 mls/hr Documented by: Remdesivir 100 mg/ Sodium (Chloride) 100 mls @ 100 mls/hr IV Q24H [facility] Stop: 05/14/21 12:59 Last Admin: 05/14/21 11:10 Dose: 100 mls/hr Documented by: Ceftriaxone Sodium 1 gm/ (Sodium Chloride) 50 mls @ 100 mls/hr IV Q24H [facility] Stop: 05/20/21 14:00 Last Admin: 05/20/21 11:50 Dose: 100 mls/hr Documented by: Doxycycline Hyclate 100 mg/ (Sodium Chloride) 100 mls @ 100 mls/hr IV Q12H [facility] Stop: 05/21/21 04:00 Last Admin: 05/21/21 00:02 Dose: 100 mls/hr Documented by: Insulin Human Lispro (Insulin Lispro 100 Unit/Ml 3 Ml Kwikpen) 0 unit SUBCUT QIDACANDBED [facility]; Protocol Last Admin: 05/11/21 16:56 Dose: 8 units Documented by: Potassium Chloride (Potassium Chloride 20 Meq Tab.Er) 40 meq PO ONETIME ONE Stop: 05/14/21 09:01 Last Admin: 05/14/21 10:20 Dose: 40 meq Documented by: - Exam Quality Assessment: Supplemental Oxygen General: Alert, Oriented, Cooperative, No Acute Distress Lungs: Normal Respiratory Effort Cardiovascular: Regular Rate, Regular Rhythm GI/Abdominal Exam: Soft, No Distention Extremities: No Pedal Edema Skin: Warm, Dry Psy/Mental Status: Alert, Normal Affect - Patient Data Lab Results Last 24 hrs: Laboratory Results - last 24 hr 05/31/21 05/31/21 06/01/21 Range/Units 16:33 21:05 07:23 POC Glucose 234 H 178 H 121 H (74-106) mg/dL 06/01/21 Range/Units 11:20 POC Glucose 144 H (74-106) mg/dL Result Diagrams: 05/31/21 04:30 05/31/21 04:30 Sepsis Event Note - Evaluation Sepsis Screening Result: No Definite Risk - Focused Exam Vital Signs: Vital Signs Temp Pulse Resp BP Pulse Ox 06/01/21 14:40 36.6 C 90 18 112/65 94 L 06/01/21 10:00 36.6 C 92 18 126/82 94 L 06/01/21 08:00 94 L - Problem List & Annotations (1) Pneumonia due to COVID-19 virus SNOMED Code(s): 913056700926222138 Code(s): U07.1 - COVID-19; J12.82 - PNEUMONIA DUE TO CORONAVIRUS DISEASE 2019 Status: Acute Priority: High Current Visit: Yes (2) Respiratory failure with hypoxia SNOMED Code(s): 73195957579972922 Code(s): J96.91 - RESPIRATORY FAILURE, UNSPECIFIED WITH HYPOXIA Status: Acute Priority: High Current Visit: Yes Qualifiers: Chronicity: acute Qualified Code(s): J96.01 - Acute respiratory failure with hypoxia (3) DM II (diabetes mellitus, type II), controlled SNOMED Code(s): 46026226, 229362678 Code(s): E11.9 - TYPE 2 DIABETES MELLITUS WITHOUT COMPLICATIONS Status: Chronic Current Visit: Yes Qualifiers: Diabetes mellitus half-way insulin use: without rodent exterminator use Diabetes mellitus complication status: without complication Qualified Code(s): E11.9 - Type 2 diabetes mellitus without complications (4) History of prostate cancer SNOMED Code(s): 846672769 Code(s): Z85.46 - PERSONAL HISTORY OF MALIGNANT NEOPLASM OF PROSTATE Status: Chronic Current Visit: Yes - Problem List Review Problem List Initiated/Reviewed/Updated: Yes - My Orders Last 24 Hours: My Active Orders 06/01/21 15:00 Bacitracin [Bacitracin Oint] 1 gm TOP TID 06/01/21 16:30 GLUCOSE POC LAB TO COLLECT JPM [POC] QIDACANDBED 06/01/21 21:00 GLUCOSE POC LAB TO COLLECT JPM [POC] QIDACANDBED 06/02/21 07:30 GLUCOSE POC LAB TO COLLECT JPM [POC] QIDACANDBED 06/02/21 11:30 GLUCOSE POC LAB TO COLLECT JPM [POC] QIDACANDBED 06/02/21 16:30 GLUCOSE POC LAB TO COLLECT JPM [POC] QIDACANDBED 06/02/21 21:00 GLUCOSE POC LAB TO COLLECT JPM [POC] QIDACANDBED 06/03/21 07:30 GLUCOSE POC LAB TO COLLECT JPM [POC] QIDACANDBED 06/03/21 11:30 GLUCOSE POC LAB TO COLLECT JPM [POC] QIDACANDBED 06/03/21 16:30 GLUCOSE POC LAB TO COLLECT JPM [POC] QIDACANDBED 06/03/21 21:00 GLUCOSE POC LAB TO COLLECT JPM [POC] QIDACANDBED 06/04/21 07:30 GLUCOSE POC LAB TO COLLECT JPM [POC] QIDACANDBED 06/04/21 11:30 GLUCOSE POC LAB TO COLLECT JPM [POC] QIDACANDBED 06/04/21 16:30 GLUCOSE POC LAB TO COLLECT JPM [POC] QIDACANDBED 06/04/21 21:00 GLUCOSE POC LAB TO COLLECT JPM [POC] QIDACANDBED 06/05/21 07:30 GLUCOSE POC LAB TO COLLECT JPM [POC] QIDACANDBED 06/05/21 11:30 GLUCOSE POC LAB TO COLLECT JPM [POC] QIDACANDBED 06/05/21 16:30 GLUCOSE POC LAB TO COLLECT JPM [POC] QIDACANDBED 06/05/21 21:00 GLUCOSE POC LAB TO COLLECT JPM [POC] QIDACANDBED 06/06/21 07:30 GLUCOSE POC LAB TO COLLECT JPM [POC] QIDACANDBED 06/06/21 11:30 GLUCOSE POC LAB TO COLLECT JPM [POC] QIDACANDBED 06/06/21 16:30 GLUCOSE POC LAB TO COLLECT JPM [POC] QIDACANDBED 06/06/21 21:00 GLUCOSE POC LAB TO COLLECT JPM [POC] QIDACANDBED 06/07/21 07:30 GLUCOSE POC LAB TO COLLECT JPM [POC] QIDACANDBED 06/07/21 11:30 GLUCOSE POC LAB TO COLLECT JPM [POC] QIDACANDBED 06/07/21 16:30 GLUCOSE POC LAB TO COLLECT JPM [POC] QIDACANDBED 06/07/21 21:00 GLUCOSE POC LAB TO COLLECT JPM [POC] QIDACANDBED - Plan Plan:: ASSESSMENT AND PLAN - COVID-19 pneumonia-complicated by acute respiratory failure with hypoxia. Symptom onset 05/05. Stable and slowly improving. Saturations good on 3 L at rest but quite hypoxic with any activity of the slightly better each day. -Remdesivir x5 days, completed -Dexamethasone 1 mg daily (taper day 4) -Baricitinib 4 mg p.o. daily, completed -Empiric antibiotic therapy x7 days complete -Rivaroxaban -Repeat labs every 2 days -Symptomatic management of cough -Isolation precautions completed Type 2 diabetes mellitus-diet controlled. Sugars well controlled so far. -Sliding scale insulin -Monitor 4 times daily glucometers -Metformin 500 mg p.o. twice daily History of prostate cancer-stable. Maintenance issues - -DVT prophylaxis-rivaroxaban -GI prophylaxis-PPI -Nutrition-consistent carbohydrates -Lara catheter-not indicated Disposition -I anticipate discharge home after the hospital stay. He will likely need home oxygen. He continues to have significant desaturations with activity and is not ready for discharge home yet. Joe Valero MD
[2021-06-01] MEDS: Bacitracin Oint 28.35 GM Tube TOP SCH ×2 (16:38→20:14)
[2021-06-01] MEDS: Rivaroxaban 10 MG Tab PO SCH (16:39)
[2021-06-01] MEDS: Loperamide 2 MG Cap PO PRN (18:06)
[2021-06-01] MEDS: Melatonin 3 MG Tab PO PRN (21:57)
[2021-06-02] MEDS: metFORMIN 500 MG Tab PO SCH ×2 (07:27→16:38)
[2021-06-02] MEDS: Pantoprazole 40 MG Tab.CR PO SCH (07:27)
[2021-06-02] MEDS: Insulin Lispro 100 Unit/ML 3 ML KwikPen SUBCUT SCH ×4 (07:29→21:28)
[2021-06-02] MEDS: Gabapentin 100 MG Cap PO SCH ×2 (09:31→21:28)
[2021-06-02] MEDS: Dexamethasone 2 MG Tab PO SCH (09:31)
[2021-06-02] MEDS: Aspirin 81 MG Tab.EC PO SCH (09:31)
[2021-06-02] MEDS: Mometasone Furoate Nasal Spray 17 GM Canister NAS SCH ×2 (09:31→21:27)
[2021-06-02] MEDS: Bacitracin Oint 28.35 GM Tube TOP SCH ×3 (09:31→21:26)
--- NOTE | 2021-06-02 14:00 | PCM.PN ---
- General Info Date of Service: 06/02/21 Subjective Update: No acute events overnight. No significant changes in the past 24 hours. He feels better today with less shortness of breath. He did have a large amount of mucus expelled from his nose this morning. Decreased pain near his nose after switching to the facemask overnight. Hoping to get back to nasal cannula this afternoon. Appetite good. Energy improving. Hoping to get home soon. Functional Status: Reports: Pain Controlled, Tolerating Diet - Review of Systems General: Reports: Weakness Pulmonary: Denies: Shortness of Breath - Patient Data Vitals - Most Recent: Last Vital Signs Temp 36.2 C 06/02/21 10:48 Pulse 95 06/02/21 10:48 Resp 24 H 06/02/21 10:48 BP 95/63 06/02/21 10:48 Pulse Ox 99 06/02/21 10:48 Weight - Most Recent: 93.44 kg I&O - Last 24 Hours: Intake & Output 06/01/21 06/02/21 06/02/21 22:59 06:59 14:59 Intake Total 120 400 Output Total 250 200 300 Balance -250 -80 100 Lab Results Last 24 Hours: Laboratory Results - last 24 hr 06/01/21 06/01/21 06/02/21 Range/Units 16:30 20:53 07:27 POC Glucose 275 H 229 H 104 (74-106) mg/dL 06/02/21 Range/Units 11:20 POC Glucose 168 H (74-106) mg/dL Med Orders - Current: Current Medications Acetaminophen (Acetaminophen 325 Mg Tab) 650 mg PO Q4H PRN PRN Reason: Pain (Mild 1-3)/fever Last Admin: 05/23/21 21:19 Dose: 650 mg Documented by: Albuterol (Albuterol 8 Gm Inhaler) 0 gm INH Q2H PRN PRN Reason: Shortness of Breath Last Admin: 05/17/21 02:54 Dose: 2 puff Documented by: Aspirin (Aspirin 81 Mg Tab.Ec) 81 mg PO DAILY [facility] Last Admin: 06/02/21 09:31 Dose: 81 mg Documented by: Bacitracin (Bacitracin Oint 28.35 Gm Tube) 0 gm TOP TID [facility] Last Admin: 06/02/21 09:31 Dose: 1 applic Documented by: Benzocaine/Menthol (Benzocaine/Cetylpyridinium/Menthol Lozenge) 1 lozenge MUCMEM Q2H PRN PRN Reason: Sore Throat Last Admin: 05/24/21 13:22 Dose: 1 blister Documented by: Benzonatate (Benzonatate 100 Mg Cap) 100 mg PO TID PRN PRN Reason: Cough Last Admin: 05/23/21 09:43 Dose: 100 mg Documented by: Dexamethasone (Dexamethasone 2 Mg Tab) 1 mg PO DAILY [facility] Last Admin: 06/02/21 09:31 Dose: 1 mg Documented by: Gabapentin (Gabapentin 100 Mg Cap) 100 mg PO BID [facility] Last Admin: 06/02/21 09:31 Dose: 100 mg Documented by: Guaifenesin/Dextromethorphan (Guaifenesin/Dextromethorphan 100-10 Mg/5 Ml Soln 10 Ml Cup) 10 ml PO Q4H PRN PRN Reason: Cough Last Admin: 05/30/21 20:59 Dose: 10 ml Documented by: Insulin Human Lispro (Insulin Lispro 100 Unit/Ml 3 Ml Kwikpen) 0 unit SUBCUT QIDACANDBED [facility]; Protocol Last Admin: 06/02/21 11:57 Dose: 2 units Documented by: Loperamide HCl (Loperamide 2 Mg Cap) 2 mg PO Q4H PRN PRN Reason: Diarrhea Last Admin: 06/01/21 18:06 Dose: 2 mg Documented by: Lorazepam (Lorazepam 2 Mg/Ml Sdv) 0.5 mg IVPUSH Q4H PRN PRN Reason: Nausea/Vomiting Last Admin: 05/16/21 04:58 Dose: 0.5 mg Documented by: Magnesium Hydroxide (Magnesium Hydroxide 400 Mg/5 Ml Susp 30 Ml Cup) 30 ml PO Q12H PRN PRN Reason: Constipation Melatonin (Melatonin 3 Mg Tab) 9 mg PO BEDTIME PRN PRN Reason: Sleep Last Admin: 06/01/21 21:57 Dose: 9 mg Documented by: Metformin HCl (Metformin 500 Mg Tab) 500 mg PO BIDMEALS [facility] Last Admin: 06/02/21 07:27 Dose: 500 mg Documented by: Mometasone Furoate (Mometasone Furoate Nasal [place] 17 Gm Canister) 0 gm SEBLE BID [facility] Last Admin: 06/02/21 09:31 Dose: 2 spray Documented by: Ondansetron HCl (Ondansetron 4 Mg/2 Ml Sdv) 4 mg IV Q6H PRN PRN Reason: Nausea/Vomiting Ondansetron HCl (Ondansetron 4 Mg Tab.Dis) 4 mg PO Q6H PRN PRN Reason: Nausea able to take PO Pantoprazole Sodium (Pantoprazole 40 Mg Tab.Cr) 40 mg PO ACBREAKFAST [facility] Last Admin: 06/02/21 07:27 Dose: 40 mg Documented by: Rivaroxaban (Rivaroxaban 10 Mg Tab) 20 mg PO WITHDINNER [facility] Last Admin: 06/01/21 16:39 Dose: 20 mg Documented by: Senna/Docusate Sodium (Docusate Sodium/Sennosides 50-8.6 Mg Tab) 1 tab PO BID PRN PRN Reason: Constipation Last Admin: 05/22/21 21:39 Dose: 1 tab Documented by: Sodium Chloride (Sodium Chloride 0.65% Nasal [place] 45 Ml Bottle) 0 ml SEBLE Q2H PRN PRN Reason: nasal congestion Last Admin: 05/26/21 21:35 Dose: 1 spray Documented by: Sodium Chloride (Aloe Vera/Sodium Chloride Gel 14.1 Gm Tube) 0 gm NASBOTH ASDIRECTED PRN PRN Reason: NASAL DRYNESS Last Admin: 05/28/21 17:15 Dose: 1 applic Documented by: Discontinued Medications Acetaminophen (Acetaminophen 325 Mg Tab) 650 mg PO Q4H PRN PRN Reason: Fever Greater Than 101 Baricitinib (Baricitinib 2 Mg Tab) 4 mg PO Q24H [facility] Stop: 05/24/21 16:01 Last Admin: 05/24/21 17:04 Dose: 4 mg Documented by: Dexamethasone (Dexamethasone 4 Mg/Ml Sdv) 6 mg IVPUSH DAILY [facility] Stop: 05/19/21 09:01 Last Admin: 05/19/21 08:23 Dose: 6 mg Documented by: Dexamethasone (Dexamethasone 2 Mg Tab) 4 mg PO DAILY [facility] Last Admin: 05/25/21 10:13 Dose: 4 mg Documented by: Dexamethasone (Dexamethasone 2 Mg Tab) 2 mg PO DAILY [facility] Last Admin: 05/28/21 08:00 Dose: 2 mg Documented by: Enoxaparin Sodium (Enoxaparin 40 Mg/0.4 Ml Syringe) 40 mg SUBCUT Q24H [facility] Last Admin: 05/23/21 15:30 Dose: 40 mg Documented by: Furosemide (Furosemide 20 Mg/2 Ml Vial) 20 mg IVPUSH ONETIME ONE Stop: 05/12/21 04:21 Last Admin: 05/12/21 04:39 Dose: 20 mg Documented by: Furosemide (Furosemide 20 Mg/2 Ml Vial) 20 mg IVPUSH NOW ONE Stop: 05/14/21 09:01 Last Admin: 05/14/21 10:20 Dose: 20 mg Documented by: Furosemide (Furosemide 20 Mg/2 Ml Vial) 20 mg IVPUSH NOW ONE Stop: 05/15/21 08:31 Last Admin: 05/15/21 08:49 Dose: 20 mg Documented by: Furosemide (Furosemide 20 Mg/2 Ml Vial) 20 mg IVPUSH NOW ONE Stop: 05/16/21 08:31 Last Admin: 05/16/21 09:15 Dose: 20 mg Documented by: Furosemide (Furosemide 20 Mg/2 Ml Vial) 20 mg IVPUSH NOW ONE Stop: 05/25/21 14:01 Last Admin: 05/25/21 15:16 Dose: Not Given Documented by: Furosemide (Furosemide 40 Mg Tab) 40 mg PO ONETIME ONE Stop: 05/25/21 15:31 Last Admin: 05/25/21 15:40 Dose: 40 mg Documented by: Furosemide (Furosemide 40 Mg Tab) 40 mg PO ONETIME ONE Stop: 05/26/21 13:01 Last Admin: 05/26/21 13:48 Dose: 40 mg Documented by: Furosemide (Furosemide 40 Mg Tab) 40 mg PO ONETIME ONE Stop: 05/27/21 15:01 Last Admin: 05/27/21 15:20 Dose: 40 mg Documented by: Furosemide (Furosemide 40 Mg Tab) 40 mg PO ONETIME ONE Stop: 05/29/21 13:01 Last Admin: 05/29/21 13:09 Dose: 40 mg Documented by: Remdesivir 200 mg/ Sodium (Chloride) 250 mls @ 250 mls/hr IV ONETIME ONE Stop: 05/10/21 12:59 Last Admin: 05/10/21 12:26 Dose: 250 mls/hr Documented by: Remdesivir 100 mg/ Sodium (Chloride) 100 mls @ 100 mls/hr IV Q24H [facility] Stop: 05/14/21 12:59 Last Admin: 05/14/21 11:10 Dose: 100 mls/hr Documented by: Ceftriaxone Sodium 1 gm/ (Sodium Chloride) 50 mls @ 100 mls/hr IV Q24H [facility] Stop: 05/20/21 14:00 Last Admin: 05/20/21 11:50 Dose: 100 mls/hr Documented by: Doxycycline Hyclate 100 mg/ (Sodium Chloride) 100 mls @ 100 mls/hr IV Q12H [facility] Stop: 05/21/21 04:00 Last Admin: 05/21/21 00:02 Dose: 100 mls/hr Documented by: Insulin Human Lispro (Insulin Lispro 100 Unit/Ml 3 Ml Kwikpen) 0 unit SUBCUT QIDACANDBED [facility]; Protocol Last Admin: 05/11/21 16:56 Dose: 8 units Documented by: Potassium Chloride (Potassium Chloride 20 Meq Tab.Er) 40 meq PO ONETIME ONE Stop: 05/14/21 09:01 Last Admin: 05/14/21 10:20 Dose: 40 meq Documented by: - Exam Quality Assessment: Supplemental Oxygen General: Alert, Oriented, Cooperative, No Acute Distress Lungs: Normal Respiratory Effort GI/Abdominal Exam: Soft, No Distention Extremities: No Pedal Edema Psy/Mental Status: Alert, Normal Affect - Patient Data Lab Results Last 24 hrs: Laboratory Results - last 24 hr 06/01/21 06/01/21 06/02/21 Range/Units 16:30 20:53 07:27 POC Glucose 275 H 229 H 104 (74-106) mg/dL 06/02/21 Range/Units 11:20 POC Glucose 168 H (74-106) mg/dL Result Diagrams: 05/31/21 04:30 05/31/21 04:30 Sepsis Event Note - Evaluation Sepsis Screening Result: No Definite Risk - Focused Exam Vital Signs: Vital Signs Temp Pulse Resp BP BP Pulse Ox 06/02/21 10:48 36.2 C 95 24 H 95/63 99 06/02/21 08:00 97 06/02/21 07:20 35.9 C L 78 24 H 110/63 98 06/02/21 02:07 36.3 C 84 18 99/71 100 - Problem List & Annotations (1) Pneumonia due to COVID-19 virus SNOMED Code(s): 828451797221862930 Code(s): U07.1 - COVID-19; J12.82 - PNEUMONIA DUE TO CORONAVIRUS DISEASE 2019 Status: Acute Priority: High Current Visit: Yes (2) Respiratory failure with hypoxia SNOMED Code(s): 33609788620137627 Code(s): J96.91 - RESPIRATORY FAILURE, UNSPECIFIED WITH HYPOXIA Status: Acute Priority: High Current Visit: Yes Qualifiers: Chronicity: acute Qualified Code(s): J96.01 - Acute respiratory failure with hypoxia (3) DM II (diabetes mellitus, type II), controlled SNOMED Code(s): 10344811, 455433623 Code(s): E11.9 - TYPE 2 DIABETES MELLITUS WITHOUT COMPLICATIONS Status: Chronic Current Visit: Yes Qualifiers: Diabetes mellitus senior care insulin use: without long winder tender use Diabetes mellitus complication status: without complication Qualified Code(s): E11.9 - Type 2 diabetes mellitus without complications (4) History of prostate cancer SNOMED Code(s): 267608746 Code(s): Z85.46 - PERSONAL HISTORY OF MALIGNANT NEOPLASM OF PROSTATE Status: Chronic Current Visit: Yes - Problem List Review Problem List Initiated/Reviewed/Updated: Yes - My Orders Last 24 Hours: My Active Orders 06/01/21 15:00 Bacitracin [Bacitracin Oint] 0 gm TOP TID 06/01/21 17:37 Loperamide [Imodium] 2 mg PO Q4H PRN 06/02/21 09:18 IS (RT) [RT Incentive Spirometry] [RC] Q1HWA 06/02/21 16:30 GLUCOSE POC LAB TO COLLECT JPM [POC] QIDACANDBED 06/02/21 21:00 GLUCOSE POC LAB TO COLLECT JPM [POC] QIDACANDBED 06/03/21 05:00 CRP [C-REACTIVE PROTEIN] [CHEM] Timed D-DIMER QUANTITATIVE [COAG] Timed 06/03/21 07:30 GLUCOSE POC LAB TO COLLECT JPM [POC] QIDACANDBED 06/03/21 11:30 GLUCOSE POC LAB TO COLLECT JPM [POC] QIDACANDBED 06/03/21 16:30 GLUCOSE POC LAB TO COLLECT JPM [POC] QIDACANDBED 06/03/21 21:00 GLUCOSE POC LAB TO COLLECT JPM [POC] QIDACANDBED 06/04/21 07:30 GLUCOSE POC LAB TO COLLECT JPM [POC] QIDACANDBED 06/04/21 11:30 GLUCOSE POC LAB TO COLLECT JPM [POC] QIDACANDBED 06/04/21 16:30 GLUCOSE POC LAB TO COLLECT JPM [POC] QIDACANDBED 06/04/21 21:00 GLUCOSE POC LAB TO COLLECT JPM [POC] QIDACANDBED 06/05/21 07:30 GLUCOSE POC LAB TO COLLECT JPM [POC] QIDACANDBED 06/05/21 11:30 GLUCOSE POC LAB TO COLLECT JPM [POC] QIDACANDBED 06/05/21 16:30 GLUCOSE POC LAB TO COLLECT JPM [POC] QIDACANDBED 06/05/21 21:00 GLUCOSE POC LAB TO COLLECT JPM [POC] QIDACANDBED 06/06/21 07:30 GLUCOSE POC LAB TO COLLECT JPM [POC] QIDACANDBED 06/06/21 11:30 GLUCOSE POC LAB TO COLLECT JPM [POC] QIDACANDBED 06/06/21 16:30 GLUCOSE POC LAB TO COLLECT JPM [POC] QIDACANDBED 06/06/21 21:00 GLUCOSE POC LAB TO COLLECT JPM [POC] QIDACANDBED 06/07/21 07:30 GLUCOSE POC LAB TO COLLECT JPM [POC] QIDACANDBED 06/07/21 11:30 GLUCOSE POC LAB TO COLLECT JPM [POC] QIDACANDBED 06/07/21 16:30 GLUCOSE POC LAB TO COLLECT JPM [POC] QIDACANDBED 06/07/21 21:00 GLUCOSE POC LAB TO COLLECT JPM [POC] QIDACANDBED - Plan Plan:: ASSESSMENT AND PLAN - COVID-19 pneumonia-complicated by acute respiratory failure with hypoxia. Symptom onset 05/05. Slowly improving. Saturations good on 3 L at rest but quite hypoxic with any activity but better each day. -Remdesivir x5 days, completed -Dexamethasone 1 mg daily (taper day 5) -Baricitinib 4 mg p.o. daily, completed -Empiric antibiotic therapy x7 days complete -Rivaroxaban -Repeat labs every 2 days -Symptomatic management of cough -Isolation precautions completed Type 2 diabetes mellitus-diet controlled. Sugars well controlled so far. -Sliding scale insulin -Monitor 4 times daily glucometers -Metformin 500 mg p.o. twice daily History of prostate cancer-stable. Maintenance issues - -DVT prophylaxis-rivaroxaban -GI prophylaxis-PPI -Nutrition-consistent carbohydrates -Lara catheter-not indicated Disposition -I anticipate discharge home after the hospital stay. He will likely need home oxygen. He continues to have significant desaturations with activity and is not ready for discharge home yet but hopefully will be in the next few days. Joe Valero MD
[2021-06-02] MEDS: Rivaroxaban 10 MG Tab PO SCH (16:38)
[2021-06-02] MEDS: Melatonin 3 MG Tab PO PRN (21:27)
[2021-06-02] MEDS: Loperamide 2 MG Cap PO PRN (22:34)
[2021-06-03] MEDS: Insulin Lispro 100 Unit/ML 3 ML KwikPen SUBCUT SCH ×4 (07:43→21:16)
[2021-06-03] MEDS: Aspirin 81 MG Tab.EC PO SCH (08:13)
[2021-06-03] MEDS: Pantoprazole 40 MG Tab.CR PO SCH (08:13)
[2021-06-03] MEDS: metFORMIN 500 MG Tab PO SCH ×2 (08:13→16:29)
[2021-06-03] MEDS: Gabapentin 100 MG Cap PO SCH ×2 (08:14→20:08)
[2021-06-03] MEDS: Dexamethasone 2 MG Tab PO SCH (08:14)
[2021-06-03] MEDS: Bacitracin Oint 28.35 GM Tube TOP SCH ×3 (08:14→20:07)
[2021-06-03] MEDS: Mometasone Furoate Nasal Spray 17 GM Canister NAS SCH ×2 (08:14→20:08)
--- NOTE | 2021-06-03 15:02 | PCM.PN ---
- General Info Date of Service: 06/03/21 Subjective Update: No acute events overnight. Patient continues to have some mucus from his sinuses but otherwise is doing well. Oxygen has been turned down to 2 L/min. His biggest concern at this point is urgent diarrhea that is responding well to Imodium. No abdominal pain or nausea. Appetite good. No significant desaturations with activity. He is hoping to go home tomorrow. Functional Status: Reports: Pain Controlled, Tolerating Diet - Review of Systems General: Denies: Fever Pulmonary: Denies: Shortness of Breath - Patient Data Vitals - Most Recent: Last Vital Signs Temp 35.9 C L 06/03/21 11:00 Pulse 95 06/03/21 11:00 Resp 16 06/03/21 11:00 BP 105/66 06/03/21 11:00 Pulse Ox 95 06/03/21 11:00 Weight - Most Recent: 93.44 kg I&O - Last 24 Hours: Intake & Output 06/03/21 06/03/21 06/03/21 06:59 14:59 22:59 Intake Total 1000 480 Output Total 300 500 Balance 700 -20 Lab Results Last 24 Hours: Laboratory Results - last 24 hr 06/02/21 06/02/21 06/03/21 Range/Units 16:20 21:06 05:00 D-Dimer, Quantitative 1558.84 H (0.0-500.0) ng/mL POC Glucose 271 H 179 H (74-106) mg/dL C-Reactive Protein (0.0-0.3) mg/dL 06/03/21 06/03/21 06/03/21 Range/Units 05:00 07:32 11:20 D-Dimer, Quantitative (0.0-500.0) ng/mL POC Glucose 84 166 H (74-106) mg/dL C-Reactive Protein 0.88 H (0.0-0.3) mg/dL Med Orders - Current: Current Medications Acetaminophen (Acetaminophen 325 Mg Tab) 650 mg PO Q4H PRN PRN Reason: Pain (Mild 1-3)/fever Last Admin: 05/23/21 21:19 Dose: 650 mg Documented by: Albuterol (Albuterol 8 Gm Inhaler) 0 gm INH Q2H PRN PRN Reason: Shortness of Breath Last Admin: 05/17/21 02:54 Dose: 2 puff Documented by: Aspirin (Aspirin 81 Mg Tab.Ec) 81 mg PO DAILY [facility] Last Admin: 06/03/21 08:13 Dose: 81 mg Documented by: Bacitracin (Bacitracin Oint 28.35 Gm Tube) 0 gm TOP TID [facility] Last Admin: 06/03/21 08:14 Dose: Not Given Documented by: Benzocaine/Menthol (Benzocaine/Cetylpyridinium/Menthol Lozenge) 1 lozenge MUCMEM Q2H PRN PRN Reason: Sore Throat Last Admin: 05/24/21 13:22 Dose: 1 blister Documented by: Benzonatate (Benzonatate 100 Mg Cap) 100 mg PO TID PRN PRN Reason: Cough Last Admin: 05/23/21 09:43 Dose: 100 mg Documented by: Dexamethasone (Dexamethasone 2 Mg Tab) 0.5 mg PO DAILY [facility] Last Admin: 06/03/21 08:14 Dose: 0.5 mg Documented by: Gabapentin (Gabapentin 100 Mg Cap) 100 mg PO BID [facility] Last Admin: 06/03/21 08:14 Dose: 100 mg Documented by: Guaifenesin/Dextromethorphan (Guaifenesin/Dextromethorphan 100-10 Mg/5 Ml Soln 10 Ml Cup) 10 ml PO Q4H PRN PRN Reason: Cough Last Admin: 05/30/21 20:59 Dose: 10 ml Documented by: Insulin Human Lispro (Insulin Lispro 100 Unit/Ml 3 Ml Kwikpen) 0 unit SUBCUT QIDACANDBED [facility]; Protocol Last Admin: 06/03/21 11:34 Dose: 2 units Documented by: Loperamide HCl (Loperamide 2 Mg Cap) 2 mg PO Q4H PRN PRN Reason: Diarrhea Last Admin: 06/02/21 22:34 Dose: 2 mg Documented by: Lorazepam (Lorazepam 2 Mg/Ml Sdv) 0.5 mg IVPUSH Q4H PRN PRN Reason: Nausea/Vomiting Last Admin: 05/16/21 04:58 Dose: 0.5 mg Documented by: Magnesium Hydroxide (Magnesium Hydroxide 400 Mg/5 Ml Susp 30 Ml Cup) 30 ml PO Q12H PRN PRN Reason: Constipation Melatonin (Melatonin 3 Mg Tab) 9 mg PO BEDTIME PRN PRN Reason: Sleep Last Admin: 06/02/21 21:27 Dose: 9 mg Documented by: Metformin HCl (Metformin 500 Mg Tab) 500 mg PO BIDMEALS [facility] Last Admin: 06/03/21 08:13 Dose: 500 mg Documented by: Mometasone Furoate (Mometasone Furoate Nasal [place] 17 Gm Canister) 0 gm SEBLE BID [facility] Last Admin: 06/03/21 08:14 Dose: 2 spray Documented by: Ondansetron HCl (Ondansetron 4 Mg/2 Ml Sdv) 4 mg IV Q6H PRN PRN Reason: Nausea/Vomiting Ondansetron HCl (Ondansetron 4 Mg Tab.Dis) 4 mg PO Q6H PRN PRN Reason: Nausea able to take PO Pantoprazole Sodium (Pantoprazole 40 Mg Tab.Cr) 40 mg PO ACBREAKFAST [facility] Last Admin: 06/03/21 08:13 Dose: 40 mg Documented by: Rivaroxaban (Rivaroxaban 10 Mg Tab) 20 mg PO WITHDINNER [facility] Last Admin: 06/02/21 16:38 Dose: 20 mg Documented by: Senna/Docusate Sodium (Docusate Sodium/Sennosides 50-8.6 Mg Tab) 1 tab PO BID PRN PRN Reason: Constipation Last Admin: 05/22/21 21:39 Dose: 1 tab Documented by: Sodium Chloride (Sodium Chloride 0.65% Nasal [place] 45 Ml Bottle) 0 ml SEBLE Q2H P RN PRN Reason: nasal congestion Last Admin: 05/26/21 21:35 Dose: 1 spray Documented by: Sodium Chloride (Aloe Vera/Sodium Chloride Gel 14.1 Gm Tube) 0 gm NASBOTH ASDIRECTED PRN PRN Reason: NASAL DRYNESS Last Admin: 05/28/21 17:15 Dose: 1 applic Documented by: Discontinued Medications Acetaminophen (Acetaminophen 325 Mg Tab) 650 mg PO Q4H PRN PRN Reason: Fever Greater Than 101 Baricitinib (Baricitinib 2 Mg Tab) 4 mg PO Q24H [facility] Stop: 05/24/21 16:01 Last Admin: 05/24/21 17:04 Dose: 4 mg Documented by: Dexamethasone (Dexamethasone 4 Mg/Ml Sdv) 6 mg IVPUSH DAILY [facility] Stop: 05/19/21 09:01 Last Admin: 05/19/21 08:23 Dose: 6 mg Documented by: Dexamethasone (Dexamethasone 2 Mg Tab) 4 mg PO DAILY [facility] Last Admin: 05/25/21 10:13 Dose: 4 mg Documented by: Dexamethasone (Dexamethasone 2 Mg Tab) 2 mg PO DAILY [facility] Last Admin: 05/28/21 08:00 Dose: 2 mg Documented by: Dexamethasone (Dexamethasone 2 Mg Tab) 1 mg PO DAILY [facility] Last Admin: 06/02/21 09:31 Dose: 1 mg Documented by: Enoxaparin Sodium (Enoxaparin 40 Mg/0.4 Ml Syringe) 40 mg SUBCUT Q24H [facility] Last Admin: 05/23/21 15:30 Dose: 40 mg Documented by: Furosemide (Furosemide 20 Mg/2 Ml Vial) 20 mg IVPUSH ONETIME ONE Stop: 05/12/21 04:21 Last Admin: 05/12/21 04:39 Dose: 20 mg Documented by: Furosemide (Furosemide 20 Mg/2 Ml Vial) 20 mg IVPUSH NOW ONE Stop: 05/14/21 09:01 Last Admin: 05/14/21 10:20 Dose: 20 mg Documented by: Furosemide (Furosemide 20 Mg/2 Ml Vial) 20 mg IVPUSH NOW ONE Stop: 05/15/21 08:31 Last Admin: 05/15/21 08:49 Dose: 20 mg Documented by: Furosemide (Furosemide 20 Mg/2 Ml Vial) 20 mg IVPUSH NOW ONE Stop: 05/16/21 08:31 Last Admin: 05/16/21 09:15 Dose: 20 mg Documented by: Furosemide (Furosemide 20 Mg/2 Ml Vial) 20 mg IVPUSH NOW ONE Stop: 05/25/21 14:01 Last Admin: 05/25/21 15:16 Dose: Not Given Documented by: Furosemide (Furosemide 40 Mg Tab) 40 mg PO ONETIME ONE Stop: 05/25/21 15:31 Last Admin: 05/25/21 15:40 Dose: 40 mg Documented by: Furosemide (Furosemide 40 Mg Tab) 40 mg PO ONETIME ONE Stop: 05/26/21 13:01 Last Admin: 05/26/21 13:48 Dose: 40 mg Documented by: Furosemide (Furosemide 40 Mg Tab) 40 mg PO ONETIME ONE Stop: 05/27/21 15:01 Last Admin: 05/27/21 15:20 Dose: 40 mg Documented by: Furosemide (Furosemide 40 Mg Tab) 40 mg PO ONETIME ONE Stop: 05/29/21 13:01 Last Admin: 05/29/21 13:09 Dose: 40 mg Documented by: Remdesivir 200 mg/ Sodium (Chloride) 250 mls @ 250 mls/hr IV ONETIME ONE Stop: 05/10/21 12:59 Last Admin: 05/10/21 12:26 Dose: 250 mls/hr Documented by: Remdesivir 100 mg/ Sodium (Chloride) 100 mls @ 100 mls/hr IV Q24H [facility] Stop: 05/14/21 12:59 Last Admin: 05/14/21 11:10 Dose: 100 mls/hr Documented by: Ceftriaxone Sodium 1 gm/ (Sodium Chloride) 50 mls @ 100 mls/hr IV Q24H [facility] Stop: 05/20/21 14:00 Last Admin: 05/20/21 11:50 Dose: 100 mls/hr Documented by: Doxycycline Hyclate 100 mg/ (Sodium Chloride) 100 mls @ 100 mls/hr IV Q12H [facility] Stop: 05/21/21 04:00 Last Admin: 05/21/21 00:02 Dose: 100 mls/hr Documented by: Insulin Human Lispro (Insulin Lispro 100 Unit/Ml 3 Ml Kwikpen) 0 unit SUBCUT QIDACANDBED [facility]; Protocol Last Admin: 05/11/21 16:56 Dose: 8 units Documented by: Potassium Chloride (Potassium Chloride 20 Meq Tab.Er) 40 meq PO ONETIME ONE Stop: 05/14/21 09:01 Last Admin: 05/14/21 10:20 Dose: 40 meq Documented by: - Exam Quality Assessment: Supplemental Oxygen General: Alert, Oriented, Cooperative, No Acute Distress Lungs: Normal Respiratory Effort. No: Wheezing GI/Abdominal Exam: Soft, No Distention Extremities: No Pedal Edema Skin: Warm, Dry Psy/Mental Status: Alert, Normal Affect - Patient Data Lab Results Last 24 hrs: Laboratory Results - last 24 hr 06/02/21 06/02/21 06/03/21 Range/Units 16:20 21:06 05:00 D-Dimer, Quantitative 1558.84 H (0.0-500.0) ng/mL POC Glucose 271 H 179 H (74-106) mg/dL C-Reactive Protein (0.0-0.3) mg/dL 06/03/21 06/03/21 06/03/21 Range/Units 05:00 07:32 11:20 D-Dimer, Quantitative (0.0-500.0) ng/mL POC Glucose 84 166 H (74-106) mg/dL C-Reactive Protein 0.88 H (0.0-0.3) mg/dL Result Diagrams: 05/31/21 04:30 05/31/21 04:30 Sepsis Event Note - Evaluation Sepsis Screening Result: No Definite Risk - Focused Exam Vital Signs: Vital Signs Temp Pulse Resp BP Pulse Ox 06/03/21 11:00 35.9 C L 95 16 105/66 95 06/03/21 07:59 35.9 C L 86 18 108/67 95 06/03/21 03:15 76 95 - Problem List & Annotations (1) Pneumonia due to COVID-19 virus SNOMED Code(s): 863350023451962070 Code(s): U07.1 - COVID-19; J12.82 - PNEUMONIA DUE TO CORONAVIRUS DISEASE 2018 Status: Acute Priority: High Current Visit: Yes (2) Respiratory failure with hypoxia SNOMED Code(s): 61841532210917327 Code(s): J96.91 - RESPIRATORY FAILURE, UNSPECIFIED WITH HYPOXIA Status: Acute Priority: High Current Visit: Yes Qualifiers: Chronicity: acute Qualified Code(s): J96.01 - Acute respiratory failure with hypoxia (3) DM II (diabetes mellitus, type II), controlled SNOMED Code(s): 23885680, 305172742 Code(s): E11.9 - TYPE 2 DIABETES MELLITUS WITHOUT COMPLICATIONS Status: Chronic Current Visit: Yes Qualifiers: Diabetes mellitus solutions manager insulin use: without solutions manager use Diabetes mellitus complication status: without complication Qualified Code(s): E11.9 - Type 2 diabetes mellitus without complications (4) History of prostate cancer SNOMED Code(s): 159346940 Code(s): Z85.46 - PERSONAL HISTORY OF MALIGNANT NEOPLASM OF PROSTATE Status: Chronic Current Visit: Yes - Problem List Review Problem List Initiated/Reviewed/Updated: Yes - My Orders Last 24 Hours: My Active Orders 06/03/21 09:00 dexAMETHasone 0.5 mg PO DAILY 06/03/21 13:23 Evaluate for Home Oxygen [RT Evaluate for Home Oxygen] [RC] Click to Edit 06/03/21 16:30 GLUCOSE POC LAB TO COLLECT JPM [POC] QIDACANDBED 06/03/21 21:00 GLUCOSE POC LAB TO COLLECT JPM [POC] QIDACANDBED 06/04/21 07:30 GLUCOSE POC LAB TO COLLECT JPM [POC] QIDACANDBED 06/04/21 11:30 GLUCOSE POC LAB TO COLLECT JPM [POC] QIDACANDBED 06/04/21 16:30 GLUCOSE POC LAB TO COLLECT JPM [POC] QIDACANDBED 06/04/21 21:00 GLUCOSE POC LAB TO COLLECT JPM [POC] QIDACANDBED 06/05/21 07:30 GLUCOSE POC LAB TO COLLECT JPM [POC] QIDACANDBED 06/05/21 11:30 GLUCOSE POC LAB TO COLLECT JPM [POC] QIDACANDBED 06/05/21 16:30 GLUCOSE POC LAB TO COLLECT JPM [POC] QIDACANDBED 06/05/21 21:00 GLUCOSE POC LAB TO COLLECT JPM [POC] QIDACANDBED 06/06/21 07:30 GLUCOSE POC LAB TO COLLECT JPM [POC] QIDACANDBED 06/06/21 11:30 GLUCOSE POC LAB TO COLLECT JPM [POC] QIDACANDBED 06/06/21 16:30 GLUCOSE POC LAB TO COLLECT JPM [POC] QIDACANDBED 06/06/21 21:00 GLUCOSE POC LAB TO COLLECT JPM [POC] QIDACANDBED 06/07/21 07:30 GLUCOSE POC LAB TO COLLECT JPM [POC] QIDACANDBED 06/07/21 11:30 GLUCOSE POC LAB TO COLLECT JPM [POC] QIDACANDBED 06/07/21 16:30 GLUCOSE POC LAB TO COLLECT JPM [POC] QIDACANDBED 06/07/21 21:00 GLUCOSE POC LAB TO COLLECT JPM [POC] QIDACANDBED - Plan Plan:: ASSESSMENT AND PLAN - COVID-19 pneumonia-complicated by acute respiratory failure with hypoxia. Symptom onset 05/05. Slowly improving. Saturations have improved with less supplemental oxygen requirement and he is currently down to 2 L. -Remdesivir x5 days, completed -Dexamethasone 1 mg daily (taper day 6) -Baricitinib 4 mg p.o. daily, completed -Empiric antibiotic therapy x7 days complete -Rivaroxaban -Repeat labs every 2 days -Symptomatic management of cough -Isolation precautions completed Type 2 diabetes mellitus-diet controlled. Sugars well controlled so far. -Sliding scale insulin -Monitor 4 times daily glucometers -Metformin 500 mg p.o. twice daily History of prostate cancer-stable. Maintenance issues - -DVT prophylaxis-rivaroxaban -GI prophylaxis-PPI -Nutrition-consistent carbohydrates -Lara catheter-not indicated Disposition -I anticipate discharge home after the hospital stay. He will likely need home oxygen. He should be ready for discharge tomorrow if there is no issues overnight. Joe Valero MD
[2021-06-03] MEDS: Rivaroxaban 10 MG Tab PO SCH (16:32)
[2021-06-03] MEDS: Melatonin 3 MG Tab PO PRN (22:12)
[2021-06-04] MEDS: metFORMIN 500 MG Tab PO SCH (07:37)
[2021-06-04] MEDS: Pantoprazole 40 MG Tab.CR PO SCH (07:37)
[2021-06-04] MEDS: Insulin Lispro 100 Unit/ML 3 ML KwikPen SUBCUT SCH ×2 (07:38→11:47)
[2021-06-04] MEDS: Bacitracin Oint 28.35 GM Tube TOP SCH (10:08)
[2021-06-04] MEDS: Aspirin 81 MG Tab.EC PO SCH (10:08)
[2021-06-04] MEDS: Dexamethasone 2 MG Tab PO SCH (10:08)
[2021-06-04] MEDS: Mometasone Furoate Nasal Spray 17 GM Canister NAS SCH (10:08)
[2021-06-04] MEDS: Gabapentin 100 MG Cap PO SCH (10:09)
--- NOTE | 2021-06-04 11:51 | PCM.DCSUM1 ---
Discharge Summary - Hospital Course Brief History: 71-year-old male with history of type 2 diabetes mellitus and obesity who presented with increasing cough, shortness of breath and weakness. He was admitted for management of COVID-19 pneumonia with acute respiratory failure and hypoxia. Diagnosis: Stroke: No - Discharge Data Discharge Date: 06/04/21 Discharge Disposition: Home, W Home Health Agency 06 Condition: Good - Referral to Home Health Date of Face to Face Encounter: 06/04/21 Reason for Homebound Status: weakness after covid pneumonia and long hospital stay Primary Care Physician: PCP None Skilled Need: PT - Discharge Diagnosis/Problem(s) (1) Pneumonia due to COVID-19 virus SNOMED Code(s): 223797004286880166 ICD Code: U07.1 - COVID-19; J12.82 - PNEUMONIA DUE TO CORONAVIRUS DISEASE 2018 Status: Acute Priority: High (2) Respiratory failure with hypoxia SNOMED Code(s): 86191740947701058 ICD Code: J96.91 - RESPIRATORY FAILURE, UNSPECIFIED WITH HYPOXIA Status: Acute Priority: High Qualifiers: Chronicity: acute Qualified Code(s): J96.01 - Acute respiratory failure with hypoxia (3) DM II (diabetes mellitus, type II), controlled SNOMED Code(s): 96312966, 841592911 ICD Code: E11.9 - TYPE 2 DIABETES MELLITUS WITHOUT COMPLICATIONS Status: Chronic Qualifiers: Diabetes mellitus fci insulin use: without terminal make up operator use Diabetes mellitus complication status: without complication Qualified Code(s): E11.9 - Type 2 diabetes mellitus without complications (4) History of prostate cancer SNOMED Code(s): 337868845 ICD Code: Z85.46 - PERSONAL HISTORY OF MALIGNANT NEOPLASM OF PROSTATE Status: Chronic - Patient Summary/Data Consults: Consultations 05/23/21 12:18 PT Evaluation and Treatment [CONS] Routine Please Evaluate and Treat. PT Reason for Consult: Strengthening This query below is only for informational purposes and is not editable. Admission Diagnosis/Problem: Pneumonia Hospital Course: Hussain presented to the emergency room with increasing cough, shortness of breath and fatigue. Work-up in the emergency room suggested COVID-19 pneumonia complicated by acute respiratory failure with hypoxia. He was started on dexamethasone and remdesivir and admitted to the hospital for further management. Over the next couple of days he had an increase in his supplemental oxygen requirements. He was started on baricitinib in addition to the dexamethasone and remdesivir. He was also started on empiric antibiotics with ceftriaxone and doxycycline. He was transferred to the intensive care unit for more aggressive management including heated/high flow supplemental oxygen. He remained in the intensive care unit for several days receiving the heated/high flow oxygen. He did occasionally require a nonrebreather mask over the top of his heated/high flow oxygen to maintain adequate saturations. Fortunately he did not deteriorate to the point that he needed intubation and mechanical ventilation. Eventually we did start to see improvements in his inflammatory markers and then his clinical condition. He was transferred out of the intensive care unit. He did require heated/high flow oxygen for quite some time but eventually we were able to wean this down to a regular high flow nasal cannula and then further to a regular nasal cannula. He has been working with physical therapy to improve his strength and endurance. He remained hospitalized for an extended period of time because even once his supplemental oxygen requirements were decreased to that 3 to 4 L range he continued to have severe desaturations with any activity. Eventually this did improve and his activity desaturations resolved. He is now able to maintain both at rest and activity with a simple nasal cannula. He has completed treatment with both remdesivir and baricitinib. He has had a steroid taper completed as well. He feels well. His diabetes has been well controlled. He feels well enough to go home at this point. I believe he is safe for hospital discharge. He will be going home with home oxygen and home care. He will be on rivaroxaban for 1 month after the hospital discharge. He has early follow-up scheduled. - Patient Instructions Diet: Diabetic Diet Activity: As Tolerated Showering/Bathing: May Shower Other/Special Instructions: 1. You were in the hospital for management of pneumonia caused by COVID-19. Your condition has been improving with therapies provided here in the hospital as well as supplemental oxygen. You have completed adequate therapy with steroids as well as a variety of other medications to treat COVID19. You do continue to require supplemental oxygen and I recommend that you use 2 L/min and potentially up to 3 or 4 L/min when you're active. You may wean this amount down as you are able based on pulse oximetry numbers after hospital discharge. Because of the significant risk of blood clots related to this viral infection I recommend that you take rivaroxaban (Xarelto) 20 mg daily at suppertime for 1 month. 2. I have placed a referral to home health care. They will provide physical therapy services to help ease your transition home a fter the hospital stay. 3. Continue your other medications as previously prescribed. 4. Follow up with your primary care provider in 1 to 2 weeks or sooner if symptoms do not continue to get better or if they get worse. - Discharge Plan *PRESCRIPTION DRUG MONITORING PROGRAM REVIEWED*: Not Applicable *COPY OF PRESCRIPTION DRUG MONITORING REPORT IN PATIENT TAPAN: Not Applicable Prescriptions/Med Rec: metFORMIN [Glucophage] 500 mg PO BIDMEALS #60 tablet Rivaroxaban [Xarelto] 20 mg PO QPM #30 tablet Home Medications: Home Meds Aspirin [Halfprin] 81 mg PO DAILY 05/10/21 [History] Gabapentin [Neurontin] 100 mg PO BID 05/10/21 [History] Rivaroxaban [Xarelto] 20 mg PO QPM #30 tablet 06/04/21 [Rx] metFORMIN [Glucophage] 500 mg PO BIDMEALS #60 tablet 06/04/21 [Rx] Oxygen Therapy Mode: Nasal Cannula (2) Patient Handouts: Hypoxia, Fall Prevention in the Home, Adult, [id number], COVID-19, Rivaroxaban oral tablets Referrals: Jm Barakat MD [Physician] - 06/11/21 11:20 am (Please arrive 15 minutes early to register for your appointment.) - Discharge Summary/Plan Comment DC Time >30 min.: Yes Total # of Minutes for Discharge Time: 45 - extensive counseling after long covid admission - Patient Data Vitals - Most Recent: Last Vital Signs Temp 36.0 C L 06/04/21 07:33 Pulse 90 06/04/21 07:33 Resp 18 06/04/21 07:33 BP 96/69 06/04/21 07:33 Pulse Ox 94 L 06/04/21 07:33 Weight - Most Recent: 93.44 kg I&O - Last 24 hours: Intake & Output 06/03/21 06/04/21 06/04/21 22:59 06:59 14:59 Intake Total 450 200 Output Total 200 200 Balance 250 0 Lab Results - Last 24 hrs: Laboratory Results - last 24 hr 06/03/21 06/03/21 06/04/21 Range/Units 16:24 21:10 07:25 POC Glucose 199 H 190 H 94 (74-106) mg/dL 06/04/21 Range/Units 11:17 POC Glucose 181 H (74-106) mg/dL Med Orders - Current: Current Medications Acetaminophen (Acetaminophen 325 Mg Tab) 650 mg PO Q4H PRN PRN Reason: Pain (Mild 1-3)/fever Last Admin: 05/23/21 21:19 Dose: 650 mg Documented by: Albuterol (Albuterol 8 Gm Inhaler) 0 gm INH Q2H PRN PRN Reason: Shortness of Breath Last Admin: 05/17/21 02:54 Dose: 2 puff Documented by: Aspirin (Aspirin 81 Mg Tab.Ec) 81 mg PO DAILY [facility] Last Admin: 06/04/21 10:08 Dose: 81 mg Documented by: Bacitracin (Bacitracin Oint 28.35 Gm Tube) 0 gm TOP TID [facility] Last Admin: 06/04/21 10:08 Dose: Not Given Documented by: Benzocaine/Menthol (Benzocaine/Cetylpyridinium/Menthol Lozenge) 1 lozenge MUCMEM Q2H PRN PRN Reason: Sore Throat Last Admin: 05/24/21 13:22 Dose: 1 blister Documented by: Benzonatate (Benzonatate 100 Mg Cap) 100 mg PO TID PRN PRN Reason: Cough Last Admin: 05/23/21 09:43 Dose: 100 mg Documented by: Dexamethasone (Dexamethasone 2 Mg Tab) 0.5 mg PO DAILY [facility] Last Admin: 06/04/21 10:08 Dose: 0.5 mg Documented by: Gabapentin (Gabapentin 100 Mg Cap) 100 mg PO BID [facility] Last Admin: 06/04/21 10:09 Dose: 100 mg Documented by: Guaifenesin/Dextromethorphan (Guaifenesin/Dextromethorphan 100-10 Mg/5 Ml Soln 10 Ml Cup) 10 ml PO Q4H PRN PRN Reason: Cough Last Admin: 05/30/21 20:59 Dose: 10 ml Documented by: Insulin Human Lispro (Insulin Lispro 100 Unit/Ml 3 Ml Kwikpen) 0 unit SUBCUT QIDACANDBED [facility]; Protocol Last Admin: 06/04/21 07:38 Dose: Not Given Documented by: Loperamide HCl (Loperamide 2 Mg Cap) 2 mg PO Q4H PRN PRN Reason: Diarrhea Last Admin: 06/02/21 22:34 Dose: 2 mg Documented by: Lorazepam (Lorazepam 2 Mg/Ml Sdv) 0.5 mg IVPUSH Q4H PRN PRN Reason: Nausea/Vomiting Last Admin: 05/16/21 04:58 Dose: 0.5 mg Documented by: Magnesium Hydroxide (Magnesium Hydroxide 400 Mg/5 Ml Susp 30 Ml Cup) 30 ml PO Q12H PRN PRN Reason: Constipation Melatonin (Melatonin 3 Mg Tab) 9 mg PO BEDTIME PRN PRN Reason: Sleep Last Admin: 06/03/21 22:12 Dose: 9 mg Documented by: Metformin HCl (Metformin 500 Mg Tab) 500 mg PO BIDMEALS [facility] Last Admin: 06/04/21 07:37 Dose: 500 mg Documented by: Mometasone Furoate (Mometasone Furoate Nasal [place] 17 Gm Canister) 0 gm SEBLE BID [facility] Last Admin: 06/04/21 10:08 Dose: 2 spray Documented by: Ondansetron HCl (Ondansetron 4 Mg/2 Ml Sdv) 4 mg IV Q6H PRN PRN Reason: Nausea/Vomiting Ondansetron HCl (Ondansetron 4 Mg Tab.Dis) 4 mg PO Q6H PRN PRN Reason: Nausea able to take PO Pantoprazole Sodium (Pantoprazole 40 Mg Tab.Cr) 40 mg PO ACBREAKFAST [facility] Last Admin: 06/04/21 07:37 Dose: 40 mg Documented by: Rivaroxaban (Rivaroxaban 10 Mg Tab) 20 mg PO WITHDINNER [facility] Last Admin: 06/03/21 16:32 Dose: 20 mg Documented by: Senna/Docusate Sodium (Docusate Sodium/Sennosides 50-8.6 Mg Tab) 1 tab PO BID PRN PRN Reason: Constipation Last Admin: 05/22/21 21:39 Dose: 1 tab Documented by: Sodium Chloride (Sodium Chloride 0.65% Nasal [place] 45 Ml Bottle) 0 ml SEBLE Q2H PRN PRN Reason: nasal congestion Last Admin: 05/26/21 21:35 Dose: 1 spray Documented by: Sodium Chloride (Aloe Vera/Sodium Chloride Gel 14.1 Gm Tube) 0 gm NASBOTH ASDIRECTED PRN PRN Reason: NASAL DRYNESS Last Admin: 05/28/21 17:15 Dose: 1 applic Documented by: Discontinued Medications Acetaminophen (Acetaminophen 325 Mg Tab) 650 mg PO Q4H PRN PRN Reason: Fever Greater Than 101 Baricitinib (Baricitinib 2 Mg Tab) 4 mg PO Q24H [facility] Stop: 05/24/21 16:01 Last Admin: 05/24/21 17:04 Dose: 4 mg Documented by: Dexamethasone (Dexamethasone 4 Mg/Ml Sdv) 6 mg IVPUSH DAILY [facility] Stop: 05/19/21 09:01 Last Admin: 05/19/21 08:23 Dose: 6 mg Documented by: Dexamethasone (Dexamethasone 2 Mg Tab) 4 mg PO DAILY [facility] Last Admin: 05/25/21 10:13 Dose: 4 mg Documented by: Dexamethasone (Dexamethasone 2 Mg Tab) 2 mg PO DAILY [facility] Last Admin: 05/28/21 08:00 Dose: 2 mg Documented by: Dexamethasone (Dexamethasone 2 Mg Tab) 1 mg PO DAILY [facility] Last Admin: 06/02/21 09:31 Dose: 1 mg Documented by: Enoxaparin Sodium (Enoxaparin 40 Mg/0.4 Ml Syringe) 40 mg SUBCUT Q24H [facility] Last Admin: 05/23/21 15:30 Dose: 40 mg Documented by: Furosemide (Furosemide 20 Mg/2 Ml Vial) 20 mg IVPUSH ONETIME ONE Stop: 05/12/21 04:21 Last Admin: 05/12/21 04:39 Dose: 20 mg Documented by: Furosemide (Furosemide 20 Mg/2 Ml Vial) 20 mg IVPUSH NOW ONE Stop: 05/14/21 09:01 Last Admin: 05/14/21 10:20 Dose: 20 mg Documented by: Furosemide (Furosemide 20 Mg/2 Ml Vial) 20 mg IVPUSH NOW ONE Stop: 05/15/21 08:31 Last Admin: 05/15/21 08:49 Dose: 20 mg Documented by: Furosemide (Furosemide 20 Mg/2 Ml Vial) 20 mg IVPUSH NOW ONE Stop: 05/16/21 08:31 Last Admin: 05/16/21 09:15 Dose: 20 mg Documented by: Furosemide (Furosemide 20 Mg/2 Ml Vial) 20 mg IVPUSH NOW ONE Stop: 05/25/21 14:01 Last Admin: 05/25/21 15:16 Dose: Not Given Documented by: Furosemide (Furosemide 40 Mg Tab) 40 mg PO ONETIME ONE Stop: 05/25/21 15:31 Last Admin: 05/25/21 15:40 Dose: 40 mg Documented by: Furosemide (Furosemide 40 Mg Tab) 40 mg PO ONETIME ONE Stop: 05/26/21 13:01 Last Admin: 05/26/21 13:48 Dose: 40 mg Documented by: Furosemide (Furosemide 40 Mg Tab) 40 mg PO ONETIME ONE Stop: 05/27/21 15:01 Last Admin: 05/27/21 15:20 Dose: 40 mg Documented by: Furosemide (Furosemide 40 Mg Tab) 40 mg PO ONETIME ONE Stop: 05/29/21 13:01 Last Admin: 05/29/21 13:09 Dose: 40 mg Documented by: Remdesivir 200 mg/ Sodium (Chloride) 250 mls @ 250 mls/hr IV ONETIME ONE Stop: 05/10/21 12:59 Last Admin: 05/10/21 12:26 Dose: 250 mls/hr Documented by: Remdesivir 100 mg/ Sodium (Chloride) 100 mls @ 100 mls/hr IV Q24H [facility] Stop: 05/14/21 12:59 Last Admin: 05/14/21 11:10 Dose: 100 mls/hr Documented by: Ceftriaxone Sodium 1 gm/ (Sodium Chloride) 50 mls @ 100 mls/hr IV Q24H [facility] Stop: 05/20/21 14:00 Last Admin: 05/20/21 11:50 Dose: 100 mls/hr Documented by: Doxycycline Hyclate 100 mg/ (Sodium Chloride) 100 mls @ 100 mls/hr IV Q12H [facility] Stop: 05/21/21 04:00 Last Admin: 05/21/21 00:02 Dose: 100 mls/hr Documented by: Insulin Human Lispro (Insulin Lispro 100 Unit/Ml 3 Ml Kwikpen) 0 unit SUBCUT QIDACANDBED [facility]; Protocol Last Admin: 05/11/21 16:56 Dose: 8 units Documented by: Potassium Chloride (Potassium Chloride 20 Meq Tab.Er) 40 meq PO ONETIME ONE Stop: 05/14/21 09:01 Last Admin: 05/14/21 10:20 Dose: 40 meq Documented by:
== END 2021-06-04 13:00 | disposition home health service (06) | DRG 177 ==
LOC: JP.ED 09:40 → JP.2SS 12:55 → JP.MS 05-12 09:23 → JP.2SS 05-21 12:49 → JP.MS 05-25 14:59
PROVIDERS: ADMIT Internal Medicine; ATTEND Internal Medicine
PROC: XW033E5 Introduction of Remdesivir Anti-infective into Peripheral Vein, Percutaneous Approach, New Technology Group 5 (ICD-10-PCS; principal; 2021-05-10)
PROC: 3E0333Z Introduction of Anti-inflammatory into Peripheral Vein, Percutaneous Approach (ICD-10-PCS; 2021-05-10)
PROC: 8E0ZXY6 Isolation (ICD-10-PCS; 2021-05-10)
PROC: 5A0955A Assistance with Respiratory Ventilation, Greater than 96 Consecutive Hours, High Flow/Velocity Cannula (ICD-10-PCS; 2021-05-10)
PROC: 3E0DX3Z Introduction of Anti-inflammatory into Mouth and Pharynx, External Approach (ICD-10-PCS; 2021-05-19)
PROC: XW0DXM6 Introduction of Baricitinib into Mouth and Pharynx, External Approach, New Technology Group 6 (ICD-10-PCS; 2021-05-24)
DX: U07.1 COVID-19 (principal); J12.82 Pneumonia due to coronavirus disease 2019; J96.91 Respiratory failure, unspecified with hypoxia; J96.01 Acute respiratory failure with hypoxia; E11.9 Type 2 diabetes mellitus without complications; E66.9 Obesity, unspecified; E11.42 Type 2 diabetes mellitus with diabetic polyneuropathy; Z85.46 Personal history of malignant neoplasm of prostate; Z79.82 Long term (current) use of aspirin; Z79.01 Long term (current) use of anticoagulants; Z79.899 Other long term (current) drug therapy; Z88.8 Allergy status to other drugs, medicaments and biological substances; Z86.19 Personal history of other infectious and parasitic diseases; Z86.16 Personal history of COVID-19; Z90.89 Acquired absence of other organs; Z87.891 Personal history of nicotine dependence; R19.7 Diarrhea, unspecified; Z68.35 Body mass index [BMI] 35.0-35.9, adult
CPT/HCPCS: 36415; 36600; 71045 ×2; 80053; 82728; 82803; 83605; 83615; 84145; 85025; 85379; 86140; 96365; 99285 ×2; J1100; J7050; 80048; 82607; 82947; 83036; 85027; 94640; 94762; 97110-GP; 97161-GP; 97530-GP; 97535-GP; 99222; 99232; A9270-GY; J0696; J1650; J1815; J1940; J2060; J3490; J8540

== ENCOUNTER 2022-11-14 11:24 | Emergency (ER) | payer MEDICARE, OTHER | END 2022-11-14 15:55 | disposition home or self-care (01) | LOC: JP.ED 11:24 | DX: S30.861A Insect bite (nonvenomous) of abdominal wall, initial encounter (principal); L29.3 Anogenital pruritus, unspecified; T49.0X5A Adverse effect of local antifungal, anti-infective and anti-inflammatory drugs, initial encounter; E11.40 Type 2 diabetes mellitus with diabetic neuropathy, unspecified; Z79.84 Long term (current) use of oral hypoglycemic drugs; Z79.01 Long term (current) use of anticoagulants; W57.XXXA Bitten or stung by nonvenomous insect and other nonvenomous arthropods, initial encounter | CPT/HCPCS: 99281 ==